=== PATIENT | female | born 1940 | race Caucasian/White ===

== ENCOUNTER → 2016-07-12 | Outpatient (CLI) | payer MEDICARE, OTHER ==
[~2016-07-12] MED LIST: ACID1TAB PO; ALPR0.254 PO; AMAN100T PO; CALC600T12 PO; CARB1TAB19 PO; CHOL5000 PO; DIPH1TAB49 PO; DIPH25CA6 PO; DIPH25TA82 PO; FERR-74 PO; FLUC100T PO; HYDR-3583 PO; IBUP-30 PO; IOHEXOL 350 MG/ML 100 ML (OMNIPAQUE 350) VIAL IV ONE; IRON1TAB94 PO; METO50TA2 PO; NF-ESOM40C PO; NS 100 ML (IVPB) BAG IV ONE; OMEG-109 PO; OMEG-12 PO; OXYB5TAB PO; OXYB5TAB9 PO; POLY17PO23 PO; SENN-75 PO; TERC45CR VG; TIOT18CA IH; TIOT18CA2 IH; TRAM50TA2 PO; VIT1TABL57 PO; ZOLP5TAB PO; ZOLP5TAB7 PO; [UNRECOGNIZED DRUG - CODE] PO; [UNRECOGNIZED DRUG - OTHER] PO
[2016-07-12 15:35] LABS: BLOOD UREA NITROGEN 21 MG/DL (7-18); BUN/CREATININE RATIO 25; CREATININE SERUM 0.85 MG/DL (0.60-1.30); GFR ESTIMATED > 60
--- NOTE | 2016-07-12 16:38 | Diagnostic Imaging Report ---
PROCEDURE: CT abdomen and pelvis with contrast. TECHNIQUE: Multiple contiguous axial images were obtained through the abdomen and pelvis after administration of intravenous contrast. INDICATION: Right lower quadrant pain. Status post appendectomy and hernia repair. 100 mL of Omnipaque 350 is administered intravenously. COMPARISON: 03/23/16 FINDINGS: The proximal small bowel loops are minimally distended with fluid and small air-fluid levels seen. There is transition point in the right lower quadrant to decompressed ileal loops. There is moderate amount of fecal material in the colon and rectum. There is diverticulosis. No diverticulitis. There is no significant free fluid or fluid collection in the abdomen or pelvis seen. There is a moderate-sized hiatal hernia. The lung bases demonstrate minimal scarring. The liver, the spleen, the adrenal glands, and the pancreas appear unremarkable. Cholecystectomy clips are seen. The kidneys have symmetric enhancement and contrast excretion. There is no hydronephrosis. The abdominal aorta is normal in caliber. No para-aortic significantly enlarged lymph nodes seen. The uterus and adnexa appear grossly unremarkable. The urinary bladder appears unremarkable. The osseous structures demonstrate prominent scoliosis convex to the left in the upper lumbar spine. IMPRESSION: 1. Mild fluid distention of proximal small bowel loops with transition into decompressed ileal loops in the right lower quadrant may relate to a low-grade partial small bowel obstruction or enteritis. 2. Diverticulosis. No diverticulitis. 3. There is moderate-sized hiatal hernia. Dr. Roberts is was called and given the findings by Dr. Flores at time of dictation. Dictated by: Dictated on workstation # [id number]
== END ==
LOC: RAD 15:06
PROVIDERS: ATTEND Nurse Practitioner Family
DX: R10.31 Right lower quadrant pain (principal)
CPT/HCPCS: 36415; 74177; 82565; 84520

== ENCOUNTER 2016-08-02 14:41 | Outpatient (RCR) | payer MEDICARE, OTHER ==
[~2016-08-02 14:41] MED LIST changes: -IOHEXOL 350 MG/ML 100 ML (OMNIPAQUE 350) VIAL IV ONE; -NS 100 ML (IVPB) BAG IV ONE
[2016-08-02 15:03] LABS: BASOPHILS % (AUTO) 0 % (0-10); EOSINOPHILS # (AUTO) 0.3 10^3/uL (0.0-0.3); EOSINOPHILS % (AUTO) 4 % (0-10); LYMPHOCYTES # (AUTO) 2.3 X 10^3 (1.0-4.0); LYMPHOCYTES % (AUTO) 33 % (12-44); MEAN CORPUSCULAR HEMOGLOBIN 30 PG (25-34); MEAN CORPUSCULAR HGB CONC 31 G/DL (32-36); MEAN CORPUSCULAR VOLUME 97 FL (80-99); MEAN PLATELET VOLUME 8.4 FL (7.4-10.4); MONOCYTES # (AUTO) 0.8 X 10^3 (0.0-1.0); MONOCYTES % (AUTO) 11 % (0-12); NEUTROPHILS # (AUTO) 3.7 X 10^3 (1.8-7.8); NEUTROPHILS % (AUTO) 52 % (42-75); PLATELET COUNT 335 10^3/uL (130-400); RED BLOOD COUNT 3.91 10^6/uL (4.35-5.85); RED CELL DISTRIBUTION WIDTH 13.1 % (10.0-14.5)
[2016-08-02 15:44] LABS: ALANINE AMINOTRANSFERASE < 6 U/L (0-55); ALBUMIN 3.5 G/DL (3.2-4.5); ANION GAP 9 MMOL/L (5-14); ASPARTATE AMINO TRANSFERASE 13 U/L (5-34); BILIRUBIN,TOTAL 0.1 MG/DL (0.1-1.0); BLOOD UREA NITROGEN 19 MG/DL (7-18); BUN/CREATININE RATIO 24; CALCIUM 10.2 MG/DL (8.5-10.1); CARBON DIOXIDE 36 MMOL/L (21-32); CHLORIDE 98 MMOL/L (98-107); CREATININE SERUM 0.78 MG/DL (0.60-1.30); GFR ESTIMATED > 60; GLUCOSE 82 MG/DL (70-105); POTASSIUM 5.6 MMOL/L (3.6-5.0); SODIUM 143 MMOL/L (135-145); TOTAL PROTEIN 7.2 G/DL (6.4-8.2)
== END 2016-10-31 | disposition home or self-care (01) ==
LOC: ONC 14:41
PROVIDERS: ATTEND Internal Medicine Hematology & Oncology
DX: D50.9 Iron deficiency anemia, unspecified (principal); I10 Essential (primary) hypertension; J44.9 Chronic obstructive pulmonary disease, unspecified; E87.5 Hyperkalemia; K21.9 Gastro-esophageal reflux disease without esophagitis; Z99.81 Dependence on supplemental oxygen; Z87.891 Personal history of nicotine dependence; Z79.899 Other long term (current) drug therapy
CPT/HCPCS: 36415; 80053; 82728; 83540; 85025; 99213

== ENCOUNTER 2016-12-21 11:03 | Outpatient (RCR) | payer MEDICARE, OTHER ==
[~2016-12-21 11:03] MED LIST changes: +CEFD300C3 PO; +FISH1CAP15 PO; +TRUBIOTIC PO
[2016-12-21 11:17] LABS: BASOPHILS % (AUTO) 0 % (0-10); EOSINOPHILS # (AUTO) 0.2 10^3/uL (0.0-0.3); EOSINOPHILS % (AUTO) 2 % (0-10); LYMPHOCYTES # (AUTO) 1.6 X 10^3 (1.0-4.0); LYMPHOCYTES % (AUTO) 21 % (12-44); MEAN CORPUSCULAR HEMOGLOBIN 30 PG (25-34); MEAN CORPUSCULAR HGB CONC 30 G/DL (32-36); MEAN CORPUSCULAR VOLUME 98 FL (80-99); MEAN PLATELET VOLUME 9.4 FL (7.4-10.4); MONOCYTES # (AUTO) 0.6 X 10^3 (0.0-1.0); MONOCYTES % (AUTO) 9 % (0-12); NEUTROPHILS # (AUTO) 4.9 X 10^3 (1.8-7.8); NEUTROPHILS % (AUTO) 68 % (42-75); PLATELET COUNT 238 10^3/uL (130-400); RED BLOOD COUNT 4.08 10^6/uL (4.35-5.85); WHITE BLOOD COUNT 7.3 10^3/uL (4.3-11.0)
[2016-12-21 12:01] LABS: ALANINE AMINOTRANSFERASE < 6 U/L (0-55); ALBUMIN 3.7 GM/DL (3.2-4.5); ANION GAP 3 MMOL/L (5-14); ASPARTATE AMINO TRANSFERASE 10 U/L (5-34); BILIRUBIN,TOTAL 0.3 MG/DL (0.1-1.0); BLOOD UREA NITROGEN 16 MG/DL (7-18); BUN/CREATININE RATIO 18; CALCIUM 9.3 MG/DL (8.5-10.1); CARBON DIOXIDE 38 MMOL/L (21-32); CHLORIDE 102 MMOL/L (98-107); CREATININE SERUM 0.87 MG/DL (0.60-1.30); GFR ESTIMATED > 60; GLUCOSE 96 MG/DL (70-105); POTASSIUM 4.5 MMOL/L (3.6-5.0); SODIUM 143 MMOL/L (135-145); TOTAL PROTEIN 7.2 GM/DL (6.4-8.2)
== END 2017-03-03 | disposition home or self-care (01) ==
LOC: ONC 11:03
PROVIDERS: ATTEND Internal Medicine Hematology & Oncology
DX: D50.9 Iron deficiency anemia, unspecified (principal); I10 Essential (primary) hypertension; J44.9 Chronic obstructive pulmonary disease, unspecified; K21.9 Gastro-esophageal reflux disease without esophagitis; Z99.81 Dependence on supplemental oxygen; Z87.891 Personal history of nicotine dependence; Z87.440 Personal history of urinary (tract) infections; Z79.899 Other long term (current) drug therapy
CPT/HCPCS: 36415; 80053; 82728; 83540; 85025; 99213

== ENCOUNTER 2017-06-22 15:18 | Outpatient (RCR) | payer MEDICARE, OTHER ==
[~2017-06-22 15:18] MED LIST changes: -FERR-74 PO; +FERR325T18 PO; +METO50TA15 PO; -METO50TA2 PO
[2017-06-22 16:16] LABS: BASOPHILS % (AUTO) 0 % (0-10); EOSINOPHILS # (AUTO) 0.3 10^3/uL (0.0-0.3); EOSINOPHILS % (AUTO) 4 % (0-10); HEMATOCRIT 35 % (35-52); HEMOGLOBIN 10.8 G/DL (11.5-16.0); LYMPHOCYTES % (AUTO) 26 % (12-44); MEAN CORPUSCULAR HEMOGLOBIN 32 PG (25-34); MEAN CORPUSCULAR HGB CONC 31 G/DL (32-36); MEAN CORPUSCULAR VOLUME 102 FL (80-99); MEAN PLATELET VOLUME 9.6 FL (7.4-10.4); MONOCYTES # (AUTO) 0.7 X 10^3 (0.0-1.0); MONOCYTES % (AUTO) 9 % (0-12); NEUTROPHILS # (AUTO) 4.5 X 10^3 (1.8-7.8); NEUTROPHILS % (AUTO) 61 % (42-75); PLATELET COUNT 255 10^3/uL (130-400); RED CELL DISTRIBUTION WIDTH 11.8 % (10.0-14.5); WHITE BLOOD COUNT 7.5 10^3/uL (4.3-11.0)
[2017-06-22 16:30] LABS: ALBUMIN 3.8 GM/DL (3.2-4.5); BILIRUBIN,TOTAL 0.2 MG/DL (0.1-1.0); CALCIUM 8.9 MG/DL (8.5-10.1); CREATININE SERUM 1.46 MG/DL (0.60-1.30); POTASSIUM 5.5 MMOL/L (3.6-5.0); TOTAL PROTEIN 7.2 GM/DL (6.4-8.2)
== END 2017-09-20 | disposition home or self-care (01) ==
LOC: ONC 15:18
PROVIDERS: ATTEND Internal Medicine Hematology & Oncology
DX: D50.9 Iron deficiency anemia, unspecified (principal); I10 Essential (primary) hypertension; J44.9 Chronic obstructive pulmonary disease, unspecified; K21.9 Gastro-esophageal reflux disease without esophagitis; Z99.81 Dependence on supplemental oxygen; Z87.891 Personal history of nicotine dependence; Z87.440 Personal history of urinary (tract) infections; Z79.899 Other long term (current) drug therapy
CPT/HCPCS: 36415; 80053; 82728; 83540; 85025

== ENCOUNTER 2017-11-09 15:50 | Outpatient (CLI) | payer MEDICARE, OTHER ==
[~2017-11-09] VITALS: Ht 160 cm; Wt 68.0 kg
[2017-11-09 16:25] VITALS: BP 128/63
[2017-11-09] MEDS ORDERED: ZOLEDRONATE 5 MG/100 ML (RECLAST) BTL IV ONE (16:30)
[2017-11-09 17:05] VITALS: BP 128/63
== END 2017-11-09 17:05 | disposition home or self-care (01) ==
LOC: SDC 15:50
PROVIDERS: ATTEND Internal Medicine
DX: M81.0 Age-related osteoporosis without current pathological fracture (principal)
CPT/HCPCS: 96365

== ENCOUNTER 2017-11-23 16:32 | Emergency (ER) | payer MEDICARE, OTHER ==
[~2017-11-23] VITALS: Ht 160 cm; Wt 71.2 kg
[2017-11-23] MEDS ORDERED: fentaNYL INJECTION 100 MCG/2 ML AMP IM STA (18:21)
[2017-11-23] MEDS ORDERED: ONDANSETRON 4 MG (ZOFRAN) ORAL DISSOLVE TAB SL STA (18:21)
--- NOTE | 2017-11-23 18:27 | ED Upper Extremity ---
General Chief Complaint: Upper Extremity Stated Complaint: FALL/R WRIST INJ Nursing Triage Note: pt presents to ed with complaints of r wrist pain after fall at home. pt denies any other injury or hitting head/LOC at this time. Nursing Sepsis Screen: No Definite Risk Source: patient, family Exam Limitations: no limitations (MAIKOL SANABRIA) History of Present Illness Date Seen by Provider: Nov 23, 2017 Time Seen by Provider: 18:15 Initial Comments 76-year-old female patient presents to the emergency Department with reports of right wrist pain after losing her balance and falling at home earlier today. Reports falling backwards onto an outstretched right hand. Denies hitting her head or loss of consciousness. Denies neck or back pain. Location Injury Occurred: home Onset: this afternoon Pain/Injury Location: right wrist Method of Injury: fell Modifying Factors: Improves With Immobilization; Worse With Movement (MAIKOL SANABRIA) Allergies and Home Medications Allergies Coded Allergies: hydrocodone (Verified Allergy, Severe, RASH, 11/10/16) Home Medications Amantadine HCl 100 Mg Tablet, 100 MG PO DAILY, (Reported) Calcium Carbonate 600 Mg Tablet, 1,200 MG PO DAILY, (Reported) TAKES 2 (600 MG) TABLETS Carbidopa/Levodopa 1 Each Tablet, 1 TAB PO TID, (Reported) Cefdinir 300 Mg Capsule, 300 MG PO twice a day Prescribed by: LISBET GLORIA on 11/13/16 1427 Cholecalciferol (Vitamin D3) 5,000 Unit Capsule, 5,000 UNIT PO DAILY, (Reported) Diphenhydramine HCl 25 Mg Capsule, 25 MG PO DAILY, (Reported) Esomeprazole Magnesium 40 Mg Cap, 40 MG PO 1700, (Reported) Ferrous Sulfate 325 Mg Tablet, 325 MG PO 1500, (Reported) Fish Oil/Dha/Epa 1 Each Capsule, 1,200 MG PO DAILY, (Reported) Ibuprofen 200 Mg Tablet, 200 MG PO QID PRN for PAIN-MILD, (Reported) Metoprolol Tartrate 50 Mg Tablet, 50 MG PO BID, (Reported) Ondansetron 8 Mg Tab.rapdis, 8 MG PO Q6H PRN for NAUSEA/VOMITING-1ST LINE Prescribed by: MAIKOL SANABRIA on 11/23/17 1830 Oxybutynin Chloride 5 Mg Tab.er.24, 5 MG PO BID, (Reported) Tiotropium Beaver 1 Inh Aerp, 1 CAP IH HS, (Reported) Tramadol HCl 50 Mg Tablet, 50-100 MG PO Q4H PRN for pain Prescribed by: MAIKOL SANABRIA on 11/23/17 1830 [Trubiotic] , 1 TAB PO DAILY, (Reported) Patient Home Medication List Home Medication List Reviewed: Yes (MAIKOL SANABRIA) Constitutional: no symptoms reported Respiratory: no symptoms reported Cardiovascular: no symptoms reported Musculoskeletal: No back pain; joint pain (right wrist pain), joint swelling ( right wrist swelling); No neck pain Skin: change in color (bruising to the right wrist) Psychiatric/Neurological: Denies Headache, Denies Numbness, Denies Paresthesia , Denies Tingling, Denies Weakness (MAIKOL SANABRIA) All Other Systems Reviewed Negative Unless Noted: Yes (Negative excepted noted.) (MAIKOL SANABRIA) Past Srjzfde-Csrjnf-Naywqe Hx Past Med/Social Hx: Reviewed Nursing Past Med/Soc Hx (MAIKOL SANABRIA) Patient Social History Alcohol Use: Denies Use Recreational Drug Use: No Smoking Status: Former Smoker Type Used: Cigarettes Former Smoker, Quit: Nov 16, 2015 Recent Foreign Travel: No Contact w/Someone Who Travel: No Recent Infectious Disease Expo: No Recent Hopitalizations: No Physical Abuse: No Sexual Abuse: No Mistreated: No Fear: No (MAIKOL SANABRIA) Immunizations Up To Date Tetanus Booster (TDap): Unknown Date of Pneumonia Vaccine: Mar 04, 2014 Date of Influenza Vaccine: Feb 03, 2012 (MAIKOL SANABRIA) Seasonal Allergies Seasonal Allergies: No (MAIKOL SANABRIA) Past Medical History Surgeries: Yes (DAYRON KERR 03/04/16; CEDRIC; ) Appendectomy, Eye Surgery, Gallbladder Respiratory: Yes COPD Currently Using CPAP: No Currently Using BIPAP: No Cardiac: No Neurological: Yes (HAND TREMORS) Parkinson's Disease Reproductive Disorders: No Sexually Transmitted Disease: No Genitourinary: No Gastrointestinal: Yes (HIATAL HERNIA) Abdominal Hernia, Chronic Constipation Musculoskeletal: Yes (ARTHRITIS) Endocrine: No HEENT: No Cancer: No Psychosocial: No Nursing Suicide Risk Score: 0 Integumentary: No Blood Disorders: Yes (MAIKOL SANABRIA) Family Medical History Reviewed Nursing Family Hx (MAIKOL SANABRIA) Diabetes mellitus 19 MOTHER FH: lung cancer 19 FATHER G8 SISTER FH: uterine cancer 19 MOTHER Hypertension 19 FATHER Myocardial infarction 19 FATHER Pacemaker 19 MOTHER UTI (urinary tract infection) 19 MOTHER No Pertinent Family Hx (MAIKOL SANABRIA) Physical Exam Vital Signs Vital Signs - First Documented 11/23/17 16:59 Temp 97.7 Pulse 80 Resp 20 B/P (MAP) 149/64 (92) Pulse Ox 97 (CASSIE PORTILLO MD) Vital Signs Capillary Refill : Less Than 3 Seconds (MAIKOL SANABRIA) General Appearance: WD/WN, no apparent distress HEENT: PERRL/EOMI, pharynx normal Neck: non-tender, full range of motion, supple, normal inspection Cardiovascular: normal peripheral pulses, regular rate, rhythm, no murmur Respiratory: lungs clear, normal breath sounds, no respiratory distress, no accessory muscle use Back: normal inspection, no vertebral tenderness Shoulder: normal inspection, non-tender, no evidence of injury, normal ROM Elbow/Forearm: normal inspection, non-tender, no evidence of injury, normal ROM , Right Wrist: Yes bone tenderness (right wrist tenderness over the distal radius), Yes ecchymosis (right wrist over the distal radius), Yes limited ROM (right wrist), Yes pain (right wrist), Yes soft tissue tenderness (right wrist), Yes swelling (mild swelling over the distal right radius) Hand: non-tender, normal ROM, Right, soft tissue tenderness (proximal right hand mild swelling and ecchymosis.) Neurologic/Tendon: normal sensation, normal motor functions, normal tendon functions, responds to pain, no evidence tendon injury Neurologic/Psychiatric: judge II-XII nml as tested, no motor/sensory deficits, alert, normal mood/affect, oriented x 3 Skin: normal color, warm/dry, ecchymosis (see hand and wrist exam as above.) ( MAIKOL SANABRIA) Progress/Results/Core Measures Results/Orders Blood Pressure Mean: 92 Progress Progress Note : Progress Note 11/24/17 08:41 - patient called stating her pain was not controlled with tramadol. She last took tramadol around 07:00. Patient was advised to ice her affected area in 20 minute intervals. She was also advised to add Tylenol ( acetaminophen) up to 1000 mg every 6 hours as needed. She was given guidance on tramadol use to use up to 100 mg every 6 hours not to exceed 400 mg in one day. Patient expressed understanding. (CASSIE PORTILLO MD) Diagnostic Imaging Diagonstic Imaging: Xray Plain Films/CT/US/NM/MRI: other (right wrist) Comments WRIST, RIGHT, 3 VIEWS OR MORE INDICATION: Fall. Right wrist pain. FINDINGS: Three views. Radiocarpal joint in good alignment. Articulating surfaces are smooth. There is no evidence of carpal bone subluxation. There does appear to be a nondisplaced fracture along the ulnar side of the articulating surface of the distal radius. Advanced osteoarthritic changes noted along the first carpometacarpal joint. No evidence of osteonecrosis. IMPRESSION: 1. Probable nondisplaced fracture along the articulating surface ulnar side of the distal radius. 2. Advanced osteoarthritic changes first metacarpocarpal joint. Dictated on workstation # [id number] Reviewed: Reviewed by Me (radiology report reviewed by me) (MAIKOL SANABRIA) Departure Impression Primary Impression: Fracture of radius Qualified Codes: S52.501A - Unspecified fracture of the lower end of right radius, initial encounter for closed fracture Disposition: HOME, SELF-CARE Condition: Improved Departure-Patient Inst. Decision time for Depature: 18:29 (MAIKOL SANABRIA) Referrals: MONSE HERNANDEZ MD, WILLIAM J DO (PCP/Family) Primary Care Physician CHESTER MONROY MD Patient Instructions: How to Use a Shoulder Sling, Wrist Fracture (DC) Add. Discharge Instructions: All discharge instructions reviewed with patient and/or family. Voiced understanding. Medications as instructed. Tylenol extra strength over-the- counter as directed for pain. No ibuprofen or Aleve. Splint clean and dry. Arm sling as instructed. Left arm activities only until released by the orthopedic surgeon. Follow-up with Dr. Hernandez as an outpatient for recheck within the next 7 days. Call Sunday morning for an appointment time. Ice pack as needed to the right wrist as needed. Return to the emergency department immediately for worsened pain, swelling, numbness, pain from the splint, or any other concerns. Scripts Ondansetron (Ondansetron Odt) 8 Mg Tab.rapdis 8 MG PO Q6H PRN for NAUSEA/VOMITING-1ST LINE, #20 TAB 0 Refills Prov: MAIKOL SANABRIA 11/23/17 Tramadol HCl (Tramadol HCl) 50 Mg Tablet 50-100 MG PO Q4H PRN for pain, #30 TAB 0 Refills Prov: MAIKOL SANABRIA 11/23/17 MAIKOL SANABRIA Nov 23, 2017 18:27 CASSIE PORTILLO MD Nov 24, 2017 08:42
[2017-11-23] MEDS ORDERED: TRAM50TA2 PO (18:30)
[2017-11-23] MEDS ORDERED: ONDA8TAB13 PO (18:30)
[2017-11-23 19:15] VITALS: BP 149/64
== END 2017-11-23 19:16 | disposition home or self-care (01) ==
LOC: EDUNIT# 16:32 → ER 16:33
DX: S52.501A Unspecified fracture of the lower end of right radius, initial encounter for closed fracture (principal); J44.9 Chronic obstructive pulmonary disease, unspecified; G20 Parkinson's disease; Z80.1 Family history of malignant neoplasm of trachea, bronchus and lung; Z82.49 Family history of ischemic heart disease and other diseases of the circulatory system; Z80.49 Family history of malignant neoplasm of other genital organs; Z87.19 Personal history of other diseases of the digestive system; Z88.5 Allergy status to narcotic agent; Z87.891 Personal history of nicotine dependence; Z90.89 Acquired absence of other organs; W18.39XA Other fall on same level, initial encounter
CPT/HCPCS: 29125; 73110; 99282

== ENCOUNTER → 2018-01-03 | Outpatient (CLI) | payer MEDICARE, OTHER ==
[~2018-01-03] MED LIST changes: +ONDA8TAB13 PO
--- NOTE | 2018-01-03 12:44 | Diagnostic Imaging Report ---
INDICATION: Age related osteoporosis. Comparison is made with prior DEXA scan from 01/31/2013. Bone marrow analysis of the lumbar spine and both hips was performed. Bone mineral density lumbar spine L2-L4 0.995 with T score -1.7. This compares with 0.926 and -2.3 on prior. Bone mineral density left femoral neck is 0.615 with T score -3.0. This compares with 0.638 and -2.9. Bone mineral density right femoral neck is 0.650 with T score of -2.8. This compares with 0.630 and -2.9. IMPRESSION: Findings consistent with osteopenia of the lumbar spine and osteoporosis of the bilateral femoral necks. Dictated by: Dictated on workstation # [id number]
--- NOTE | 2018-01-03 17:48 | Diagnostic Imaging Report ---
INDICATION: Routine screening. COMPARISON: Comparison is made with prior mammograms from 01/25/2016 and 12/18/2014. TECHNIQUE: 2D and 3D bilateral screening mammography was performed with computer-aided detection (CAD) system. FINDINGS: Scattered fibroglandular densities are identified bilaterally. Benign calcifications are identified bilaterally. No mass or malignant appearing microcalcifications are seen. The axillae are unremarkable. IMPRESSION: No mammographic features suspicious for malignancy are identified. ACR BI-RADS Category 2: Benign findings. Result letter will be mailed to the patient. Note: At least 10% of breast cancer is not imaged by mammography. Dictated by: Dictated on workstation # [id number]
== END ==
LOC: RAD 10:49
PROVIDERS: ATTEND Internal Medicine
DX: Z12.31 Encounter for screening mammogram for malignant neoplasm of breast (principal); M81.0 Age-related osteoporosis without current pathological fracture
CPT/HCPCS: 77067; 77080

== ENCOUNTER 2018-01-09 16:14 | Outpatient (RCR) | payer MEDICARE, OTHER ==
[2018-01-09 16:32] LABS: BASOPHILS % (AUTO) 0 % (0-10); EOSINOPHILS # (AUTO) 0.3 10^3/uL (0.0-0.3); EOSINOPHILS % (AUTO) 4 % (0-10); HEMATOCRIT 34 % (35-52); HEMOGLOBIN 10.1 G/DL (11.5-16.0); LYMPHOCYTES # (AUTO) 1.8 X 10^3 (1.0-4.0); LYMPHOCYTES % (AUTO) 25 % (12-44); MEAN CORPUSCULAR HEMOGLOBIN 31 PG (25-34); MEAN CORPUSCULAR HGB CONC 30 G/DL (32-36); MEAN CORPUSCULAR VOLUME 103 FL (80-99); MEAN PLATELET VOLUME 9.2 FL (7.4-10.4); MONOCYTES # (AUTO) 0.7 X 10^3 (0.0-1.0); MONOCYTES % (AUTO) 10 % (0-12); NEUTROPHILS # (AUTO) 4.5 X 10^3 (1.8-7.8); NEUTROPHILS % (AUTO) 61 % (42-75); PLATELET COUNT 260 10^3/uL (130-400); RED BLOOD COUNT 3.29 10^6/uL (4.35-5.85); RED CELL DISTRIBUTION WIDTH 12.8 % (10.0-14.5); WHITE BLOOD COUNT 7.3 10^3/uL (4.3-11.0)
[2018-01-09 16:48] LABS: ALANINE AMINOTRANSFERASE < 6 U/L (0-55); ALBUMIN 3.9 GM/DL (3.2-4.5); ALKALINE PHOSPHATASE 81 U/L (40-136); BILIRUBIN,TOTAL 0.2 MG/DL (0.1-1.0); BUN/CREATININE RATIO 19; CALCIUM 9.4 MG/DL (8.5-10.1); CARBON DIOXIDE 35 MMOL/L (21-32); CHLORIDE 98 MMOL/L (98-107); CREATININE SERUM 1.32 MG/DL (0.60-1.30); GFR ESTIMATED 39; GLUCOSE 84 MG/DL (70-105); SODIUM 139 MMOL/L (135-145); TOTAL PROTEIN 7.1 GM/DL (6.4-8.2)
== END 2018-02-01 | disposition home or self-care (01) ==
LOC: ONC 16:14
PROVIDERS: ATTEND Internal Medicine Hematology & Oncology
DX: D50.9 Iron deficiency anemia, unspecified (principal); I10 Essential (primary) hypertension; J44.9 Chronic obstructive pulmonary disease, unspecified; K21.9 Gastro-esophageal reflux disease without esophagitis; Z99.81 Dependence on supplemental oxygen; Z87.891 Personal history of nicotine dependence; Z87.440 Personal history of urinary (tract) infections; Z79.899 Other long term (current) drug therapy
CPT/HCPCS: 80053; 82607; 82728; 82746; 85025; 99213

== ENCOUNTER 2018-06-17 11:38 | Inpatient (IN) | payer MEDICARE, OTHER ==
[~2018-06-17] VITALS: Ht 157.5 cm; Wt 70.1 kg
[~2018-06-17 11:38] MED LIST changes: -POLY17PO23 PO; +POLY17PO31 PO
--- NOTE | 2018-06-17 11:56 | ED General ---
General Stated Complaint: WEAKNESS Source of Information: Patient, EMS, Family Exam Limitations: No Limitations History of Present Illness Date Seen by Provider: Jun 17, 2018 Time Seen by Provider: 11:39 Initial Comments Patient presents to ER by private conveyance with chief complaint of last week and a half of feeling very weak and tired and unable to take enough fluids or sustenance. She's had a productive cough lately recently but no fevers. She's had some chills. She has a history of COPD on 4 L of oxygen at baseline by nasal cannula. She denies dysuria but she has had nausea vomiting and diarrhea for the past couple days. No sick contacts she is aware of. She lives a home with her . She's not been taking her metoprolol lately because she said it makes her dizzy and about a month ago they reduce the dose from 25 to 12-1/2 and about 2-3 weeks ago she just stopped taking she was still getting dizzy with it. She was on Bactrim about a month ago for UTI. Her chest pain is in the substernal and left chest reproducible on deep inspiration or pressing on her chest. She associates with her COPD. Worse with a cough. Allergies and Home Medications Allergies Coded Allergies: hydrocodone (Verified Allergy, Severe, RASH, 11/10/16) Home Medications Amantadine HCl 100 Mg Tablet, 100 MG PO DAILY, (Reported) Calcium Carbonate 600 Mg Tablet, 1,200 MG PO DAILY, (Reported) TAKES 2 (600 MG) TABLETS Carbidopa/Levodopa 1 Each Tablet, 1 TAB PO TID, (Reported) Cefdinir 300 Mg Capsule, 300 MG PO twice a day Prescribed by: LISBET GLORIA on 11/13/16 0147 Cholecalciferol (Vitamin D3) 5,000 Unit Capsule, 5,000 UNIT PO DAILY, (Reported) Diphenhydramine HCl 25 Mg Capsule, 25 MG PO DAILY, (Reported) Esomeprazole Magnesium 40 Mg Cap, 40 MG PO 1700, (Reported) Ferrous Sulfate 325 Mg Tablet, 325 MG PO 1500, (Reported) Fish Oil/Dha/Epa 1 Each Capsule, 1,200 MG PO DAILY, (Reported) Ibuprofen 200 Mg Tablet, 200 MG PO QID PRN for PAIN-MILD, (Reported) Metoprolol Tartrate 50 Mg Tablet, 50 MG PO BID, (Reported) Ondansetron 8 Mg Tab.rapdis, 8 MG PO Q6H PRN for NAUSEA/VOMITING-1ST LINE Prescribed by: MAIKOL SANABRIA on 11/23/171829 Oxybutynin Chloride 5 Mg Tab.er.24, 5 MG PO BID, (Reported) Tiotropium [place] 1 Inh Aerp, 1 CAP IH HS, (Reported) Tramadol HCl 50 Mg Tablet, 50-100 MG PO Q4H PRN for pain Prescribed by: MAIKOL SANABRIA on 11/23/171829 [Trubiotic] , 1 TAB PO DAILY, (Reported) Patient Home Medication List Home Medication List Reviewed: Yes Review of Systems Review of Systems Constitutional: No chills, No diaphoresis EENTM: No ear discharge, No ear pain, No eye pain Respiratory: cough, phlegm, short of breath; No wheezing Cardiovascular: No chest pain, No edema Gastrointestinal: No abdominal pain, No constipation, No diarrhea Genitourinary: No discharge, No dysuria : No Musculoskeletal: No back pain, No joint pain Skin: No pruritus, No rash Past Zcgegll-Swgdfi-Adwyki Hx Patient Social History Alcohol Use: Denies Use Recreational Drug Use: No Smoking Status: Former Smoker Type Used: Cigarettes Former Smoker, Quit: Nov 16, 2015 Recent Hopitalizations: No Immunizations Up To Date Tetanus Booster (TDap): Unknown Date of Pneumonia Vaccine: Mar 04, 2014 Date of Influenza Vaccine: Feb 03, 2012 Seasonal Allergies Seasonal Allergies: No Past Medical History Surgeries: Yes (APPAram - DR. KERR 03/04/16; CEDRIC; ) Appendectomy, Eye Surgery, Gallbladder Respiratory: Yes COPD Currently Using CPAP: No Currently Using BIPAP: No Cardiac: No Neurological: Yes (HAND TREMORS) Parkinson's Disease Reproductive Disorders: No Sexually Transmitted Disease: No Genitourinary: No Gastrointestinal: Yes (HIATAL HERNIA) Abdominal Hernia, Chronic Constipation Musculoskeletal: Yes (ARTHRITIS) Endocrine: No HEENT: No Cancer: No Psychosocial: No Integumentary: No Blood Disorders: Yes Family Medical History Diabetes mellitus 19 MOTHER FH: lung cancer 19 FATHER G8 SISTER FH: uterine cancer 19 MOTHER Hypertension 19 FATHER Myocardial infarction 19 FATHER Pacemaker 19 MOTHER UTI (urinary tract infection) 19 MOTHER No Pertinent Family Hx Physical Exam Vital Signs Vital Signs - First Documented 06/17/18 11:38 Temp 97.8 Pulse 109 Resp 16 B/P (MAP) 140/68 (92) Pulse Ox 96 O2 Delivery Nasal Cannula O2 Flow Rate 4.00 Capillary Refill : Height, Weight, BMI Height: 5'3.00" Weight: 157lbs. 0.0oz. 71.376901rl; 24.5 BMI Method:Stated General Appearance: Mild Distress Eyes: Bilateral Eye Normal Inspection, Bilateral Eye PERRL, Bilateral Eye EOMI HEENT: PERRL/EOMI, TMs Normal, Normal ENT Inspection, Pharynx Normal ( edontulous); No Moist Mucous Membranes Neck: Full Range of Motion, Normal Inspection Respiratory: Chest Non Tender, Lungs Clear, No Accessory Muscle Use, Decreased Breath Sounds, Expiration (prolonged), Respiratory Distress (mild increased respiratory rate); No Wheezing Cardiovascular: Regular Rate, Rhythm, No Edema, Normal Peripheral Pulses Gastrointestinal: Normal Bowel Sounds, No Organomegaly, Non Tender, Soft Extremity: Normal Capillary Refill, Normal Inspection Neurologic/Psychiatric: Alert, Oriented x3, No Motor/Sensory Deficits Skin: Normal Color, Warm/Dry Focused Exam Lactate Level 06/17/18 12:15: Lactic Acid Level 0.77 Progress/Results/Core Measures Suspected Sepsis SIRS Temperature: Pulse: Respiratory Rate: Laboratory Tests 06/17/18 12:15: White Blood Count 12.6H Blood Pressure / Mean: 06/17/18 12:15: Lactic Acid Level 0.77 Laboratory Tests 06/17/18 12:15: Creatinine 0.79, INR Comment 1.0, Platelet Count 263, Total Bilirubin 0.3 Results/Orders Lab Results Laboratory Tests Test 06/17/18 12:08 06/17/18 12:15 06/17/18 13:30 Range/Units Blood Gas Puncture Site R BRACHIAL Blood Gas Patient Temperature 97.8 Arterial Blood pH 7.38 7.37-7.43 Arterial Blood Partial Pressure CO2 85 *H 35-45 MMHG Arterial Blood Partial Pressure O2 110 H 79-93 MMHG Arterial Blood HCO3 50 *H 23-27 MMOL/L Arterial Blood Total CO2 52.4 H 21.0-31.0 MMOL/L Arterial Blood Oxygen Saturation 99 94-100 % Arterial Blood Base Excess 23.0 H -2.5-2.5 MMOL/L Foreign Test POSITIVE Blood Gas Ventilator Setting NO Blood Gas Inspired Oxygen 4 White Blood Count 12.6 H 4.3-11.0 10^3/uL Red Blood Count 3.49 L 4.35-5.85 10^6/uL Hemoglobin 10.1 L 11.5-16.0 G/DL Hematocrit 37 35-52 % Mean Corpuscular Volume 105 H 80-99 FL Mean Corpuscular Hemoglobin 29 25-34 PG Mean Corpuscular Hemoglobin Concent 27 L 32-36 G/DL Red Cell Distribution Width 11.9 10.0-14.5 % Platelet Count 263 130-400 10^3/uL Mean Platelet Volume 9.0 7.4-10.4 FL Neutrophils (%) (Auto) 88 H 42-75 % Lymphocytes (%) (Auto) 5 L 12-44 % Monocytes (%) (Auto) 6 0-12 % Eosinophils (%) (Auto) 0 0-10 % Basophils (%) (Auto) 0 0-10 % Neutrophils # (Auto) 11.1 H 1.8-7.8 X 10^3 Lymphocytes # (Auto) 0.6 L 1.0-4.0 X 10^3 Monocytes # (Auto) 0.8 0.0-1.0 X 10^3 Eosinophils # (Auto) 0.0 0.0-0.3 10^3/uL Basophils # (Auto) 0.0 0.0-0.1 10^3/uL Neutrophils % (Manual) 93 % Lymphocytes % (Manual) 2 % Monocytes % (Manual) 5 % Polychromasia SLIGHT Basophilic Stippling SLIGHT Stomatocytes MARKED Prothrombin Time 13.1 12.2-14.7 SEC INR Comment 1.0 0.8-1.4 Activated Partial Thromboplast Time 20 L 24-35 SEC Sodium Level 140 135-145 MMOL/L Potassium Level 4.9 3.6-5.0 MMOL/L Chloride Level 84 L 98-107 MMOL/L Carbon Dioxide Level 44 H 21-32 MMOL/L Anion Gap 12 5-14 MMOL/L Blood Urea Nitrogen 11 7-18 MG/DL Creatinine 0.79 0.60-1.30 MG/DL Estimat Glomerular Filtration Rate > 60 BUN/Creatinine Ratio 14 Glucose Level 93 70-105 MG/DL Lactic Acid Level 0.77 0.50-2.00 MMOL/L Calcium Level 9.9 8.5-10.1 MG/DL Corrected Calcium 10.4 H 8.5-10.1 MG/DL Total Bilirubin 0.3 0.1-1.0 MG/DL Aspartate Amino Transf (AST/SGOT) 7 5-34 U/L Alanine Aminotransferase (ALT/SGPT) < 6 0-55 U/L Alkaline Phosphatase 97 40-136 U/L Troponin I < 0.028 <0.028 NG/ML Total Protein 7.6 6.4-8.2 GM/DL Albumin 3.4 3.2-4.5 GM/DL Urine Color YELLOW Urine Clarity CLEAR Urine pH 6.5 5-9 Urine Specific R[place]y 1.015 L 1.016-1.022 Urine Protein 3+ H NEGATIVE Urine Glucose (UA) NEGATIVE NEGATIVE Urine Ketones 3+ H NEGATIVE Urine Nitrite NEGATIVE NEGATIVE Urine Bilirubin NEGATIVE NEGATIVE Urine Urobilinogen NORMAL NORMAL MG/DL Urine Leukocyte Esterase 1+ H NEGATIVE Urine RBC (Auto) 1+ H NEGATIVE Urine RBC 2-5 H /HPF Urine WBC 2-5 /HPF Urine Squamous Epithelial Cells 5-10 /HPF Urine Crystals NONE /LPF Urine Bacteria TRACE /HPF Urine Casts NONE /LPF Urine Mucus NEGATIVE /LPF Urine Culture Indicated CULTURE PENDING Micro Results Microbiology 06/17/18 Influenza Types A,B Antigen (EJ) - Final, Complete My Orders Orders - NERY CONNER Chest 1 View, Ap/Pa Only (06/17/18 11:46) Cbc With Automated Diff (06/17/18 11:46) Comprehensive Metabolic Panel (06/17/18 11:46) Blood Culture (06/17/18 11:46) Sputum Culture (06/17/18 11:46) Urine Culture (06/17/18 11:46) Protime With Inr (06/17/18 11:46) Partial Thromboplastin Time (06/17/18 11:46) Saline Lock/Iv-Start (06/17/18 11:46) Saline Lock/Iv-Start (06/17/18 11:46) Ekg Tracing (06/17/18 11:46) Troponin I (06/17/18 11:46) Vital Signs Adult Sepsis Patie Q15M (06/17/18 11:46) Ondansetron Injection (Zofran Injectio (06/17/18 12:00) O2 (06/17/18 11:46) Remove Rings In Anticipation O (06/17/18 11:46) Lactic Acid Analyzer (06/17/18 11:46) Influenza A And B Antigens (06/17/18 11:46) Ns Iv 1000 Ml (Sodium Chloride 0.9%) (06/17/18 12:00) Piperacillin Sodium/Tazobactam (Zosyn Vi (06/17/18 12:00) Arterial Blood Gas (06/17/18 12:08) Manual Differential (06/17/18 12:15) Straight Cath For Spec.-Adult (06/17/18 13:16) Urinalysis (06/17/18 13:16) Arterial Blood Draw (06/17/18 ) General/Regular (06/17/18 Dinner) Ceftriaxone For Iv Use (Rocephin For I (06/17/18 17:15) Azithromycin Injection (Zithromax Inject (06/17/18 17:15) 1/2 Ns Iv Solution (0.45% Sodium Chlorid (06/17/18 17:15) Medications Given in ED Current Medications Medications Dose Ordered Sig/Vicente Route Start Time Stop Time Status Last Admin Dose Admin Ondansetron HCl 4 mg PRN PRN IV 06/17/18 12:00 06/17/18 13:12 DC 06/17/18 13:12 4 MG Piperacillin Sod/ Tazobactam Sod 4.5 gm/Sodium Chloride 100 ml @ 200 mls/hr ONCE ONCE IV 06/17/18 12:00 06/17/18 12:29 DC 06/17/18 13:12 200 MLS/HR Sodium Chloride 1,500 ml @ 1,500 mls/hr ONCE ONCE IV 06/17/18 12:00 06/17/18 12:59 DC 06/17/18 13:57 1,500 MLS/HR Vital Signs/I&O 06/17/18 11:38 Temp 97.8 Pulse 109 Resp 16 B/P (MAP) 140/68 (92) Pulse Ox 96 O2 Delivery Nasal Cannula O2 Flow Rate 4.00 Capillary Refill : Progress Note #1: Time: 11:59 Progress Note Influenza, septic workup, fluids and we'll start with Zosyn would cover for respiratory or GI or urinary etc. Her chest pain is fleeting for the past several days and may or may not represent anything cardiac going get an EKG and troponin as well. Progress Note #2: Time: 16:42 Progress Note The patient was tachycardic when she came here but her curb 65 score is only 1. We do not have any medical beds here in the hospital because were on diversion. We called [facility] but they're not able to take the patient because of her high CO2 and risk of decompensation and not having pulmonology etc. We talked the patient and she says she's never been to [facility] or [facility] however her mother went to [facility] and she preferred to go there. Progress Note #3: Time: 18:33 Progress Note Previously we tried to admit the patient here however we are on diversion so I looked at [place] was unable to accept the patient. We then set the patient up with Dr. Pink at [place], [place]. Before we could transfer her however I was advised that they found one more floor bed in the hospital so the patient has agreed to stay here. We have talked to Dr. Gloria and he accepts the patient for observation for pneumonia. I have called and left a message with one call at [facility] at them know that we will not be needing that bed. Nursing staff was able to get a hold of nursing at [facility] in and advise them that we would not need that bed. ECG Initial ECG Impression Date: Jun 17, 2018 Initial ECG Impression Time: 14:21 Initial ECG Rate: 108 Initial ECG Rhythm: S.Tach Initial ECG Intervals: Normal Initial ECG Impression: Normal, Nonspecific Changes Comment Sinus tachycardia with no ST T-wave elevation or depression. Diagnostic Imaging Diagonstic Imaging: Xray Plain Films/CT/US/NM/MRI: chest (1v) Comments NAME: ROSALIE ALVARADO MED REC#: [id number] PHYSICIAN: NERY CONNER MD CC: HENRI PEARSON MD; NERY CONNER Page 1 of 1 RADIOLOGY REPORT [facility] [place], [place] CC: HENRI PEARSON MD; NERY CONNER Page 1 of 1 RADIOLOGY REPORT NAME: ROSALIE ALVARADO MED REC#: [id number] PT STATUS: REG ER : 1940 PHYSICIAN: NERY CONNER MD ADMIT DATE: 06/17/18/ER Signed Date of Exam: 06/17/18 CHEST 1 VIEW, AP/PA ONLY INDICATION: Weakness. TIME OF EXAM: 01:19 p.m. Correlation is made with prior chest radiograph from 11/11/2016. Heart size is stable. Right convexity thoracic scoliotic curvature is unchanged. Curvilinear parenchymal density in the left base is noted and has been seen on prior studies consistent with atelectasis or scarring. There is some minimal patchy parenchymal density as well in the left mid and lower lung field. Right lung is clear. No effusion or pneumothorax is seen. IMPRESSION: Patchy infiltrate or atelectasis left mid and lower lung field. The study is otherwise unremarkable. Dictated by: Dictated on workstation # [id number] Dict: 06/17/18 1339 Trans: 06/17/18 1546 Interpreted by: HENRI PEARSON MD Electronically signed by: HENRI PEARSON MD 06/17/18 1546 Reviewed: Reviewed by Me Departure Communication (Admissions) Time/Spoke to Admitting Phy: 18:29 Dr. Gloria accepts the patient to the floor. Impression Primary Impression: Pneumonia Qualified Codes: J18.1 - Lobar pneumonia, unspecified organism Additional Impressions: COPD (chronic obstructive pulmonary disease) Qualified Codes: J44.0 - Chronic obstructive pulmonary disease with acute lower respiratory infection Chronic respiratory failure with hypoxia Sepsis Qualified Codes: A41.9 - Sepsis, unspecified organism Disposition: 09 ADMITTED INPATIENT (ERASED) Condition: Stable Admissions Decision to Admit Reason: Admit from ER (General) Decision to Admit/Date: Jun 17, 2018 Time/Decision to Admit Time: 18:35 Departure-Patient Inst. Referrals: DHRUV FLORES DO (PCP/Family) Primary Care Physician Copy Copies To 1: DHRUV FLORES TITUS J Jun 17, 2018 11:56
[2018-06-17] MEDS ORDERED: ONDANSETRON 4 MG/2 ML (SDV) Z0FRAN IV PRN ×2 (12:00→21:30)
[2018-06-17] MEDS ORDERED: PIPERACILLIN SODIUM/TAZOBACTAM 4.5 GM in NS (IVPB) 100 ML IV ONE (12:00)
[2018-06-17 12:13] LABS: ABG OXYGEN SATURATION 99 % (94-100); ABG PH 7.38 (7.37-7.43); ABG PO2 110 MMHG (79-93); ABG TCO2 52.4 MMOL/L (21.0-31.0)
[2018-06-17 12:16] LABS: ALLENS TEST POSITIVE; INSPIRED O2 4; PATIENT TEMP 97.8; VENTILATOR NO
[2018-06-17 12:17] LABS: ABG PCO2 85 MMHG (35-45)
[2018-06-17 12:27] LABS: BASOPHILS % (AUTO) 0 % (0-10); EOSINOPHILS % (AUTO) 0 % (0-10); HEMATOCRIT 37 % (35-52); HEMOGLOBIN 10.1 G/DL (11.5-16.0); LYMPHOCYTES # (AUTO) 0.6 X 10^3 (1.0-4.0); LYMPHOCYTES % (AUTO) 5 % (12-44); MEAN CORPUSCULAR HEMOGLOBIN 29 PG (25-34); MEAN CORPUSCULAR HGB CONC 27 G/DL (32-36); MEAN CORPUSCULAR VOLUME 105 FL (80-99); MONOCYTES # (AUTO) 0.8 X 10^3 (0.0-1.0); MONOCYTES % (AUTO) 6 % (0-12); NEUTROPHILS # (AUTO) 11.1 X 10^3 (1.8-7.8); NEUTROPHILS % (AUTO) 88 % (42-75); PLATELET COUNT 263 10^3/uL (130-400); RED BLOOD COUNT 3.49 10^6/uL (4.35-5.85); RED CELL DISTRIBUTION WIDTH 11.9 % (10.0-14.5); WHITE BLOOD COUNT 12.6 10^3/uL (4.3-11.0)
[2018-06-17 12:38] LABS: PROTHROMBIN TIME PATIENT 13.1 SEC (12.2-14.7)
[2018-06-17 12:45] LABS: ALANINE AMINOTRANSFERASE < 6 U/L (0-55); ALBUMIN 3.4 GM/DL (3.2-4.5); ALKALINE PHOSPHATASE 97 U/L (40-136); BILIRUBIN,TOTAL 0.3 MG/DL (0.1-1.0); BUN/CREATININE RATIO 14; CALCIUM 9.9 MG/DL (8.5-10.1); CARBON DIOXIDE 44 MMOL/L (21-32); CHLORIDE 84 MMOL/L (98-107); CREATININE SERUM 0.79 MG/DL (0.60-1.30); GFR ESTIMATED > 60; GLUCOSE 93 MG/DL (70-105); POTASSIUM 4.9 MMOL/L (3.6-5.0); SODIUM 140 MMOL/L (135-145); TOTAL PROTEIN 7.6 GM/DL (6.4-8.2)
[2018-06-17 12:58] LABS: LYMPHOCYTES % (MANUAL) 2 %; MONOCYTES % (MANUAL) 5 %; NEUTROPHILS % (MANUAL) 93 %; POLYCHROMASIA SLIGHT; STOMATOCYTES MARKED
[2018-06-17] MEDS: NS IV 1000 ML 1,500 ML IV ONE ×2 (13:12→13:57)
[2018-06-17 13:39] LABS: BILIRUBIN,URINE NEGATIVE (NEGATIVE); CLARITY,URINE CLEAR; COLOR,URINE YELLOW; GLUCOSE, URINE (UA) NEGATIVE (NEGATIVE); KETONES,URINE 3+ (NEGATIVE); LEUKOCYTE ESTERASE ,URINE 1+ (NEGATIVE); NITRITE,URINE NEGATIVE (NEGATIVE); PH,URINE 6.5 (5-9); PROTEIN,URINE 3+ (NEGATIVE); UROBILINOGEN,URINE NORMAL (NORMAL)
--- NOTE | 2018-06-17 13:45 | Diagnostic Imaging Report ---
INDICATION: Weakness. TIME OF EXAM: 01:19 p.m. Correlation is made with prior chest radiograph from 11/11/2016. Heart size is stable. Right convexity thoracic scoliotic curvature is unchanged. Curvilinear parenchymal density in the left base is noted and has been seen on prior studies consistent with atelectasis or scarring. There is some minimal patchy parenchymal density as well in the left mid and lower lung field. Right lung is clear. No effusion or pneumothorax is seen. IMPRESSION: Patchy infiltrate or atelectasis left mid and lower lung field. The study is otherwise unremarkable. Dictated by: Dictated on workstation # [id number]
[2018-06-17 13:51] LABS: BACTERIA,URINE TRACE /HPF
--- NOTE | 2018-06-17 14:25 | NUR ---
BP 122/63. P 103
--- NOTE | 2018-06-17 14:54 | NUR ---
BP 132/63. P 103.
--- NOTE | 2018-06-17 15:14 | NUR ---
BP 118/60. P 106.
--- NOTE | 2018-06-17 16:22 | NUR ---
BP 121/60. P 103.
[2018-06-17] MEDS ORDERED: cefTRIAXone FOR IV USE 1,000 MG in NS (IVPB) 50 ML IV ONE (17:15)
[2018-06-17] MEDS ORDERED: 1/2 NS IV SOLUTION 1,000 ML IV SCH (17:15)
--- NOTE | 2018-06-17 17:26 | NUR ---
DIET ORDER PLACED FOR PT AT THIS TIME.
[2018-06-17] MEDS: AZITHROMYCIN INJECTION 500 MG in NS (IVPB) 250 ML IV ONE ×2 (18:14→19:24)
--- NOTE | 2018-06-17 18:31 | NUR ---
BP 132/63. P 111.
--- NOTE | 2018-06-17 18:35 | NUR ---
Called [facility] to cancel transfer.
[2018-06-17] MEDS ORDERED: SULF-222 (19:28)
--- NOTE | 2018-06-17 19:33 | NUR ---
Nurse unable to take report. Nurse to call back when available.
--- NOTE | 2018-06-17 19:55 | NUR ---
BP 122/62. P 103.
--- NOTE | 2018-06-17 20:20 | NUR ---
Report received from [facility] in ED at 2009. Pt arrived to room at 2020. ROSALIE ALVARADO admitted to room 405-1, with an admitting diagnosis of Pneumonia, Sepsis, COPD on 06/17/18 from ED via wheelchair, accompanied by staff.ROSALIE ALVARADO introduced to surroundings, call light, bed controls, phone, TV, temperature control, lights, meal times, smoking policy, visitor policy, side rail policy, bathrooms and showers. Patient Rights given to patient in the handbook. ROSALIE ALVARADO verbalizes understanding that [facility] is not responsible for the loss or damage to any personal effects or valuables that are kept in the patients posession during their hospitalization. ROSALIE ALVARADO verbalizes understanding of Interdisciplinary Patient Education. Patient and/or family were informed about the Rapid Response Team and its purpose.
[2018-06-17 20:25] VITALS: BP 137/67
--- NOTE | 2018-06-17 20:32 | NUR ---
There are no vitals to print for this pt as the monitor in rm 8 broke after the initial pt assessment. Pt was hooked up to portible sats during stay in ED.
[2018-06-17] MEDS ORDERED: ACETAMINOPHEN 500 MG TAB (TYLENOL) PO PRN (21:30)
--- OUTSIDE RECORDS SUMMARY | 2018-06-17 21:33 | XMS REPORT | Continuity of Care Document ---
Author Author [facility] Organization [facility] Address [facility] [address] [place] [id number] Phone Unavailable Support Name Relationship Address Phone RASHEEDA DUKES MD Caregiver [address] [place] [phone] Unavailable MAXWELL AGOSTO M.D. Caregiver [address] [place] [address] RIAN ALVARADO Next Of Kin [address] [place], [place] [id number] Insurance Providers Payer Name Policy Number Subscriber Name Relationship Shala [id number] EdmundoJose 01 Medicare [id number] Rosalie Alvarado A 20 Self / Same As Patient Advance Directives Directive Response Recorded Date/Time Advance Directives No 09/17/15 6:41pm Living Will No 09/17/15 6:41pm Health Care Proxy No 09/17/15 6:41pm Power of Supervisor [employer] for Health Care No 09/17/15 6:41pm Organ, Tissue, or Eye Donor No 09/17/15 6:41pm Do you have a signed organ donor card? No 09/17/15 6:41pm Chief Complaint and Reason for Visit Chief Complaint HIP PAIN Reason for Visit [id number] Problems Active Problems Medical Problem Onset Date Status Hip pain, right Unknown Acute Medications Current Home Medications Medication Dose Units Route Directions Days/Qty Instructions Start Date Acetaminophen/Hydrocodone Bitart (Lortab 7.5-325 Tab*) 1 Tab 1 Each Oral Every 6 Hrs As Needed For Pain 15 09/17/15 Fish Oil/[place]-3 Fatty Acids* 1 Cap 1 Cap Oral Daily 09/18/15 Cholecalciferol 2 000 2,000 Unit Oral Daily 09/18/15 Ferrous Gluconate 236 Mg 65 Mg Oral Daily 09/18/15 Esomeprazole 40MG 40 Mg 40 Mg Oral Daily 30 09/18/15 Docusate Sodium 100 Mg 100 Mg Oral Daily 30 09/18/15 Tiotropium [employer] [place] 18 Mcg 1 Puff Inhalation Daily 09/18/15 Oxybutynin Chloride 5 Mg 5 Mg Oral Twice A Day 09/18/15 Carbidopa/Levodopa 1 Tab 1 Udtab Oral Four Times Daily 120 09/18/15 Diphenhydramine Hcl 25 Mg 25 Mg Oral Three Times A Day as needed for Itching 09/18/15 Amantadine Hcl 100 Mg 100 Mg Oral Daily 10 09/18/15 Social History Social History Problem Response Recorded Date/Time Smoking Status Current every day smoker 09/17/2015 8:39pm Tobacco Use Cigarettes 09/17/2015 8:39pm Alcohol Use none 09/17/2015 8:39pm Drug Use none 09/17/2015 8:39pm Query Response Start Date Stop Date Smoking Status Current every day smoker Hospital Discharge Instructions No hospital discharge instructions. Plan of Care Discharge Date 09/17/15 9:50pm Condition at Discharge Stable Instructions/Education Provided Fall Prevention (ED) Prescriptions See Medication Section Referrals DHRUV FLORES - 2-3 Days Functional Status Query Response Date Recorded Nabb Coma Scale Total 15 September 17, 2015 8:10pm Patient Behavior Cooperative September 17, 2015 8:10pm Allergies, Adverse Reactions, Alerts No known allergies. Immunizations Name Given Type Hx Diphtheria, Pertussis, Tetanus Vaccination Unknown Historical Hx Influenza Vaccination Y Fall 2014 Historical Hx Pneumococcal Vaccination Y Fall 2014 Historical Vital Signs Acute Vital Signs Vital Response Date/Time Temperature (Fahrenheit) 98.4 degrees F (97.6 - 99.5) 09/17/2015 9:48pm Temperature Source Temporal Artery 09/17/2015 9:48pm Pulse Rate (adult) 90 bpm (60 - 90) 09/17/2015 9:48pm Respiratory Rate 20 bpm (12 - 24) 09/17/2015 9:48pm Blood Pressure 136/69 mm Hg 09/17/2015 9:48pm O2 Sat by Pulse Oximetry 98 % (90 - 100) 09/17/2015 9:48pm Oxygen Delivery Method Nasal Cannula 09/17/2015 9:48pm Oxygen Flow Rate 4 L/min 09/17/2015 9:48pm Height 5 ft 2 in Weight 132 lb Body Mass Index 24.0 kg/m^2 Results No known relevant diagnostic tests, laboratory data and/or discharge summary. Procedures Procedure Status Date Provider(s) X-ray of cervical spine, two or three views Completed 09/17/15 RASHEEDA DUKES MD Encounters Encounter Location Arrival/Admit Date Discharge/Depart Date Attending Provider Departed Emergency Room [place] 09/17/15 6:47pm 09/17/15 9:50pm MAXWELL AGOSTO M.D. Recent Diagnosis
[2018-06-17] MEDS: 1/2 NS IV SOLUTION 1,000 ML IV SCH (22:33)
[2018-06-17] MEDS: meTOprolol TARTRATE 50 MG (LOPRESSOR) TAB PO SCH (22:33)
[2018-06-17 22:37] VITALS: BP 137/67
[2018-06-17] MEDS ORDERED: RT-ALBUTEROL/IPRATROPIUM 3 ML (DUONEB) VIAL INH PRN (23:45)
[2018-06-18] VITALS (21 sets, daily range): BP systolic 117–186; BP diastolic 31–93
[2018-06-18] MEDS: 1/2 NS IV SOLUTION 1,000 ML IV SCH ×3 (06:16→18:36)
[2018-06-18] MEDS: RT-ALBUTEROL/IPRATROPIUM 3 ML (DUONEB) VIAL INH SCH ×5 (06:44→22:54)
[2018-06-18 06:47] LABS: BASOPHILS % (AUTO) 0 % (0-10); EOSINOPHILS # (AUTO) 0.1 10^3/uL (0.0-0.3); EOSINOPHILS % (AUTO) 0 % (0-10); HEMATOCRIT 36 % (35-52); HEMOGLOBIN 9.4 G/DL (11.5-16.0); LYMPHOCYTES # (AUTO) 0.8 X 10^3 (1.0-4.0); LYMPHOCYTES % (AUTO) 6 % (12-44); MEAN CORPUSCULAR HEMOGLOBIN 29 PG (25-34); MEAN CORPUSCULAR HGB CONC 27 G/DL (32-36); MEAN CORPUSCULAR VOLUME 108 FL (80-99); MEAN PLATELET VOLUME 9.3 FL (7.4-10.4); MONOCYTES # (AUTO) 0.8 X 10^3 (0.0-1.0); MONOCYTES % (AUTO) 6 % (0-12); NEUTROPHILS # (AUTO) 12.9 X 10^3 (1.8-7.8); NEUTROPHILS % (AUTO) 88 % (42-75); PLATELET COUNT 252 10^3/uL (130-400); RED BLOOD COUNT 3.29 10^6/uL (4.35-5.85); WHITE BLOOD COUNT 14.6 10^3/uL (4.3-11.0)
[2018-06-18 07:08] LABS: BUN/CREATININE RATIO 17; CALCIUM 8.6 MG/DL (8.5-10.1); CARBON DIOXIDE 35 MMOL/L (21-32); CHLORIDE 92 MMOL/L (98-107); CREATININE SERUM 0.72 MG/DL (0.60-1.30); GFR ESTIMATED > 60; GLUCOSE 75 MG/DL (70-105); POTASSIUM 4.9 MMOL/L (3.6-5.0); SODIUM 137 MMOL/L (135-145)
[2018-06-18] MEDS ORDERED: MIDAZOLAM 5 MG/5 ML (VERSED) VIAL INJ ONE (07:47)
[2018-06-18 07:51] LABS: ANISOCYTOSIS MODERATE; EOSINOPHILS % (MANUAL) 1 %; HYPOCHROMASIA SLIGHT; LYMPHOCYTES % (MANUAL) 6 %; MICROCYTOSIS SLIGHT; MONOCYTES % (MANUAL) 5 %; NEUTROPHILS % (MANUAL) 88 %; NUCLEATED RED BLOOD CELLS 1; STOMATOCYTES MARKED
[2018-06-18] MEDS ORDERED: ESOM20CA58 PO (08:41)
[2018-06-18] MEDS ORDERED: IBUP-2055 PO (08:41)
[2018-06-18] MEDS ORDERED: METO-333 PO (08:41)
--- NOTE | 2018-06-18 08:44 | NUR ---
SPOKE WITH THE PATIENT AND HER FAMILY IN THE ROOM. SHE HAD HER BOTTLES WITH HER AND I COMPARED THEM TO THE EXT MED HX. THEY VERIFIED HOW SHE TAKES THEM TO THE BEST OF THEIR ABILITY. SHE FILLED OMEPRAZOLE #90 03-27-18 HOWEVER IT IS NOT IN THE BAG OF MEDS, THEY HAVE NEXIUM OTC AND STATE SHE TAKES IT NEEDED INSTEAD. SHE FILLED BACTRIM #90 18 AND HAS THIS BOTTLE IN HER BAG OF MEDS BUT IT HAS SEVERAL PILLS IN IT, SHE STATES SHE STOPPED TAKING IT BECAUSE SHE FELT IT MADE HER DIZZY. I VERIFIED WITH THEM THEY THOUGHT THE BACTRIM WAS THE CAUSE OF THE DIZZINESS AND NOT THE METOPROLOL, THEY STATE IT WAS THE BACTRIM. SHE AND THE GENTLEMAN BOTH SAY SHE IS TAKING THE METOPROLOL 1/2 TAB BID CURRENTLY. THEY REPORT SHE NORMALLY TAKES SPIRIVA BUT HAS RAN OUT OF IT AND THE MAIL ORDER PHARMACY HAS NOT SENT ANYMORE YET. IT WAS LAST FILLED #90 02-20-18. SHE TAKES THE FOLLOWING OTC: IBU PRN NEXIUM PRN BENADRYL PRN VITAMIN D DAILY
[2018-06-18] MEDS: SINEMET 25/100 (CARBIDOPA/LEVODOPA) TAB PO SCH ×3 (09:06→17:16)
[2018-06-18] MEDS: AZITHROMYCIN 250 MG TAB (ZITHROMAX) PO SCH ×2 (09:06→09:26)
[2018-06-18] MEDS: OXYBUTYNIN (DITROPAN) 5 MG TAB PO SCH ×2 (09:06→09:25)
[2018-06-18] MEDS: meTOprolol TARTRATE 50 MG (LOPRESSOR) TAB PO SCH (09:25)
--- NOTE | 2018-06-18 09:28 | NUR ---
DR HARO IN THE ROOM TO SEE PATIENT AND TALK TO . VERBAL ORDER TO CHECK BLOOD SUGAR AND HOLD MORNING MEDICATION. SHE WILL CONSULT DR CARDENAS AND ORDE A CHEST XRAY AND ABG. SHE WANTS THOSE DONE BEFORE THE PATIENT TAKES HER ORAL MEDICATION AND/OR EATS. DR HARO MADE AWARE THAT 50 MG PO BID METOPROLOL WERE ORDERED. THE LABEL ON HER HOME MEDICATIONS SAYS TO TAKE 1/2 TABLET PO BID OF 25 MG METOPROLOL.
--- NOTE | 2018-06-18 09:30 | History & Physical-Hospitalist ---
History of Present Illness HPI/Chief Complaint Pt is a 77yoCF with a PMH of COPD who presented to the ER yesterday due to weakness and SOB. This morning she is very confused and unable to provide me any details other than that she came to the hospital today and that "today is the day I'm going to ." is at bedside who states she has a long history of COPD and is chronically on 4lpm. She just got back from [place] on 06/08 after a 6 week trip. During that trip her oxygen tank could only go up to 3lpm so she has only been on that since then. Over the past few days she has been weak and having trouble walking along with being more SOB. Her is very concerned about her poor appetite over the past few days as well. Source: patient Date Seen 06/18/18 Time Seen by a Provider: 09:22 Attending Physician Cecil Combs MD PCP Neymar Mcdowell DO Referring Physician Date of Admission Jun 17, 2018 at 18:15 Home Medications & Allergies Home Medications Reviewed patient Home Medication Reconciliation performed by pharmacy medication reconciliations analytical laboratory technician and/or nursing. Patients Allergies have been reviewed. Allergies Allergies Coded Allergies hydrocodone (Verified Allergy, Severe, RASH, 11/10/16) Past Ioatlxo-Viilrm-Kaalga Hx Past Med/Social Hx: Reviewed and Corrections made Patient Social History Marrital Status: Alcohol Use: Denies Use Recreational Drug Use: No Smoking Status: Former Smoker Former Smoker, Quit: Nov 16, 2015 Type Used: Cigarettes 2nd Hand Smoke Exposure: No Physical Abuse Screen: No Sexual Abuse: No Recent Foreign Travel: No Contact w/other who traveled: No Recent Hopitalizations: No Recent Infectious Disease Expo: No Immunizations Up To Date Tetanus Booster (TDap): Unknown Date of Pneumonia Vaccine: Jun 05, 2016 Date of Influenza Vaccine: Apr 04, 2018 Seasonal Allergies Seasonal Allergies: No Past Medical History Surgeries: Appendectomy, Eye Surgery, Gallbladder Respiratory: COPD, Pneumonia, Sleep Apnea Currently Using CPAP: No Currently Using BIPAP: No Neurological: Parkinson's Disease Reproductive: No Sexually Transmitted Disease: No Gastrointestinal: Abdominal Hernia, Chronic Constipation History of Blood Disorders: Yes Family History Reviewed Nursing Family Hx Diabetes mellitus 19 MOTHER FH: lung cancer 19 FATHER G8 SISTER FH: uterine cancer 19 MOTHER Hypertension 19 FATHER Myocardial infarction 19 FATHER Pacemaker 19 MOTHER UTI (urinary tract infection) 19 MOTHER No Pertinent Family Hx Review of Systems ROS-Unable to Obtain: Confused Constitutional: see HPI Physical Exam Physical Exam Vital Signs Vital Signs - First Documented 06/17/18 06/18/18 11:38 13:38 Temp 97.8 Pulse 109 Resp 16 B/P (MAP) 140/68 (92) Pulse Ox 96 O2 Delivery Nasal Cannula O2 Flow Rate 4.00 FiO2 80 Capillary Refill : Less Than 3 Seconds Height, Weight, BMI Height: 5'2.00" Weight: 152lbs. 7.0oz. 69.864087jn; 27.9 BMI Method:Stated General Appearance: WD/WN, Chronically ill HEENT: Moist Mucous Membranes; No Scleral Icterus (L), No Scleral Icterus (R) Respiratory: No Accessory Muscle Use, No Respiratory Distress, Crackles; No Wheezing Cardiovascular: Regular Rate, Rhythm, No JVD, No Murmur Gastrointestinal: Normal Bowel Sounds, Non Tender, Soft Neurologic/Psychiatric: Alert, Other (oriented to person only) Results Results/Procedures Labs Laboratory Tests 06/17/18 12:15 06/18/18 05:46 Patient resulted labs reviewed. Assessment/Plan Admission Diagnosis acute hypercapnic respiratory failure Admission Status: Inpatient Order (span 2 midnights) Reason for Inpatient Admission: respiratory fialure with underlying COPD- will take more than two midnight to stabilize Diagnosis/Problems Diagnosis/Problems (1) Acute respiratory failure Assessment & Plan: pCO2 of 85 yesterday metabolic compensation with CO2 of 50 Pulm consulted, appreciate recs ABG ordered- discussed with RT to repeat now Called and discussed with Dr Casey- if worsening will transfer to unit Qualifiers: Respiratory failure complication: hypercapnia Qualified Codes: J96.02 - Acute respiratory failure with hypercapnia (2) COPD (chronic obstructive pulmonary disease) Status: Acute Assessment & Plan: Baseline 4lpm requirement MAT protocol Discussed with patient and family that if she does require mechanical ventilation may need keno terminal operator weaning Qualifiers: COPD type: COPD with acute lower respiratory infection Qualified Codes: J44.0 - Chronic obstructive pulmonary disease with acute lower respiratory infection (3) Pneumonia Status: Acute Assessment & Plan: LLL PNA Continue on CAP coverage with Rocephin and Azithro Await cultures Qualifiers: Pneumonia type: due to unspecified organism Laterality: left Lung location: lower lobe of lung Qualified Codes: J18.1 - Lobar pneumonia, unspecified organism (4) Essential (primary) hypertension Assessment & Plan: Continue metoprolol Well controlled, trend Clinical Quality Measures DVT/VTE Risk/Contraindication: Risk Factor Score Per Nursin RFS Level Per Nursing on Admit: 4+=Very High GURJIT HARO MD Jun 18, 2018 09:30
[2018-06-18] MEDS ORDERED: methylPREDNISolone 125 MG (Solu-MEDROL) VIAL IVP NR (10:00)
--- NOTE | 2018-06-18 10:35 | Pulmonary Consultation ---
ADELITAGINA STUDENT 06/18/18 1035: History of Present Illness History of Present Illness Date of Consultation 06/18/18 10:30 Time Seen by Provider: 10:30 Date of Admission 06/17/18 Reason for Visit: Shortness of breath History of Present Illness Patient presented to the ED yesterday for weakness and shortness of breath. She has a chronic history of COPD and is on 4L of oxygen at home. She has recently only been using 3L of oxygen due to a trip in which she could only bring her smaller tank. Her ABG yesterday showed compensated respiratory acidosis. CXR showed an infiltrate in the left lower lobe and was placed on azithromycin and rocephin. This morning, she was confused and disoriented. At this time, she was more alert and oriented than she had been all day. She conversed well and knew where she was and why she was in the hospital. She denied shortness of breath at this time. Allergies and Home Medications Allergies Coded Allergies: hydrocodone (Verified Allergy, Severe, RASH, 11/10/16) Sulfa (Sulfonamide Antibiotics) (Unverified Allergy, Unknown, 06/18/18) Home Medications Amantadine HCl 100 Mg Tablet, 100 MG PO DAILY, (Reported) Carbidopa/Levodopa 1 Each Tablet, 1 TAB PO TID, (Reported) Cholecalciferol (Vitamin D3) 5,000 Unit Capsule, 5,000 UNIT PO DAILY, (Reported) Diphenhydramine HCl 25 Mg Capsule, 25 MG PO DAILY PRN for ALLERGIES, (Reported) Esomeprazole Magnesium 20 Mg Capsule.dr, 20 MG PO DAILY PRN for HEARTBURN, ( Reported) Ibuprofen 200 Mg Tablet, 200 MG PO Q6H PRN for PAIN-MILD, (Reported) Metoprolol Tartrate 25 Mg Tablet, 12.5 MG PO BID, (Reported) TAKES 1/2 (25MG) TABLET Oxybutynin Chloride 5 Mg Tab.er.24, 5 MG PO BID, (Reported) Tiotropium [place] 1 Inh Aerp, 1 CAP IH HS, (Reported) LAST FILLED #90 02-20-18 Past Fhijsbk-Anqwni-Lrjxjo Hx Patient Social History Alcohol Use: Denies Use Recreational Drug Use: No Smoking Status: Former Smoker Type Used: Cigarettes Former Smoker, Quit: Nov 16, 2015 2nd Hand Smoke Exposure: No Recent Foreign Travel: No Contact w/Someone Who Travel: No Recent Infectious Disease Expo: No Recent Hopitalizations: No Physical Abuse: No Sexual Abuse: No Immunizations Up To Date Tetanus Booster (TDap): Unknown Date of Pneumonia Vaccine: Jun 05, 2016 Date of Influenza Vaccine: Apr 04, 2018 Seasonal Allergies Seasonal Allergies: No Past Medical History Surgeries: Yes (DAYRON KERR 03/04/16; CEDRIC; ) Appendectomy, Eye Surgery, Gallbladder Respiratory: Yes COPD Currently Using CPAP: No Currently Using BIPAP: No Cardiac: No Neurological: Yes (HAND TREMORS) Parkinson's Disease Reproductive Disorders: No Sexually Transmitted Disease: No Genitourinary: No Gastrointestinal: Yes (HIATAL HERNIA) Abdominal Hernia, Chronic Constipation Musculoskeletal: Yes (ARTHRITIS) Endocrine: No HEENT: No Cancer: No Psychosocial: No Integumentary: No Blood Disorders: Yes Family Medical History Diabetes mellitus 19 MOTHER FH: lung cancer 19 FATHER G8 SISTER FH: uterine cancer 19 MOTHER Hypertension 19 FATHER Myocardial infarction 19 FATHER Pacemaker 19 MOTHER UTI (urinary tract infection) 19 MOTHER No Pertinent Family Hx Review of Systems Constitutional: Chills, Weakness; No: Fever, Sweats ENT: No: Nose discharge, Throat pain Respiratory: No: Cough, Shortness of breath, Hemoptysis, Pleuritic Pain, Wheezing Cardiovascular: No: Chest Pain, Palpitations, Orthopnea Gastrointestinal: No: Nausea, Vomiting, Abdominal Pain Genitourinary: No Dysuria; Frequency Musculoskeletal: No: leg pain Neurological: Weakness Sepsis Event Evaluation Height, Weight, BMI Height: 5'2.00" Weight: 152lbs. 7.0oz. 69.527197jp; 27.9 BMI Method:Stated Exam Exam Vital Signs Date Time Temp Pulse Resp B/P (MAP) Pulse Ox O2 Delivery O2 Flow Rate FiO2 06/18/18 10:15 94 Nasal Cannula 4.00 06/18/18 08:00 97.9 94 20 125/70 (88) 94 Nasal Cannula 4.00 06/18/18 06:44 94 Nasal Cannula 4.00 06/18/18 04:01 97.2 88 16 138/66 (90) 97 Nasal Cannula 4.00 06/18/18 00:20 97.3 107 18 132/71 (91) 100 Nasal Cannula 4.00 06/17/18 22:37 98 94 06/17/18 22:37 94 Nasal Cannula 4.00 06/17/18 21:00 Nasal Cannula 4.00 06/17/18 20:25 97.4 115 20 137/67 (90) 96 Nasal Cannula 4.00 06/17/18 19:50 98.2 103 16 122/62 (82) 99 Nasal Cannula 4.00 06/17/18 11:38 97.8 109 16 140/68 (92) 96 Nasal Cannula 4.00 I & O 06/18/18 07:00 Intake Total 2750 ml Output Total 250 ml Balance 2500 ml Height & Weight Height: 5'2.00" Weight: 152lbs. 7.0oz. 69.928594tq; 27.9 BMI Method:Stated General Appearance: WD/WN, Chronically ill HEENT: Pharynx Normal, Moist Mucous Membranes; No Scleral Icterus (L), No Scleral Icterus (R) Neck: Full Range of Motion, Normal Inspection, Non Tender Respiratory: No Accessory Muscle Use, No Respiratory Distress, Crackles; No Wheezing Cardiovascular: Regular Rate, Rhythm, No JVD, No Murmur Capillary Refill: Less Than 3 Seconds Gastrointestinal: normal bowel sounds, soft Extremity: Normal Capillary Refill, Normal Inspection, No Pedal Edema Neurologic/Psychiatric: Alert, Normal Mood/Affect, Disoriented (Oriented to person and place) Skin: Normal Color, Warm/Dry Results Lab Laboratory Tests 06/17/18 12:15 06/18/18 05:46 Laboratory Tests Test 06/17/18 12:08 06/18/18 10:30 Blood Gas Puncture Site R BRACHIAL RIGHT RADIAL Blood Gas Patient Temperature 97.8 98.5 Arterial Blood pH 7.38 7.27 Arterial Blood Partial Pressure CO2 85 MMHG 95 MMHG Arterial Blood Partial Pressure O2 110 MMHG 89 MMHG Arterial Blood HCO3 50 MMOL/L 42 MMOL/L Arterial Blood Total CO2 52.4 MMOL/L 44.8 MMOL/L Arterial Blood Oxygen Saturation 99 % 98 % Arterial Blood Base Excess 23.0 MMOL/L 14.6 MMOL/L Foreign Test POSITIVE POSITIVE Blood Gas Ventilator Setting NO NO Blood Gas Inspired Oxygen 4 4L Assessment/Plan Assessment/Plan Acute on chronic respiratory failure -Chronically on 4L oxygen -CXR showed basilar infiltrate in left lung Hypercapnia with respiratory acidosis - ABG being repeated showing acute respiratory acidosis and CO2 retention: 7.27, CO2 95, bicarb 42 -prior ABG showed pCO2 85 and bicarb of 50 -- compensated respiratory acidosis -On 4L oxygen at this time Mental status changes -Likely due to hypercapnia and respiratory acidosis vs. infection AECOPD -Solumedrol 40mg Q6 -Duonebs LLL PNA -Continue rocephin and azithromycin -Sputum culture -No fevers, WBC count 14.6 today HTN -Metoprolol Parkinson's disease -Carbidopa/levodopa DARSHANA CARDENAS DO 06/19/18 0630: History of Present Illness History of Present Illness Time Seen by Provider: 10:40 History of Present Illness 77yo with hx of COPD oxygen dependent of 4 liters at home. CXR shows LLL infiltrate she was placed on Rocephin and Azithromycin. Since admission pt has become more confused. presented to ED secondary to worsening SOB. She has had similar prior episodes. I am consulted for ICU management. Allergies and Home Medications Allergies Coded Allergies: hydrocodone (Verified Allergy, Severe, RASH, 11/10/16) Sulfa (Sulfonamide Antibiotics) (Unverified Allergy, Unknown, 06/18/18) Home Medications Amantadine HCl 100 Mg Tablet, 100 MG PO DAILY, (Reported) Carbidopa/Levodopa 1 Each Tablet, 1 TAB PO TID, (Reported) Cholecalciferol (Vitamin D3) 5,000 Unit Capsule, 5,000 UNIT PO DAILY, (Reported) Diphenhydramine HCl 25 Mg Capsule, 25 MG PO DAILY PRN for ALLERGIES, (Reported) Esomeprazole Magnesium 20 Mg Capsule.dr, 20 MG PO DAILY PRN for HEARTBURN, ( Reported) Ibuprofen 200 Mg Tablet, 200 MG PO Q6H PRN for PAIN-MILD, (Reported) Metoprolol Tartrate 25 Mg Tablet, 12.5 MG PO BID, (Reported) TAKES 1/2 (25MG) TABLET Oxybutynin Chloride 5 Mg Tab.er.24, 5 MG PO BID, (Reported) Tiotropium [place] 1 Inh Aerp, 1 CAP IH HS, (Reported) LAST FILLED #90 02-20-18 Past Svvkphq-Kayaeu-Jrxocj Hx Family Medical History Diabetes mellitus 19 MOTHER FH: lung cancer 19 FATHER G8 SISTER FH: uterine cancer 19 MOTHER Hypertension 19 FATHER Myocardial infarction 19 FATHER Pacemaker 19 MOTHER UTI (urinary tract infection) 19 MOTHER Review of Systems Time Seen by Provider: 12:02 Constitutional: Chills, Weakness; No: Fever, Sweats ENT: No: Nose discharge Respiratory: No: Cough, Shortness of breath, Hemoptysis, Pleuritic Pain Cardiovascular: No: Chest Pain, Palpitations, Orthopnea Gastrointestinal: No: Nausea, Vomiting, Abdominal Pain Genitourinary: No Dysuria; Frequency Musculoskeletal: No: leg pain Exam Exam General Appearance: WD/WN, Chronically ill HEENT: Pharynx Normal, Moist Mucous Membranes; No Scleral Icterus (L), No Scleral Icterus (R) Neck: Full Range of Motion, Normal Inspection, Non Tender Respiratory: No Accessory Muscle Use, No Respiratory Distress, Crackles; No Wheezing Cardiovascular: Regular Rate, Rhythm, No JVD, No Murmur Gastrointestinal: normal bowel sounds Extremity: Normal Capillary Refill, Normal Inspection, No Pedal Edema Neurologic/Psychiatric: Alert, Normal Mood/Affect, Disoriented (Oriented to person and place) Skin: Normal Color, Warm/Dry Assessment/Plan Assessment/Plan Acute on chronic respiratory failure -Chronically on 4L oxygen -CXR showed basilar infiltrate in left lung -Move to ICU and place on BiPAP then repeat ABG Hypercapnia with respiratory acidosis - ABG being repeated showing acute respiratory acidosis and CO2 retention: 7.27, CO2 95, bicarb 42 -prior ABG showed pCO2 85 and bicarb of 50 -- compensated respiratory acidosis -On 4L oxygen at this time Mental status changes -Likely due to hypercapnia and respiratory acidosis vs. infection AECOPD -Solumedrol 40mg Q6 -Duonebs LLL PNA -Continue rocephin and azithromycin -Sputum culture -No fevers, WBC count 14.6 today HTN -Metoprolol Parkinson's disease -Carbidopa/levodopa GINA UREÑA STUDENT Jun 18, 2018 10:35 DARSHANA CARDENAS DO Jun 19, 2018 06:30
[2018-06-18 10:40] LABS: ABG BASE EXCESS 14.6 MMOL/L (-2.5-2.5); ABG OXYGEN SATURATION 98 % (94-100); ABG PO2 89 MMHG (79-93); ABG TCO2 44.8 MMOL/L (21.0-31.0)
[2018-06-18 10:42] LABS: ABG PCO2 95 MMHG (35-45); ABG PH 7.27 (7.37-7.43)
[2018-06-18 10:43] LABS: ALLENS TEST POSITIVE; INSPIRED O2 4L; PATIENT TEMP 98.5; VENTILATOR NO
[2018-06-18] MEDS ORDERED: RT-ALBUTEROL SULF 2.5 MG/3 ML PRE-MIX VIAL ONE (11:04)
--- NOTE | 2018-06-18 11:13 | NUR ---
1100 PATIENT TRANSFERRED TO ICU 9. BEDSIDE REPORT GIVEN TO EDNA SINGH. PATIENT'S MEDICATION TAKEN WITH HER. THE PATIENT'S TOOK HER OTHER PERSONAL BELONGINGS. THIS RN CALLED THE PATIENT'S DAUGHTER KARON ([phone]) TO NOTIFY HER OF THE CHANGE.
[2018-06-18] MEDS ORDERED: RT-ALBUTEROL/IPRATROPIUM 3 ML (DUONEB) VIAL INH NR (11:35)
[2018-06-18] MEDS ORDERED: RT-ALBUTEROL SULF 2.5 MG/3 ML PRE-MIX VIAL INH NR ×2 (11:36→11:39)
[2018-06-18 12:36] LABS: ABG BASE EXCESS 12.6 MMOL/L (-2.5-2.5); ABG OXYGEN SATURATION 98 % (94-100); ABG PO2 105 MMHG (79-93); ABG TCO2 42.6 MMOL/L (21.0-31.0)
[2018-06-18 12:38] LABS: ABG PCO2 93 MMHG (35-45); ABG PH 7.26 (7.37-7.43); ALLENS TEST POSITIVE; INSPIRED O2 60% FL02 BIPAP; PATIENT TEMP 99; VENTILATOR NO
[2018-06-18] MEDS ORDERED: PROPOFOL DRIP (ICU) 100 ML IV ONE (12:51)
[2018-06-18] MEDS ORDERED: NS IV 1000 ML 2,000 ML ONE (12:56)
[2018-06-18] MEDS: PROPOFOL DRIP (ICU) 100 ML IV SCH ×2 (13:00→17:13)
[2018-06-18] MEDS ORDERED: NS IV 1000 ML 1,000 ML IV SCH (13:00)
--- NOTE | 2018-06-18 13:06 | Diagnostic Imaging Report ---
EXAMINATION: Portable AP chest at 9:50 a.m. INDICATION: Pneumonia, sepsis. FINDINGS: The prior exam of 06/17/2018 noted patchy areas of pneumonia/atelectasis involving the left lung base. In the interval since the prior study, a new area of increased density has developed in this region in the medial retroareolar area. This could be related to a new area of pneumonia/atelectasis. The previous CT chest exam of 11/10/2016 also showed a hiatal hernia in this area, and it is possible that this density is related to that finding. The crowded bronchovascular markings in the right infrahilar region seen previously are again evident and no different. The upper lungs remain clear, and the heart is stable. The curvilinear band of increased density along the periphery of the left lower lobe seen previously is unchanged. The osseous structures are intact. IMPRESSION: 1. A new area of increased density has developed in the medial retrocardiac region of the left breast. Whether this is secondary to a new focus of pneumonia/atelectasis or to a hiatal hernia is not certain. Clinical followup is recommended. 2. The overall appearance of the chest is otherwise stable. Dictated by: Dictated on workstation # [id number]
[2018-06-18] MEDS ORDERED: NS IV 1000 ML 1,000 ML ONE (13:07)
--- NOTE | 2018-06-18 13:40 | Diagnostic Imaging Report ---
INDICATION: NG tube placement. TIME OF EXAMINATION: 01:24 p.m. COMPARISON: Correlation is made with prior study from earlier the same day. FINDINGS: Endotracheal tube has tip just above the douglas. An NG tube has been placed and passes into the stomach. Right convexity thoracic scoliotic curvature is seen. There is persistent infiltrate/atelectasis in left base obscuring the left hemidiaphragm. There appears to be some mild infiltrate or atelectasis in the right base medially as well. No pneumothorax is seen. IMPRESSION: Satisfactory. Dictated by: Dictated on workstation # [id number]
--- NOTE | 2018-06-18 14:08 | Pulmonary Procedures ---
Pulmonary Procedures Date of Procedure Date of Service: Jun 18, 2018 Time of Intubation: 14:07 Intubation Method: orotracheal (with glidoscope) Medications: Propofol, Versed Positive End Tide CO2: Yes Breath Sounds after Intubation: bilateral-equal Intubation Complications: no complications Post Intubation Xray: Yes DARSHANA CARDENAS DO Jun 18, 2018 14:08
--- NOTE | 2018-06-18 14:13 | Anesthesia-Procedure Note ---
Procedures/Interventions Procedure Start/Stop/Diagnosis Date of Procedure: Jun 18, 2018 Start Time: 13:45 Stop Time: 14:15 Arterial Line Arterial Line Catheter: 20G Type: Radial Location: Right Procedure: prepped, draped in sterile fashion, good wave-form was obtained, no immediate complications, post procedure dressing applied KARY GODOY CRNA Jun 18, 2018 14:13
[2018-06-18] MEDS ORDERED: PIPERACILLIN/TAZO 4.5 GM/NS 100 ML IV NR ×2 (14:15)
[2018-06-18] MEDS ORDERED: IOHEXOL 350 MG/ML 150 ML (OMNIPAQUE 350) VIAL IV ONE (14:15)
[2018-06-18] MEDS ORDERED: RECEIVED CONTRAST (Hold Metformin) IV SCH (14:15)
[2018-06-18] MEDS ORDERED: NS 100 ML (IVPB) BAG IV ONE (14:15)
--- NOTE | 2018-06-18 15:06 | Diagnostic Imaging Report ---
PROCEDURE: CT angiography of the chest with contrast. TECHNIQUE: Multiple contiguous axial images were obtained through the chest after uneventful bolus administration of intravenous contrast. 2D reconstructed CTA MIP acquisitions were also performed. INDICATION: Respiratory failure. COMPARISON: Correlation is made with a noncontrast CT chest from 11/10/2016. FINDINGS: The patient has been intubated. The tip of the ET tube appears to be in close proximity to the left mainstem bronchus. This needs to be pulled back 1-2 cm. The nasogastric tube passes into the stomach. Evaluation of the pulmonary arterial system is without evidence of thromboembolism. No filling defects are seen within central, lobar, or segmental branches. The thoracic aorta is normal in caliber. No dissection is seen. No pericardial fluid is identified. There are small bilateral pleural effusions. Parenchymal evaluation does show some patchy airspace infiltrate in the left upper lobe. There is extensive parenchymal consolidation in the left lower lobe with air bronchograms, new since the prior exam. There is some consolidation, but to a lesser degree, in the posterior right lower lobe. Minimal infiltrate in the right upper lobe anteriorly is also identified. The upper abdomen is unremarkable. IMPRESSION: 1. The endotracheal tube appears to be somewhat low in position, perhaps entering the left mainstem bronchus. This should be pulled back 1-2 cm. 2. No evidence of pulmonary embolism or thoracic aortic dissection. 3. Small bilateral pleural effusions. There are bilateral pulmonary infiltrates with the greatest degree of consolidation in the left lower lobe with air bronchograms. 4. These results were discussed with Dr. Helena Hendrickson prior to this dictation. Dictated by: Dictated on workstation # [id number]
--- NOTE | 2018-06-18 15:15 | NUR ---
Pastoral care visit, met with in quiet room who shared about his wifes health decline and concerns regards to her current situation. I provided listening, prayer and support.
[2018-06-18] MEDS ORDERED: NS IV 1000 ML 1,000 ML IV ONE ×2 (16:15)
[2018-06-18 16:26] LABS: ABG BASE EXCESS 7.5 MMOL/L (-2.5-2.5); ABG OXYGEN SATURATION 99 % (94-100); ABG PCO2 51 MMHG (35-45); ABG PH 7.41 (7.37-7.43); ABG PO2 96 MMHG (79-93); ABG TCO2 33.9 MMOL/L (21.0-31.0)
[2018-06-18 16:27] LABS: ALLENS TEST ART LINE; INSPIRED O2 50%; PATIENT TEMP 97.9; VENTILATOR YES
[2018-06-18] MEDS ORDERED: ACETAMINOPHEN 650 MG SUPP (TYLENOL) PR PRN (17:00)
[2018-06-18] MEDS ORDERED: cefTRIAXone 1 GM/NS 50 ML IVPB IV SCH ×2 (17:00)
--- NOTE | 2018-06-18 17:09 | Pulmonary Procedures ---
Pulmonary Procedures Date of Procedure Date of Service: Jun 18, 2018 Lumen: triple (US guided central line) Central Line Procedure: betadine prep, sterile drapes applied, sterile dressing applied Anesthesia: local Volume Anesthetic (ccs): 5 Complications: none Post Position: sutured, good blood return, position confirmed w/ CXR DARSHANA CARDENAS DO Jun 18, 2018 17:09
[2018-06-18] MEDS: LACTOBACILLUS ACIDOPHILUS (PROBIOTIC) CAPSULE NG SCH (17:17)
--- NOTE | 2018-06-18 17:19 | Diagnostic Imaging Report ---
EXAM: CHEST 1 VIEW, AP/PA ONLY INDICATION: Central line placement. COMPARISON: Chest radiograph 06/18/2018. FINDINGS: ETT tip midway between the level of the clavicles and douglas. Right IJ CVC tip mid SVC. Calcified aorta. Persistent airspace consolidation in the lingula and right lung base. Normal heart size. Central pulmonary vascularity is obscured. No definite pleural effusion. No pneumothorax. No acute osseous findings. IMPRESSION: 1. New right IJ CVC tip mid SVC. No pneumothorax. 2. ETT in expected position. 3. Persistent airspace consolidation in the lingula and right lung base. Dictated by: Dictated on workstation # [id number]
[2018-06-18] MEDS ORDERED: DEXMEDETOMIDINE INJECTION 1,000 MCG in NS (IVPB) 240 ML IV SCH (18:15)
[2018-06-18] MEDS: DEXMEDETOMIDINE INJECTION 200 MCG in NS (IVPB) 50 ML IV SCH (18:57)
[2018-06-18] MEDS: methylPREDNISolone 40 MG/ML (Solu-MEDROL) VIAL IV SCH ×2 (18:57→23:53)
[2018-06-18 19:49] LABS: ABG BASE EXCESS 9.2 MMOL/L (-2.5-2.5); ABG OXYGEN SATURATION 98 % (94-100); ABG PCO2 44 MMHG (35-45); ABG PH 7.49 (7.37-7.43); ABG PO2 74 MMHG (79-93); ABG TCO2 34.3 MMOL/L (21.0-31.0)
[2018-06-18 19:50] LABS: ALLENS TEST ART LINE; INSPIRED O2 40%; PATIENT TEMP 99.7; VENTILATOR YES
[2018-06-18] MEDS ORDERED: PIPERACILLIN SODIUM/TAZOBACTAM 4.5 GM in NS (IVPB) 100 ML IV SCH (20:00)
[2018-06-18] MEDS: PIPERACILLIN SODIUM/TAZOBACTAM 4.5 GM in NS (IVPB) 100 ML IV SCH (23:13)
[2018-06-19] VITALS (33 sets, daily range): BP systolic 104–180; BP diastolic 55–113
[2018-06-19] MEDS ORDERED: inSUlin ASPART (NovoLOG) 1 UNIT/0.01 ML (CHARGE PER UNIT) SC SCH
[2018-06-19] MEDS: 1/2 NS IV SOLUTION 1,000 ML IV SCH (00:03)
[2018-06-19] MEDS: DEXMEDETOMIDINE INJECTION 200 MCG in NS (IVPB) 50 ML IV SCH ×10 (00:31→22:08)
[2018-06-19] MEDS: RT-ALBUTEROL/IPRATROPIUM 3 ML (DUONEB) VIAL INH SCH ×6 (01:19→21:21)
[2018-06-19] MEDS ORDERED: fentaNYL INJECTION 100 MCG/2 ML AMP ONE (01:23)
[2018-06-19] MEDS: fentaNYL INJECTION 100 MCG/2 ML AMP IVP PRN ×2 (01:30→22:06)
[2018-06-19] MEDS ORDERED: NS IV 1000 ML 1,000 ML ONE (01:51)
[2018-06-19] MEDS: meTOprolol 5 MG/5 ML (LOPRESSOR) VIAL IV PRN ×2 (02:23→12:04)
[2018-06-19 03:51] LABS: ABG BASE EXCESS 10.4 MMOL/L (-2.5-2.5); ABG OXYGEN SATURATION 91 % (94-100); ABG PCO2 48 MMHG (35-45); ABG PH 7.47 (7.37-7.43); ABG PO2 48 MMHG (79-93); ABG TCO2 36.2 MMOL/L (21.0-31.0)
[2018-06-19 03:52] LABS: ALLENS TEST YES-POS; INSPIRED O2 40%; PATIENT TEMP 97.7; VENTILATOR YES
[2018-06-19] MEDS: PROPOFOL DRIP (ICU) 100 ML IV SCH ×2 (04:13→18:08)
[2018-06-19 05:26] LABS: BASOPHILS % (AUTO) 0 % (0-10); EOSINOPHILS % (AUTO) 0 % (0-10); HEMATOCRIT 30 % (35-52); HEMOGLOBIN 8.4 G/DL (11.5-16.0); LYMPHOCYTES # (AUTO) 0.3 X 10^3 (1.0-4.0); LYMPHOCYTES % (AUTO) 4 % (12-44); MEAN CORPUSCULAR HEMOGLOBIN 29 PG (25-34); MEAN CORPUSCULAR HGB CONC 28 G/DL (32-36); MEAN CORPUSCULAR VOLUME 102 FL (80-99); MEAN PLATELET VOLUME 8.8 FL (7.4-10.4); MONOCYTES # (AUTO) 0.2 X 10^3 (0.0-1.0); MONOCYTES % (AUTO) 2 % (0-12); NEUTROPHILS # (AUTO) 6.5 X 10^3 (1.8-7.8); NEUTROPHILS % (AUTO) 94 % (42-75); PLATELET COUNT 228 10^3/uL (130-400); RED BLOOD COUNT 2.94 10^6/uL (4.35-5.85); RED CELL DISTRIBUTION WIDTH 11.7 % (10.0-14.5)
[2018-06-19] MEDS ORDERED: MIDAZOLAM 5 MG/5 ML (VERSED) VIAL ONE (05:42)
[2018-06-19 05:45] LABS: BUN/CREATININE RATIO 14; CALCIUM 8.4 MG/DL (8.5-10.1); CARBON DIOXIDE 32 MMOL/L (21-32); CHLORIDE 94 MMOL/L (98-107); CREATININE SERUM 0.83 MG/DL (0.60-1.30); GFR ESTIMATED > 60; GLUCOSE 226 MG/DL (70-105); MAGNESIUM 1.9 MG/DL (1.8-2.4); POTASSIUM 3.8 MMOL/L (3.6-5.0); SODIUM 138 MMOL/L (135-145)
[2018-06-19 05:47] LABS: PHOSPHORUS 0.7 MG/DL (2.3-4.7)
[2018-06-19] MEDS: methylPREDNISolone 40 MG/ML (Solu-MEDROL) VIAL IV SCH ×3 (05:55→17:27)
--- NOTE | 2018-06-19 06:21 | Pulmonary Procedures ---
Pulmonary Procedures Date of Procedure Date of Service: Jun 19, 2018 Bronch Bronchoscopy with LLL bronchoalveolar lavage (BAL), Bilateral transbronchial washes Preop DX unresolving pna Postop DX: same mucous plugging bilaterally Complications: none After informed consent obtained and formal time out pt was sedated using propofol and Versed. Bronchoscope was advanced through the ET tube. An anatomical tour was undertaken down to the segmental bronchi bilaterally. No endobronchial lesions noted. PT did have thick white mucous plugs bilaterally. LLL bronchoalveolar lavage (BAL), Bilateral transbronchial washes. No complications noted. Stat CXR is pending. DARSHANA CARDENAS DO Jun 19, 2018 06:21
[2018-06-19] MEDS: inSUlin ASPART (NovoLOG) 1 UNIT/0.01 ML (CHARGE PER UNIT) SC SCH ×4 (06:24→23:24)
[2018-06-19] MEDS: POTASSIUM CL 10MEQ/50ML IVPB 50 ML IV SCH ×5 (06:29→21:10)
[2018-06-19] MEDS: KCL 20 MEQ TAB (K-DUR) PO SCH (06:29)
--- NOTE | 2018-06-19 06:35 | Pulmonary Progress Note ---
Sepsis Event Evaluation Height, Weight, BMI Height: 5'2.00" Weight: 152lbs. 7.0oz. 69.550438tj; 27.9 BMI Method:Stated Focused Exam Lactate Level 06/17/18 12:15: Lactic Acid Level 0.77 Exam Exam Vital Signs Date Time Temp Pulse Resp B/P (MAP) Pulse Ox O2 Delivery O2 Flow Rate FiO2 06/19/18 05:00 112 22 140/86 (104) 100 Mechanical Ventilator 40.00 06/19/18 04:13 98.2 100 15 126/68 94 Mechanical Ventilator 40.00 06/19/18 04:10 88 16 100 40 06/19/18 04:02 89 16 119/78 (92) 100 Mechanical Ventilator 40.00 06/19/18 04:00 Mechanical Ventilator 40 06/19/18 03:00 100 15 126/68 (87) 94 Mechanical Ventilator 40.00 06/19/18 02:00 106 15 180/68 (105) 99 Mechanical Ventilator 40.00 06/19/18 01:20 100 16 97 40 06/19/18 01:00 110 06/19/18 01:00 109 15 170/64 (99) 97 Mechanical Ventilator 40.00 06/19/18 00:00 120 15 141/55 (83) 98 Mechanical Ventilator 40.00 06/19/18 00:00 Mechanical Ventilator 40 06/19/18 00:00 98.2 06/18/18 23:00 108 15 141/55 (83) 98 Mechanical Ventilator 40.00 06/18/18 22:54 105 16 100 40 06/18/18 22:00 114 15 131/49 (76) 100 Mechanical Ventilator 40.00 06/18/18 21:00 115 19 153/49 (83) 99 Mechanical Ventilator 40.00 06/18/18 20:06 101 20 96 40 06/18/18 20:00 101 19 142/48 (79) 97 Mechanical Ventilator 40.00 06/18/18 20:00 Mechanical Ventilator 40 06/18/18 19:33 99.7 06/18/18 19:00 113 20 139/45 (76) 100 Mechanical Ventilator 40.00 06/18/18 19:00 113 06/18/18 18:00 112 19 167/48 (87) 97 NIV Bilevel 40.00 06/18/18 17:21 99.0 Mechanical Ventilator 40.00 06/18/18 17:13 132/42 06/18/18 17:00 116 10 138/45 (76) 90 NIV Bilevel 60.00 06/18/18 16:20 92 Mechanical Ventilator 50 06/18/18 16:12 20 100 80 06/18/18 16:00 118 19 131/44 (73) 98 NIV Bilevel 60.00 06/18/18 15:00 113 18 186/57 (100) 99 NIV Bilevel 60.00 06/18/18 14:30 109 20 184/58 (100) 99 NIV Bilevel 60.00 06/18/18 14:15 110 20 159/31 (73) 90 NIV Bilevel 60.00 06/18/18 14:00 113 20 131/65 (87) 94 NIV Bilevel 60.00 06/18/18 13:38 111 20 100 80 06/18/18 13:04 115 06/18/18 13:00 116 26 130/55 (80) 100 NIV Bilevel 60.00 06/18/18 13:00 147/52 06/18/18 12:05 92 NIV Bilevel 90 06/18/18 12:00 96 12 135/57 (83) 100 NIV Bilevel 60.00 06/18/18 11:45 92 9 124/50 (74) 100 NIV Bilevel 95.00 06/18/18 11:37 89 06/18/18 11:30 86 9 135/57 (83) 100 NIV Bilevel 95.00 06/18/18 11:24 94 24 100 60.00 06/18/18 11:15 92 14 142/93 (109) 100 NIV Bilevel 95.00 06/18/18 11:10 NIV Bilevel 95.00 06/18/18 10:38 91 Nasal Cannula 4.00 06/18/18 10:15 94 Nasal Cannula 4.00 06/18/18 08:00 97.9 94 20 125/70 (88) 94 Nasal Cannula 4.00 06/18/18 06:44 94 Nasal Cannula 4.00 I & O 06/19/18 07:00 Intake Total 3352 ml Output Total 1650 ml Balance 1702 ml Height & Weight Height: 5'2.00" Weight: 152lbs. 7.0oz. 69.693510bd; 27.9 BMI Method:Stated General Appearance: WD/WN, Chronically ill HEENT: Moist Mucous Membranes; No Scleral Icterus (L), No Scleral Icterus (R) Neck: Full Range of Motion, Normal Inspection, Non Tender Respiratory: No Accessory Muscle Use, No Respiratory Distress, Crackles; No Wheezing Cardiovascular: Regular Rate, Rhythm, No JVD, No Murmur Capillary Refill: Less Than 3 Seconds Gastrointestinal: normal bowel sounds, soft Extremity: Normal Capillary Refill, Normal Inspection, No Pedal Edema Neurologic/Psychiatric: Alert, Other (oriented to person only) Skin: Normal Color, Warm/Dry Results Lab Laboratory Tests 06/17/18 12:15 06/18/18 05:46 06/19/18 05:20 Assessment/Plan Assessment/Plan Acute on chronic respiratory failure -Continue vent therapy LLL unresolving PNA -S/p bronchscopy this AM - pt had copious amounts of mucous plugging. -Mucous plugs cleared/collected and sent to lab -Continue Zosyn -Agarwal cultures -Change to NS from 06/05 NS Anemia -Continue to monitor -protonix - check occult stool Hypophosphatemia -Replace DARSHANA CARDENAS DO Jun 19, 2018 06:35
[2018-06-19] MEDS ORDERED: SODIUM PHOSPHATE INJ 30 MM in NS (IVPB) 250 ML IV ONE (06:45)
[2018-06-19 06:57] LABS: ABG BASE EXCESS 11.5 MMOL/L (-2.5-2.5); ABG OXYGEN SATURATION 92 % (94-100); ABG PCO2 55 MMHG (35-45); ABG PH 7.43 (7.37-7.43); ABG PO2 55 MMHG (79-93); ABG TCO2 38.2 MMOL/L (21.0-31.0)
[2018-06-19 06:58] LABS: ALLENS TEST YES-POS; INSPIRED O2 40%
[2018-06-19 06:59] LABS: PATIENT TEMP 97.2; VENTILATOR YES
[2018-06-19] MEDS: MAGNESIUM 1 GM/100 ML IVPB 100 ML IV SCH (07:10)
[2018-06-19] MEDS: LACTOBACILLUS ACIDOPHILUS (PROBIOTIC) CAPSULE NG SCH ×3 (07:10→17:26)
[2018-06-19] MEDS: PIPERACILLIN SODIUM/TAZOBACTAM 4.5 GM in NS (IVPB) 100 ML IV SCH ×3 (07:11→23:12)
[2018-06-19] MEDS: NS IV 1000 ML 1,000 ML IV SCH ×2 (07:14→15:53)
--- NOTE | 2018-06-19 07:47 | Progress Note-Hospitalist ---
Subjective HPI/CC On Admission Date Seen by Provider: Jun 19, 2018 Time Seen by Provider: 07:41 Pt is a 77yoCF with a PMH of COPD who presented to the ER yesterday due to weakness and SOB. This morning she is very confused and unable to provide me any details other than that she came to the hospital today and that "today is the day I'm going to ." is at bedside who states she has a long history of COPD and is chronically on 4lpm. She just got back from [place] on 06/08 after a 6 week trip. During that trip her oxygen tank could only go up to 3lpm so she has only been on that since then. Over the past few days she has been weak and having trouble walking along with being more SOB. Her is very concerned about her poor appetite over the past few days as well. Subjective/Events-last exam Pt is intubated and sedated. Unable to perform ROS. Discussed with RN. Underwent bronch this AM without difficulty. Focused Exam Lactate Level 06/17/18 12:15: Lactic Acid Level 0.77 Objective Exam Vital Signs Vital Signs Date Time Temp Pulse Resp B/P (MAP) Pulse Ox O2 Delivery O2 Flow Rate FiO2 06/20/18 07:19 98.0 06/20/18 07:04 108 16 21 06/20/18 06:00 119/59 (79) 92 Mechanical Ventilator 21.00 Capillary Refill : Less Than 3 Seconds General Appearance: Other (on vent, sedated) HEENT: Other (ETT in place, OG in place) Cardiovascular: No Murmur, Tachycardia Gastrointestinal: Normal Bowel Sounds, Non Tender, Soft Genital/Rectal: Other (bailon in place) Neurologic/Psychiatric: Other (sedated) Results/Procedures Lab Laboratory Tests 06/20/18 03:30 Patient resulted labs reviewed. Assessment/Plan Assessment and Plan Assess & Plan/Chief Complaint Acute Respiratory Failure Diagnosis/Problems Diagnosis/Problems (1) Acute respiratory failure Assessment & Plan: On vent day 2 Pulm consulted, appreciate recs Underwent bronchoscopy today- follow up cultures hypercapnia improving with MV Qualifiers: Respiratory failure complication: hypercapnia Qualified Codes: J96.02 - Acute respiratory failure with hypercapnia (2) COPD (chronic obstructive pulmonary disease) Status: Acute Assessment & Plan: Baseline 4lpm requirement MAT protocol Continue Solu medrol Discussed with patient and family that if she does require mechanical ventilation may need halfway weaning Qualifiers: COPD type: COPD with acute lower respiratory infection Qualified Codes: J44.0 - Chronic obstructive pulmonary disease with acute lower respiratory infection (3) Pneumonia Status: Acute Assessment & Plan: LLL PNA Escalated to Zosyn yesterday, continue Follow up cultures from bronch today Qualifiers: Pneumonia type: due to unspecified organism Laterality: left Lung location: lower lobe of lung Qualified Codes: J18.1 - Lobar pneumonia, unspecified organism (4) Essential (primary) hypertension Assessment & Plan: Continue metoprolol Well controlled, trend (5) Hypomagnesemia Status: Acute Assessment & Plan: Replacing per protocol (6) Macrocytic anemia Status: Acute Assessment & Plan: Will check B12 Trend Appears to be acute on chronic anemia with a baseline near 10 Clinical Quality Measures DVT/VTE Risk/Contraindication: Risk Factor Score Per Nursin RFS Level Per Nursing on Admit: 4+=Very High GURJIT HARO MD Jun 19, 2018 07:47
[2018-06-19] MEDS ORDERED: ENOXAPARIN 40 MG/0.4 ML (LOVENOX) SYR SC NR (08:00)
--- NOTE | 2018-06-19 08:10 | NUR ---
[address] Casey, this RN administered 4ml of Versed and increased Propofol to 30mcg/kg/min. [address] Casey. 617 Bronchoscopy finished. 629 This RN wasted remainder 1ml of Versed, witnessed by EDNA Tobias.
--- NOTE | 2018-06-19 08:34 | Diagnostic Imaging Report ---
INDICATION: Pneumonia Frontal chest obtained at 335 hours a.m. and is compared to yesterday. ET tube and right IJ central catheter and NG tube are all unchanged. Bibasilar infiltrates are present, with mild improvement in the right base, no change in left base compared to the prior study. There is no pneumothorax or gross pleural fluid. IMPRESSION: Bibasilar infiltrates are present, unchanged on the left-side and mildly improved on the right side compared to the prior study. There is no pneumothorax or pleural fluid or other new finding. Life-support lines are stable. Dictated by: Dictated on workstation # [id number]
[2018-06-19] MEDS ORDERED: LIDOCAINE PF 1% 2 ML VIAL (OR ONLY) IJ ONE (08:46)
[2018-06-19] MEDS: PANTOPRAZOLE 40 MG (PROTONIX) VIAL IV SCH (08:56)
[2018-06-19 09:34] LABS: BODY FLUID COLOR COLORLESS; BODY FLUID SOURCE OTHER
[2018-06-19 09:35] LABS: BF OTHER CELLS 0 %; BODY FLUID APPEARENCE MKD CLDY; LYMPHOCYTES,BODY FLUID 2 %
--- NOTE | 2018-06-19 11:43 | NUR ---
RECOMMEND PULMOCARE @ 40 ML/HR TO PROVIDE 1440 KCAL, 60 GRAMS PROTEIN, 754 ML FREE WATER. PT WILL NEED ADDITIONAL 1300 ML FLUID PER DAY TO MEET NEEDS.
--- NOTE | 2018-06-19 16:05 | NUR ---
OK TO START PULMOCARE TF @40ML/HR PER DR CARDENAS.
--- NOTE | 2018-06-19 17:45 | NUR ---
DR CARDENAS INFORMED CVP HIGH TEENS- 20'S. NEW ORDERS RECEIVED TO DECREASE IVF, GIVE LASIX AND POTASSIUM. SEE EMAR FOR DETAILS.
[2018-06-19] MEDS ORDERED: FUROSEMIDE 40 MG/4 ML INJ (LASIX) IVP NR (18:00)
[2018-06-20] VITALS (31 sets, daily range): BP systolic 90–161; BP diastolic 52–97
[2018-06-20] MEDS: methylPREDNISolone 40 MG/ML (Solu-MEDROL) VIAL IV SCH ×4 (00:29→16:58)
[2018-06-20] MEDS: DEXMEDETOMIDINE INJECTION 200 MCG in NS (IVPB) 50 ML IV SCH ×3 (00:29→07:21)
[2018-06-20] MEDS: meTOprolol 5 MG/5 ML (LOPRESSOR) VIAL IV PRN (01:17)
[2018-06-20] MEDS: RT-ALBUTEROL/IPRATROPIUM 3 ML (DUONEB) VIAL INH SCH ×6 (01:35→22:20)
[2018-06-20 03:44] LABS: BASOPHILS % (AUTO) 0 % (0-10); EOSINOPHILS % (AUTO) 0 % (0-10); HEMATOCRIT 30 % (35-52); HEMOGLOBIN 8.7 G/DL (11.5-16.0); LYMPHOCYTES # (AUTO) 0.3 X 10^3 (1.0-4.0); LYMPHOCYTES % (AUTO) 1 % (12-44); MEAN CORPUSCULAR HEMOGLOBIN 29 PG (25-34); MEAN CORPUSCULAR HGB CONC 29 G/DL (32-36); MEAN CORPUSCULAR VOLUME 99 FL (80-99); MONOCYTES # (AUTO) 0.6 X 10^3 (0.0-1.0); MONOCYTES % (AUTO) 3 % (0-12); NEUTROPHILS # (AUTO) 24.8 X 10^3 (1.8-7.8); NEUTROPHILS % (AUTO) 96 % (42-75); PLATELET COUNT 250 10^3/uL (130-400); RED BLOOD COUNT 3.02 10^6/uL (4.35-5.85); RED CELL DISTRIBUTION WIDTH 11.8 % (10.0-14.5); WHITE BLOOD COUNT 25.8 10^3/uL (4.3-11.0)
[2018-06-20 03:55] LABS: ABG BASE EXCESS 11.8 MMOL/L (-2.5-2.5); ABG OXYGEN SATURATION 99 % (94-100); ABG PCO2 44 MMHG (35-45); ABG PH 7.52 (7.37-7.43); ABG PO2 128 MMHG (79-93)
[2018-06-20 03:57] LABS: ALLENS TEST POSITIVE; INSPIRED O2 21% FIO2; PATIENT TEMP 98.3; VENTILATOR YES
[2018-06-20 04:10] LABS: BUN/CREATININE RATIO 16; CALCIUM 7.8 MG/DL (8.5-10.1); CARBON DIOXIDE 33 MMOL/L (21-32); CHLORIDE 100 MMOL/L (98-107); CREATININE SERUM 0.87 MG/DL (0.60-1.30); GFR ESTIMATED > 60; GLUCOSE 159 MG/DL (70-105); MAGNESIUM 1.5 MG/DL (1.8-2.4); PHOSPHORUS 1.2 MG/DL (2.3-4.7); POTASSIUM 3.1 MMOL/L (3.6-5.0); SODIUM 144 MMOL/L (135-145)
[2018-06-20] MEDS: inSUlin ASPART (NovoLOG) 1 UNIT/0.01 ML (CHARGE PER UNIT) SC SCH ×3 (04:14→18:49)
[2018-06-20] MEDS: KCL 20 MEQ TAB (K-DUR) PO SCH (04:15)
[2018-06-20] MEDS: MAGNESIUM 1 GM/100 ML IVPB 100 ML IV SCH ×3 (04:15→05:32)
[2018-06-20] MEDS: POTASSIUM CL 10MEQ/50ML IVPB 50 ML IV SCH ×5 (04:15→05:26)
[2018-06-20 05:00] LABS: LYMPHOCYTES % (MANUAL) 3 %; NEUTROPHILS % (MANUAL) 97 %
[2018-06-20] MEDS: LACTOBACILLUS ACIDOPHILUS (PROBIOTIC) CAPSULE NG SCH ×3 (05:04→16:58)
--- NOTE | 2018-06-20 05:13 | Pulmonary Progress Note ---
Subjective Time Seen by a Provider: 05:25 Subjective/Events-last exam Pt appears to be doing better. Sepsis Event Evaluation Height, Weight, BMI Height: 5'2.00" Weight: 152lbs. 7.0oz. 69.741510oz; 27.9 BMI Method:Stated Focused Exam Lactate Level 06/17/18 12:15: Lactic Acid Level 0.77 Exam Exam Vital Signs Date Time Temp Pulse Resp B/P (MAP) Pulse Ox O2 Delivery O2 Flow Rate FiO2 06/20/18 04:00 Mechanical Ventilator 21 06/20/18 04:00 108 21 128/62 (84) 92 Mechanical Ventilator 21.00 06/20/18 03:47 113 24 95 21 06/20/18 03:21 98.3 06/20/18 03:00 111 22 129/60 (83) 92 Mechanical Ventilator 21.00 06/20/18 02:00 120 36 111/66 (81) 93 Mechanical Ventilator 21.00 06/20/18 01:35 92 19 95 21 06/20/18 01:00 130 18 115/52 (73) 98 Mechanical Ventilator 21.00 06/20/18 01:00 130 06/20/18 00:00 Mechanical Ventilator 21 06/20/18 00:00 113 23 123/56 (78) 90 Mechanical Ventilator 21.00 06/19/18 23:24 97.0 06/19/18 23:19 110 24 92 21 06/19/18 23:00 105 18 142/70 (94) 93 Mechanical Ventilator 21.00 06/19/18 22:00 115 26 125/69 (87) 93 Mechanical Ventilator 21.00 06/19/18 21:21 107 20 95 21 06/19/18 21:00 97 14 149/75 (99) 91 Mechanical Ventilator 21.00 06/19/18 20:00 96.9 06/19/18 20:00 Mechanical Ventilator 21 06/19/18 20:00 111 23 121/68 (85) 90 Mechanical Ventilator 21.00 06/19/18 19:00 109 06/19/18 19:00 109 18 144/78 (100) 98 Mechanical Ventilator 21.00 06/19/18 18:28 105 16 95 21 06/19/18 18:08 103 160/77 06/19/18 18:00 106 18 160/77 (104) 97 Mechanical Ventilator 21.00 06/19/18 17:05 Mechanical Ventilator 21.00 06/19/18 17:00 105 17 159/83 (108) 100 Mechanical Ventilator 25.00 06/19/18 16:32 105 14 100 25 06/19/18 16:17 Mechanical Ventilator 25 06/19/18 16:00 105 18 164/80 (108) 100 Mechanical Ventilator 25.00 06/19/18 15:46 96.6 06/19/18 15:09 103 16 100 25 06/19/18 15:00 101 15 166/81 (109) 100 Mechanical Ventilator 25.00 06/19/18 14:00 103 19 171/87 (115) 100 Mechanical Ventilator 25.00 06/19/18 13:00 104 16 163/84 (110) 100 Mechanical Ventilator 25.00 06/19/18 13:00 103 06/19/18 12:22 Mechanical Ventilator 25 06/19/18 12:00 109 18 174/87 (116) 99 Mechanical Ventilator 25.00 06/19/18 11:28 96.7 06/19/18 11:05 92 16 100 30 06/19/18 11:00 92 16 170/83 (112) 100 Mechanical Ventilator 25.00 06/19/18 10:00 99 16 163/77 (105) 100 Mechanical Ventilator 35.00 06/19/18 09:00 106 21 166/82 (110) 100 Mechanical Ventilator 35.00 06/19/18 08:35 103 16 100 35 06/19/18 08:11 Mechanical Ventilator 30 06/19/18 08:04 96.2 06/19/18 08:00 104 17 161/76 (104) 99 Mechanical Ventilator 35.00 06/19/18 07:00 96 14 162/78 (106) 95 Mechanical Ventilator 35.00 06/19/18 07:00 102 06/19/18 06:46 96 16 98 40 I & O 06/20/18 07:00 Intake Total 3127 ml Output Total 3230 ml Balance -103 ml Height & Weight Height: 5'2.00" Weight: 152lbs. 7.0oz. 69.656449lv; 27.9 BMI Method:Stated General Appearance: WD/WN, Chronically ill HEENT: Moist Mucous Membranes; No Scleral Icterus (L), No Scleral Icterus (R) Neck: Full Range of Motion, Normal Inspection, Non Tender Respiratory: No Accessory Muscle Use, No Respiratory Distress, Crackles; No Wheezing Cardiovascular: Regular Rate, Rhythm, No JVD, No Murmur Capillary Refill: Less Than 3 Seconds Gastrointestinal: normal bowel sounds, soft Extremity: Normal Capillary Refill, Normal Inspection, No Pedal Edema Neurologic/Psychiatric: Alert, Other (oriented to person only) Skin: Normal Color, Warm/Dry Results Lab Laboratory Tests 06/18/18 05:46 06/19/18 05:20 06/20/18 03:30 Assessment/Plan Assessment/Plan Acute on chronic respiratory failure -Continue vent therapy -Will attempt vent weaning this AM -titrate propofol to D/C -Lasix X 1 LLL unresolving PNA -S/p bronchscopy -Continue Zosyn -Agarwal cultures Anemia -Continue to monitor -protonix - check occult stool Hypophosphatemia, hypomag -Replace UPDATE 1650: PT is now extubated and doing well. I was called to bedside x3 while walking past room by patient's secondary to questions they had. I answered all questions and concerns pt is doing better. SHe is on a regular NC. Pt is complaining of hallucinations. I will give her 0.5mg of Risperdal QHS. Total ICU time spent with patient, family, and medical staff today is 60min. DARSHANA CARDENAS DO Jun 20, 2018 05:13
[2018-06-20] MEDS ORDERED: FUROSEMIDE 40 MG/4 ML INJ (LASIX) IVP ONE (05:15)
--- NOTE | 2018-06-20 05:21 | NUR ---
DR CARDENAS AT BEDSIDE, ORDERS TO KVO FLUIDS, ADMIN 40MG LASIX IV ONCE, K-PHOS 30MM, STOP TUBE FEEDINGS, WEAN PROPOFOL. ADJUSTMENTS MADE TO VENT PER DR CARDENASIDBXCC-LD-00, TV -400
[2018-06-20] MEDS ORDERED: ENOXAPARIN 40 MG/0.4 ML (LOVENOX) SYR ONE (05:24)
[2018-06-20] MEDS: ENOXAPARIN 40 MG/0.4 ML (LOVENOX) SYR SC SCH (05:37)
--- NOTE | 2018-06-20 06:18 | Diagnostic Imaging Report ---
INDICATION: Sepsis Portable chest 4:40 AM There is an ET tube projecting over the trachea. There is an NG tube that enters the stomach. Right IJ central line tip projects over the SVC. There is some infiltrate present in the left lower lung that is improved from the previous day. IMPRESSION: Improving left basilar infiltrate. Dictated by: Dictated on workstation # [id number]
[2018-06-20] MEDS: PIPERACILLIN SODIUM/TAZOBACTAM 4.5 GM in NS (IVPB) 100 ML IV SCH ×3 (06:38→23:34)
[2018-06-20] MEDS ORDERED: DEXMEDETOMIDINE INJECTION 200 MCG in NS (IVPB) 50 ML IV SCH (07:45)
[2018-06-20] MEDS ORDERED: POTASSIUM PHOSPHATE INJ 30 MM in NS (IVPB) 250 ML IV ONE (08:00)
--- NOTE | 2018-06-20 08:12 | Progress Note-Hospitalist ---
Subjective HPI/CC On Admission Date Seen by Provider: Jun 20, 2018 Time Seen by Provider: 08:07 Pt is a 77yoCF with a PMH of COPD who presented to the ER yesterday due to weakness and SOB. This morning she is very confused and unable to provide me any details other than that she came to the hospital today and that "today is the day I'm going to ." is at bedside who states she has a long history of COPD and is chronically on 4lpm. She just got back from [place] on 06/08 after a 6 week trip. During that trip her oxygen tank could only go up to 3lpm so she has only been on that since then. Over the past few days she has been weak and having trouble walking along with being more SOB. Her is very concerned about her poor appetite over the past few days as well. Focused Exam Lactate Level 06/17/18 12:15: Lactic Acid Level 0.77 Objective Exam Vital Signs Vital Signs Date Time Temp Pulse Resp B/P (MAP) Pulse Ox O2 Delivery O2 Flow Rate FiO2 06/20/18 07:19 98.0 06/20/18 07:04 108 16 21 06/20/18 06:00 119/59 (79) 92 Mechanical Ventilator 21.00 Capillary Refill : Less Than 3 Seconds General Appearance: No Apparent Distress, WD/WN, Other (sedated, on vent, resting comfortably) Respiratory: Wheezing, Other (on vent) Cardiovascular: No Murmur, Tachycardia Gastrointestinal: Normal Bowel Sounds, Soft Genital/Rectal: Other (bailon in place) Extremity: No Pedal Edema Neurologic/Psychiatric: Other (arousable despite sedation, answers questions with shaking/nodding head) Results/Procedures Lab Laboratory Tests 06/20/18 03:30 Patient resulted labs reviewed. Assessment/Plan Assessment and Plan Assess & Plan/Chief Complaint Acute Respiratory Failure Diagnosis/Problems Diagnosis/Problems (1) Acute respiratory failure Assessment & Plan: On vent day 3, weaning trial this AM Pulm consulted, appreciate recs Discussed with Dr Carmela Carranza given this AM Qualifiers: Respiratory failure complication: hypercapnia Qualified Codes: J96.02 - Acute respiratory failure with hypercapnia (2) Pneumonia Status: Acute Assessment & Plan: LLL PNA Continue Zosyn Bronch cultures growing MURF RVP pending Qualifiers: Pneumonia type: due to unspecified organism Laterality: left Lung location: lower lobe of lung Qualified Codes: J18.1 - Lobar pneumonia, unspecified organism (3) COPD (chronic obstructive pulmonary disease) Status: Acute Assessment & Plan: Baseline 4lpm requirement MAT protocol Continue Solu medrol Qualifiers: COPD type: COPD with acute lower respiratory infection Qualified Codes: J44.0 - Chronic obstructive pulmonary disease with acute lower respiratory infection (4) Essential (primary) hypertension Assessment & Plan: Continue metoprolol Well controlled, trend (5) Hypomagnesemia Status: Acute Assessment & Plan: Replacing per protocol (6) Macrocytic anemia Status: Acute Assessment & Plan: B12 normal Trend Appears to be acute on chronic anemia with a baseline near 10 Clinical Quality Measures DVT/VTE Risk/Contraindication: Risk Factor Score Per Nursin RFS Level Per Nursing on Admit: 4+=Very High GURJIT HARO MD Jun 20, 2018 08:12
[2018-06-20] MEDS: PANTOPRAZOLE 40 MG (PROTONIX) VIAL IV SCH (08:30)
[2018-06-20 09:19] LABS: ABG BASE EXCESS 14.2 MMOL/L (-2.5-2.5); ABG OXYGEN SATURATION 94 % (94-100); ABG PCO2 43 MMHG (35-45); ABG PH 7.56 (7.37-7.43); ABG PO2 61 MMHG (79-93); ABG TCO2 39.1 MMOL/L (21.0-31.0)
[2018-06-20 09:22] LABS: ALLENS TEST YES-POS; INSPIRED O2 30%; PATIENT TEMP 99.8; VENTILATOR YES
--- NOTE | 2018-06-20 09:26 | NUR ---
ABG RESULTS SENT TO DR CARDENAS.
--- NOTE | 2018-06-20 09:43 | NUR ---
OK TO EXTUBATE PER DR CARDENAS. RT INFORMED.
--- NOTE | 2018-06-20 09:55 | NUR ---
PT EXTUBATED AT THIS TIME AND PLACED ON 5L O2 NC. PT AWAKE AND TOLERATED WELL.
--- NOTE | 2018-06-20 11:20 | NUR ---
Pastoral care Visit.
[2018-06-20] MEDS ORDERED: meTOprolol TARTRATE 25 MG (LOPRESSOR) TABLET PO NR (11:45)
[2018-06-20 11:49] LABS: PARAINFLU 2 PCR Not Detected (Not Detected)
--- NOTE | 2018-06-20 12:21 | NUR ---
Pt extubated today: She was alert and oriented, , Florin, at bedside talking on the phone with their son in [place]. Pt and Florin said they returned from visiting their son in [place] soon before pt was hospitalized. Their children live out of state, and pt requested prayer for them and for Florin. Both were tearful during prayer together. They expressed appreciation for our visit, and shared it was of particular solace to have their jude supported during their hospital stay. Florin said that Scenic Artist[employer]y Manuel had been kind and helpful to him, and all the staff were caring and supportive.
--- NOTE | 2018-06-20 13:05 | ST Dysphagia Evaluation ---
Speech Evaluation-General Medical Diagnosis Acute Respiratory Failure Onset Date: Jun 20, 2018 Therapy Diagnosis Therapy Diagnosis: Oropharyngeal Dysphagia Precautions Precautions/Isolations: Aspiration, Fall Prevention, Standard Precautions, Pressure Ulcer Referral Referring Physician: Dr. Combs Medical History Pertinent Medical History: Arthritis, COPD, GERD, Parkinson's, Smoking Reviewed History: Yes Speech PLF/Current-Dysphagia Prior Level of Function Patient lives at home with her . Prior to the admission she had been visiting in [place] for 6 weeks having just returned on 06/08/18. Patient was on a regular/soft diet at that time. Subjective Patient had just been extubated. She was able to answer my questions appropriately. Oral Motor Skills Dentition: Natural Patient has few remaining teeth which are in poor condition. Patient was NPO pending the Bedside Dysphagia Evaluation Voice Voice Phonatory-Based Quality: Weak Voice Pitch: Mildly Low Voice Loudness: Mildly Soft/Quiet Face Facial Symmetry: Symmetrical Oral-Facial Assessment Oral-Facial Dentition: Normal Puff Cheeks: Reduced Strength Lingual Protrusion: Normal Lingual ROM: Normal Lingual Strength: Normal Pharynx Velopharyngeal Move.: Normal Volitional Dry Swallow: Yes Voluntary Cough: Yes Can Clear Throat Volitionally: Yes Productive Cough: No Productive Throat Clear: No Dysphagia Evaluation Consistencies Presented: Thin Liquid, Pureed Within Functional Limits Within Functional Limits Funct. Velo/Pharyngeal Symptom: Cough After Swallow Dietary Recommendations: Pureed Liquid Recommendations: Thin Swallowing Precautions: Alternate Liquids/Solids, Decreased Bolus 1/2 Tsp, Decreased Rate of Oral Intake, Liquids from Cup, Small Bites and Sips, Sitting Upright 90 Degrees, Sitting 90 Degrees 30 Post Intake Dysphagia Evaluation Summary Patient is a pleasant 77 year old female who was referred for a Bedside Dysphagia Evaluation who had been extubated. Patient was able to answer clinician's questions appropriately. Sips of water via 1/2 tsp. were presented x2 without difficulty. Patient was then given a small sip via cup which was taken without difficulty. Patient was then presented 1/2 tsp. bites of applesauce x2 without difficulty. This was the highest level of food presented due to the patient having few teeth which are in poor condition. Barriers to Learning Patient has been in ICU due to respiratory failure. She was placed on a vent until today. Speech Short Term Goals Short Term Goals Short Term Goals 1) Patient will tolerate least restrictive diet without s/s of aspiration at 90 % or greater. 2) Patient will utilize compensatory strategies as trained at 90% or greater for safer oral intake. Speech [employer] Se[employer] Engineer Goals Senior Living Goals Patient will maintain adequate nutrition/hydration via safe, effective swallow fx. Speech-Plan Patient/Family Goals Patient/Family Goals: Patient plans to return home with her upon discharge. Treatment Plan Speech Therapy Treatment Plan: Continue Plan of Care Patient is on Dysphagia 1 with thin liquids. Treatment Duration: Jun 20, 2018 Frequency: 2 times per week Estimated Hrs Per Day: .25 hour per day Rehab Potential: Fair Barriers to Learning: Patient is in respiratory failure. Pt/Family Agrees to Plan: Yes Safety Risks/Education Teaching Recipient: Patient, Significant Other Teaching Methods: Discussion Response to Teaching: Verbalize Understanding Education Topics Provided: Safety of oral intake strategies Time Speech Therapy Time In: 10:30 Speech Therapy Time Out: 10:45 Total Billed Time: 15 Billed Treatment Time 1 BREE Morocho Jun 20, 2018 13:05
[2018-06-20] MEDS: risperiDONE 0.25 MG (RisperDAL) TAB PO SCH ×2 (16:58→20:19)
[2018-06-20] MEDS: NS IV 1000 ML 1,000 ML IV SCH (16:59)
[2018-06-20] MEDS: meTOprolol TARTRATE 25 MG (LOPRESSOR) TABLET PO SCH (21:03)
[2018-06-21] VITALS (11 sets, daily range): BP systolic 94–172; BP diastolic 52–87
[2018-06-21] MEDS: methylPREDNISolone 40 MG/ML (Solu-MEDROL) VIAL IV SCH (00:45)
[2018-06-21] MEDS: RT-ALBUTEROL/IPRATROPIUM 3 ML (DUONEB) VIAL INH SCH ×6 (02:06→22:39)
[2018-06-21 04:30] LABS: BASOPHILS % (AUTO) 0 % (0-10); EOSINOPHILS % (AUTO) 0 % (0-10); HEMATOCRIT 28 % (35-52); HEMOGLOBIN 8.3 G/DL (11.5-16.0); LYMPHOCYTES # (AUTO) 0.7 X 10^3 (1.0-4.0); LYMPHOCYTES % (AUTO) 3 % (12-44); MEAN CORPUSCULAR HEMOGLOBIN 29 PG (25-34); MEAN CORPUSCULAR HGB CONC 29 G/DL (32-36); MEAN CORPUSCULAR VOLUME 98 FL (80-99); MEAN PLATELET VOLUME 8.4 FL (7.4-10.4); MONOCYTES # (AUTO) 1.2 X 10^3 (0.0-1.0); MONOCYTES % (AUTO) 4 % (0-12); NEUTROPHILS # (AUTO) 25.3 X 10^3 (1.8-7.8); NEUTROPHILS % (AUTO) 93 % (42-75); PLATELET COUNT 264 10^3/uL (130-400); RED BLOOD COUNT 2.88 10^6/uL (4.35-5.85); RED CELL DISTRIBUTION WIDTH 13.2 % (10.0-14.5); WHITE BLOOD COUNT 27.2 10^3/uL (4.3-11.0)
[2018-06-21 04:49] LABS: BUN/CREATININE RATIO 21; CALCIUM 7.4 MG/DL (8.5-10.1); CARBON DIOXIDE 32 MMOL/L (21-32); CHLORIDE 101 MMOL/L (98-107); CREATININE SERUM 0.84 MG/DL (0.60-1.30); GFR ESTIMATED > 60; GLUCOSE 85 MG/DL (70-105); MAGNESIUM 1.9 MG/DL (1.8-2.4); PHOSPHORUS 3.3 MG/DL (2.3-4.7); POTASSIUM 4.1 MMOL/L (3.6-5.0); SODIUM 144 MMOL/L (135-145)
--- NOTE | 2018-06-21 05:23 | Pulmonary Progress Note ---
Subjective Time Seen by a Provider: 05:53 Subjective/Events-last exam Pt is doing well off vent. Sepsis Event Evaluation Height, Weight, BMI Height: 5'2.00" Weight: 152lbs. 7.0oz. 69.449914xx; 27.9 BMI Method:Stated Exam Exam Vital Signs Date Time Temp Pulse Resp B/P (MAP) Pulse Ox O2 Delivery O2 Flow Rate FiO2 06/21/18 04:00 98.0 06/21/18 04:00 Nasal Cannula 1.00 06/21/18 02:20 90 21 98 Nasal Cannula 1.00 06/21/18 02:06 100 Nasal Cannula 2.00 06/21/18 02:00 85 19 153/74 (100) 100 Nasal Cannula 2.00 06/21/18 01:00 86 06/21/18 01:00 86 26 151/73 (99) 100 Nasal Cannula 2.00 06/21/18 00:00 96 28 146/72 (96) 99 Nasal Cannula 2.00 06/21/18 00:00 97.9 06/21/18 00:00 Nasal Cannula 2.00 06/20/18 23:00 98 18 151/77 (101) 97 Nasal Cannula 2.00 06/20/18 22:45 99 11 147/70 (95) 98 Nasal Cannula 2.00 06/20/18 22:28 102 100 32 06/20/18 22:21 100 Nasal Cannula 3.00 06/20/18 22:00 91 22 149/72 (97) 100 Nasal Cannula 3.00 06/20/18 21:00 105 27 153/73 (99) 92 Nasal Cannula 3.00 06/20/18 20:19 99 Nasal Cannula 3.00 06/20/18 20:00 Nasal Cannula 2.00 06/20/18 20:00 98.8 06/20/18 20:00 114 29 159/84 (109) 95 Nasal Cannula 3.00 06/20/18 19:00 105 10 138/69 (92) 98 Nasal Cannula 3.00 06/20/18 19:00 105 06/20/18 18:00 112 14 150/79 (102) 92 Nasal Cannula 3.00 06/20/18 17:00 107 28 161/85 (110) 99 Nasal Cannula 3.00 06/20/18 16:51 98.5 06/20/18 16:00 107 19 131/97 (108) 97 Nasal Cannula 3.00 06/20/18 16:00 Nasal Cannula 3.00 06/20/18 15:23 98 Nasal Cannula 3.00 06/20/18 15:00 107 24 138/68 (91) 99 Nasal Cannula 3.00 06/20/18 14:00 112 44 132/67 (88) 98 Nasal Cannula 3.00 06/20/18 13:10 110 06/20/18 13:00 115 49 124/61 (82) 100 Nasal Cannula 3.00 06/20/18 12:37 98.6 06/20/18 12:00 120 40 123/69 (87) 96 Nasal Cannula 3.00 06/20/18 12:00 Nasal Cannula 3.00 06/20/18 11:00 160 35 122/67 (85) 96 Nasal Cannula 3.00 06/20/18 10:11 100 Nasal Cannula 5.00 06/20/18 10:00 121 26 138/73 (94) 97 Nasal Cannula 3.00 06/20/18 09:55 Nasal Cannula 3.00 06/20/18 09:49 110 28 96 30 06/20/18 09:00 108 23 120/62 (81) 99 Mechanical Ventilator 21.00 06/20/18 08:25 109 28 92 30 06/20/18 08:00 114 24 104/56 (72) 89 Mechanical Ventilator 21.00 06/20/18 08:00 Mechanical Ventilator 21 06/20/18 07:19 98.0 06/20/18 07:04 108 16 21 06/20/18 07:03 109 06/20/18 07:00 103 19 116/60 (78) 92 Mechanical Ventilator 21.00 06/20/18 06:00 114 18 119/59 (79) 92 Mechanical Ventilator 21.00 I & O 06/21/18 07:00 Intake Total 1932 ml Output Total 2850 ml Balance -918 ml Height & Weight Height: 5'2.00" Weight: 152lbs. 7.0oz. 69.819880ax; 27.9 BMI Method:Stated General Appearance: WD/WN, Chronically ill HEENT: Moist Mucous Membranes; No Scleral Icterus (L), No Scleral Icterus (R) Neck: Full Range of Motion, Normal Inspection, Non Tender Respiratory: No Accessory Muscle Use, No Respiratory Distress, Crackles; No Wheezing Cardiovascular: Regular Rate, Rhythm, No JVD, No Murmur Capillary Refill: Less Than 3 Seconds Gastrointestinal: normal bowel sounds, soft Extremity: Normal Capillary Refill, Normal Inspection, No Pedal Edema Neurologic/Psychiatric: Alert, Other (oriented to person only) Skin: Normal Color, Warm/Dry Results Lab Laboratory Tests 06/19/18 05:20 06/20/18 03:30 06/21/18 04:20 Assessment/Plan Assessment/Plan Acute on chronic respiratory failure -Pt is now off ventilator and doing well -D/C solumedrol -PT will benefit from home vent to mask. She has severe COPD/chronic respiratory failure. anxiety/agitation -Risperdal LLL unresolving PNA -S/p bronchscopy -Continue Zosyn -Agarwal cultures Anemia -Continue to monitor -protonix - check occult stool Hypophosphatemia, hypomag -Replace Pt is doing better. Will transfer to 4th floor with tele and PT/OT. D/c adamaris. DARSHANA CARDENAS DO Jun 21, 2018 05:23
[2018-06-21] MEDS: POTASSIUM CL 10MEQ/50ML IVPB 50 ML IV SCH (05:55)
[2018-06-21] MEDS: KCL 20 MEQ TAB (K-DUR) PO SCH (05:55)
[2018-06-21] MEDS: MAGNESIUM 1 GM/100 ML IVPB 100 ML IV SCH (05:55)
[2018-06-21] MEDS: inSUlin ASPART (NovoLOG) 1 UNIT/0.01 ML (CHARGE PER UNIT) SC SCH ×4 (05:56→21:54)
[2018-06-21] MEDS: PIPERACILLIN SODIUM/TAZOBACTAM 4.5 GM in NS (IVPB) 100 ML IV SCH ×3 (06:00→22:31)
[2018-06-21] MEDS: LACTOBACILLUS ACIDOPHILUS (PROBIOTIC) CAPSULE NG SCH ×3 (06:01→18:29)
[2018-06-21] MEDS: ENOXAPARIN 40 MG/0.4 ML (LOVENOX) SYR SC SCH (06:01)
[2018-06-21 06:25] LABS: PARAINFLU 1 PCR Not Detected (Not Detected); RSV PCR Not Detected (Not Detected)
--- NOTE | 2018-06-21 08:17 | Progress Note-Hospitalist ---
Subjective HPI/CC On Admission Date Seen by Provider: Jun 21, 2018 Time Seen by Provider: 08:12 Pt is a 77yoCF with a PMH of COPD who presented to the ER yesterday due to weakness and SOB. This morning she is very confused and unable to provide me any details other than that she came to the hospital today and that "today is the day I'm going to ." is at bedside who states she has a long history of COPD and is chronically on 4lpm. She just got back from [place] on 06/08 after a 6 week trip. During that trip her oxygen tank could only go up to 3lpm so she has only been on that since then. Over the past few days she has been weak and having trouble walking along with being more SOB. Her is very concerned about her poor appetite over the past few days as well. Subjective/Events-last exam Pt reports feeling much better. Still somewhat shakey but getting better. expressed concerns about eventual discharge home and his ability to care for her due to weakness. Objective Exam Vital Signs Vital Signs Date Time Temp Pulse Resp B/P (MAP) Pulse Ox O2 Delivery O2 Flow Rate FiO2 06/22/18 09:00 Nasal Cannula 3.00 06/22/18 08:28 98.2 102 16 177/74 (108) 98 06/20/18 22:28 32 Capillary Refill : Less Than 3 Seconds General Appearance: No Apparent Distress, Chronically ill Respiratory: Lungs Clear, No Respiratory Distress Cardiovascular: Regular Rate, Rhythm, No Murmur Gastrointestinal: Normal Bowel Sounds, Non Tender, Soft Neurologic/Psychiatric: Alert, Oriented x3 Results/Procedures Lab Laboratory Tests 06/22/18 06:30 Patient resulted labs reviewed. Assessment/Plan Assessment and Plan Assess & Plan/Chief Complaint Acute Respiratory Failure Diagnosis/Problems Diagnosis/Problems (1) Acute respiratory failure Assessment & Plan: Extubated on 06/20 Pulm consulted, appreciate recs Currently on 1lpm and doing well Transfer to the floor Qualifiers: Respiratory failure complication: hypercapnia Qualified Codes: J96.02 - Acute respiratory failure with hypercapnia (2) Pneumonia Status: Acute Assessment & Plan: LLL PNA Continue Zosyn Bronch cultures growing MURF RVP negative Qualifiers: Pneumonia type: due to unspecified organism Laterality: left Lung location: lower lobe of lung Qualified Codes: J18.1 - Lobar pneumonia, unspecified organism (3) COPD (chronic obstructive pulmonary disease) Status: Acute Assessment & Plan: Baseline 4lpm requirement MAT protocol Continue Solu medrol Qualifiers: COPD type: COPD with acute lower respiratory infection Qualified Codes: J44.0 - Chronic obstructive pulmonary disease with acute lower respiratory infection (4) Essential (primary) hypertension Assessment & Plan: Continue metoprolol Well controlled, trend (5) Hypomagnesemia Status: Acute Assessment & Plan: Replacing per protocol (6) Macrocytic anemia Status: Acute Assessment & Plan: B12 normal Trend Appears to be acute on chronic anemia with a baseline near 10 (7) Parkinson disease Assessment & Plan: Continue on Sinemet when cleared by Speech Therapy Clinical Quality Measures DVT/VTE Risk/Contraindication: Risk Factor Score Per Nursin RFS Level Per Nursing on Admit: 4+=Very High GURJIT HARO MD Jun 21, 2018 08:17
--- NOTE | 2018-06-21 08:21 | Diagnostic Imaging Report ---
Indication: Sepsis and pneumonia. Time of exam 3:27 AM Correlation is made with prior study of one day earlier. ET tube and NG tube have been removed. Right IJ line remains in place. There is some residual atelectasis or infiltrate in the left base. Right lung is clear. No effusion or pneumothorax is seen. Impression: Extubation chest with some residual infiltrate or atelectasis in the left base. Dictated by: Dictated on workstation # [id number]
[2018-06-21] MEDS: PANTOPRAZOLE 40 MG (PROTONIX) VIAL IV SCH (08:27)
[2018-06-21] MEDS: risperiDONE 0.25 MG (RisperDAL) TAB PO SCH ×2 (08:27→20:47)
[2018-06-21] MEDS: meTOprolol TARTRATE 25 MG (LOPRESSOR) TABLET PO SCH ×2 (08:27→20:47)
[2018-06-21] MEDS ORDERED: methylPREDNISolone 40 MG/ML (Solu-MEDROL) VIAL IV SCH (09:00)
[2018-06-21] MEDS ORDERED: MICONAZOLE 2% POWDER (DESENEX AF) 90 GM TOP SCH (09:00)
--- NOTE | 2018-06-21 09:48 | NUR ---
CM/CARRI spoke with the patient's (Florin) and he would like some service in home when she is able to go home. They have had [facility] before, would like to have a bath aide for her. Will continue to follow and work with the family on discharge planning.
--- NOTE | 2018-06-21 10:19 | Physical Therapy Evaluation ---
PT Evaluation-General Medical Diagnosis Admission Date Jun 18, 2018 at 09:32 Medical Diagnosis: Acute Respiratory Failure Onset Date: Jun 20, 2018 Therapy Diagnosis Therapy Diagnosis: weakness, impaired mobility Height/Weight Height (Feet): 5 Height (Inches): 2.00 Weight (Pounds): 152 Weight (Ounces): 7.0 Precautions Precautions/Isolations: Fall Prevention, Standard Precautions, Pressure Ulcer Weight Bear Status Right Lower Extremity: Right Full Weight Bearing Left Lower Extremity: Left Full Weight Bearing Referral Physician: Dr. Casey Reason for Referral: Evaluation/Treatment Medical History Pertinent Medical History: Arthritis, COPD, GERD, Parkinson's, Smoking Reviewed History: Yes Social History Home: Single Level Current Living Status: Spouse Prior/Core FIM Prior Level of Function Therapy Code Descriptions/Definitions Functional Appling Measure: 0=Not Assessed/NA 4=Minimal Assistance 1=Total Assistance 5=Supervision or Setup 2=Maximal Assistance 6=Modified App[place] 3=Moderate Assistance 7=Complete App[place] Therapy Quality Codes: 6 Independent with activity with or without an assistive device 5 Patient requires set up or clean up by helper. Patient completes activity by themselves 4 Supervision or touching assist (CGA). [place] provide cues , steadying assist 3 The helper provides less than half the effort to complete the activity 2 The helper provides more than half the effort to complete the activity 1 Dependent. The helper does all the effort to complete an activity 7 Patient refused to complete or attempt activity 9 The patient did not perform the activity before the current illness or injury 88 Not attempted due to Medical conditions or safety concerns Functional Abilities and Goals: Independent: Patient completed the activities by him/herself, with or without an assistive device, with no assistance from a helper. Needed Some Help: Patient needed partial assistance from another person to complete activities. Dependent: A helper completed the activities for the patient. Unknown: Not Applicable: Bed Mobility: 6 Transfers (B,C,W/C) (FIM): 6 Gait: 6 Indoor Mobility (Ambulation): Independent Stairs: Independent Prior Devices Use: Walker Prior Device Use: 3 wheeled walker PT Evaluation-Current Subjective Pt was in bed and agreed to PT. Pt's nurse just removed Powers. Pt reports that she is feeling a lot better but still feels very weak. Pain Numeric Pain Scale: 0-No Pain Location: No Pain Reported Pt/Family Goals Pt to return home with spouse. Objective Patient Orientation: Person, Place, Normal For Age Attachments: SCD's, Oxygen (1L), IV ROM/Strength ROM Lower Extremities WNL Strength Lower Extremities Gross motor LE weakness Sensory Vision: Wears Glasses Hearing: Functional Sensation Right Lower Extremit: Intact Sensation Left Lower Extremity: Intact Transfers Therapy Code Descriptions/Definitions Functional Appling Measure: 0=Not Assessed/NA 4=Minimal Assistance 1=Total Assistance 5=Supervision or Setup 2=Maximal Assistance 6=Modified Appling 3=Moderate Assistance 7=Complete App[place] Transfers (B, C, W/C) (FIM): 4 Scootin Rollin Supine to/from Sit: 5 Sit to/from Stand: 4 Gait Mode of Locomotion: Walk Anticipated Mode of Locomotion: Walk Gait (FIM): 1 Distance (FIM): 1=up to 49 ft Distance: 5' Gait Level of Assist: 4 Gait Persons Needed: 1 Gait Assistive Device: FWW Balance Sitting Static: Good Sitting Dynamic: Fair Standing Static: Fair Standing Dynamic: Poor Assessment/Needs Pt was able to perform bed mobility from supine to EOB with SBA. Pt performed rolling while nurse applied a brief with min A. Pt was able to sit<>stand from EOB to FWW with min A. Pt was able to transfer to recliner from bed with min A of PT using cues for steps and guiding FWW. Pt is now in recliner with all needs met and spouse is in with her. Rehab Potential: Fair PT Short Term Goals Short Term Goals Time Frame: Jun 28, 2018 Transfers (B,C,W/C) (FIM): 5 Gait (FIM): 2 Distance (FIM): 4=689-59 ft Gait Distance Comment: 100' Gait Level of Assist: 5 Gait Assistive Device: FWW PT Plan Problem List Problem List: Activity Tolerance, Functional Strength, Safety, Balance, Gait, Transfer, Bed Mobility Treatment/Plan Treatment Plan: Continue Plan of Care Treatment Plan: Bed Mobility, Education, Functional Activity Derrick, Functional Strength, Gait, Safety, Therapeutic Exercise, Transfers Treatment Duration: Jun 29, 2018 Frequency: 6 times per week Estimated Hrs Per Day: .25 hour per day Patient and/or Family Agrees t: Yes Discharge Recommendations Therapy D/C Recommendations: Acute Rehab, Home w/ Family Support Equpiment Recommendations-D/C: Front Wheeled Walker Time/GCodes Time In: 925 Time Out: 949 Total Billed Treatment Time: 24 Total Billed Treatment 1 visit EVmodC 24 min RALPH BALBUENA PT Jun 21, 2018 10:19
--- NOTE | 2018-06-21 10:34 | NUR ---
PT TRANSFERRED TO [facility] VIA CHAIR W/ STAFF AND . PERSONAL BELONGINGS W/ PT. REPORT GIVEN TO LINH BISHOP, NO QUESTIONS/CONCERNS VOICED.
--- NOTE | 2018-06-21 13:51 | Occupational Therapy Eval ---
OT Evaluation-General/PLF Medical Diagnosis Admission Date Jun 18, 2018 at 09:32 Medical Diagnosis: Acute Respiratory Failure Onset Date: Jun 20, 2018 Therapy Diagnosis Therapy Diagnosis: decreased self care skills Height/Weight Height (Feet): 5 Height (Inches): 2.00 Weight (Pounds): 152 Weight (Ounces): 7.0 Precautions Precautions/Isolations: Fall Prevention, Standard Precautions, Pressure Ulcer Safety Interventions: Bed Exit Alarm Referral Physician: Dr. Casey Medical History Pertinent Medical History: Arthritis, COPD, GERD, Parkinson's, Smoking Additional Medical History sleep apnea, abdominal hernia, Reviewed History: Yes Social History Home: Single Level Current Living Status: Spouse Steps Into Home: 4 ADL-Prior Level of Function Therapy Code Descriptions/Definitions Functional Emmet Measure: 0=Not Assessed/NA 4=Minimal Assistance 1=Total Assistance 5=Supervision or Setup 2=Maximal Assistance 6=Modified Emm[place] 3=Moderate Assistance 7=Complete Emm[place] Therapy Quality Codes: 6 Independent with activity with or without an assistive device 5 Patient requires set up or clean up by helper. Patient completes activity by themselves 4 Supervision or touching assist (CGA). [place] provide cues , steadying assist 3 The helper provides less than half the effort to complete the activity 2 The helper provides more than half the effort to complete the activity 1 Dependent. The helper does all the effort to complete an activity 7 Patient refused to complete or attempt activity 9 The patient did not perform the activity before the current illness or injury 88 Not attempted due to Medical conditions or safety concerns Functional Abilities and Goals: Independent: Patient completed the activities by him/herself, with or without an assistive device, with no assistance from a helper. Needed Some Help: Patient needed partial assistance from another person to complete activities. Dependent: A helper completed the activities for the patient. Unknown: Not Applicable: ADL PLOF Comments Spouse states pt was able to complete basic self care tasks independently until the past week when she began having difficulty and requiring assist. Self Care: Needed Some Help DME/Equipment: Bath Chair, Tub/Shower OT Current Status Subjective Pt agreeable to therapy. Mental Status/Objective Patient Orientation: Person Attachments: Oxygen Current Hand Dominance: Right Upper Extremity ROM Grossly WFL Upper Extremity Coordination decreased Upper Extremity Strength decreased bilaterally ADL-Treatment ADL-Current Pt being transferred from ICU to [facility]. Pt sit to stand from chair with minimal assistance. Transferred to bed with minimal assistance and skilled cues for safety. Sit to supine with assist for LE. Pt participated in UE assessment while in bed. Pt reports fatigue from sitting up in chair. Education provided regarding role of OT and plan of care. Pt states understanding and is in agreement with plan, would like to get stronger. Pt resting in bed with needs met, spouse and RN present after session. Therapy Code Descriptions/Definitions Functional Emmet Measure: 0=Not Assessed/NA 4=Minimal Assistance 1=Total Assistance 5=Supervision or Setup 2=Maximal Assistance 6=Modified Emm[place] 3=Moderate Assistance 7=Complete [place] Therapy Quality Codes: 6 Independent with activity with or without an assistive device 5 Patient requires set up or clean up by helper. Patient completes activity by themselves 4 Supervision or touching assist (CGA). [place] provide cues , steadying assist 3 The helper provides less than half the effort to complete the activity 2 The helper provides more than half the effort to complete the activity 1 Dependent. The helper does all the effort to complete an activity 7 Patient refused to complete or attempt activity 9 The patient did not perform the activity before the current illness or injury 88 Not attempted due to Medical conditions or safety concerns Transfers (B, C, W/C) (FIM): 4 Education OT Patient Education: Rehab process Teaching Recipient: Patient Teaching Methods: Discussion Response to Teaching: Reinforcement Needed OT Short Term Goals Short Term Goals Transfers (B,C,W/C) (FIM): 5 1=Demonstrate adherence to instructed precautions during ADL tasks. 2=Patient will verbalize/demonstrate understanding of assistive devices/ modifications for ADL. 3=Patient will improve strength/tolerance for activity to enable patient to perform ADL's. OT Shelter Goals Shelter Goals Time Frame: Jul 05, 2018 Eating (FIM): 5 Grooming(FIM): 5 Upper Body Dressing(FIM): 5 Lower Body Dressing(FIM): 5 Toileting(FIM): 5 Additional Goals: 1-Demonstrate ADL Tasks, 2-Verbalize Understanding, 3- ImproveStrength/Derrick 1=Demonstrate adherence to instructed precautions during ADL tasks. 2=Patient will verbalize/demonstrate understanding of assistive devices/ modifications for ADL. 3=Patient will improve strength/tolerance for activity to enable patient to perform ADL's. OT Education/Plan Problem List/Assessment Assessment: Decreased Activ Tolerance, Decreased UE Strength, Dependent Transfers, Impaired Funct Balance, Impaired Self-Care Skills Pt to benefit from skilled OT intervention for ADL training, transfers, strengthening, and home safety education to increase functional independence and allow safe discharge plan. Discharge Recommendations Plan/Recommendations: Continue POC Treatment Plan/Plan of Care Treatment,Training & Education: Yes Patient would benefit from OT for education, treatment and training to promote independence in ADL's, mobility, safety and/or upper extremity function for ADL' s. Plan of Care: ADL Retraining, Functional Mobility, UE Funct Exercise/Act Treatment Duration: Jul 05, 2018 Frequency: 5 times per week Estimated Hrs Per Day: .25 hour per day Rehab Potential: Fair Time/GCodes Start Time: 10:40 Stop Time: 10:55 Total Time Billed (hr/min): 15 Billed Treatment Time 1 visit, DHARA(15minutes) CALVIN LAZCANO OT Jun 21, 2018 13:51
--- NOTE | 2018-06-21 20:20 | NUR ---
1999- PTS BP-94/54 TEMP-99.2, HR-110, O2-93% ON 3 LITER NC, RESP-18. PTS BP CONSIDERABLY LOWER THAN PREVIOUS READINGS. 2019-SPOKE WITH DR. HARO AT THIS TIME AND INFORMED HER OF PTS CONDITION. TELEPHONE ORDERS RECEIVED FOR 5OOCC BOLUS 1X AND NOT TO GIVE NIGHT TIME DOSE OF METOPROLOL. WILL CONTINUE TO MONITOR PT AT THIS TIME.
[2018-06-21] MEDS ORDERED: NS (IVPB) 500 ML IV ONE (20:30)
[2018-06-21] MEDS: SINEMET 25/100 (CARBIDOPA/LEVODOPA) TAB PO SCH (20:45)
[2018-06-22] VITALS (7 sets, daily range): BP systolic 128–177; BP diastolic 62–74
[2018-06-22] MEDS: RT-ALBUTEROL/IPRATROPIUM 3 ML (DUONEB) VIAL INH SCH ×6 (04:22→22:31)
[2018-06-22] MEDS: inSUlin ASPART (NovoLOG) 1 UNIT/0.01 ML (CHARGE PER UNIT) SC SCH ×4 (05:37→20:38)
[2018-06-22] MEDS: ENOXAPARIN 40 MG/0.4 ML (LOVENOX) SYR SC SCH (06:30)
[2018-06-22] MEDS: PIPERACILLIN SODIUM/TAZOBACTAM 4.5 GM in NS (IVPB) 100 ML IV SCH ×3 (06:30→22:53)
[2018-06-22] MEDS: LACTOBACILLUS ACIDOPHILUS (PROBIOTIC) CAPSULE NG SCH ×3 (06:30→17:08)
[2018-06-22 06:38] LABS: BASOPHILS % (AUTO) 0 % (0-10); EOSINOPHILS # (AUTO) 0.1 10^3/uL (0.0-0.3); EOSINOPHILS % (AUTO) 1 % (0-10); HEMATOCRIT 29 % (35-52); HEMOGLOBIN 8.5 G/DL (11.5-16.0); LYMPHOCYTES # (AUTO) 1.7 X 10^3 (1.0-4.0); LYMPHOCYTES % (AUTO) 11 % (12-44); MEAN CORPUSCULAR HEMOGLOBIN 29 PG (25-34); MEAN CORPUSCULAR HGB CONC 29 G/DL (32-36); MEAN CORPUSCULAR VOLUME 99 FL (80-99); MEAN PLATELET VOLUME 8.4 FL (7.4-10.4); MONOCYTES # (AUTO) 1.1 X 10^3 (0.0-1.0); MONOCYTES % (AUTO) 7 % (0-12); NEUTROPHILS # (AUTO) 12.8 X 10^3 (1.8-7.8); NEUTROPHILS % (AUTO) 81 % (42-75); PLATELET COUNT 243 10^3/uL (130-400); RED BLOOD COUNT 2.93 10^6/uL (4.35-5.85); RED CELL DISTRIBUTION WIDTH 13.6 % (10.0-14.5); WHITE BLOOD COUNT 15.7 10^3/uL (4.3-11.0)
[2018-06-22 06:54] LABS: BUN/CREATININE RATIO 15; CARBON DIOXIDE 33 MMOL/L (21-32); CHLORIDE 101 MMOL/L (98-107); CREATININE SERUM 0.81 MG/DL (0.60-1.30); GFR ESTIMATED > 60; GLUCOSE 74 MG/DL (70-105); POTASSIUM 3.8 MMOL/L (3.6-5.0); SODIUM 143 MMOL/L (135-145)
[2018-06-22] MEDS ORDERED: UMECLIDINIUM BROMIDE (INCRUSE ELLIPTA) 7'S IH SCH (08:00)
--- NOTE | 2018-06-22 08:40 | Pulmonary Progress Note ---
Subjective Time Seen by a Provider: 08:40 Subjective/Events-last exam PT is doing better. She did become hypotensive last night and was requiring more oxygen. Sepsis Event Evaluation Height, Weight, BMI Height: 5'2.00" Weight: 152lbs. 7.0oz. 69.722589ek; 27.9 BMI Method:Stated Exam Exam Vital Signs Date Time Temp Pulse Resp B/P (MAP) Pulse Ox O2 Delivery O2 Flow Rate FiO2 06/22/18 08:28 98.2 102 16 177/74 (108) 98 Nasal Cannula 3.00 06/22/18 07:13 98 06/22/18 06:58 96 Nasal Cannula 3.00 06/22/18 04:30 98.2 98 18 153/73 (99) 97 Nasal Cannula 3.00 06/22/18 01:00 100 06/22/18 00:32 98.1 103 18 169/71 (103) 94 Nasal Cannula 3.00 06/21/18 20:19 99.2 110 18 94/52 (66) 93 Nasal Cannula 3.00 06/21/18 20:00 Nasal Cannula 3.00 06/21/18 19:00 111 06/21/18 18:57 88 Nasal Cannula 2.50 06/21/18 16:00 98.1 92 21 133/60 (84) 90 Nasal Cannula 2.50 06/21/18 14:46 91 Nasal Cannula 1.00 06/21/18 13:46 95 06/21/18 12:00 98.3 80 22 156/79 (104) 94 Nasal Cannula 1.00 06/21/18 10:35 Nasal Cannula 1.00 06/21/18 10:09 97 Nasal Cannula 1.00 I & O 06/22/18 07:00 Intake Total 1560 ml Output Total 2125 ml Balance -565 ml Height & Weight Height: 5'2.00" Weight: 152lbs. 7.0oz. 69.968119hd; 27.9 BMI Method:Stated General Appearance: No Apparent Distress, Chronically ill HEENT: Moist Mucous Membranes; No Scleral Icterus (L), No Scleral Icterus (R) Neck: Full Range of Motion, Normal Inspection, Non Tender Respiratory: Lungs Clear, No Respiratory Distress Cardiovascular: Regular Rate, Rhythm, No Murmur Capillary Refill: Less Than 3 Seconds Gastrointestinal: normal bowel sounds, soft Extremity: Normal Capillary Refill, Normal Inspection, No Pedal Edema Neurologic/Psychiatric: Alert, Oriented x3 Skin: Normal Color, Warm/Dry Results Lab Laboratory Tests 06/21/18 04:20 06/22/18 06:30 Assessment/Plan Assessment/Plan Acute on chronic respiratory failure -PT is doing well off vent -D/C solumedrol -PT will benefit from home vent to mask. She has severe COPD/chronic respiratory failure. -Add vent to mask QHS Severe COPD -Wean oxygen for Sp02 90-94% -Pt needs home anxiety/agitation -Risperdal Hypotension -IVF - now improved LLL unresolving PNA -S/p bronchscopy -Continue Zosyn -Agarwal cultures Anemia -Continue to monitor -protonix - check occult stool Hypophosphatemia, hypomag -Replace DARSHANA CARDENAS DO Jun 22, 2018 08:39
[2018-06-22] MEDS: SINEMET 25/100 (CARBIDOPA/LEVODOPA) TAB PO SCH ×3 (09:16→20:38)
[2018-06-22] MEDS: meTOprolol TARTRATE 25 MG (LOPRESSOR) TABLET PO SCH ×2 (09:16→20:38)
[2018-06-22] MEDS: risperiDONE 0.25 MG (RisperDAL) TAB PO SCH ×2 (09:17→20:38)
[2018-06-22] MEDS: PANTOPRAZOLE 40 MG (PROTONIX) VIAL IV SCH (09:17)
[2018-06-22] MEDS: AMANTADINE 100 MG (SYMMETREL) CAP PO SCH (09:39)
--- NOTE | 2018-06-22 10:23 | Progress Note-Hospitalist ---
Subjective HPI/CC On Admission Date Seen by Provider: Jun 22, 2018 Time Seen by Provider: 10:20 Pt is a 77yoCF with a PMH of COPD who presented to the ER yesterday due to weakness and SOB. This morning she is very confused and unable to provide me any details other than that she came to the hospital today and that "today is the day I'm going to ." is at bedside who states she has a long history of COPD and is chronically on 4lpm. She just got back from [place] on 06/08 after a 6 week trip. During that trip her oxygen tank could only go up to 3lpm so she has only been on that since then. Over the past few days she has been weak and having trouble walking along with being more SOB. Her is very concerned about her poor appetite over the past few days as well. Subjective/Events-last exam Pt reports feeling better. Requesting diet change. Explained reason for dysphagia diet and understands. Objective Exam Vital Signs Vital Signs Date Time Temp Pulse Resp B/P (MAP) Pulse Ox O2 Delivery O2 Flow Rate FiO2 06/22/18 09:00 Nasal Cannula 3.00 06/22/18 08:28 98.2 102 16 177/74 (108) 98 06/20/18 22:28 32 Capillary Refill : Less Than 3 Seconds General Appearance: No Apparent Distress, Chronically ill Neck: Other (central line in place) Respiratory: Lungs Clear, No Accessory Muscle Use, No Respiratory Distress Cardiovascular: Regular Rate, Rhythm, No Murmur Gastrointestinal: Normal Bowel Sounds, Non Tender, Soft Neurologic/Psychiatric: Alert, Oriented x3, Normal Mood/Affect Results/Procedures Lab Laboratory Tests 06/22/18 06:30 Patient resulted labs reviewed. Assessment/Plan Assessment and Plan Assess & Plan/Chief Complaint Acute Respiratory Failure Diagnosis/Problems Diagnosis/Problems (1) Pneumonia Status: Acute Assessment & Plan: LLL PNA Continue Zosyn Bronch cultures growing MURF RVP negative Qualifiers: Pneumonia type: due to unspecified organism Laterality: left Lung location: lower lobe of lung Qualified Codes: J18.1 - Lobar pneumonia, unspecified organism (2) Acute respiratory failure Assessment & Plan: Extubated on 06/20 Pulm consulted, appreciate recs Titrate sats for goal of 89-94 Avoid over oxygenating Qualifiers: Respiratory failure complication: hypercapnia Qualified Codes: J96.02 - Acute respiratory failure with hypercapnia (3) COPD (chronic obstructive pulmonary disease) Status: Acute Assessment & Plan: Baseline 4lpm requirement MAT protocol Qualifiers: COPD type: COPD with acute lower respiratory infection Qualified Codes: J44.0 - Chronic obstructive pulmonary disease with acute lower respiratory infection (4) Essential (primary) hypertension Assessment & Plan: Continue metoprolol Well controlled, trend (5) Macrocytic anemia Status: Acute Assessment & Plan: B12 normal Trend, stable Appears to be acute on chronic anemia with a baseline near 10 (6) Parkinson disease Assessment & Plan: Continue home meds (7) Hypomagnesemia Status: Resolved Assessment & Plan: Resolution Date/Time: 06/22/18 @ 10:23 Clinical Quality Measures DVT/VTE Risk/Contraindication: Risk Factor Score Per Nursin RFS Level Per Nursing on Admit: 4+=Very High GURJIT HARO MD Jun 22, 2018 10:23
[2018-06-22] MEDS ORDERED: ACETAMINOPHEN 500 MG TAB (TYLENOL) PO PRN (10:30)
--- NOTE | 2018-06-22 11:00 | NUR ---
UP IN CHAIR, ALISSA WELL, IV RIGHT SIDE OF NECK WITHOUT REDNESS OR SWELLING, INCONT URINE, O2 ON PER NC AT 3 LITERS, DENIES PAIN OR SOB, FREQUENT COUGH, AT BEDSIDE, CALL LIGHT WITHIN REACH, REQUESTED TO HAVE DIET ADVANCED, DR HARO INFORMED BUT DOES NOT WANT DIET CHANGED AT THIS TIME.
--- NOTE | 2018-06-22 13:16 | Physical Therapy Daily Note ---
PT Daily Note-Current Subjective Pt states she is doing ok, still feeling a little weak Pain Numeric Pain Scale: 0-No Pain Appearance family present, pt up in chair, agreeable to PT At end of session, pt sitting up in recliner with LE's elevated, family present , call light phone and bedside table within reach Transfers Therapy Code Descriptions/Definitions Functional [place] Measure: 0=Not Assessed/NA 4=Minimal Assistance 1=Total Assistance 5=Supervision or Setup 2=Maximal Assistance 6=Modified [place] 3=Moderate Assistance 7=Complete [place] Therapy Quality Codes: 6 Independent with activity with or without an assistive device 5 Patient requires set up or clean up by helper. Patient completes activity by themselves 4 Supervision or touching assist (CGA). [place] provide cues , steadying assist 3 The helper provides less than half the effort to complete the activity 2 The helper provides more than half the effort to complete the activity 1 Dependent. The helper does all the effort to complete an activity 7 Patient refused to complete or attempt activity 9 The patient did not perform the activity before the current illness or injury 88 Not attempted due to Medical conditions or safety concerns Transfers (B, C, W/C) (FIM): 4 Sit to/from Stand: 4 (min assist) inst for safety and hand placement, requires physical assist for transitions, instruction for controlled descent into chair Weight Bearing Right Lower Extremity: Right Full Weight Bearing Left Lower Extremity: Left Full Weight Bearing Exercises Standin way Ex=Flex, Abd, Ext, Marching, Mini squats, Sit to Stand, Unilateral stance, Weight shifts Standing Reps: 10 easily fatigues Treatments balance strengthening and activity tolerance exercises, safety and transfer training Assessment Current Status: Fair Progress PT Short Term Goals Short Term Goals Time Frame: Jun 28, 2018 Transfers (B,C,W/C) (FIM): 5 Gait (FIM): 2 Distance (FIM): 3=047-23 ft Gait Distance Comment: 100' Gait Level of Assist: 5 Gait Assistive Device: FWW PT Plan Problem List Problem List: Activity Tolerance, Functional Strength, Safety, Balance, Gait, Transfer, Bed Mobility, ROM Treatment/Plan Treatment Plan: Continue Plan of Care Treatment Plan: Bed Mobility, Education, Functional Activity Derrick, Functional Strength, Gait, Safety, Therapeutic Exercise, Transfers Treatment Duration: Jun 29, 2018 Frequency: 6 times per week Estimated Hrs Per Day: .25 hour per day Patient and/or Family Agrees t: Yes Safety Risks/Education Patient Education: Transfer Techniques Teaching Recipient: Patient, Family Teaching Methods: Discussion Response to Teaching: Verbalize Understanding, Return Demonstration, Reinforcement Needed Time/GCodes Time In: 1149 Time Out: 1202 Total Billed Treatment Time: 13 Total Billed Treatment 1 visit FA x13 min NAVIN PEREZ PTA Jun 22, 2018 13:16
[2018-06-23] MEDS: RT-ALBUTEROL/IPRATROPIUM 3 ML (DUONEB) VIAL INH SCH ×6 (02:26→22:20)
[2018-06-23 03:56] VITALS: BP 164/69
[2018-06-23] MEDS: LACTOBACILLUS ACIDOPHILUS (PROBIOTIC) CAPSULE NG SCH ×3 (06:29→17:11)
[2018-06-23] MEDS: ENOXAPARIN 40 MG/0.4 ML (LOVENOX) SYR SC SCH (06:29)
[2018-06-23] MEDS: inSUlin ASPART (NovoLOG) 1 UNIT/0.01 ML (CHARGE PER UNIT) SC SCH ×4 (06:30→20:45)
[2018-06-23] MEDS: PIPERACILLIN SODIUM/TAZOBACTAM 4.5 GM in NS (IVPB) 100 ML IV SCH ×3 (06:35→23:27)
[2018-06-23 06:48] VITALS: BP 164/69
[2018-06-23] MEDS: UMECLIDINIUM BROMIDE (INCRUSE ELLIPTA) 7'S IH SCH (06:48)
[2018-06-23 08:00] VITALS: BP 128/62
[2018-06-23] MEDS: SINEMET 25/100 (CARBIDOPA/LEVODOPA) TAB PO SCH ×3 (09:17→21:35)
[2018-06-23] MEDS: risperiDONE 0.25 MG (RisperDAL) TAB PO SCH ×2 (09:17→21:35)
[2018-06-23] MEDS: PANTOPRAZOLE 40 MG (PROTONIX) VIAL IV SCH (09:17)
[2018-06-23] MEDS: AMANTADINE 100 MG (SYMMETREL) CAP PO SCH (09:18)
[2018-06-23] MEDS: meTOprolol TARTRATE 25 MG (LOPRESSOR) TABLET PO SCH ×3 (09:20→21:36)
--- NOTE | 2018-06-23 09:51 | Progress Note-Hospitalist ---
Subjective HPI/CC On Admission Date Seen by Provider: Jun 23, 2018 Time Seen by Provider: 09:47 Pt is a 77yoCF with a PMH of COPD who presented to the ER yesterday due to weakness and SOB. This morning she is very confused and unable to provide me any details other than that she came to the hospital today and that "today is the day I'm going to ." is at bedside who states she has a long history of COPD and is chronically on 4lpm. She just got back from [place] on 06/08 after a 6 week trip. During that trip her oxygen tank could only go up to 3lpm so she has only been on that since then. Over the past few days she has been weak and having trouble walking along with being more SOB. Her is very concerned about her poor appetite over the past few days as well. Subjective/Events-last exam Pt reports feeling well. No complaints. Was up in chair for a few hours yesterday. States she tried the BiPAP last night but makes her anxious and she could not tolerate it. Refuses uses it again at night. Objective Exam Vital Signs Vital Signs Date Time Temp Pulse Resp B/P (MAP) Pulse Ox O2 Delivery O2 Flow Rate FiO2 06/23/18 07:00 136 06/23/18 06:48 90 Nasal Cannula 3.00 06/23/18 03:56 99.4 20 164/69 (100) 06/20/18 22:28 32 Capillary Refill : Less Than 3 Seconds General Appearance: No Apparent Distress, WD/WN Cardiovascular: Regular Rate, Rhythm, No Murmur Gastrointestinal: Normal Bowel Sounds, Non Tender, Soft Neurologic/Psychiatric: Alert, Oriented x3 Results/Procedures Lab Patient resulted labs reviewed. Assessment/Plan Assessment and Plan Assess & Plan/Chief Complaint Acute Respiratory Failure Diagnosis/Problems Diagnosis/Problems (1) Pneumonia Status: Acute Assessment & Plan: LLL PNA Continue Zosyn Bronch cultures growing MURF RVP negative Qualifiers: Pneumonia type: due to unspecified organism Laterality: left Lung location: lower lobe of lung Qualified Codes: J18.1 - Lobar pneumonia, unspecified organism (2) Acute respiratory failure Assessment & Plan: Extubated on 06/20 Pulm consulted, appreciate recs Titrate sats for goal of 89-94 Avoid over oxygenating Was to be set up with a vent to mask and she declines Continue PT/OT- IRU consulted Qualifiers: Respiratory failure complication: hypercapnia Qualified Codes: J96.02 - Acute respiratory failure with hypercapnia (3) COPD (chronic obstructive pulmonary disease) Status: Acute Assessment & Plan: Baseline 4lpm requirement MAT protocol Qualifiers: COPD type: COPD with acute lower respiratory infection Qualified Codes: J44.0 - Chronic obstructive pulmonary disease with acute lower respiratory infection (4) Essential (primary) hypertension Assessment & Plan: Continue metoprolol Well controlled, trend (5) Macrocytic anemia Status: Acute Assessment & Plan: B12 normal Trend, stable Appears to be acute on chronic anemia with a baseline near 10 (6) Parkinson disease Assessment & Plan: Continue home meds (7) Hypomagnesemia Status: Resolved Assessment & Plan: Resolution Date/Time: 06/22/18 @ 10:23 Clinical Quality Measures DVT/VTE Risk/Contraindication: Risk Factor Score Per Nursin RFS Level Per Nursing on Admit: 4+=Very High GURJIT HARO MD Jun 23, 2018 09:51
[2018-06-23 12:00] VITALS: BP 145/65
[2018-06-23 15:20] VITALS: BP 144/65
[2018-06-23 19:42] VITALS: BP 137/63
[2018-06-24 00:07] VITALS: BP 149/68
[2018-06-24] MEDS: RT-ALBUTEROL/IPRATROPIUM 3 ML (DUONEB) VIAL INH SCH ×4 (02:28→18:37)
[2018-06-24 04:16] VITALS: BP 125/60
[2018-06-24] MEDS: inSUlin ASPART (NovoLOG) 1 UNIT/0.01 ML (CHARGE PER UNIT) SC SCH ×4 (05:38→21:30)
[2018-06-24] MEDS: ENOXAPARIN 40 MG/0.4 ML (LOVENOX) SYR SC SCH (05:38)
--- NOTE | 2018-06-24 07:10 | Pulmonary Progress Note ---
ADELITAGINA Vann STUDENT 06/24/18 0710: Subjective Date Seen by a Provider: Jun 24, 2018 Time Seen by a Provider: 07:06 Subjective/Events-last exam She is feeling a lot better today. No SOB, some productive cough with thick sputum. PT has worked with her for the past few days. Review of Systems General: No Chills, No Night Sweats, No Fatigue, No Malaise HEENT: No Head Aches, No Sinus Congestion, No Sore Throat Pulmonary: No Dyspnea; Cough (Productive) Cardiovascular: No: Chest Pain, Palpitations, Edema Gastrointestinal: No: Abdominal Pain, Diarrhea, Constipation Genitourinary: No Dysuria, No Frequency Neurological: No: Change in speech, Confusion Sepsis Event Evaluation Height, Weight, BMI Height: 5'2.00" Weight: 152lbs. 7.0oz. 69.070951ot; 27.9 BMI Method:Stated Exam Exam Vital Signs Date Time Temp Pulse Resp B/P (MAP) Pulse Ox O2 Delivery O2 Flow Rate FiO2 06/24/18 04:16 98.1 88 18 125/60 (81) 97 Nasal Cannula 3.00 06/24/18 02:28 94 Nasal Cannula 3.00 06/24/18 01:00 93 06/24/18 00:07 97.8 98 18 149/68 (95) 94 Nasal Cannula 3.00 06/23/18 22:20 94 Nasal Cannula 3.00 06/23/18 20:05 Nasal Cannula 3.00 06/23/18 19:42 98.1 104 18 137/63 (87) 97 Nasal Cannula 3.00 06/23/18 19:00 97 06/23/18 18:50 88 Nasal Cannula 3.00 06/23/18 15:20 98.3 102 18 144/65 (91) 93 Nasal Cannula 3.00 06/23/18 14:46 91 Nasal Cannula 3.00 06/23/18 13:09 89 06/23/18 12:00 99.4 103 20 145/65 (91) 97 Nasal Cannula 3.00 06/23/18 10:54 93 Nasal Cannula 3.00 06/23/18 09:00 Nasal Cannula 3.00 06/23/18 08:00 97.8 107 20 128/62 (84) 92 Nasal Cannula 3.00 I & O 06/24/18 07:00 Intake Total 790 ml Output Total 500 ml Balance 290 ml Height & Weight Height: 5'2.00" Weight: 152lbs. 7.0oz. 69.676600jq; 27.9 BMI Method:Stated General Appearance: No Apparent Distress, WD/WN HEENT: Pharynx Normal, Moist Mucous Membranes; No Scleral Icterus (L), No Scleral Icterus (R) Neck: Normal Inspection, Supple, Other (central line in place) Respiratory: Lungs Clear, Normal Breath Sounds, No Accessory Muscle Use, No Respiratory Distress Cardiovascular: Regular Rate, Rhythm, No Edema, No Murmur Capillary Refill: Less Than 3 Seconds Gastrointestinal: normal bowel sounds, soft Extremity: Normal Capillary Refill, Normal Inspection, No Pedal Edema Neurologic/Psychiatric: Alert, Oriented x3, Normal Mood/Affect Skin: Normal Color, Warm/Dry Assessment/Plan Assessment/Plan Acute on chronic respiratory failure -PT is doing well off vent -Solumedrol D/C'd, continue duonebs and incruse -PT will benefit from home vent to mask -Add vent to mask QHS Severe COPD -Wean oxygen for Sp02 90-94%; on 3L NC and saturating at 97% -Avoid over oxygenation -Pt needs home oxygen anxiety/agitation -Risperdal Hypotension, resolved LLL unresolving PNA -S/p bronchscopy -Awaiting cultures -Continue Zosyn -WBC count is decreasing (15.7 on 06/22), no fevers -Consider repeat CXR -Consider repeat CBC Anemia -Continue to monitor -protonix -Stool occult negative, NL B12 Hypophosphatemia, hypomag -Consider repeat BMP DARSHANA CARDENAS DO 06/24/18 0907: Subjective Time Seen by a Provider: 09:03 Subjective/Events-last exam No SOB she is coughing up thick yellow sputum. Exam Exam General Appearance: No Apparent Distress, WD/WN HEENT: Pharynx Normal, Moist Mucous Membranes Neck: Normal Inspection Respiratory: Lungs Clear, Normal Breath Sounds, No Accessory Muscle Use, No Respiratory Distress Cardiovascular: Regular Rate, Rhythm, No Edema, No Murmur Gastrointestinal: normal bowel sounds, soft Extremity: Normal Capillary Refill, Normal Inspection Neurologic/Psychiatric: Alert, Oriented x3, Normal Mood/Affect Skin: Normal Color, Warm/Dry Assessment/Plan Assessment/Plan Acute on chronic respiratory failure - improved -Solumedrol D/C'd, continue duonebs and incruse -PT will benefit from home vent to mask -Add vent to mask QHS Severe COPD -oxygen -Avoid over oxygenation -Pt needs home oxygen anxiety/agitation -Risperdal LLL unresolving PNA -S/p bronchscopy -Awaiting cultures - Shanice d/c'd CARLOS-GINA PHILLIPS STUDENT Jun 24, 2018 07:10 DARSHANA CARDENAS DO Jun 24, 2018 09:07
[2018-06-24] MEDS: LACTOBACILLUS ACIDOPHILUS (PROBIOTIC) CAPSULE NG SCH ×3 (07:20→16:38)
[2018-06-24] MEDS: PIPERACILLIN SODIUM/TAZOBACTAM 4.5 GM in NS (IVPB) 100 ML IV SCH ×3 (07:25→23:47)
[2018-06-24 07:55] VITALS: BP 128/60
[2018-06-24] MEDS: meTOprolol TARTRATE 25 MG (LOPRESSOR) TABLET PO SCH ×2 (10:09→21:30)
[2018-06-24] MEDS: SINEMET 25/100 (CARBIDOPA/LEVODOPA) TAB PO SCH ×3 (10:09→21:30)
[2018-06-24] MEDS: risperiDONE 0.25 MG (RisperDAL) TAB PO SCH ×2 (10:09→21:30)
[2018-06-24] MEDS: PANTOPRAZOLE 40 MG (PROTONIX) VIAL IV SCH (10:10)
[2018-06-24] MEDS: AMANTADINE 100 MG (SYMMETREL) CAP PO SCH (10:20)
[2018-06-24 10:50] LABS: BASOPHILS % (AUTO) 0 % (0-10); EOSINOPHILS # (AUTO) 0.3 10^3/uL (0.0-0.3); EOSINOPHILS % (AUTO) 3 % (0-10); HEMATOCRIT 29 % (35-52); HEMOGLOBIN 8.4 G/DL (11.5-16.0); LYMPHOCYTES # (AUTO) 1.1 X 10^3 (1.0-4.0); LYMPHOCYTES % (AUTO) 10 % (12-44); MEAN CORPUSCULAR HEMOGLOBIN 29 PG (25-34); MEAN CORPUSCULAR HGB CONC 29 G/DL (32-36); MEAN CORPUSCULAR VOLUME 100 FL (80-99); MEAN PLATELET VOLUME 8.9 FL (7.4-10.4); MONOCYTES # (AUTO) 0.8 X 10^3 (0.0-1.0); MONOCYTES % (AUTO) 8 % (0-12); NEUTROPHILS # (AUTO) 8.5 X 10^3 (1.8-7.8); NEUTROPHILS % (AUTO) 80 % (42-75); PLATELET COUNT 281 10^3/uL (130-400); RED BLOOD COUNT 2.95 10^6/uL (4.35-5.85); RED CELL DISTRIBUTION WIDTH 13.5 % (10.0-14.5); WHITE BLOOD COUNT 10.7 10^3/uL (4.3-11.0)
--- NOTE | 2018-06-24 11:08 | Physical Therapy Daily Note ---
PT Daily Note-Current Subjective Pt was up in recliner with in the room. Pt agreed to PT. Pain Numeric Pain Scale: 0-No Pain Location: No Pain Reported Mental Status Patient Orientation: Person, Normal For Age Attachments: Oxygen, IV External catheter Transfers Therapy Code Descriptions/Definitions Functional [place] Measure: 0=Not Assessed/NA 4=Minimal Assistance 1=Total Assistance 5=Supervision or Setup 2=Maximal Assistance 6=Modified [place] 3=Moderate Assistance 7=Complete [place] Therapy Quality Codes: 6 Independent with activity with or without an assistive device 5 Patient requires set up or clean up by helper. Patient completes activity by themselves 4 Supervision or touching assist (CGA). [place] provide cues , steadying assist 3 The helper provides less than half the effort to complete the activity 2 The helper provides more than half the effort to complete the activity 1 Dependent. The helper does all the effort to complete an activity 7 Patient refused to complete or attempt activity 9 The patient did not perform the activity before the current illness or injury 88 Not attempted due to Medical conditions or safety concerns Transfers (B, C, W/C) (FIM): 3 Sit to/from Stand: 3 Weight Bearing Right Lower Extremity: Right Full Weight Bearing Left Lower Extremity: Left Full Weight Bearing Gait Training Gait (FIM): 1 Distance (FIM): 1=up to 49 ft Distance: 25' Gait Level of Assist: 4 Gait Persons Needed: 1 Gait Assistive Device: FWW Assessment Current Status: Fair Progress Pt was able to sit<>stand from recliner to FWW with mod A using rocking momentum and required a couple of tries before successful. Pt was able to stand using FWW while PT assisted with applying brief to pt. Pt amb from the recliner to door and back (25') with CGA and FWW with O2. Pt required many standing recovery periods during amb to "catch her breath." PT instructed pt to perform deep breathing. Pt returned to recliner and reports that her chest and bilateral supraclavicular area hurts and has hurt for awhile when she is not able to breathe very well. Pt is now in recliner with all needs met. PT to increase activity as pt is able to tolerate. PT Short Term Goals Short Term Goals Time Frame: Jun 28, 2018 Transfers (B,C,W/C) (FIM): 5 Gait (FIM): 2 Distance (FIM): 3=030-81 ft Gait Distance Comment: 100' Gait Level of Assist: 5 Gait Assistive Device: FWW PT Plan Problem List Problem List: Activity Tolerance, Functional Strength, Safety, Balance, Gait, Transfer, Bed Mobility Treatment/Plan Treatment Plan: Continue Plan of Care Treatment Plan: Bed Mobility, Education, Functional Activity Derrick, Functional Strength, Gait, Safety, Therapeutic Exercise, Transfers Treatment Duration: Jun 29, 2018 Frequency: 6 times per week Estimated Hrs Per Day: .25 hour per day Patient and/or Family Agrees t: Yes Time/GCodes Time In: 1015 Time Out: 1030 Total Billed Treatment Time: 15 Total Billed Treatment 1 visit FA 15 min RALPH BALBUENA PT Jun 24, 2018 11:08
[2018-06-24 11:09] LABS: ALANINE AMINOTRANSFERASE < 6 U/L (0-55); ALKALINE PHOSPHATASE 79 U/L (40-136); BILIRUBIN,TOTAL 0.2 MG/DL (0.1-1.0); BUN/CREATININE RATIO 10; CALCIUM 9.2 MG/DL (8.5-10.1); CARBON DIOXIDE 37 MMOL/L (21-32); CHLORIDE 95 MMOL/L (98-107); CREATININE SERUM 0.92 MG/DL (0.60-1.30); GFR ESTIMATED 60; GLUCOSE 127 MG/DL (70-105); MAGNESIUM 1.7 MG/DL (1.8-2.4); PHOSPHORUS 3.1 MG/DL (2.3-4.7); POTASSIUM 4.1 MMOL/L (3.6-5.0); SODIUM 138 MMOL/L (135-145); TOTAL PROTEIN 6.1 GM/DL (6.4-8.2)
[2018-06-24] MEDS: UMECLIDINIUM BROMIDE (INCRUSE ELLIPTA) 7'S IH SCH (11:13)
--- NOTE | 2018-06-24 11:53 | Occupational Ther Daily Note ---
OT Current Status-Daily Note Subjective Pt alert, sitting in recliner. Pt agrees to therapy. No c/o pain at this time. Mental Status/Objective Patient Orientation: Person, Place, Time, Situation Therapy Code Descriptions/Definitions Functional [place] Measure: 0=Not Assessed/NA 4=Minimal Assistance 1=Total Assistance 5=Supervision or Setup 2=Maximal Assistance 6=Modified [place] 3=Moderate Assistance 7=Complete [place] Attachments: Oxygen, Other-See Comments ADL-Treatment Grooming (FIM): 5 (CALVO gathered supplies for pt. Pt had difficulty with applying toothpaste to toothbrush due to hand tremors. Pt stated that she has Parkinson's. Pt then was able to complete oral care and brushing hair.) OT Short Term Goals Short Term Goals Transfers (B,C,W/C) (FIM): 5 1=Demonstrate adherence to instructed precautions during ADL tasks. 2=Patient will verbalize/demonstrate understanding of assistive devices/ modifications for ADL. 3=Patient will improve strength/tolerance for activity to enable patient to perform ADL's. OT Mcc Goals Mcc Goals Time Frame: Jul 05, 2018 Eating (FIM): 5 Grooming(FIM): 5 Upper Body Dressing(FIM): 5 Lower Body Dressing(FIM): 5 Toileting(FIM): 5 Additional Goals: 1-Demonstrate ADL Tasks, 2-Verbalize Understanding, 3- ImproveStrength/Derrick 1=Demonstrate adherence to instructed precautions during ADL tasks. 2=Patient will verbalize/demonstrate understanding of assistive devices/ modifications for ADL. 3=Patient will improve strength/tolerance for activity to enable patient to perform ADL's. OT Education/Plan Problem List/Assessment Pt to benefit from skilled OT intervention for ADL training, transfers, strengthening, and home safety education to increase functional independence and allow safe discharge plan. Discharge Recommendations Plan/Recommendations: Continue POC Treatment Plan/Plan of Care Patient would benefit from OT for education, treatment and training to promote independence in ADL's, mobility, safety and/or upper extremity function for ADL' s. Plan of Care: ADL Retraining, Functional Mobility, UE Funct Exercise/Act Treatment Duration: Jul 05, 2018 Frequency: 5 times per week Estimated Hrs Per Day: .25 hour per day Rehab Potential: Fair Time/GCodes Start Time: 11:45 Stop Time: 12:00 Total Time Billed (hr/min): 15 Billed Treatment Time 1 visit-ADL 1 (15 min) KENNY TALBOT Jun 24, 2018 11:52
[2018-06-24 12:17] VITALS: BP 136/70
--- NOTE | 2018-06-24 12:29 | Diagnostic Imaging Report ---
EXAMINATION: PA chest obtained at 1103 hours. COMPARISON: 06/21/2018. FINDINGS: The heart is borderline in size. There is a hiatal hernia present. There is some infiltrate in both lung bases with some scarring in the left perihilar region. There is no pneumothorax or pleural fluid. The right IJ catheter is unchanged. IMPRESSION: Cardiomegaly with unchanged bibasilar infiltrates and parenchymal scarring in the left infrahilar region. There appears to be a hiatal hernia. There is no new abnormality compared to the prior study. Dictated by: Dictated on workstation # [id number]
--- NOTE | 2018-06-24 13:55 | NUR ---
Pastoral Care Visit.
--- NOTE | 2018-06-24 16:14 | Progress Note-Hospitalist ---
Progress Note Progress Notes/Assess & Plan Date Seen 06/24/18 Time Seen by Provider: 16:09 Assessment & Plan The patient is a 77-year-old white female. She was admitted with pneumonia on the evening of 06/17. She had apparently been in [place] for about 6 weeks visiting family. She had noted increasing dyspnea and her oxygen equipment was only capable of delivering 3 L/m. She states she is now feeling much better. She is to go to [facility] tomorrow to see if she can be rehabbed to the level of performing her own activities of daily living. She has concerns about whether they will use oxygen while attempting to walk her. She was assured that this is the case. Physical exam: Lungs show distant breath sounds. CV is regular without murmur. Abdomen is soft. Impression: COPD with chronic oxygen dependency. 2.status resolving pneumonia. Plan: If stable transfer to [facility] tomorrow. LISBET GLORIA MD Jun 24, 2018 16:14
[2018-06-24 16:29] VITALS: BP 150/67
--- NOTE | 2018-06-24 19:42 | NUR ---
TELEPHONE ORDERS RECEIVED FOR REGUALR DIET, PER DR. GLORIA.
[2018-06-24 19:45] VITALS: BP 133/62
[2018-06-25] VITALS: BP 148/65
[2018-06-25] MEDS: RT-ALBUTEROL/IPRATROPIUM 3 ML (DUONEB) VIAL INH SCH ×3 (00:12→06:57)
[2018-06-25 03:43] VITALS: BP 140/64
[2018-06-25] MEDS: LACTOBACILLUS ACIDOPHILUS (PROBIOTIC) CAPSULE NG SCH (06:23)
[2018-06-25] MEDS: ENOXAPARIN 40 MG/0.4 ML (LOVENOX) SYR SC SCH (06:23)
[2018-06-25] MEDS: PIPERACILLIN SODIUM/TAZOBACTAM 4.5 GM in NS (IVPB) 100 ML IV SCH (06:29)
[2018-06-25] MEDS ORDERED: PANTOPRAZOLE 40 MG (PROTONIX) TAB PO SCH (06:30)
[2018-06-25] MEDS: inSUlin ASPART (NovoLOG) 1 UNIT/0.01 ML (CHARGE PER UNIT) SC SCH (06:34)
--- NOTE | 2018-06-25 06:53 | Pulmonary Progress Note ---
ADELITAGINA Vann STUDENT 06/25/18 0653: Subjective Date Seen by a Provider: Jun 25, 2018 Sepsis Event Evaluation Height, Weight, BMI Height: 5'2.00" Weight: 154lbs. 9.0oz. 70.378141cr; 27.9 BMI Method:Stated Exam Exam Vital Signs Date Time Temp Pulse Resp B/P (MAP) Pulse Ox O2 Delivery O2 Flow Rate FiO2 06/25/18 03:43 97.4 86 18 140/64 (89) 90 Nasal Cannula 2.00 06/25/18 02:06 92 Nasal Cannula 2.00 06/25/18 01:00 89 06/25/18 00:00 98.9 97 18 148/65 (92) 94 Nasal Cannula 2.00 06/24/18 21:00 Nasal Cannula 2.00 06/24/18 19:45 98.9 99 20 133/62 (85) 94 Nasal Cannula 2.00 06/24/18 19:23 108 06/24/18 18:37 90 Nasal Cannula 2.00 06/24/18 16:29 98.9 95 20 150/67 (94) 94 Nasal Cannula 2.00 06/24/18 13:00 85 06/24/18 12:17 98.0 95 18 136/70 (92) 92 Nasal Cannula 2.00 06/24/18 11:12 90 Nasal Cannula 2.00 06/24/18 09:00 Nasal Cannula 2.00 06/24/18 07:55 98.5 91 18 128/60 (82) 91 Nasal Cannula 2.00 06/24/18 07:00 90 06/24/18 07:00 95 Nasal Cannula 3.00 I & O 06/25/18 07:00 Intake Total 1686 ml Output Total 1400 ml Balance 286 ml Height & Weight Height: 5'2.00" Weight: 154lbs. 9.0oz. 70.211843io; 27.9 BMI Method:Stated General Appearance: No Apparent Distress, WD/WN HEENT: Pharynx Normal, Moist Mucous Membranes Neck: Normal Inspection Respiratory: Lungs Clear, Normal Breath Sounds, No Accessory Muscle Use, No Respiratory Distress Cardiovascular: Regular Rate, Rhythm, No Edema, No Murmur Capillary Refill: Less Than 3 Seconds Gastrointestinal: normal bowel sounds, soft Extremity: Normal Capillary Refill, Normal Inspection Neurologic/Psychiatric: Alert, Oriented x3, Normal Mood/Affect Skin: Normal Color, Warm/Dry Results Lab Laboratory Tests 06/24/18 10:45 Assessment/Plan Assessment/Plan Acute on chronic respiratory failure - improved -Continue duonebs and incruse -PT will benefit from home vent to mask; however, she declined Severe COPD -oxygen -Avoid over oxygenation -Pt needs home oxygen anxiety/agitation -Risperdal LLL unresolving PNA -S/p bronchscopy -Awaiting cultures - Zosyn d/c'd -WBC count normalized today DARSHANA CARDENAS DO 06/25/18 0740: Subjective Time Seen by a Provider: 07:37 Subjective/Events-last exam Pt is doing better. No complications noted. Exam Exam General Appearance: No Apparent Distress, WD/WN HEENT: Pharynx Normal, Moist Mucous Membranes Neck: Normal Inspection Respiratory: Lungs Clear, Normal Breath Sounds, No Accessory Muscle Use, No Respiratory Distress Cardiovascular: Regular Rate, Rhythm, No Edema Capillary Refill: Less Than 3 Seconds Gastrointestinal: normal bowel sounds, soft Extremity: Normal Capillary Refill, Normal Inspection Neurologic/Psychiatric: Alert, Oriented x3 Assessment/Plan Assessment/Plan Acute on chronic respiratory failure - improved -Continue duonebs and incruse -PT will benefit from home vent to mask; however, she declined Severe COPD -oxygen -Avoid over oxygenation -Pt needs home oxygen anxiety/agitation -Risperdal LLL resolving PNA -S/p bronchscopy -Awaiting cultures - Zosyn d/c'd -WBC count normalized today Debility -probable rehab today. GINA UREÑA STUDENT Jun 25, 2018 06:53 DARSHANA CARDENAS DO Jun 25, 2018 07:40
[2018-06-25] MEDS: UMECLIDINIUM BROMIDE (INCRUSE ELLIPTA) 7'S IH SCH (07:22)
[2018-06-25] MEDS: SINEMET 25/100 (CARBIDOPA/LEVODOPA) TAB PO SCH (08:39)
[2018-06-25] MEDS: risperiDONE 0.25 MG (RisperDAL) TAB PO SCH (08:39)
[2018-06-25 08:40] VITALS: BP 133/62
[2018-06-25] MEDS: AMANTADINE 100 MG (SYMMETREL) CAP PO SCH (08:40)
[2018-06-25] MEDS: meTOprolol TARTRATE 25 MG (LOPRESSOR) TABLET PO SCH (08:41)
--- NOTE | 2018-06-25 10:16 | Discharge Summary-Hospitalist ---
Diagnosis/Chief Complaint Date of Admission Jun 18, 2018 at 09:32 Date of Discharge Jun 25, 2018 at 09:57 Discharge Date: Jun 25, 2018 Admission Diagnosis acute hypercapnic respiratory failure Discharge Diagnosis Right lower lobe pneumonia. 2.COPD with chronic oxygen requirements. (1) Pneumonia Status: Acute Assessment & Plan: LLL PNA Continue Zosyn Bronch cultures growing MURF RVP negative (2) Acute respiratory failure Assessment & Plan: Extubated on 06/20 Pulm consulted, appreciate recs Titrate sats for goal of 89-94 Avoid over oxygenating Was to be set up with a vent to mask and she declines Continue PT/OT- IRU consulted (3) COPD (chronic obstructive pulmonary disease) Status: Acute Assessment & Plan: Baseline 4lpm requirement MAT protocol (4) Essential (primary) hypertension Assessment & Plan: Continue metoprolol Well controlled, trend (5) Macrocytic anemia Status: Acute Assessment & Plan: B12 normal Trend, stable Appears to be acute on chronic anemia with a baseline near 10 (6) Parkinson disease Assessment & Plan: Continue home meds (7) Hypomagnesemia Status: Resolved Assessment & Plan: Discharge Summary Discharge Physical Exam Allergies: Coded Allergies: hydrocodone (Verified Allergy, Severe, RASH, 11/10/16) Sulfa (Sulfonamide Antibiotics) (Unverified Allergy, Unknown, 06/18/18) Vitals & I&Os Vital Signs Date Time Temp Pulse Resp B/P (MAP) Pulse Ox O2 Delivery O2 Flow Rate FiO2 06/25/18 09:00 Nasal Cannula 2.00 06/25/18 08:40 98.7 100 18 133/62 (85) 92 06/23/18 06:48 32 General Appearance: No Apparent Distress, WD/WN Hospital Course Was the Problem List Reviewed?: Yes The patient was admitted in respiratory distress from the emergency room. The patient was admitted in respiratory distress from the emergency room. She and her had been in [place] for approximate 6 weeks and she developed a cough there which worsened on the trip home. She uses O2 chronically at 2-3 L. She had a tank which delivered only 3 L and they were not able to increase her SaO2 because of that limitation. On arrival here she had a chest x-ray suggesting infiltrate or atelectasis in the basilar portions of both the right and left lungs. On my review of this there was a rather considerable area of infiltrate in the infrahilar area. I reviewed other x-rays from prior contacts. A 2017 films showed a greater area that at this time. During the follow-up in the hospital at this time she is showing clearing but not total resolution of this area and it is expected that she has some fibrosis as a component of her COPD. She is now afebrile but requires an attempt at buddhism to the level of her previous function. She is therefore transferred to the inpatient rehabilitation service Labs (last 24 hrs) Laboratory Tests 06/24/18 10:45: White Blood Count 10.7, Red Blood Count 2.95L, Hemoglobin 8.4L, Hematocrit 29L, Mean Corpuscular Volume 100H, Mean Corpuscular Hemoglobin 29, Mean Corpuscular Hemoglobin Concent 29L, Red Cell Distribution Width 13.5, Platelet Count 281, Mean Platelet Volume 8.9, Neutrophils (%) (Auto) 80H, Lymphocytes (%) (Auto) 10L , Monocytes (%) (Auto) 8, Eosinophils (%) (Auto) 3, Basophils (%) (Auto) 0, Neutrophils # (Auto) 8.5H, Lymphocytes # (Auto) 1.1, Monocytes # (Auto) 0.8, Eosinophils # (Auto) 0.3, Basophils # (Auto) 0.0, Sodium Level 138, Potassium Level 4.1, Chloride Level 95L, Carbon Dioxide Level 37H, Anion Gap 6, Blood Urea Nitrogen 9, Creatinine 0.92, Estimat Glomerular Filtration Rate 60, BUN/ Creatinine Ratio 10, Glucose Level 127H, Calcium Level 9.2, Corrected Calcium 10.0, Phosphorus Level 3.1, Magnesium Level 1.7L, Total Bilirubin 0.2, Aspartate Amino Transf (AST/SGOT) 19, Alanine Aminotransferase (ALT/SGPT) < 6, Alkaline Phosphatase 79, Total Protein 6.1L, Albumin 3.0L 06/24/18 16:29: Glucometer 114H 06/24/18 21:06: Glucometer 152H 06/25/18 05:45: Glucometer 102 Microbiology 06/17/18 Blood Culture - Final, Complete No growth 06/19/18 Mycobacterial Culture - Preliminary, Resulted See Comments 06/17/18 Urine Culture - Final, Complete NO GROWTH Patient resulted labs reviewed. Pending Labs Laboratory Tests 06/25/18 05:45: Glucometer 102 Discussion & Recommendations Discharge Planning: >30 minutes discharge planning Discharge Home Medications: Active Scripts Active Reported Metoprolol Tartrate 25 Mg Tablet 12.5 Mg PO BID TAKES 1/2 (25MG) TABLET Nexium 24Hr (Esomeprazole Magnesium) 20 Mg Capsule.dr 20 Mg PO DAILY PRN Ibuprofen 200 Mg Tablet 200 Mg PO Q6H PRN Spiriva (Tiotropium [place]) 1 Inh Aerp 1 Cap IH HS LAST FILLED #90 02-20-18 Diphenhydramine HCl 25 Mg Capsule 25 Mg PO DAILY PRN Amantadine (Amantadine HCl) 100 Mg Tablet 100 Mg PO DAILY Carbidopa-Levodopa 25-100 Tab (Carbidopa/Levodopa) 1 Each Tablet 1 Tab PO TID Oxybutynin Chloride ER (Oxybutynin Chloride) 5 Mg Tab.er.24 5 Mg PO BID Vitamin D3 (Cholecalciferol (Vitamin D3)) 5,000 Unit Capsule 5,000 Unit PO DAILY Instructions to patient/family Please see electronic discharge instructions given to patient. Clinical Quality Measures DVT/VTE Risk/Contraindication: Risk Factor Score Per Nursin RFS Level Per Nursing on Admit: 4+=Very High Problem Qualifiers (1) Pneumonia: Pneumonia type: due to unspecified organism Laterality: left Lung location: lower lobe of lung Qualified Codes: J18.1 - Lobar pneumonia, unspecified organism (2) Acute respiratory failure: Respiratory failure complication: hypercapnia Qualified Codes: J96.02 - Acute respiratory failure with hypercapnia (3) COPD (chronic obstructive pulmonary disease): COPD type: COPD with acute lower respiratory infection Qualified Codes: J44.0 - Chronic obstructive pulmonary disease with acute lower respiratory infection LISBET GLOIRA MD Jun 25, 2018 10:16
--- NOTE | 2018-06-25 10:32 | NUR ---
PT GOING TO ARU, REPORT CALLED TO E[facility] CURTIS. DISCUSSED WITH FAMILY. REHAB HERE AT THIS TIME TO TAKE PT DOWN STAIRS. INSTRUCTED ON PT SMITA WICK. DISCONNECTED IV IT WAS COMPLETE.
--- NOTE | 2018-06-28 13:53 | CONSULTATION REPORT ---
DATE OF SERVICE: ATTENDING PRIMARY CARE PHYSICIAN: Dr. Mcdowell. ADMITTING PHYSICIAN: Dr. Dunne. The patient is a 77-year-old female who was admitted for shortness of breath as well as fatigue and weakness. She does have a history of COPD and is oxygen dependent. She also does have a history of baseline anemia. She was worked up and found to have a pneumonia and admitted and treated. Since that time, she has been transferred to rehabilitation due to her pulmonary status as well as weakness. Recent laboratory work did show slightly worsening anemia. Her baseline is approximately in the 8, however, she is 7.7 today. She also does report feeling symptomatic with exertional shortness of breath as well as weakness. She reports that her last colonoscopy was greater than 10 years ago. She also noted that her stools were darker in color recently. She did have an upper endoscopy done before in the past and does report history of gastritis. She is otherwise stable at this time. PAST MEDICAL HISTORY: COPD, history of pneumonia, sleep apnea, Parkinson's disease, constipation, peptic ulcer disease. PAST SURGICAL HISTORY: Laparoscopic appendectomy, cholecystectomy, eye surgery, abdominal hernia repair. ALLERGIES: HYDROCODONE. MEDICATIONS: Amantadine 100 mg daily, carbidopa/levodopa 25/100 mg daily, calcium 5000 units daily, diphenhydramine 25 mg p.r.n., Nexium 20 mg daily, ibuprofen 200 mg q.6 hours p.r.n., metoprolol 25 mg daily, oxybutynin 5 mg b.i.d. Tiotropium 1 puff daily. SOCIAL HISTORY: Previous smoker, negative alcohol. FAMILY HISTORY: Father, lung cancer. Mother, diabetes and uterine cancer. REVIEW OF SYSTEMS: This is a well-nourished female, currently in no acute distress. She is not experiencing any shortness of breath or difficulty breathing. She is currently oxygen dependent on 2 liters nasal cannula and at rest is not short of breath. No new cough or sputum production. No chest pain, palpitations, diaphoresis. No nausea, vomiting with mild epigastric pain on occasion. She has noticed some dark tarry stools recently. No red blood per rectum. No fever, chills, no recent inadvertent weight loss. All other review of systems negative. PHYSICAL EXAMINATION: CHEST: Scattered rales and expiratory wheezes bilaterally. HEART: Regular, no murmurs. EXTREMITIES: No lower extremity edema, negative Homans sign. HEENT: No scleral icterus. NECK: No cervical lymphadenopathy. ABDOMEN: Soft, nontender, nondistended. SKIN: Warm, dry. ASSESSMENT AND PLAN: A 77-year-old female with anemia, which is most likely secondary from an upper gastrointestinal source due to her recent admission and exacerbation of chronic obstructive pulmonary disease as well as hospitalization. She also has not had a colonoscopy for greater than 10 years and we will schedule her for an EGD and colonoscopy simultaneously on this admission. Job ID: [id number] DocumentID: [id number] Dictated Date: 06/28/2018 13:26:18 Field Captain Date: 06/28/2018 13:53:19 Dictated By: ANTHONY KERR MD
== END 2018-06-25 09:57 | DRG 208 ==
LOC: EDUNIT# 11:38 → ER 11:40 → UNDOADMOB 18:15 → 4TH 18:15 → INTOOBSV 06-18 09:32 → OBSVTOIN 06-18 09:32 → ICU 06-18 11:00 → 4TH 06-18 11:00 → ICU 06-21 10:34 → 4TH 06-21 10:34 → UNDODISIN 06-25 09:57
PROVIDERS: ADMIT Internal Medicine; ATTEND Internal Medicine
PROC: 5A1945Z Respiratory Ventilation, 24-96 Consecutive Hours (ICD-10-PCS; principal; 2018-06-18)
PROC: 0B9J8ZX Drainage of Left Lower Lung Lobe, Via Natural or Artificial Opening Endoscopic, Diagnostic (ICD-10-PCS; 2018-06-19)
PROC: 0BCB8ZZ Extirpation of Matter from Left Lower Lobe Bronchus, Via Natural or Artificial Opening Endoscopic (ICD-10-PCS; 2018-06-19)
PROC: 0BC68ZZ Extirpation of Matter from Right Lower Lobe Bronchus, Via Natural or Artificial Opening Endoscopic (ICD-10-PCS; 2018-06-19)
DX: J96.22 Acute and chronic respiratory failure with hypercapnia (principal); J18.1 Lobar pneumonia, unspecified organism; J44.0 Chronic obstructive pulmonary disease with (acute) lower respiratory infection; J44.1 Chronic obstructive pulmonary disease with (acute) exacerbation; E87.2 Acidosis; R44.3 Hallucinations, unspecified; I10 Essential (primary) hypertension; G47.30 Sleep apnea, unspecified; R63.0 Anorexia; G20 Parkinson's disease; F41.9 Anxiety disorder, unspecified; K44.9 Diaphragmatic hernia without obstruction or gangrene; K46.9 Unspecified abdominal hernia without obstruction or gangrene; K59.09 Other constipation; R45.1 Restlessness and agitation; M19.91 Primary osteoarthritis, unspecified site; E83.42 Hypomagnesemia; D53.9 Nutritional anemia, unspecified; E83.39 Other disorders of phosphorus metabolism; I95.9 Hypotension, unspecified; Z99.81 Dependence on supplemental oxygen; Z87.891 Personal history of nicotine dependence; Z88.5 Allergy status to narcotic agent; Z88.2 Allergy status to sulfonamides
CPT/HCPCS: 36415; 36600; 51701; 71045; 71275; 80048; 80053; 81000; 82274; 82607; 82805; 82962; 83605; 83735; 83880; 84100; 84478; 84484; 85007; 85025; 85027; 85610; 85730; 87015; 87040; 87070; 87081; 87088; 87101; 87116; 87205; 87206; 87631; 87804; 88112; 88305; 88312; 89051; 93005; 94002; 94003; 94640; 94660; 94760; 94799; 96361; 96365; 96367; 96375; G0378

== ENCOUNTER 2018-06-25 10:25 | Inpatient (IN) | payer MEDICARE, OTHER ==
[~2018-06-25] VITALS: Ht 157.5 cm; Wt 68.5 kg
[~2018-06-25 10:25] MED LIST changes: +ACETAMINOPHEN 500 MG TAB (TYLENOL) PO PRN; +ALPRAZolam 0.25 MG (XANAX) TAB PO PRN; +CALCIUM CARBONATE 500 MG (TUMS) TAB.CHEW PO PRN; +DOCUSATE SODIUM 100 MG (COLACE) CAP PO PRN; +ESOM20CA58 PO; +IBUP-2055 PO; +MELATONIN 3 MG TABLET PO PRN; +METO-333 PO; +ONDANSETRON 4 MG (ZOFRAN) ORAL DISSOLVE TAB PO PRN; +POLYETHYLENE GLYCOL 17 GM (MIRALAX) PACK PO PRN; +SULF-222; +diphenhydrAMINE 25 MG TAB (BENADRYL) PO PRN; +guaiFENesin/CODEINE (ROBITUSSIN AC) 10ML UDC PO PRN
[2018-06-25 10:30] VITALS: BP 132/90
[2018-06-25] MEDS: inSUlin ASPART (NovoLOG) 1 UNIT/0.01 ML (CHARGE PER UNIT) SC SCH ×3 (11:00→21:17)
--- NOTE | 2018-06-25 11:49 | ST Cognitive Linguistic Eval ---
Speech Evaluation-General Medical Diagnosis Appendicitis, Pneumonia Onset Date: Jun 18, 2018 Therapy Diagnosis Therapy Diagnosis: Cognitive-communication Medical History Pertinent Medical History: Arthritis, COPD, GERD, Parkinson's, Smoking Reviewed History: Yes Social History Current Living Status: Spouse Speech PLF-Current Status Prior Level of Function Patient lived at home with her . She was independent with most of her daily needs. Subjective Patient pleasant and attentive during the evaluation. Language Eval: Auditory Comprehends Simple Yes/No Ques: Functional Indent/Objects Multiple Lopez: Functional Ident/Pics in Multiple Lopez: Functional Follows 1-Step Commands: Functional Follows Complex Directions: Functional Follows General Conversations: Functional Language Eval: Verbal Language Completes Spontaneous Greeting: Functional Produces Auto, Serial Info: Functional Imitates Simple Words/Phrases: Functional Word Finding: Functional Requests Basic Needs: Functional States Basic Personal Info: Functional Expresses Complex Ideas: Functional Objective Cognitive Domain Attention: WNL Memory: WNL Problem Solving: Functional Executive Functions: [facility] Objective Formal/Standardized Tests [facility] Cognitive/communication Results Memory: Immediate 3/3, Delayed 3/3, Orientation: 5/5, Problem Solving: Simple: 5 /5, Complex 4/5, Auditory Processin/5 Oral Motor/Speech Production Within Functional Limits Impression Patient is a pleasant 77 year old female. She was admitted to the ARU for strengthening prior to returning home. She completed the cognitive- communication evaluation without difficulty. Communication/Social Cognition Comprehension: 7 Expression: 7 Social Interaction: 7 Problem Solvin Memory: 7 Speech Patient Assess Expression of Ideas/Wants: Expression (4) Understanding Verbal Content: Understands (4) Brief Interview-Mental Status: Yes Temporal Orientation: Year: Correct (3) Temporal Orientation: Month: Accurate within 5 days(2) Temporal Orientation: Day: Correct (1) Recall : Wear to say "Sock": Yes, no cue required (2) Recall : Color: Yes, no cue required (2) Recall : Bed: Yes, no cue required (2) Memory/Recall Ability: Current season, That he or she is in a hsp/hsp unit Speech-Plan Patient/Family Goals Patient/Family Goals: Patient plans to return home with her post rehab. Treatment Plan Speech Therapy Treatment Plan: Discontinue ST, Goals Met Patient is not recommended for skilled ST at this time. Treatment Duration: Jun 25, 2018 Frequency: 1 time per week Estimated Hrs Per Day: .5 hour per day Rehab Potential: Good Barriers to Learning: Patient is weak due to recent illness. Pt/Family Agrees to Plan: Yes Safety Risks/Education Teaching Recipient: Patient, Significant Other Teaching Methods: Discussion Response to Teaching: Verbalize Understanding Education Topics Provided: Safety within her room. Time Speech Therapy Time In: 11:05 Speech Therapy Time Out: 11:20 Total Billed Time: 15 Billed Treatment Time 1, SPSNDBREE Hernadez Jun 25, 2018 11:49
--- NOTE | 2018-06-25 11:54 | Physical Therapy Evaluation ---
PT Evaluation-General Medical Diagnosis Admission Date Jun 25, 2018 at 10:25 Medical Diagnosis: COPD myopathy Onset Date: Jun 17, 2018 Therapy Diagnosis Therapy Diagnosis: weakness; abn gait Height/Weight Height (Feet): 5 Height (Inches): 2.00 Weight (Pounds): 152 Weight (Ounces): 7.0 Precautions Precautions/Isolations: Standard Precautions Weight Bear Status Right Lower Extremity: Right Weight Bearing/Tolerated Left Lower Extremity: Left Weight Bearing/Tolerated Referral Physician: Uzair Reason for Referral: Evaluation/Treatment Medical History Pertinent Medical History: Arthritis, COPD, GERD, HTN, Parkinson's, Smoking Current History Pt admitted to acute on 06/17/18 with acute respiratory failure; she was intubated. Pt now transferred to ARU for continued medical management and therapy interventions post acute stay. Reviewed History: Yes Social History Home: Single Level Current Living Status: Spouse Entry Into Home: Stairs With Railing (reports the rails are loose) PT Steps Into Home: 3 (to 4) PT Steps Inside Home: 0 Prior/Core FIM Prior Level of Function Therapy Code Descriptions/Definitions Functional [place] Measure: 0=Not Assessed/NA 4=Minimal Assistance 1=Total Assistance 5=Supervision or Setup 2=Maximal Assistance 6=Modified [place] 3=Moderate Assistance 7=Complete [place] Therapy Quality Codes: 6 Independent with activity with or without an assistive device 5 Patient requires set up or clean up by helper. Patient completes activity by themselves 4 Supervision or touching assist (CGA). [place] provide cues , steadying assist 3 The helper provides less than half the effort to complete the activity 2 The helper provides more than half the effort to complete the activity 1 Dependent. The helper does all the effort to complete an activity 7 Patient refused to complete or attempt activity 9 The patient did not perform the activity before the current illness or injury 88 Not attempted due to Medical conditions or safety concerns Functional Abilities and Goals: Independent: Patient completed the activities by him/herself, with or without an assistive device, with no assistance from a helper. Needed Some Help: Patient needed partial assistance from another person to complete activities. Dependent: A helper completed the activities for the patient. Unknown: Not Applicable: Bed Mobility: 7 Transfers (B,C,W/C) (FIM): 6 Gait: 6 (4WW) Stairs: 5 Indoor Mobility (Ambulation): Independent Stairs: Needed Some Help Prior Devices Use: Walker Prior Device Use: pt has a shower bench PT Evaluation-Current Subjective Agreeable to PT. During treatment reports she feels tired and requires rest breaks. Pain Numeric Pain Scale: 0-No Pain Location: No Pain Reported Objective Patient Orientation: Person, Place, Time, Situation Problem Solving: Good Attachments: Oxygen ROM/Strength ROM Lower Extremities WNL Strenght Lower Extremities Strength is grossly 4-/5 with decreased functional activity [place]. Integumentary/Posture Integumentary Refer to nursing notes. Bowel Incontinence: Yes Bladder Incontinence: Yes Posture symmetrical with slight rounded shoulders but is able to come to full upright. Neuromuscular (Tone, Coordination, Reflexes) intact and functional Sensory Vision: Functional Hearing: Functional Hand Dominance: Right Sensation Right Lower Extremit: Intact Sensation Left Lower Extremity: Intact Transfers Therapy Code Descriptions/Definitions Functional [place] Measure: 0=Not Assessed/NA 4=Minimal Assistance 1=Total Assistance 5=Supervision or Setup 2=Maximal Assistance 6=Modified [place] 3=Moderate Assistance 7=Complete [place] Therapy Quality Codes: 6 Independent with activity with or without an assistive device 5 Patient requires set up or clean up by helper. Patient completes activity by themselves 4 Supervision or touching assist (CGA). [place] provide cues , steadying assist 3 The helper provides less than half the effort to complete the activity 2 The helper provides more than half the effort to complete the activity 1 Dependent. The helper does all the effort to complete an activity 7 Patient refused to complete or attempt activity 9 The patient did not perform the activity before the current illness or injury 88 Not attempted due to Medical conditions or safety concerns Transfers (B, C, W/C) (FIM): 3 Scootin Roll Left to Right (QC): 5 Supine to/from Sit: 4 Sit to/from Stand: 3 (from standard height surface) Sit to Lying (QC): 4 Lying to Sitting/Side of Bed(Q: 4 Sit to Stand (QC): 3 Chair/Wgt-br-Oobxv Xfer(QC): 4 Car Transfer (QC): 3 (assist with both legs to get in the car and mod assist to stand up from the car) Pt needs assist with all functional transfers at this time. Gait Does the Patient Walk?: Yes Mode of Locomotion: Walk Anticipated Mode of Locomotion: Walk Gait (FIM): 2 Distance (FIM): 8=555-84 ft Walk 10 feet (QC): 4 Walk 50 ft with 2 Turns(QC): 4 Walk 150 ft (QC): 88 (unable to walk this far yet; required standing rest breaks to complete 50 ft) Walking 10ft/uneven surface-QC: 4 (unsteady; required steadying assist.) Gait Assistive Device: FWW Comments/Gait Description slow gait with decreased step length; tires easily and safety is compromised with fatigue. Wheelchair Training Does the Pt Use a Wheelchair?: No Stairs Stairs (FIM): 2 #of Steps: 1 Level of Assist: 3 (assist to step up and to lower down for safety) 1 Step (curb) (QC): 3 4 Steps (QC): 88 Assistive Device: Walker 12 Steps (QC): 88 unsteady with and with difficulty Balance Sitting Static: Good Sitting Dynamic: Good Standing Static: Fair Standing Dynamic: Fair Picking up an Object (QC): 88 (unsafe to attempt) Treatment Worked on sit to stand from varied surfaces; safety education; education on ARU POC Assessment/Needs Pt presents post acute hospital stay with noted gross functional weakness that impairs her ability to transfer or safely ambulate without assist. She has significantly limited functional activity tolerance and requires extra rest and extra time to complete tasks. She is very motivated and moved fairly well at her PLOF but now needs assist with all mobiltiy. She will benefit from skilled intervention to address these deficits and allow her to return home as before. Rehab Potential: Good PT Short Term Goals Short Term Goals Time Frame: Jul 02, 2018 Transfers (B,C,W/C) (FIM): 5 Gait (FIM): 4 PT Lock Expert Goals Lock Expert Goals PT Lock Expert Goals Time Frame: Jul 12, 2018 Transfers (B,C,W/C) (FIM): 6 Sit to Lying (QC): 6 Lying-Sitting on Side/Bed(QC): 6 Sit to Stand (QC): 6 Roll Left to Right (QC): 6 Chair/Ava-ht-Tkyjn Xfer(QC): 6 Car Transfer (QC): 6 Does the Patient Walk: Yes Gait (FIM): 6 Gait distance (FIM): 3=150 ft Walk 10 feet (QC): 6 Walk 10ft-Uneven Surface(QC): 6 Walk 50ft with 2 Turns (QC): 6 Walk 150 ft (QC): 6 Gait Level of Assist: 6 Gait Assistive Device: FWW (or 4WW) Does the Pt use WC or Scooter?: No Stairs (FIM): 5 (household) # of Steps: 4 1 Step (curb) (QC): 6 4 Steps (QC): 6 12 Steps (QC): 88 Picking up an Object (QC): 4 Goals reflect that pt be mod indep at a household level PT Plan Problem List Problem List: Activity Tolerance, Functional Strength, Safety, Balance, Gait, Transfer, Bed Mobility Treatment/Plan Treatment Plan: Continue Plan of Care Treatment Plan: Bed Mobility, Education, Functional Activity Derrick, Functional Strength, Group Therapy, Gait, Safety, Therapeutic Exercise, Transfers Treatment Duration: Jul 12, 2018 Frequency: Modified Program (IRF) Estimated Hrs Per Day: 1.5 hours per day (as able ) Patient and/or Family Agrees t: Yes Safety Risks/Education Patient Education: Transfer Techniques, Safety Issues Teaching Recipient: Patient Teaching Methods: Discussion Response to Teaching: Reinforcement Needed Discharge Recommendations Therapy D/C Recommendations: Physical Therapy Home Care Time/GCodes Time In: 1025 Time Out: 1105 Total Billed Treatment Time: 40 Total Billed Treatment visit EVM 15 FA 25 KENNY LAUREANO PT Jun 25, 2018 11:54
--- NOTE | 2018-06-25 12:11 | NUR ---
REVIEWED MEDICATIONS THEY WERE REPORTED UPON ADMISSION TO 4TH FLOOR.
[2018-06-25] MEDS: SINEMET 25/100 (CARBIDOPA/LEVODOPA) TAB PO SCH ×2 (12:44→21:16)
[2018-06-25] MEDS: LACTOBACILLUS ACIDOPHILUS (PROBIOTIC) CAPSULE NG SCH ×2 (12:44→17:42)
--- NOTE | 2018-06-25 12:51 | Occupational Therapy Eval ---
OT Evaluation-General/PLF Medical Diagnosis Admission Date Jun 25, 2018 at 10:25 Medical Diagnosis: COPD myopathy Onset Date: Jun 17, 2018 Therapy Diagnosis Therapy Diagnosis: decreased self care skills Height/Weight Height (Feet): 5 Height (Inches): 2.00 Weight (Pounds): 152 Weight (Ounces): 7.0 Precautions Precautions/Isolations: Standard Precautions Referral Physician: Uzair Medical History Pertinent Medical History: Arthritis, COPD, GERD, HTN, Parkinson's, Smoking Additional Medical History sleep apnea, abdominal hernia Reviewed History: Yes Social History Home: Single Level Current Living Status: Spouse Entry Into Home: Stairs With Railing (reports the rails are loose) Steps Into Home: 3 (to 4) Steps Inside Home: 0 ADL-Prior Level of Function Therapy Code Descriptions/Definitions Functional [place] Measure: 0=Not Assessed/NA 4=Minimal Assistance 1=Total Assistance 5=Supervision or Setup 2=Maximal Assistance 6=Modified [place] 3=Moderate Assistance 7=Complete [place] Therapy Quality Codes: 6 Independent with activity with or without an assistive device 5 Patient requires set up or clean up by helper. Patient completes activity by themselves 4 Supervision or touching assist (CGA). [place] provide cues , steadying assist 3 The helper provides less than half the effort to complete the activity 2 The helper provides more than half the effort to complete the activity 1 Dependent. The helper does all the effort to complete an activity 7 Patient refused to complete or attempt activity 9 The patient did not perform the activity before the current illness or injury 88 Not attempted due to Medical conditions or safety concerns Functional Abilities and Goals: Independent: Patient completed the activities by him/herself, with or without an assistive device, with no assistance from a helper. Needed Some Help: Patient needed partial assistance from another person to complete activities. Dependent: A helper completed the activities for the patient. Unknown: Not Applicable: ADL PLOF Comments Pt states she was independent up until the last week when she began requiring some assist. Uses walker for mobility. Self Care: Needed Some Help DME/Equipment: Tub/Shower DME/Equipment Comments walker, rails around toilet Drive Self: No OT Current Status Subjective Pt sitting in chair, agrees to therapy. Pt reports some "muscle soreness", but denies pain Mental Status/Objective Patient Orientation: Person, Place Attachments: Oxygen Current Glasses/Contacts: Yes (reading) Hand Dominance: Right Upper Extremity ROM Grossly WFL Upper Extremity Coordination Decreased secondary to tremors from Parkinson's Upper Extremity Sensation Intact per pt report Upper Extremity Strength Grossly 4-/5 ADL-Treatment ADL-Current Pt completed sponge bath while seated in chair. Upper body bathing completed with SBA and increased time. Pt able to wash bilateral LE, but requires min assist to wash buttocks. Don pullover shirt with minimal assistance to pull down in back. Pt able to thread right LE into pant leg, required minimal assistance to thread left LE. Stood with minimal assistance, required assist to pull pants up in back. Pt states she does not like to wear socks. Donned slip on shoes with set up. Pt requires occasional rest breaks throughout session secondary to fatigue. Pt sitting in chair with needs met after session. Bathing (FIM): 4 Shower/Bathe Self (QC): 3 Upper Body Dressing (FIM): 4 Upper Body Dressing (QC): 3 Lower Body Dressing (FIM): 3 Lower Body Dressing (QC): 3 Education OT Patient Education: Rehab process Teaching Recipient: Patient Teaching Methods: Discussion Response to Teaching: Verbalize Understanding OT Short Term Goals Short Term Goals Time Frame: Jul 02, 2018 Lower Body Dressing(FIM): 4 Toilet/Commode Transfer(FIM): 5 Additional Short Term Goals: 1-Demonstrate ADL Tasks, 2-Verbalize Understanding , 3-ImproveStrength/Derrick 1=Demonstrate adherence to instructed precautions during ADL tasks. 2=Patient will verbalize/demonstrate understanding of assistive devices/ modifications for ADL. 3=Patient will improve strength/tolerance for activity to enable patient to perform ADL's. OT Pharmacy Billing Adjudicator Goals Pharmacy Billing Adjudicator Goals Time Frame: Jul 16, 2018 Eating (FIM): 6 Eating (QC): 6 Groomin Oral Hygiene (QC): 6 Bathing(FIM): 5 Shower/Bathe Self (QC): 5 Upper Body Dressing(FIM): 6 Upper Body Dressing (QC): 6 Lower Body Dressing(FIM): 5 Lower Body Dressing (QC): 5 On/Off Footwear (QC): 5 Toileting(FIM): 6 Toileting Hygiene (QC): 6 Toilet/Commode Transfer(FIM): 6 Toilet/Commode Transfer (QC): 6 Additional Goals: 1-Demonstrate ADL Tasks, 2-Verbalize Understanding, 3- ImproveStrength/Derrick 1=Demonstrate adherence to instructed precautions during ADL tasks. 2=Patient will verbalize/demonstrate understanding of assistive devices/ modifications for ADL. 3=Patient will improve strength/tolerance for activity to enable patient to perform ADL's. goals established to increase functional independence and allow safe discharge plan. OT Education/Plan Problem List/Assessment Assessment: Decreased Activ Tolerance, Decreased UE Strength, Dependent Transfers, Impaired Funct Balance, Impaired I ADL's, Impaired Self-Care Skills Pt demonstrates decreased mobility, strength, activity tolerance, and ADL functioning. Pt to benefit from skilled OT intervention for ADL training, transfers, strengthening, and home safety education to increase independence and allow safe discharge plan. Discharge Recommendations Plan/Recommendations: Continue POC Treatment Plan/Plan of Care Treatment,Training & Education: Yes Patient would benefit from OT for education, treatment and training to promote independence in ADL's, mobility, safety and/or upper extremity function for ADL' s. Plan of Care: ADL Retraining, Functional Mobility, Group Exercise/Act as Ind, UE Funct Exercise/Act Treatment Duration: Jul 16, 2018 Frequency: Modified Program (IRF) Estimated Hrs Per Day: 1.5 hours per day Rehab Potential: Good Time/GCodes Start Time: 11:30 Stop Time: 12:15 Total Time Billed (hr/min): 45 Billed Treatment Time 1 visit, EVM(15minutes), ADLx2(30minutes) CALVIN LAZCANO OT Jun 25, 2018 12:51
--- NOTE | 2018-06-25 13:37 | Physical Therapy Daily Note ---
PT Daily Note-Current Subjective Pt was up in recliner and agreed to PT. Reported that she needed to use the restroom. Pain Numeric Pain Scale: 0-No Pain Location: No Pain Reported Mental Status Patient Orientation: Person, Normal For Age Attachments: Oxygen Transfers Therapy Code Descriptions/Definitions Functional [place] Measure: 0=Not Assessed/NA 4=Minimal Assistance 1=Total Assistance 5=Supervision or Setup 2=Maximal Assistance 6=Modified [place] 3=Moderate Assistance 7=Complete [place] Therapy Quality Codes: 6 Independent with activity with or without an assistive device 5 Patient requires set up or clean up by helper. Patient completes activity by themselves 4 Supervision or touching assist (CGA). [place] provide cues , steadying assist 3 The helper provides less than half the effort to complete the activity 2 The helper provides more than half the effort to complete the activity 1 Dependent. The helper does all the effort to complete an activity 7 Patient refused to complete or attempt activity 9 The patient did not perform the activity before the current illness or injury 88 Not attempted due to Medical conditions or safety concerns Transfers (B, C, W/C) (FIM): 2 Sit to/from Stand: 2 Sit to Stand (QC): 2 Weight Bearing Right Lower Extremity: Right Weight Bearing/Tolerated Left Lower Extremity: Left Weight Bearing/Tolerated Gait Training Does the Patient Walk?: Yes Gait (FIM): 2 Distance (FIM): 1=545-15 ft Distance: 75' Gait Level of Assist: 4 Gait Persons Needed: 1 Gait Assistive Device: FWW Assessment Current Status: Fair Progress Pt requires max A from sitting due to weakness. Pt was performing sit<>stand from recliner to FWW and then from toilet to FWW. Pt amb 75' with FWW and CGA while on 3L of O2. Nurse monitored SaO2 during amb and it ranged from 86 to 94% . SaO2 would improve with rest. Pt requires increased time to perform activity due to SOB. Pt returned to room and is in recliner with all needs met. PT to increase activity as pt is able to tolerate. PT Short Term Goals Short Term Goals Time Frame: Jul 02, 2018 Gait (FIM): 4 PT On Line Csr Goals Assisted Goals PT On Line Csr Goals Time Frame: Jul 12, 2018 Transfers (B,C,W/C) (FIM): 6 Sit to Lying (QC): 6 Lying-Sitting on Side/Bed(QC): 6 Sit to Stand (QC): 6 Roll Left to Right (QC): 6 Chair/Ria-ck-Zocth Xfer(QC): 6 Car Transfer (QC): 6 Does the Patient Walk: Yes Gait (FIM): 6 Gait distance (FIM): 3=150 ft Walk 10 feet (QC): 6 Walk 10ft-Uneven Surface(QC): 6 Walk 50ft with 2 Turns (QC): 6 Walk 150 ft (QC): 6 Gait Level of Assist: 6 Gait Assistive Device: FWW (or 4WW) Does the Pt use WC or Scooter?: No Stairs (FIM): 5 (household) # of Steps: 4 1 Step (curb) (QC): 6 4 Steps (QC): 6 12 Steps (QC): 88 Picking up an Object (QC): 4 PT Plan Problem List Problem List: Activity Tolerance, Functional Strength, Safety, Balance, Gait, Transfer, Bed Mobility, ROM Treatment/Plan Treatment Plan: Continue Plan of Care Treatment Plan: Bed Mobility, Education, Functional Activity Derrick, Functional Strength, Group Therapy, Gait, Safety, Therapeutic Exercise, Transfers Treatment Duration: Jul 12, 2018 Frequency: Modified Program (IRF) Estimated Hrs Per Day: 1.5 hours per day (as able ) Patient and/or Family Agrees t: Yes Time/GCodes Time In: 1300 Time Out: 1330 Total Billed Treatment Time: 30 Total Billed Treatment 1 visit FA x2 30 min RALPH BALBUENA PT Jun 25, 2018 13:37
--- NOTE | 2018-06-25 13:47 | PM&R H&P / Post Admit Assess ---
History of Present Illness HPI/Chief Complaint CC: COPD myopathy HPI: This is a 77-year-old white female who was admitted to inpatient rehabilitation for COPD myopathy. She's had an extensive complex acute medical issue with respiratory failure while admitted to [facility]. This is a patient that was admitted from the emergency room for exacerbation of COPD after worsening respiratory status while they were on vacation in [place] for 6 weeks. She is chronically on oxygen 4 L by nasal cannula. She worsened to the point of severe decompensation presenting to the ER found to have pneumonia and acute exacerbation of COPD with acute on chronic respiratory failure. She required intubation for respiratory failure and with the help of expert consultation from Dr. Casey she was able to be extubated and back on oxygen supplementation with Vapotherm and wean down to nasal cannula high flow. Patient did complete antibiotics for pneumonia. She is back to her baseline respiratory function but required severe myopathy resolution prior to returning back to home so inpatient rehab accepted this patient to recover prior to discharge home. Source: patient, family, RN/MD, old records Exam Limitations: no limitations Date Seen 06/25/18 Time Seen by a Provider: 11:00 Attending Physician Kerri Dunne DO PCP Neymar Mcdowell DO Referring Physician Date of Admission Jun 25, 2018 at 10:25 Home Medications & Allergies Home Medications Reviewed patient Home Medication Reconciliation performed by pharmacy medication reconciliations screen making technician and/or nursing. Patients Allergies have been reviewed. Allergies Allergies Coded Allergies hydrocodone (Verified Allergy, Severe, RASH, 11/10/16) Sulfa (Sulfonamide Antibiotics) (Unverified Allergy, Unknown, 06/18/18) Past Bwrmgku-Gemghl-Pkrinq Hx Past Med/Social Hx: Reviewed Nursing Past Med/Soc Hx, Reviewed and Corrections made Patient Social History Marrital Status: Employed/Student: retired Smoking Status: Current Everyday Smoker Former Smoker, Quit: Nov 16, 2015 Type Used: Cigarettes 2nd Hand Smoke Exposure: No Recent Foreign Travel: No Contact w/other who traveled: No Recent Hopitalizations: No Immunizations Up To Date Tetanus Booster (TDap): Unknown Date of Pneumonia Vaccine: Jun 05, 2016 Date of Influenza Vaccine: Apr 04, 2018 Seasonal Allergies Seasonal Allergies: No Past Medical History Surgeries: Appendectomy, Eye Surgery, Gallbladder Respiratory: COPD, Pneumonia, Sleep Apnea Currently Using CPAP: No Currently Using BIPAP: No Cardiac: Hypertension Neurological: Parkinson's Disease Reproductive: No Sexually Transmitted Disease: No Gastrointestinal: Abdominal Hernia, Chronic Constipation History of Blood Disorders: Yes Family History Diabetes mellitus 19 MOTHER FH: lung cancer 19 FATHER G8 SISTER FH: uterine cancer 19 MOTHER Hypertension 19 FATHER Myocardial infarction 19 FATHER Pacemaker 19 MOTHER UTI (urinary tract infection) 19 MOTHER No Pertinent Family Hx Review of Systems Constitutional: see HPI, dizziness, weakness EENTM: no symptoms reported Respiratory: cough, dyspnea on exertion, short of breath, wheezing Cardiovascular: no symptoms reported Gastrointestinal: loss of appetite Genitourinary: no symptoms reported Musculoskeletal: back pain, joint pain Skin: no symptoms reported Psychiatric/Neurological: Depressed All Other Systems Reviewed Negative Unless Noted: Yes Physical Exam Physical Exam Vital Signs Vital Signs - First Documented 06/25/18 10:30 Temp 98.7 Pulse 96 Resp 20 B/P (MAP) 132/90 (104) Pulse Ox 93 O2 Delivery Nasal Cannula O2 Flow Rate 2.00 Capillary Refill : Height, Weight, BMI Height: 5'2.00" Weight: 152lbs. 7.0oz. 69.227503bo; 27.9 BMI Method:Stated General Appearance: No Apparent Distress, WD/WN, Chronically ill, Thin Eyes: Bilateral Eye Normal Inspection, Bilateral Eye PERRL HEENT: PERRL/EOMI, Normal ENT Inspection, Pharynx Normal Neck: Full Range of Motion, Normal Inspection, Non Tender, Supple, Carotid Bruit Respiratory: Chest Non Tender, Lungs Clear, Normal Breath Sounds, No Accessory Muscle Use, No Respiratory Distress, Decreased Breath Sounds Cardiovascular: Regular Rate, Rhythm, No Edema, No Gallop, No JVD, No Murmur, Normal Peripheral Pulses Gastrointestinal: Normal Bowel Sounds, No Organomegaly, No Pulsatile Mass, Non Tender, Soft Back: Normal Inspection, No CVA Tenderness, No Vertebral Tenderness Extremity: Normal Capillary Refill, Normal Inspection, Normal Range of Motion, Non Tender, No Calf Tenderness, No Pedal Edema Neurologic/Psychiatric: Alert, Oriented x3, No Motor/Sensory Deficits, Normal Mood/Affect Skin: Normal Color, Warm/Dry Lymphatic: No Adenopathy Results Results/Procedures Labs Patient resulted labs reviewed. Assessment/Plan Admission Diagnosis Assessment: COPD myopathy Respiratory failure acute on chronic Severe COPD PD Anemia Plan: IRF Slow recovery expected so will divide up time over 7 days instead of 5 days Continue Nebs and O2 Appreciate Dr Casey consultation Admission Status: Inpatient Order (span 2 midnights) Reason for Inpatient Admission: IRF Diagnosis/Problems Diagnosis/Problems (1) Myopathy Status: Acute (2) Hypomagnesemia Status: Resolved Resolution Date/Time: 06/22/18 @ 10:23 (3) Acute respiratory failure Status: Resolved Qualifiers: Respiratory failure complication: unspecified whether with hypoxia or hypercapnia Qualified Codes: J96.00 - Acute respiratory failure, unspecified whether with hypoxia or hypercapnia Resolution Date/Time: 06/25/18 @ 13:47 (4) Pneumonia Status: Resolved Qualifiers: Lung location: unspecified part of lung Resolution Date/Time: 06/25/18 @ 13:47 (5) Essential (primary) hypertension Status: Chronic (6) Parkinson disease Status: Chronic (7) Macrocytic anemia Status: Chronic (8) COPD exacerbation Status: Acute Post Admission Physician Asses Date seen by provider: Jun 25, 2018 Time seen by provider: 11:00 Admisison Dx: (1) Myopathy Status: Acute The preadmission screen agrees with the post admission assessment that the patient is a good candidate for inpatient rehabilitation. The patient will have a comprehensive program of inpatient rehabilitation with a goal of maximizing level of functional independence prior to discharge home with [family]. The patient will have PT/OT ninety minutes per day, each discipline, five days a week for gait, strengthening, conditioning, balance, ADLs, any patient/family/caregiver training as necessary. Speech therapy to do cognitive assessment and treat as indicated. Rehabilitation nursing to assist with bowel, bladder, skin, wound care, medication administration, pain management. Day Worker to assist with discharge planning, community reentry. SCD's for DVT prophylaxis. She appears to be well motivated to participate in three hours of therapy a day. She should be able to tolerate three hours of therapy a day from a medical standpoint. She should benefit from the three hours of therapy a day. She has a reasonable discharge plan, reasonable discharge rehabilitation goals and a supportive family. She has various comorbidities that need to be closely monitored with medications and treatments adjusted on a daily basis as needed. These include: see list above Barriers to discharge for this patient who had been independent prior to this are for her to be modified independent to supervision for ADLs and mobility skills prior to discharge home with family, so as to lessen the burden of the caregivers. Risks for this patient include: 1. Fall 2. Fracture 3. DVT 4. Pulmonary embolism 5. Wound infection 6. Skin breakdown 7. Contractures 8. Poorly controlled pain 9. Urinary retention 10. UTI 11. Respiratory infection 12. Aspiration Estimated Length of Stay: 10 days Prognosis: Rehab prognosis appears good for goal of discharge home with family modified independent to supervision for ADLs and mobility skills. General: Alert, Oriented X3, Cooperative, No Acute Distress HEENT: Atraumatic, PERRLA Neck: Supple, No JVD, No Thyromegaly, +2 Carotid Pulse No Bruit, No LAD Lungs: Clear to Auscultation, Normal Air Movement Abdomen: Normal Bowel Sounds, Soft, No Tenderness, No Hepatosplenomegaly, No Masses Extremities: No Clubbing, No Cyanosis, No Edema, Normal Pulses, No Tenderness/ Swelling Skin: No Rashes, No Breakdown, No Significant Lesion Neuro: Normal Gait, Normal Speech, Strength at 5/5 X4 Ext, Normal Tone, Sensation Intact, Cranial Nerves 3-12 NL, Reflexes 2+, Other (generalized weakness) Psych/Mental Status: Mental Status NL, Mood NL KERRI DUNNE DO Jun 25, 2018 13:47
--- NOTE | 2018-06-25 15:18 | Occupational Ther Daily Note ---
OT Current Status-Daily Note Subjective Pt sitting in chair, agrees to treatment. Mental Status/Objective Therapy Code Descriptions/Definitions Functional [place] Measure: 0=Not Assessed/NA 4=Minimal Assistance 1=Total Assistance 5=Supervision or Setup 2=Maximal Assistance 6=Modified [place] 3=Moderate Assistance 7=Complete [place] Attachments: Oxygen ADL-Treatment Pt sit to stand from chair with minimal assistance and cues for hand placement. Gait to restroom with FWW. Pt stood at sink to complete grooming tasks. Pt brushed teeth and combed hair with SBA. Pt fatigues with standing and required seated rest break. O2 sats dropped briefly to 88%, but quickly recovered to 93% with rest. Pt demonstrated ability to transfer to toilet with min assist, but required mod assist to stand from toilet using grab bars. Pt requests to go to bed after session. Sit to supine with min assist. Pt resting in bed with needs met and spouse present after session. Therapy Code Descriptions/Definitions Functional [place] Measure: 0=Not Assessed/NA 4=Minimal Assistance 1=Total Assistance 5=Supervision or Setup 2=Maximal Assistance 6=Modified [place] 3=Moderate Assistance 7=Complete [place] Therapy Quality Codes: 6 Independent with activity with or without an assistive device 5 Patient requires set up or clean up by helper. Patient completes activity by themselves 4 Supervision or touching assist (CGA). [place] provide cues , steadying assist 3 The helper provides less than half the effort to complete the activity 2 The helper provides more than half the effort to complete the activity 1 Dependent. The helper does all the effort to complete an activity 7 Patient refused to complete or attempt activity 9 The patient did not perform the activity before the current illness or injury 88 Not attempted due to Medical conditions or safety concerns Grooming (FIM): 5 Oral Hygiene (QC): 4 Toilet/Commode Transfer (FIM): 3 OT Short Term Goals Short Term Goals Time Frame: Jul 02, 2018 Lower Body Dressing(FIM): 4 Toilet/Commode Transfer(FIM): 5 Additional Short Term Goals: 1-Demonstrate ADL Tasks, 2-Verbalize Understanding , 3-ImproveStrength/Derrick 1=Demonstrate adherence to instructed precautions during ADL tasks. 2=Patient will verbalize/demonstrate understanding of assistive devices/ modifications for ADL. 3=Patient will improve strength/tolerance for activity to enable patient to perform ADL's. OT Alf Goals Alf Goals Time Frame: Jul 16, 2018 Eating (FIM): 6 Eating (QC): 6 Groomin Oral Hygiene (QC): 6 Bathing(FIM): 5 Shower/Bathe Self (QC): 5 Upper Body Dressing(FIM): 6 Upper Body Dressing (QC): 6 Lower Body Dressing(FIM): 5 Lower Body Dressing (QC): 5 On/Off Footwear (QC): 5 Toileting(FIM): 6 Toileting Hygiene (QC): 6 Toilet/Commode Transfer(FIM): 6 Toilet/Commode Transfer (QC): 6 Additional Goals: 1-Demonstrate ADL Tasks, 2-Verbalize Understanding, 3- ImproveStrength/Derrick 1=Demonstrate adherence to instructed precautions during ADL tasks. 2=Patient will verbalize/demonstrate understanding of assistive devices/ modifications for ADL. 3=Patient will improve strength/tolerance for activity to enable patient to perform ADL's. OT Education/Plan Discharge Recommendations Plan/Recommendations: Continue POC Treatment Plan/Plan of Care Patient would benefit from OT for education, treatment and training to promote independence in ADL's, mobility, safety and/or upper extremity function for ADL' s. Plan of Care: ADL Retraining, Functional Mobility, Group Exercise/Act as Ind, UE Funct Exercise/Act Treatment Duration: Jul 16, 2018 Frequency: Modified Program (IRF) Estimated Hrs Per Day: 1.5 hours per day Rehab Potential: Good Time/GCodes Start Time: 14:35 Stop Time: 15:05 Total Time Billed (hr/min): 30 Billed Treatment Time 1 visit, ADLx2(30minutes) CALVIN LAZCANO OT Jun 25, 2018 15:18
[2018-06-25] MEDS: RT-ALBUTEROL/IPRATROPIUM 3 ML (DUONEB) VIAL INH SCH ×3 (15:26→21:51)
--- NOTE | 2018-06-25 15:32 | NUR ---
Pastoral Care Visit.
[2018-06-25 16:01] VITALS: BP 125/69
--- NOTE | 2018-06-25 16:15 | NUR ---
Initial Assessment Met with patient and her spouse for initial assessment. Prior to hospitalization, the patient was living at home with her spouse. They live in a single story home with 3-4 entry steps with railing. The patient reports she has a 4WW, shower bench, rails over the toilet and a medical scribe at home. She reports wearing oxygen at 4L continuous at home. She has utilized [facility] in the past. She utilizes [facility] for prescriptions, and if needed, [facility] in [place]. She appears motivated and willing to work therapies in order to achieve discharge goal of returning home.
[2018-06-25] MEDS: OXYBUTYNIN (DITROPAN) 5 MG TAB PO SCH (21:16)
[2018-06-25] MEDS: meTOprolol TARTRATE 25 MG (LOPRESSOR) TABLET PO SCH (21:16)
[2018-06-25] MEDS: risperiDONE 0.25 MG (RisperDAL) TAB PO SCH (21:17)
[2018-06-26] MEDS: RT-ALBUTEROL/IPRATROPIUM 3 ML (DUONEB) VIAL INH SCH ×6 (01:02→21:55)
[2018-06-26 05:42] VITALS: BP 104/61
[2018-06-26] MEDS: inSUlin ASPART (NovoLOG) 1 UNIT/0.01 ML (CHARGE PER UNIT) SC SCH ×4 (05:55→20:51)
[2018-06-26] MEDS: PANTOPRAZOLE 40 MG (PROTONIX) TAB PO SCH (06:09)
[2018-06-26] MEDS: LACTOBACILLUS ACIDOPHILUS (PROBIOTIC) CAPSULE NG SCH ×3 (06:09→17:25)
[2018-06-26] MEDS: ENOXAPARIN 40 MG/0.4 ML (LOVENOX) SYR SC SCH (06:09)
[2018-06-26] MEDS: UMECLIDINIUM BROMIDE (INCRUSE ELLIPTA) 7'S IH SCH (06:34)
--- NOTE | 2018-06-26 06:34 | Pulmonary Progress Note ---
Subjective Time Seen by a Provider: 06:33 Subjective/Events-last exam No complications noted. Sepsis Event Evaluation Height, Weight, BMI Height: 5'2.00" Weight: 156lbs. 14.4oz. 71.591045hp; 28.3 BMI Method:Stated Exam Exam Vital Signs Date Time Temp Pulse Resp B/P (MAP) Pulse Ox O2 Delivery O2 Flow Rate FiO2 06/26/18 05:42 97.2 87 16 104/61 (75) 95 Nasal Cannula 2.00 06/26/18 01:03 92 Nasal Cannula 3.00 06/25/18 21:51 88 Nasal Cannula 2.00 06/25/18 20:10 Nasal Cannula 2.00 06/25/18 19:03 90 Nasal Cannula 2.00 06/25/18 16:01 97.3 97 16 125/69 (87) 92 Nasal Cannula 2.00 06/25/18 15:29 90 Nasal Cannula 2.00 06/25/18 13:13 Nasal Cannula 2.00 06/25/18 10:30 98.7 96 20 132/90 (104) 93 Nasal Cannula 2.00 I & O 06/26/18 07:00 Intake Total 100 ml Balance 100 ml Height & Weight Height: 5'2.00" Weight: 156lbs. 14.4oz. 71.066222is; 28.3 BMI Method:Stated General Appearance: No Apparent Distress, WD/WN, Chronically ill, Thin HEENT: PERRL/EOMI, Normal ENT Inspection, Pharynx Normal Neck: Full Range of Motion, Normal Inspection, Non Tender, Supple, Carotid Bruit Respiratory: Chest Non Tender, Lungs Clear, Normal Breath Sounds, No Accessory Muscle Use, No Respiratory Distress, Decreased Breath Sounds Cardiovascular: Regular Rate, Rhythm, No Edema, No Gallop, No JVD, No Murmur, Normal Peripheral Pulses Extremity: Normal Capillary Refill, Normal Inspection, Normal Range of Motion, Non Tender, No Calf Tenderness, No Pedal Edema Neurologic/Psychiatric: Alert, Oriented x3, No Motor/Sensory Deficits, Normal Mood/Affect Skin: Normal Color, Warm/Dry Lymphatic: No Adenopathy Assessment/Plan Assessment/Plan Acute on chronic respiratory failure - improved -Continue duonebs and incruse -PT will benefit from home vent to mask; however, she declined Severe oxygen dependent COPD -oxygen -Avoid over oxygenation -Pt needs home oxygen LLL resolving PNA -S/p bronchscopy Debility -probable rehab today. DASRHANA CARDENAS DO Jun 26, 2018 06:34
[2018-06-26 06:38] VITALS: BP 104/61
[2018-06-26 08:49] VITALS: BP 110/68
[2018-06-26] MEDS: SINEMET 25/100 (CARBIDOPA/LEVODOPA) TAB PO SCH ×3 (08:52→20:27)
[2018-06-26] MEDS: meTOprolol TARTRATE 25 MG (LOPRESSOR) TABLET PO SCH ×2 (08:52→20:27)
[2018-06-26] MEDS: risperiDONE 0.25 MG (RisperDAL) TAB PO SCH ×2 (08:52→20:28)
[2018-06-26] MEDS: AMANTADINE 100 MG (SYMMETREL) CAP PO SCH (08:53)
[2018-06-26] MEDS: OXYBUTYNIN (DITROPAN) 5 MG TAB PO SCH ×2 (08:53→20:27)
--- NOTE | 2018-06-26 08:58 | PM&R Progress Note ---
Subjective This was a face to face visit with the patient. Date Seen by Provider: Jun 26, 2018 Time Seen by Provider: 08:15 Subjective/Events-last exam Patient was seen in her room sitting in chair Central line IJ was discontinued Overall having no pain Bowels are functioning normally Tolerating medications Team meeting: Nursing reports wearing 4 L of oxygen at home now 3 L here at the hospital. Shortness of breath with exertion limits how rapidly she is able to ambulate. Incontinent at times and she uses a pad at home. Physical therapy reports she is grossly weak needs moderate assistance and walks 100 feet but very unsteady but she is motivated to get better OT reports moderate assist in toilet and dressing She lives with her spouse has 4 stairs but has a walker has rails around the toilet Review of Systems General: Fatigue, Malaise Pulmonary: Dyspnea Objective Physician Exam Last Set of Vital Signs Vital Signs Date Time Temp Pulse Resp B/P (MAP) Pulse Ox O2 Delivery O2 Flow Rate FiO2 06/26/18 08:49 111 110/68 (82) 06/26/18 06:38 90 32 06/26/18 06:34 Nasal Cannula 3.00 06/26/18 05:42 97.2 16 Capillary Refill : I&O Intake and Output 06/26/18 00:00 Daily Weight Change Unsure No General: Alert, Oriented X3, Cooperative, No Acute Distress, Other (severely chronically ill, tremor noted) HEENT: Atraumatic, PERRLA Neck: Supple, No JVD, No Thyromegaly, +2 Carotid Pulse No Bruit, No LAD Lungs: Other (diminished BS noted) Abdomen: Normal Bowel Sounds, Soft, No Tenderness, No Hepatosplenomegaly, No Masses Extremities: No Clubbing, No Cyanosis, No Edema, Normal Pulses, No Tenderness/ Swelling Skin: No Rashes, No Breakdown, No Significant Lesion Neuro: Normal Gait (although slowed and uses walker and assistance), Normal Speech, Strength at 5/5 X4 Ext, Normal Tone, Sensation Intact, Cranial Nerves 3- 12 NL, Reflexes 2+, Other (generalized weakness) Psych/Mental Status: Mental Status NL, Mood NL Results Lab Data Laboratory Tests 06/25/18 16:00: Glucometer 103 06/25/18 20:16: Glucometer 185H 06/26/18 05:26: Glucometer 93 Current Funtional Status Patient just settling in since admitted yesterday Continue aggressive physical therapy but spread out over [address] Casey's consultation and support Continue all home medications Monitor closely Assessment/Plan Assessment and Plan Assessment: COPD myopathy Respiratory failure acute on chronic Severe COPD PD Anemia Plan: IRF Slow recovery expected so will divide up time over 7 days instead of 5 days Continue Nebs and O2 Appreciate Dr Casey consultation (1) Myopathy Status: Acute (2) COPD exacerbation Status: Resolved (3) Essential (primary) hypertension Status: Chronic (4) Pneumonia Qualifiers: Qualified Codes: J18.9 - Pneumonia, unspecified organism Status: Resolved (5) Parkinson disease Status: Chronic (6) Macrocytic anemia Status: Chronic Co-Morbidities that are continuing to impact the rehab process: (include details ) SEAMUS CHRISTINE DO Jun 26, 2018 08:58
--- NOTE | 2018-06-26 09:06 | Individualized Plan of Care ---
Individualized Plan of Care Rehab Nursing IPOC Order Admission Date Jun 25, 2018 at 10:25 Current Orders Orders Admission Order(Inpt,Obs,Sdc) (06/25/18 09:43) Vital Signs: Routine (Order) 08,16,00 (06/25/18 09:43) Executive Consultant-Inpt Rehab Con (06/25/18 09:43) Rehab Nursing Orders-Ipoc (06/25/18 09:43) Physical Therapy Rehab Orders (06/25/18 09:43) Occupational Therapy Rehab Ord (06/25/18 09:43) Speech Therapy Rehab Orders (06/25/18 09:43) General/Regular (06/25/18 Lunch) Intake & Output 06,14,22 (06/25/18 09:43) Precautions (Aru) (06/25/18 09:43) Daily Weight 06 (06/25/18 09:43) Weekly Weight (Lbs) WEEK (06/25/18 09:43) Rehab-Intensity Of Therapy (06/25/18 09:43) Code/Resuscitation (06/25/18 09:43) Initiate Admission Nursing Pro .admission (06/25/18 09:43) Alprazolam Tablet (Xanax Tablet) (06/25/18 09:45) Calcium Carbonate Chew Tablet (Antacid C (06/25/18 09:45) Diphenhydramine Tablet (Benadryl Tablet) (06/25/18 09:45) Docusate Sodium Capsule (Colace Capsule) (06/25/18 09:45) Melatonin Tablet (Melatonin Tablet) (06/25/18 09:45) Polyethylene Glycol Powder Pkt (Miralax (06/25/18 09:45) Guaifenesin/Codeine Syrup (Robitussin Ac (06/25/18 09:45) Ondansetron Oral Dissolve Tab (Zofran (06/25/18 09:45) Code/Resuscitation (06/25/18 10:15) Accucheck Achs ACHS (06/25/18 10:15) Activity (06/25/18 10:15) Ambulate 08,12,20 (06/25/18 10:15) Elevate (06/25/18 10:15) Hob Raised: To ____Degrees (06/25/18 10:15) Sequential Compression Device 08,20 (06/25/18 10:15) Vital Signs: Every 4 Hours (Or (06/25/18 10:15) Acetaminophen Tablet (Tylenol Tablet) (06/25/18 10:15) Albuterol/Ipra Inhalation Soln (Duoneb I (06/25/18 14:00) Amantadine Capsule (Symmetrel Capsule) (06/26/18 09:00) Carbidopa/Levodopa 25/100 (Sinemet 25/10 (06/25/18 13:00) Lactobacillus Acidophilus Cap (Acidophil (06/25/18 12:00) Oxybutynin Tablet (Ditropan Tablet) (06/25/18 21:00) Pantoprazole Tablet (Protonix Tablet) (06/26/18 06:30) Umeclidinium [place] Inhaler (Incruse El (06/26/18 08:00) Insulin Aspart (Novolog) (Novolog (Charg (06/25/18 11:00) Metoprolol Tartrate (Ir) Tab (Lopressor (06/25/18 21:00) Risperidone Tablet (Risperdal Tablet) (06/25/18 21:00) Consult Pulmonology (06/25/18 10:15) Dietary Consult (06/25/18 10:15) Mat Initiate Protocol (06/25/18 10:15) Mdi Treatment (06/25/18 10:15) Rt Request For Service (06/25/18 10:15) Svn Small Volume Nebulizer (06/25/18 10:15) Svn Small Volume Nebulizer (06/25/18 10:15) Admission Arrival Bed Request (06/25/18 10:25) Enoxaparin Injection (Lovenox Injection) (06/26/18 05:30) Patient Visit (06/25/18 ) Pt Eval Moderate Complexity (06/25/18 ) Functional Activities, Ea 15 (06/25/18 ) Patient Visit (06/25/18 ) Speech Sound Lang Comp (06/25/18 ) Ambulate 08,12,20 (06/25/18 14:34) Sequential Compression Device 08,20 (06/25/18 14:34) Dvt/Vte Risk - Notifiy Physici 08 (06/25/18 14:34) Patient Visit (06/25/18 ) Functional Activities, Ea 15 (06/25/18 ) Iv Discontinue (Order) (06/26/18 11:06) Patient Visit (06/26/18 ) Functional Activities, Ea 15 (06/26/18 ) Gait Training, Ea 15 Min (06/26/18 ) Exercise Therap, Ea 15 Min (06/26/18 ) Therapeutic, Group (06/26/18 ) Rehab Nursing Orders: Ongoing Assess. of Function Status, Disease Management & Educaiton, Fall Prevention, Fluid/Electrolyte/Nutrition Mgmt, Infection Prevention, Medication Management & Education, Nutrition Management Intensity of Therapy to be met Patient to be seen: 15 hrs over 7 cons. days PT IPOC Problem List: Activity Tolerance, Functional Strength, Safety, Balance, Gait, Transfer, Bed Mobility, ROM Treatment Plan: Continue Plan of Care Bed Mobility, Education, Functional Activity Derrick, Functional Strength, Group Therapy, Gait, Safety, Therapeutic Exercise, Transfers Treatment Duration: Jul 12, 2018 Frequency: Modified Program (IRF) Estimated Hrs Per Day: 1.5 hours per day (as able ) OT IPOC Problems: Decreased Activ Tolerance, Decreased UE Strength, Dependent Transfers , Impaired Funct Balance, Impaired I ADL's, Impaired Self-Care Skills OT Treatment, Training and Edu: Yes Plan of Care: ADL Retraining, Functional Mobility, Group Exercise/Act as Ind, UE Funct Exercise/Act Treatment Duration: Jul 16, 2018 Frequency: Modified Program (IRF) Estimated Hrs Per Day: 1.[address] IPOC Speech Therapy Treatment Plan: Discontinue ST, Goals Met Treatment Duration: Jun 25, 2018 Frequency: 1 time per week Estimated Hrs Per Day: .5 hour per day Executive Consultant/Case Mgmt Executive Consultant/Case Managemen: Discharge Planning Dietitian/Bi Application Developer Dietitian/Bi Application Developer to monitor nutritional status and make changes and/or recommendations as needed and work with speech pathology on dietary upgrades as the occur. Physician IPOC Medical Issues being managed closely and that require the 24 hour availability of a physician: Patient with severe COPD and frail status with Parkinson's requires close monitoring by pulmonology along with oxygen supplementation and nebulizer treatments and medication toleration Medical Issues: Falls Precautions, Fluid/Electrolyte/Nutrition Balance, Infection Protection Brief Synthesis of Preadmission Screen, Post-Admission Evaluation, and Therapy Evaluations: Continue physical therapy for ambulation with walker but fatigue will require slow recovery Maintain maximum occupational therapy to help with independent ADLs Medical Prognosis: Fair Anticipated Length of Stay: 10 days SEAMUS CHRISTINE DO Jun 26, 2018 09:06
--- NOTE | 2018-06-26 09:56 | Occupational Ther Daily Note ---
OT Current Status-Daily Note Subjective Pt sitting in chair, agrees to treatment. Pt has no reports of pain. Mental Status/Objective Therapy Code Descriptions/Definitions Functional B[place] Measure: 0=Not Assessed/NA 4=Minimal Assistance 1=Total Assistance 5=Supervision or Setup 2=Maximal Assistance 6=Modified Bland 3=Moderate Assistance 7=Complete Bland Attachments: Oxygen ADL-Treatment Pt declined shower this morning secondary to being cold. Would like a sponge bath. Pt completed sponge bath while seated in chair. Upper body bathing completed with SBA. Pt able to wash mike area and bilateral LE. Stood with minimal assistance to wash buttocks. Don pullover shirt with SBA. Pt able to thread right LE into underwear and pants, but required assist with left LE. Sit to stand with minimal assistance. Pt able to pull underwear up over hips, but required assist with pants secondary to fatigue from standing. Pt donned slip on shoes, does not like to wear socks. Gait to restroom with FWW, slow pace. Transfer to toilet with minimal assistance. Pt able to complete toileting hygiene. Moderate assistance required to stand from toilet. Pt completed grooming tasks while seated in chair. Pt washed hands, brushed teeth, and combed hair with set up. Pt requires increased time for ADL tasks. Frequent rest breaks taken secondary to fatigue. Pt sitting in chair with needs met and RN present after session. Therapy Code Descriptions/Definitions Functional Bland Measure: 0=Not Assessed/NA 4=Minimal Assistance 1=Total Assistance 5=Supervision or Setup 2=Maximal Assistance 6=Modified Bland 3=Moderate Assistance 7=Complete Bland Therapy Quality Codes: 6 Independent with activity with or without an assistive device 5 Patient requires set up or clean up by helper. Patient completes activity by themselves 4 Supervision or touching assist (CGA). [place] provide cues , steadying assist 3 The helper provides less than half the effort to complete the activity 2 The helper provides more than half the effort to complete the activity 1 Dependent. The helper does all the effort to complete an activity 7 Patient refused to complete or attempt activity 9 The patient did not perform the activity before the current illness or injury 88 Not attempted due to Medical conditions or safety concerns Grooming (FIM): 5 Oral Hygiene (QC): 5 Bathing (FIM): 4 Shower/Bathe Self (QC): 3 Upper Body (FIM): 5 Upper Body Dressing (QC): 4 Lower Body Dressing (FIM): 3 Lower Body Dressing (QC): 3 Toileting (FIM): 3 Toileting Hygiene (QC): 3 Toilet/Commode Transfer (FIM): 3 Toilet Transfer (QC): 3 OT Short Term Goals Short Term Goals Time Frame: Jul 02, 2018 Lower Body Dressing(FIM): 4 Toilet/Commode Transfer(FIM): 5 Additional Short Term Goals: 1-Demonstrate ADL Tasks, 2-Verbalize Understanding , 3-ImproveStrength/Derrick 1=Demonstrate adherence to instructed precautions during ADL tasks. 2=Patient will verbalize/demonstrate understanding of assistive devices/ modifications for ADL. 3=Patient will improve strength/tolerance for activity to enable patient to perform ADL's. OT Prison Goals Loan Interviewer Goals Time Frame: Jul 16, 2018 Eating (FIM): 6 Eating (QC): 6 Groomin Oral Hygiene (QC): 6 Bathing(FIM): 5 Shower/Bathe Self (QC): 5 Upper Body Dressing(FIM): 6 Upper Body Dressing (QC): 6 Lower Body Dressing(FIM): 5 Lower Body Dressing (QC): 5 On/Off Footwear (QC): 5 Toileting(FIM): 6 Toileting Hygiene (QC): 6 Toilet/Commode Transfer(FIM): 6 Toilet/Commode Transfer (QC): 6 Additional Goals: 1-Demonstrate ADL Tasks, 2-Verbalize Understanding, 3- ImproveStrength/Derrick 1=Demonstrate adherence to instructed precautions during ADL tasks. 2=Patient will verbalize/demonstrate understanding of assistive devices/ modifications for ADL. 3=Patient will improve strength/tolerance for activity to enable patient to perform ADL's. OT Education/Plan Discharge Recommendations Plan/Recommendations: Continue POC Treatment Plan/Plan of Care Patient would benefit from OT for education, treatment and training to promote independence in ADL's, mobility, safety and/or upper extremity function for ADL' s. Plan of Care: ADL Retraining, Functional Mobility, Group Exercise/Act as Ind, UE Funct Exercise/Act Treatment Duration: Jul 16, 2018 Frequency: Modified Program (IRF) Estimated Hrs Per Day: 1.5 hours per day Rehab Potential: Good Time/GCodes Start Time: 08:00 Stop Time: 09:00 Total Time Billed (hr/min): 60 Billed Treatment Time 1 visit, ADLx4(60minutes) CALVIN LAZCANO OT Jun 26, 2018 09:56
--- NOTE | 2018-06-26 11:51 | Physical Therapy Daily Note ---
PT Daily Note-Current Subjective Pt. up in recliner. Explains how she visited her family over holidays then became very sick after arriving back home. C/o some SOB with activity this date. Pain Numeric Pain Scale: 3 Location: Medial Location Body Site: Back Pain Description: Ache Mental Status Patient Orientation: Person, Place, Time, Situation Transfers Therapy Code Descriptions/Definitions Functional [place] Measure: 0=Not Assessed/NA 4=Minimal Assistance 1=Total Assistance 5=Supervision or Setup 2=Maximal Assistance 6=Modified [place] 3=Moderate Assistance 7=Complete [place] Therapy Quality Codes: 6 Independent with activity with or without an assistive device 5 Patient requires set up or clean up by helper. Patient completes activity by themselves 4 Supervision or touching assist (CGA). [place] provide cues , steadying assist 3 The helper provides less than half the effort to complete the activity 2 The helper provides more than half the effort to complete the activity 1 Dependent. The helper does all the effort to complete an activity 7 Patient refused to complete or attempt activity 9 The patient did not perform the activity before the current illness or injury 88 Not attempted due to Medical conditions or safety concerns Transfers (B, C, W/C) (FIM): 3 Scootin Sit to/from Stand: 3 sit to stand required mod assist from standard height but SBA to Mod I with seat height elevated with cushion Weight Bearing Right Lower Extremity: Right Weight Bearing/Tolerated Left Lower Extremity: Left Weight Bearing/Tolerated Gait Training Does the Patient Walk?: Yes Gait (FIM): 2 Distance (FIM): 9=577-46 ft ([id number], 30ftx1) Gait Level of Assist: 4 Gait Persons Needed: 1 Gait Assistive Device: FWW pt. with poor position in FWW needed instruction for alignment and safe proximity to AD. This increased safety and gait indep. pt. uses broad ARISTEO for gait Exercises Supine Ex: Ankle pumps, Glut sets, Heel Slides, Scooting (up in recliner with it laid down), Straight leg raise, Hip abd/add Supine Reps: 15 Seated Therapy Exercises: Ankle pumps, Sit to stand (x8), Long arc quads, Hip flexion Seated Reps: 12 Standing: Heel/toe raises, Marching, Weight shifts Standing Reps: 12 Treatments toileted with assist to manage pants up and down Assessment Current Status: Good Progress RT present just after pt. lead material handler her recliner and was fatigued with O2 sat reading on 4 L portable O2 at 83% PT Short Term Goals Short Term Goals Time Frame: Jul 02, 2018 Gait (FIM): 4 PT Group Home Goals Group Home Goals PT Group Home Goals Time Frame: Jul 12, 2018 Transfers (B,C,W/C) (FIM): 6 Sit to Lying (QC): 6 Lying-Sitting on Side/Bed(QC): 6 Sit to Stand (QC): 6 Roll Left to Right (QC): 6 Chair/Dsh-hz-Uxzsk Xfer(QC): 6 Car Transfer (QC): 6 Does the Patient Walk: Yes Gait (FIM): 6 Gait distance (FIM): 3=150 ft Walk 10 feet (QC): 6 Walk 10ft-Uneven Surface(QC): 6 Walk 50ft with 2 Turns (QC): 6 Walk 150 ft (QC): 6 Gait Level of Assist: 6 Gait Assistive Device: FWW (or 4WW) Does the Pt use WC or Scooter?: No Stairs (FIM): 5 (household) # of Steps: 4 1 Step (curb) (QC): 6 4 Steps (QC): 6 12 Steps (QC): 88 Picking up an Object (QC): 4 PT Plan Treatment/Plan Treatment Plan: Continue Plan of Care Treatment Plan: Bed Mobility, Education, Functional Activity Derrick, Functional Strength, Group Therapy, Gait, Safety, Therapeutic Exercise, Transfers Treatment Duration: Jul 12, 2018 Frequency: Modified Program (IRF) Estimated Hrs Per Day: 1.5 hours per day (as able ) Patient and/or Family Agrees t: Yes Safety Risks/Education Patient Education: Gait Training, Transfer Techniques, Correct Positioning, Disease Process, Safety Issues Teaching Recipient: Patient Teaching Methods: Demonstration, Discussion Response to Teaching: Verbalize Understanding, Return Demonstration, Reinforcement Needed Time/GCodes Time In: 1100 Time Out: 1200 Total Billed Treatment Time: 60 Total Billed Treatment 1,FA25m,GT20m,EX15m G Codes Necessary: CHELSIE Quinonez SUPERVISOR SPECIAL SERVICES Jun 26, 2018 11:51
--- NOTE | 2018-06-26 12:00 | NUR ---
RIGHT IJ LINE DC'D WITHOUT DIFFICULTY AND PRESSURE DRESSING APPLIED.
--- NOTE | 2018-06-26 15:03 | Therapy Group Daily Note ---
Therapy Daily Group Note Patient Education Topic Other List Below (demo and education re: opening items and use of assistive devices and safety) Exercises LE Seated Exercise, UE Exercise Other/Notes Pt. attended group PT OT session this date with 3:1 ratio. Objectives of group: 1) understanding modified safe ways to open difficult to open objects which was demonstrated (met) 2) understanding of use of assistive devices for various tasks : demonstrated (met) Pt. came and went from group using FWW CGA. Pt. participated in introducing herself , utilized large foam dice to throw and share something about herself with coordinating numbered question ie, your favorite author. Pt. participated well in all seated U&L extremity exercises as lead by attending therapists. Pt. also participated in recalling the memory challenge words from last group session on Sunday and helped establish more memory challenges for Sunday group. Pt. to room after session with call sheth at hand and needs met Start Time: 13:00 Stop Time: 14:20 Total Billed Treatment Time: 80 Total Billed Treatment 1,GRP CHELSIE MILLS SENIOR JAVA SOFTWARE DEVELOPER Jun 26, 2018 15:03
--- NOTE | 2018-06-26 17:15 | NUR ---
Weekly team conference Reviewed team conference with patient and patient's spouse. Both are agreeable for continued stay with reevaluation next Sunday. Patient reports she has a 4WW at home and patient's spouse will bring it in for patient to use while working with PT. Patient's spouse states he would like patient to be able to complete a shower by herself before discharge. OT notified.
[2018-06-26 18:00] VITALS: BP 109/66
[2018-06-27] MEDS: RT-ALBUTEROL/IPRATROPIUM 3 ML (DUONEB) VIAL INH SCH ×6 (02:05→22:12)
[2018-06-27 05:24] VITALS: BP 104/63
[2018-06-27] MEDS: LACTOBACILLUS ACIDOPHILUS (PROBIOTIC) CAPSULE NG SCH ×3 (06:06→16:59)
[2018-06-27] MEDS: ENOXAPARIN 40 MG/0.4 ML (LOVENOX) SYR SC SCH (06:06)
[2018-06-27] MEDS: inSUlin ASPART (NovoLOG) 1 UNIT/0.01 ML (CHARGE PER UNIT) SC SCH ×4 (06:06→21:30)
[2018-06-27] MEDS: PANTOPRAZOLE 40 MG (PROTONIX) TAB PO SCH (06:06)
--- NOTE | 2018-06-27 06:06 | Pulmonary Progress Note ---
Subjective Time Seen by a Provider: 06:05 Subjective/Events-last exam No complications noted. Sepsis Event Evaluation Height, Weight, BMI Height: 5'2.00" Weight: 156lbs. 14.4oz. 71.646057ds; 28.3 BMI Method:Stated Exam Exam Vital Signs Date Time Temp Pulse Resp B/P (MAP) Pulse Ox O2 Delivery O2 Flow Rate FiO2 06/27/18 05:24 99.1 102 18 104/63 (77) 96 Nasal Cannula 3.00 06/27/18 02:06 95 Nasal Cannula 3.00 06/26/18 21:56 94 Nasal Cannula 3.00 06/26/18 20:20 Nasal Cannula 3.00 06/26/18 18:27 96 Nasal Cannula 3.00 06/26/18 18:00 96.9 101 16 109/66 (80) 92 Nasal Cannula 3.00 3.00 06/26/18 14:34 92 Nasal Cannula 3.00 06/26/18 11:37 91 Nasal Cannula 3.00 06/26/18 09:00 Nasal Cannula 3.00 06/26/18 08:49 111 110/68 (82) 06/26/18 06:38 99 90 32 06/26/18 06:34 90 Nasal Cannula 3.00 I & O 06/27/18 06:59 Intake Total 1050 ml Balance 1050 ml Height & Weight Height: 5'2.00" Weight: 156lbs. 14.4oz. 71.161221su; 28.3 BMI Method:Stated General Appearance: No Apparent Distress, WD/WN, Chronically ill, Thin HEENT: PERRL/EOMI, Normal ENT Inspection, Pharynx Normal Neck: Full Range of Motion, Normal Inspection, Non Tender, Supple, Carotid Bruit Respiratory: Chest Non Tender, Lungs Clear, Normal Breath Sounds, No Accessory Muscle Use, No Respiratory Distress, Decreased Breath Sounds Cardiovascular: Regular Rate, Rhythm, No Edema, No Gallop, No JVD, No Murmur, Normal Peripheral Pulses Extremity: Normal Capillary Refill, Normal Inspection, Normal Range of Motion, Non Tender, No Calf Tenderness, No Pedal Edema Neurologic/Psychiatric: Alert, Oriented x3, No Motor/Sensory Deficits, Normal Mood/Affect Skin: Normal Color, Warm/Dry Lymphatic: No Adenopathy Assessment/Plan Assessment/Plan Acute on chronic respiratory failure - improved -Continue duonebs and incruse -PT will benefit from home vent to mask; however, she declined Severe oxygen dependent COPD -oxygen -Avoid over oxygenation -Pt needs home oxygen LLL resolving PNA -S/p bronchoscopy Debility -probable rehab today. DARSHANA CARDENAS DO Jun 27, 2018 06:06
[2018-06-27] MEDS: UMECLIDINIUM BROMIDE (INCRUSE ELLIPTA) 7'S IH SCH (07:04)
[2018-06-27 08:21] VITALS: BP 94/57
[2018-06-27] MEDS: risperiDONE 0.25 MG (RisperDAL) TAB PO SCH ×3 (08:24→20:16)
[2018-06-27] MEDS: meTOprolol TARTRATE 25 MG (LOPRESSOR) TABLET PO SCH ×2 (08:24→20:16)
[2018-06-27] MEDS: OXYBUTYNIN (DITROPAN) 5 MG TAB PO SCH ×2 (08:24→20:16)
[2018-06-27] MEDS: SINEMET 25/100 (CARBIDOPA/LEVODOPA) TAB PO SCH ×3 (08:24→20:16)
[2018-06-27] MEDS: AMANTADINE 100 MG (SYMMETREL) CAP PO SCH (08:25)
--- NOTE | 2018-06-27 08:47 | PM&R Progress Note ---
Subjective HPI/CC On Admission Date Seen by Provider: Jun 27, 2018 Time Seen by Provider: 08:15 CC: COPD myopathy HPI: This is a 77-year-old white female who was admitted to inpatient rehabilitation for COPD myopathy. She's had an extensive complex acute medical issue with respiratory failure while admitted to [facility]. This is a patient that was admitted from the emergency room for exacerbation of COPD after worsening respiratory status while they were on vacation in [place] for 6 weeks. She is chronically on oxygen 4 L by nasal cannula. She worsened to the point of severe decompensation presenting to the ER found to have pneumonia and acute exacerbation of COPD with acute on chronic respiratory failure. She required intubation for respiratory failure and with the help of expert consultation from Dr. Casey she was able to be extubated and back on oxygen supplementation with Vapotherm and wean down to nasal cannula high flow. Patient did complete antibiotics for pneumonia. She is back to her baseline respiratory function but required severe myopathy resolution prior to returning back to home so inpatient rehab accepted this patient to recover prior to discharge home. Subjective/Events-last exam She wants to discontinue Risperdal since she was hallucinating at that time when she was in the ICU but that has resolved so I will go ahead and discontinue that Robitussin with codeine seems to be helping a little bit We will obtain cardiology consult for tachycardia that occurs especially when she is short of breath on exertion Denies any pain issues Appears to be much improved than yesterday Close monitoring of hypoxia and severe COPD Review of Systems General: Fatigue, Malaise Pulmonary: Dyspnea, Cough Objective Exam Vital Signs Vital Signs Date Time Temp Pulse Resp B/P (MAP) Pulse Ox O2 Delivery O2 Flow Rate FiO2 06/27/18 20:15 Nasal Cannula 3.00 06/27/18 18:44 99 06/27/18 17:53 99.0 113 18 148/75 (99) 06/26/18 06:38 32 Capillary Refill : General Appearance: No Apparent Distress, WD/WN, Chronically ill Respiratory: Chest Non Tender, No Accessory Muscle Use, No Respiratory Distress , Decreased Breath Sounds, Wheezing Cardiovascular: Regular Rate, Rhythm, No Edema, No Gallop, No JVD, No Murmur, Normal Peripheral Pulses Neurologic/Psychiatric: Alert, Oriented x3, No Motor/Sensory Deficits, Normal Mood/Affect Results/Procedures Lab Patient resulted labs reviewed. Assessment/Plan Assessment and Plan Assess & Plan/Chief Complaint Assessment: COPD myopathy Respiratory failure acute on chronic Severe COPD PD Anemia Tachycardia consulting Cardiology for close monitoring Plan: IRF Slow recovery expected so will divide up time over 7 days instead of 5 days Continue Nebs and O2 Appreciate Dr Casey consultation Consult Dr Kaur Diagnosis/Problems Diagnosis/Problems (1) Myopathy Status: Acute (2) Tachycardia Status: Acute (3) COPD exacerbation Status: Resolved Resolution Date/Time: 06/26/18 @ 20:21 (4) Essential (primary) hypertension Status: Chronic (5) Pneumonia Status: Resolved Qualifiers: Pneumonia type: due to unspecified organism Laterality: unspecified laterality Lung location: unspecified part of lung Qualified Codes: J18.9 - Pneumonia, unspecified organism Resolution Date/Time: 06/25/18 @ 13:47 (6) Parkinson disease Status: Chronic (7) Macrocytic anemia Status: Chronic Clinical Quality Measures DVT/VTE Risk/Contraindication: Risk Factor Score Per Nursin RFS Level Per Nursing on Admit: 4+=Very High SEAMUS CHRISTINE DO Jun 27, 2018 08:47
--- NOTE | 2018-06-27 11:02 | Physical Therapy Daily Note ---
PT Daily Note-Current Subjective Agreeable to PT. Reports she is tired today. Mental Status Patient Orientation: Person, Place, Time, Situation Attachments: Oxygen (in situ throughout treatment and post) Transfers Therapy Code Descriptions/Definitions Functional [place] Measure: 0=Not Assessed/NA 4=Minimal Assistance 1=Total Assistance 5=Supervision or Setup 2=Maximal Assistance 6=Modified [place] 3=Moderate Assistance 7=Complete [place] Therapy Quality Codes: 6 Independent with activity with or without an assistive device 5 Patient requires set up or clean up by helper. Patient completes activity by themselves 4 Supervision or touching assist (CGA). [place] provide cues , steadying assist 3 The helper provides less than half the effort to complete the activity 2 The helper provides more than half the effort to complete the activity 1 Dependent. The helper does all the effort to complete an activity 7 Patient refused to complete or attempt activity 9 The patient did not perform the activity before the current illness or injury 88 Not attempted due to Medical conditions or safety concerns Sit to Stand (QC): 4 (min assist from standard height; SBA from elevated surface) Sit to stand x 5 from standard height; x 5 from elevated height. Weight Bearing Right Lower Extremity: Right Weight Bearing/Tolerated Left Lower Extremity: Left Weight Bearing/Tolerated Gait Training Does the Patient Walk?: Yes Gait (FIM): 2 Distance (FIM): 2=351-35 ft Distance: 75 ft x 3 Gait Assistive Device: FWW slow gait with reliance on FWW. Exercises Seated Therapy Exercises: Ankle pumps, Long arc quads, Hip flexion Seated Reps: 15 (to improve functional activity tolerance for functional mobilty) Standing: Heel/toe raises, Marching Standing Reps: 15 (to improve standing functional act tolerance) Treatments Gait, transfers and ther ex; all to progress functional activity tolerance and fucntional strength for completing of household mobility Assessment Current Status: Good Progress Pt needs frequent and extended rest breaks today. Seems more fatigued today. Cooperative and gives full effort. PT Short Term Goals Short Term Goals Time Frame: Jul 02, 2018 Gait (FIM): 4 PT Residential Goals Electrical Tech Goals PT Electrical Tech Goals Time Frame: Jul 12, 2018 Transfers (B,C,W/C) (FIM): 6 Sit to Lying (QC): 6 Lying-Sitting on Side/Bed(QC): 6 Sit to Stand (QC): 6 Roll Left to Right (QC): 6 Chair/Fhh-rr-Pusxw Xfer(QC): 6 Car Transfer (QC): 6 Does the Patient Walk: Yes Gait (FIM): 6 Gait distance (FIM): 3=150 ft Walk 10 feet (QC): 6 Walk 10ft-Uneven Surface(QC): 6 Walk 50ft with 2 Turns (QC): 6 Walk 150 ft (QC): 6 Gait Level of Assist: 6 Gait Assistive Device: FWW (or 4WW) Does the Pt use WC or Scooter?: No Stairs (FIM): 5 (household) # of Steps: 4 1 Step (curb) (QC): 6 4 Steps (QC): 6 12 Steps (QC): 88 Picking up an Object (QC): 4 PT Plan Problem List Problem List: Activity Tolerance, Functional Strength, Safety, Balance, Gait, Transfer, Bed Mobility Treatment/Plan Treatment Plan: Continue Plan of Care Treatment Plan: Bed Mobility, Education, Functional Activity Derrick, Functional Strength, Group Therapy, Gait, Safety, Therapeutic Exercise, Transfers Treatment Duration: Jul 12, 2018 Frequency: Modified Program (IRF) Estimated Hrs Per Day: 1.5 hours per day (as able ) Patient and/or Family Agrees t: Yes Safety Risks/Education Patient Education: Safety Issues Teaching Recipient: Patient Teaching Methods: Discussion Response to Teaching: Reinforcement Needed Discharge Recommendations Therapy D/C Recommendations: Physical Therapy Home Care Time/GCodes Time In: 1000 Time Out: 1100 Total Billed Treatment Time: 60 Total Billed Treatment vsiit EX 45 GT 15 KENNY LAUREANO PT Jun 27, 2018 11:02
--- NOTE | 2018-06-27 11:56 | Occupational Ther Daily Note ---
OT Current Status-Daily Note Subjective Pt alert, lying in bed. Pt agrees to therapy. No c/o pain at this time. Mental Status/Objective Patient Orientation: Person, Place, Time, Situation Therapy Code Descriptions/Definitions Functional [place] Measure: 0=Not Assessed/NA 4=Minimal Assistance 1=Total Assistance 5=Supervision or Setup 2=Maximal Assistance 6=Modified [place] 3=Moderate Assistance 7=Complete [place] Attachments: Oxygen ADL-Treatment Pt agrees to shower. Pt takes increased time to complete due to decreased activity tolerance, taking recovery breaks throughout session. After therapy, pt sitting in recliner with call light/phone in reach. All needs met in room. Therapy Code Descriptions/Definitions Functional [place] Measure: 0=Not Assessed/NA 4=Minimal Assistance 1=Total Assistance 5=Supervision or Setup 2=Maximal Assistance 6=Modified [place] 3=Moderate Assistance 7=Complete [place] Therapy Quality Codes: 6 Independent with activity with or without an assistive device 5 Patient requires set up or clean up by helper. Patient completes activity by themselves 4 Supervision or touching assist (CGA). [place] provide cues , steadying assist 3 The helper provides less than half the effort to complete the activity 2 The helper provides more than half the effort to complete the activity 1 Dependent. The helper does all the effort to complete an activity 7 Patient refused to complete or attempt activity 9 The patient did not perform the activity before the current illness or injury 88 Not attempted due to Medical conditions or safety concerns Grooming (FIM): 5 (Supervision for safety. Using counter for balance pt able to complete grooming by self.) Oral Hygiene (QC): 4 Bathing (FIM): 4 (CGA in standing to cleanse buttocks/mike area. Pt able to complete other areas in sitting by self using grabbars, shower bench and hand held shower.) Bathing Location: L Arm, R Arm, L Upper Leg, R Upper Leg, L Lower Leg ( including foot), R Lower Leg (including foot), Chest, Abdomen, Buttocks, Perineal Area Shower/Bathe Self (QC): 4 Upper Body (FIM): 5 (Assist to retreive clothing from closet then transfers clothing with FWW. Complete dressing by self.) Upper Body Dressing (QC): 5 Lower Body Dressing (FIM): 4 (Assist to retreive clothing from closet then transfers clothing with FWW. Able to don/doff clothing over feet and up LE's. Hikes underpants over hips in standing with CGA for safety. Assist to hike pants over hips.) Lower Body Dressing (QC): 3 On/Off Footwear (QC): 6 Shower Transfer(FIM): 4 (SBA to transfer into shower using FWW, grabbar and shower bench. Min A to go from sit to stand to transfer out of shower.) OT Short Term Goals Short Term Goals Time Frame: Jul 02, 2018 Lower Body Dressing(FIM): 4 Toilet/Commode Transfer(FIM): 5 Additional Short Term Goals: 1-Demonstrate ADL Tasks, 2-Verbalize Understanding , 3-ImproveStrength/Derrick 1=Demonstrate adherence to instructed precautions during ADL tasks. 2=Patient will verbalize/demonstrate understanding of assistive devices/ modifications for ADL. 3=Patient will improve strength/tolerance for activity to enable patient to perform ADL's. OT Mcc Goals Mcc Goals Time Frame: Jul 16, 2018 Eating (FIM): 6 Eating (QC): 6 Groomin Oral Hygiene (QC): 6 Bathing(FIM): 5 Shower/Bathe Self (QC): 5 Upper Body Dressing(FIM): 6 Upper Body Dressing (QC): 6 Lower Body Dressing(FIM): 5 Lower Body Dressing (QC): 5 On/Off Footwear (QC): 5 Toileting(FIM): 6 Toileting Hygiene (QC): 6 Toilet/Commode Transfer(FIM): 6 Toilet/Commode Transfer (QC): 6 Additional Goals: 1-Demonstrate ADL Tasks, 2-Verbalize Understanding, 3- ImproveStrength/Derrick 1=Demonstrate adherence to instructed precautions during ADL tasks. 2=Patient will verbalize/demonstrate understanding of assistive devices/ modifications for ADL. 3=Patient will improve strength/tolerance for activity to enable patient to perform ADL's. OT Education/Plan Discharge Recommendations Plan/Recommendations: Continue POC Treatment Plan/Plan of Care Patient would benefit from OT for education, treatment and training to promote independence in ADL's, mobility, safety and/or upper extremity function for ADL' s. Plan of Care: ADL Retraining, Functional Mobility, Group Exercise/Act as Ind, UE Funct Exercise/Act Treatment Duration: Jul 16, 2018 Frequency: Modified Program (IRF) Estimated Hrs Per Day: 1.5 hours per day Rehab Potential: Good Time/GCodes Start Time: 09:00 Stop Time: 10:00 Total Time Billed (hr/min): 60 Billed Treatment Time 1 visit-ADL 4 (60 min) KENNY TALBOT Jun 27, 2018 11:56
--- NOTE | 2018-06-27 13:29 | Occupational Ther Daily Note ---
OT Current Status-Daily Note Subjective Pt alert, sitting in recliner. present in room. No c/o pain. Agrees to therapy. Mental Status/Objective Patient Orientation: Person, Place, Time, Situation Therapy Code Descriptions/Definitions Functional [place] Measure: 0=Not Assessed/NA 4=Minimal Assistance 1=Total Assistance 5=Supervision or Setup 2=Maximal Assistance 6=Modified [place] 3=Moderate Assistance 7=Complete [place] Attachments: Oxygen ADL-Treatment Therapy Code Descriptions/Definitions Functional [place] Measure: 0=Not Assessed/NA 4=Minimal Assistance 1=Total Assistance 5=Supervision or Setup 2=Maximal Assistance 6=Modified [place] 3=Moderate Assistance 7=Complete [place] Therapy Quality Codes: 6 Independent with activity with or without an assistive device 5 Patient requires set up or clean up by helper. Patient completes activity by themselves 4 Supervision or touching assist (CGA). [place] provide cues , steadying assist 3 The helper provides less than half the effort to complete the activity 2 The helper provides more than half the effort to complete the activity 1 Dependent. The helper does all the effort to complete an activity 7 Patient refused to complete or attempt activity 9 The patient did not perform the activity before the current illness or injury 88 Not attempted due to Medical conditions or safety concerns Toileting (FIM): 4 (CGA in standing to manipulate clothing. Using elevated seat with arms, FWW and grabbars.) Toileting Hygiene (QC): 4 Toilet/Commode Transfer (FIM): 4 (CGA in standing to manipulate clothing. Using elevated seat with arms, FWW and grabbars.) Toilet Transfer (QC): 4 Other Treatment Discussed tub transfers with pt and . Demonstrated how tub transfer bench works and completed simulated tub transfer, min A to clear L LE over ledge. AE resource catalog given to for bathroom AE and recommendations for tub transfer bench, grabbars and clamp handle for tub ledge. After therapy, pt sitting in recliner with call light/phone in reach. All needs met in room. present in room. OT Short Term Goals Short Term Goals Time Frame: Jul 02, 2018 Lower Body Dressing(FIM): 4 Toilet/Commode Transfer(FIM): 5 Additional Short Term Goals: 1-Demonstrate ADL Tasks, 2-Verbalize Understanding , 3-ImproveStrength/Derrick 1=Demonstrate adherence to instructed precautions during ADL tasks. 2=Patient will verbalize/demonstrate understanding of assistive devices/ modifications for ADL. 3=Patient will improve strength/tolerance for activity to enable patient to perform ADL's. OT Senior Care Goals Warehouse Operations Associate Goals Time Frame: Jul 16, 2018 Eating (FIM): 6 Eating (QC): 6 Groomin Oral Hygiene (QC): 6 Bathing(FIM): 5 Shower/Bathe Self (QC): 5 Upper Body Dressing(FIM): 6 Upper Body Dressing (QC): 6 Lower Body Dressing(FIM): 5 Lower Body Dressing (QC): 5 On/Off Footwear (QC): 5 Toileting(FIM): 6 Toileting Hygiene (QC): 6 Toilet/Commode Transfer(FIM): 6 Toilet/Commode Transfer (QC): 6 Additional Goals: 1-Demonstrate ADL Tasks, 2-Verbalize Understanding, 3- ImproveStrength/Derrick 1=Demonstrate adherence to instructed precautions during ADL tasks. 2=Patient will verbalize/demonstrate understanding of assistive devices/ modifications for ADL. 3=Patient will improve strength/tolerance for activity to enable patient to perform ADL's. OT Education/Plan Discharge Recommendations Plan/Recommendations: Continue POC Treatment Plan/Plan of Care Patient would benefit from OT for education, treatment and training to promote independence in ADL's, mobility, safety and/or upper extremity function for ADL' s. Plan of Care: ADL Retraining, Functional Mobility, Group Exercise/Act as Ind, UE Funct Exercise/Act Treatment Duration: Jul 16, 2018 Frequency: Modified Program (IRF) Estimated Hrs Per Day: 1.5 hours per day Rehab Potential: Good Time/GCodes Start Time: 13:00 Stop Time: 13:30 Total Time Billed (hr/min): 30 Billed Treatment Time 1 visit-FA 1 (20 min) ADL 1 (10 min) KENNY TALBOT Jun 27, 2018 13:29
--- NOTE | 2018-06-27 14:21 | Physical Therapy Daily Note ---
PT Daily Note-Current Subjective Agrees to PT. Feels a little better this afternoon. She reports her goal is to be home by next . Transfers Therapy Code Descriptions/Definitions Functional [place] Measure: 0=Not Assessed/NA 4=Minimal Assistance 1=Total Assistance 5=Supervision or Setup 2=Maximal Assistance 6=Modified [place] 3=Moderate Assistance 7=Complete [place] Therapy Quality Codes: 6 Independent with activity with or without an assistive device 5 Patient requires set up or clean up by helper. Patient completes activity by themselves 4 Supervision or touching assist (CGA). [place] provide cues , steadying assist 3 The helper provides less than half the effort to complete the activity 2 The helper provides more than half the effort to complete the activity 1 Dependent. The helper does all the effort to complete an activity 7 Patient refused to complete or attempt activity 9 The patient did not perform the activity before the current illness or injury 88 Not attempted due to Medical conditions or safety concerns Weight Bearing Right Lower Extremity: Right Weight Bearing/Tolerated Left Lower Extremity: Left Weight Bearing/Tolerated Treatments Pt ambulated x 150 ft x 2 wtih FWW with CGA. Nu step x 15 minutes to promote LE strength and functional activity tolerance. Oxygen in situ throughout and post treatment. Pt in room after treatment with needs met. Assessment Current Status: Good Progress Seemed to have more energy this afternoon. Progressing well. PT Short Term Goals Short Term Goals Time Frame: Jul 02, 2018 Gait (FIM): 4 (met) PT Mcc Goals Mcc Goals PT Media Theorist And Author Of Goals Time Frame: Jul 12, 2018 Transfers (B,C,W/C) (FIM): 6 Sit to Lying (QC): 6 Lying-Sitting on Side/Bed(QC): 6 Sit to Stand (QC): 6 Roll Left to Right (QC): 6 Chair/Rve-tw-Tgizq Xfer(QC): 6 Car Transfer (QC): 6 Does the Patient Walk: Yes Gait (FIM): 6 Gait distance (FIM): 3=150 ft Walk 10 feet (QC): 6 Walk 10ft-Uneven Surface(QC): 6 Walk 50ft with 2 Turns (QC): 6 Walk 150 ft (QC): 6 Gait Level of Assist: 6 Gait Assistive Device: FWW (or 4WW) Does the Pt use WC or Scooter?: No Stairs (FIM): 5 (household) # of Steps: 4 1 Step (curb) (QC): 6 4 Steps (QC): 6 12 Steps (QC): 88 Picking up an Object (QC): 4 PT Plan Problem List Problem List: Activity Tolerance, Functional Strength, Safety, Balance, Gait, Transfer, Bed Mobility Treatment/Plan Treatment Plan: Continue Plan of Care Treatment Plan: Bed Mobility, Education, Functional Activity Derrick, Functional Strength, Group Therapy, Gait, Safety, Therapeutic Exercise, Transfers Treatment Duration: Jul 12, 2018 Frequency: Modified Program (IRF) Estimated Hrs Per Day: 1.5 hours per day (as able ) Patient and/or Family Agrees t: Yes Safety Risks/Education Patient Education: Gait Training Teaching Recipient: Patient Teaching Methods: Demonstration, Discussion Response to Teaching: Reinforcement Needed Discharge Recommendations Therapy D/C Recommendations: Physical Therapy Home Care Time/GCodes Time In: 1230 Time Out: 1300 Total Billed Treatment Time: 30 Total Billed Treatment visit GT 15 EX 15 KENNY LAUREANO PT Jun 27, 2018 14:21
--- NOTE | 2018-06-27 15:55 | Consultation-Cardiology ---
HPI-Cardiology Cardiology Consultation Date of Consultation 06/27/18 Date of Admission Time Seen by Provider: 15:49 Indication: Tachycardia HPI 77-year-old lady with history of COPD, hypertension. Was hospitalized for acute respiratory failure and exacerbation of COPD. Transferred to rehabilitation due to myopathy and generalized weakness, receiving physical therapy. She was noted to be tachycardic. I was called for cardiology evaluation. She denied any chest pain, reported history of chest pain. No palpitation, still having dyspnea with exertion. Overall reporting improvement from her condition during admission. I have seen her in the past but no follow- up as an outpatient was made. Home Medications & Allergies Allergies: Coded Allergies: hydrocodone (Verified Allergy, Severe, RASH, 11/10/16) Sulfa (Sulfonamide Antibiotics) (Unverified Allergy, Unknown, 06/18/18) Home Medication List Reviewed: Yes [id number] Hx Patient Social History Marital Status: Employed/Student: retired Alcohol Use: Denies Use Recreational Drug Use: No Smoking Status: Current Everyday Smoker Type Used: Cigarettes 2nd Hand Smoke Exposure: No Recent Foreign Travel: No Recent Infectious Disease Expo: No Recent Hopitalizations: No Physical Abuse Screen: No Sexual Abuse: No Immunizations Up To Date Tetanus Booster (TDap): Unknown Date of Pneumonia Vaccine: Jun 05, 2016 Date of Influenza Vaccine: Apr 04, 2018 Past Medical History As described below Family Medical History Significant Family History: No Pertinent Family Hx Family History: Diabetes mellitus 19 MOTHER FH: lung cancer 19 FATHER G8 SISTER FH: uterine cancer 19 MOTHER Hypertension 19 FATHER Myocardial infarction 19 FATHER Pacemaker 19 MOTHER UTI (urinary tract infection) 19 MOTHER Review of Systems Constitutional: see HPI, malaise, weakness EENTM: see HPI, no symptoms reported Respiratory: see HPI, cough, dyspnea on exertion; No hemoptysis, No orthopnea, No phlegm; short of breath; No stridor, No wheezing, No other Cardiovascular: see HPI; No chest pain, No edema, No Hx of Intervention, No palpitations, No syncope, No vascular heart diseas, No other Gastrointestinal: no symptoms reported, see HPI Genitourinary: no symptoms reported, see HPI Musculoskeletal: see HPI, muscle weakness Skin: no symptoms reported, see HPI Psychiatric/Neurological: No Symptoms Reported, See HPI Reviewed Test Results Reviewed Test Results Lab Laboratory Tests Test 06/26/18 16:52 06/26/18 20:35 06/27/18 05:03 06/27/18 10:51 Range/Units Glucometer 96 122 H 96 112 H 70-110 MG/DL Physical Exam Vital Signs Vital Signs - First Documented 06/25/18 06/26/18 10:30 06:38 Temp 98.7 Pulse 96 Resp 20 B/P (MAP) 132/90 (104) Pulse Ox 93 O2 Delivery Nasal Cannula O2 Flow Rate 2.00 FiO2 32 Capillary Refill : Height, Weight, BMI Height: 5'2.00" Weight: 161lbs. 1.6oz. 73.866147ig; 28.3 BMI Method:Stated General Appearance: No Apparent Distress, WD/WN Eyes: Bilateral Eye Normal Inspection, Bilateral Eye PERRL, Bilateral Eye EOMI HEENT: PERRL/EOMI, TMs Normal, Normal ENT Inspection, Pharynx Normal Neck: Full Range of Motion, Normal Inspection, Non Tender, Supple, Carotid Bruit Respiratory: Chest Non Tender, Normal Breath Sounds, No Accessory Muscle Use, No Respiratory Distress, Crackles Cardiovascular: No Edema, No Gallop, No JVD, No Murmur, Normal Peripheral Pulses, Tachycardia Gastrointestinal: Normal Bowel Sounds, No Organomegaly, No Pulsatile Mass, Non Tender, Soft Back: Normal Inspection, No CVA Tenderness, No Vertebral Tenderness Extremity: Normal Capillary Refill, Normal Inspection, Normal Range of Motion, Non Tender, No Calf Tenderness, No Pedal Edema Neurologic/Psychiatric: Alert, Oriented x3, No Motor/Sensory Deficits, Normal Mood/Affect Skin: Normal Color, Warm/Dry Lymphatic: No Adenopathy A/P-Cardiology Admission Diagnosis Sinus tachycardia Hypoxemia COPD Anemia Assessment/Plan Sinus tachycardia, probably secondary to COPD and hypoxemia, maintained on low- dose beta blockers. Continue to monitor, I will evaluate EKG. No recent cardiac workup was done, we'll consider cardiac workup once clinically more stable COPD, status post acute exacerbation, improving, using oxygen with exertion at this time. Managed by Dr. Casey Myopathy, generalized weakness, receiving physical therapy Pneumonia, recovered, was hospitalized for respiratory failure last week. Borderline hypotension. Maintained on beta blockers. Continue to monitor Parkinson disease. Managed by primary care team Anemia, I will repeat CBC I will evaluate metabolic profile, TSH, EKG and monitor Clinical Quality Measures DVT/VTE Risk/Contraindication: Risk Factor Score Per Nursin RFS Level Per Nursing on Admit: 4+=Very High LINDA SEQUEIRA MD Jun 27, 2018 15:55
[2018-06-27 17:53] VITALS: BP 148/75
[2018-06-27] MEDS: MICONAZOLE 2% POWDER (DESENEX AF) 90 GM TOP SCH (20:16)
[2018-06-27] MEDS: NYSTATIN CREAM (MYCOSTATIN) 30 GM TUBE TP SCH (20:17)
[2018-06-28] VITALS (7 sets, daily range): BP systolic 95–145; BP diastolic 55–75
[2018-06-28] MEDS: RT-ALBUTEROL/IPRATROPIUM 3 ML (DUONEB) VIAL INH SCH ×6 (02:12→21:28)
[2018-06-28 05:27] LABS: HEMOGLOBIN 7.3 G/DL (11.5-16.0); MEAN PLATELET VOLUME 8.9 FL (7.4-10.4); RED CELL DISTRIBUTION WIDTH 13.9 % (10.0-14.5); WHITE BLOOD COUNT 5.4 10^3/uL (4.3-11.0)
[2018-06-28 05:41] LABS: ALANINE AMINOTRANSFERASE < 6 U/L (0-55); ALBUMIN 2.9 GM/DL (3.2-4.5); ALKALINE PHOSPHATASE 76 U/L (40-136); BILIRUBIN,TOTAL 0.1 MG/DL (0.1-1.0); BUN/CREATININE RATIO 10; CALCIUM 9.6 MG/DL (8.5-10.1); CARBON DIOXIDE 40 MMOL/L (21-32); CHLORIDE 97 MMOL/L (98-107); CREATININE SERUM 0.81 MG/DL (0.60-1.30); GFR ESTIMATED > 60; GLUCOSE 87 MG/DL (70-105); POTASSIUM 3.8 MMOL/L (3.6-5.0); SODIUM 143 MMOL/L (135-145); TOTAL PROTEIN 5.6 GM/DL (6.4-8.2)
[2018-06-28] MEDS: inSUlin ASPART (NovoLOG) 1 UNIT/0.01 ML (CHARGE PER UNIT) SC SCH ×4 (05:52→21:02)
[2018-06-28] MEDS: ENOXAPARIN 40 MG/0.4 ML (LOVENOX) SYR SC SCH (05:57)
[2018-06-28] MEDS: LACTOBACILLUS ACIDOPHILUS (PROBIOTIC) CAPSULE NG SCH ×3 (05:57→16:22)
[2018-06-28] MEDS: PANTOPRAZOLE 40 MG (PROTONIX) TAB PO SCH (05:57)
[2018-06-28] MEDS: UMECLIDINIUM BROMIDE (INCRUSE ELLIPTA) 7'S IH SCH (06:09)
--- NOTE | 2018-06-28 07:18 | Pulmonary Progress Note ---
Subjective Time Seen by a Provider: 07:16 Subjective/Events-last exam PT is doing better. Sepsis Event Evaluation Height, Weight, BMI Height: 5'2.00" Weight: 157lbs. 3.2oz. 71.072660rm; 28.3 BMI Method:Stated Exam Exam Vital Signs Date Time Temp Pulse Resp B/P (MAP) Pulse Ox O2 Delivery O2 Flow Rate FiO2 06/28/18 06:09 88 Nasal Cannula 3.00 06/28/18 05:28 98.0 94 18 95/55 (68) 93 Nasal Cannula 3.00 06/28/18 02:12 92 Nasal Cannula 3.00 06/27/18 22:12 98 Nasal Cannula 3.00 06/27/18 20:15 Nasal Cannula 3.00 06/27/18 18:44 99 Nasal Cannula 3.00 06/27/18 17:53 99.0 113 18 148/75 (99) 97 Nasal Cannula 3.00 06/27/18 14:55 99 Nasal Cannula 3.00 06/27/18 11:19 94 Nasal Cannula 3.00 06/27/18 08:21 105 94/57 (69) 06/27/18 08:00 Nasal Cannula 3.00 I & O 06/28/18 07:00 Intake Total 930 ml Balance 930 ml Height & Weight Height: 5'2.00" Weight: 157lbs. 3.2oz. 71.337817tv; 28.3 BMI Method:Stated General Appearance: No Apparent Distress, WD/WN, Chronically ill, Thin HEENT: PERRL/EOMI, Normal ENT Inspection, Pharynx Normal Neck: Full Range of Motion, Normal Inspection, Non Tender, Supple, Carotid Bruit Respiratory: Chest Non Tender, Lungs Clear, Normal Breath Sounds, No Accessory Muscle Use, No Respiratory Distress, Decreased Breath Sounds Cardiovascular: Regular Rate, Rhythm, No Edema, No Gallop, No JVD, No Murmur, Normal Peripheral Pulses Extremity: Normal Capillary Refill, Normal Inspection, Normal Range of Motion, Non Tender, No Calf Tenderness, No Pedal Edema Neurologic/Psychiatric: Alert, Oriented x3, No Motor/Sensory Deficits, Normal Mood/Affect Skin: Normal Color, Warm/Dry Lymphatic: No Adenopathy Results Lab Laboratory Tests 06/28/18 05:10 Assessment/Plan Assessment/Plan Acute on chronic respiratory failure - improved -Continue duonebs and incruse -PT will benefit from home vent to mask; however, she declined Severe oxygen dependent COPD -oxygen -Avoid over oxygenation -Pt needs home oxygen LLL resolving PNA -S/p bronchoscopy Debility -probable rehab today DARSHANA CARDENAS DO Jun 28, 2018 07:18
[2018-06-28] MEDS: SINEMET 25/100 (CARBIDOPA/LEVODOPA) TAB PO SCH ×3 (08:16→20:59)
[2018-06-28] MEDS: OXYBUTYNIN (DITROPAN) 5 MG TAB PO SCH ×2 (08:16→20:59)
[2018-06-28] MEDS: AMANTADINE 100 MG (SYMMETREL) CAP PO SCH (08:18)
[2018-06-28] MEDS: meTOprolol TARTRATE 25 MG (LOPRESSOR) TABLET PO SCH ×2 (09:00→21:01)
[2018-06-28] MEDS: NYSTATIN CREAM (MYCOSTATIN) 30 GM TUBE TP SCH ×2 (09:00→21:03)
[2018-06-28] MEDS: MICONAZOLE 2% POWDER (DESENEX AF) 90 GM TOP SCH ×2 (09:00→21:03)
[2018-06-28] MEDS ORDERED: NS IV 500 ML 500 ML IV SCH (09:01)
--- NOTE | 2018-06-28 09:18 | Cardiology Progress Note ---
Subjective Date Seen by Provider: Jun 28, 2018 Time Seen by Provider: 09:15 Subjective/Events-last exam Patient is in a chair, complaining of fatigue, mild diarrhea, no chest pain Review of Systems General: No Chills, No Night Sweats; Fatigue, Malaise; No Appetite, No Other HEENT: No Head Aches, No Visual Changes, No Eye Pain, No Ear Pain, No Dysphasia , No Sinus Congestion, No Post Nasal Drip, No Sore Throat, No Other Pulmonary: Dyspnea; No Cough, No Pleuritic Chest Pain, No Other Cardiovascular: No: Chest Pain, Palpitations, Orthopnea, Paroxysmal Noc. Dyspnea, Edema, Lt Headedness, Other Objective-Cardiology Exam Last Set of Vital Signs Vital Signs 06/26/18 06/28/18 06/28/18 06:38 05:28 08:13 Temp 98.0 Pulse 101 Resp 18 B/P (MAP) 110/68 (82) Pulse Ox 94 O2 Delivery Nasal Cannula O2 Flow Rate 3.00 FiO2 32 Capillary Refill : I&O Intake and Output 06/28/18 00:00 Intake Total 730 ml Balance 730 ml Intake Oral 730 ml # Voids 5 General: Alert, Oriented X3, Cooperative, No Acute Distress, Other (severely chronically ill, tremor noted) HEENT: Atraumatic, PERRLA Neck: Supple, No JVD, No Thyromegaly, +2 Carotid Pulse No Bruit, No LAD Lungs: Other (diminished BS noted) Heart: Normal S1, Normal S2, Other (tachycardia) Abdomen: Normal Bowel Sounds, Soft, No Tenderness, No Hepatosplenomegaly, No Masses Extremities: No Clubbing, No Cyanosis, No Edema, Normal Pulses, No Tenderness/ Swelling Skin: No Rashes, No Breakdown, No Significant Lesion Neuro: Normal Gait (although slowed and uses walker and assistance), Normal Speech, Strength at 5/5 X4 Ext, Normal Tone, Sensation Intact, Cranial Nerves 3- 12 NL, Reflexes 2+, Other (generalized weakness) Psych/Mental Status: Mental Status NL, Mood NL Results Lab Laboratory Tests 06/28/18 05:10 A/P-Cardiology Admission Diagnosis Sinus tachycardia Hypoxemia COPD Anemia Assessment/Plan Sinus tachycardia, multifactorial, probably secondary to anemia, COPD and hypoxemia, maintained on low-dose beta blockers. transfuse one unit PRBC, evaluate stool for OB, anemia analyzer, Discussed with Dr Dunne COPD, status post acute exacerbation, improving, using oxygen with exertion at this time. Managed by Dr. Casey Myopathy, generalized weakness, receiving physical therapy Pneumonia, recovered, was hospitalized for respiratory failure last week. Borderline hypotension. Maintained on beta blockers. Continue to monitor Parkinson disease. Managed by primary care team Clinical Quality Measures DVT/VTE Risk/Contraindication: Risk Factor Score Per Nursin RFS Level Per Nursing on Admit: 4+=Very High LINDA SEQUEIRA MD Jun 28, 2018 09:17
--- NOTE | 2018-06-28 09:40 | Physical Therapy Daily Note ---
PT Daily Note-Current Subjective Pt. up in recliner and states "Im SOB this morning" also states she has had some black looking stools. Pain Location: No Pain Reported Appearance pale, looks fatigued Mental Status Patient Orientation: Normal For Age Attachments: Oxygen (3.5L extended O2 tubing) Transfers Therapy Code Descriptions/Definitions Functional [place] Measure: 0=Not Assessed/NA 4=Minimal Assistance 1=Total Assistance 5=Supervision or Setup 2=Maximal Assistance 6=Modified [place] 3=Moderate Assistance 7=Complete [place] Therapy Quality Codes: 6 Independent with activity with or without an assistive device 5 Patient requires set up or clean up by helper. Patient completes activity by themselves 4 Supervision or touching assist (CGA). [place] provide cues , steadying assist 3 The helper provides less than half the effort to complete the activity 2 The helper provides more than half the effort to complete the activity 1 Dependent. The helper does all the effort to complete an activity 7 Patient refused to complete or attempt activity 9 The patient did not perform the activity before the current illness or injury 88 Not attempted due to Medical conditions or safety concerns Transfers (B, C, W/C) (FIM): 4 Scootin Sit to/from Stand: 4 (from standard height pt. needs some assist) Weight Bearing Right Lower Extremity: Right Weight Bearing/Tolerated Left Lower Extremity: Left Weight Bearing/Tolerated Gait Training Does the Patient Walk?: Yes Gait (FIM): 1 Distance (FIM): 1=up to 49 ft (20ftx4) Gait Level of Assist: 4 Gait Persons Needed: 1 Gait Assistive Device: FWW extended O2 tubing with min assist to manage tubing. pt. appears more fatigued with activity Exercises Seated Therapy Exercises: Ankle pumps, Sit to stand, Long arc quads, Hip flexion, Hip abd/add Seated Reps: 15 Treatments seated BP: 97/62, HR 115, O2 sats on 3.5 L 91% standing BP88/43, HR 123, O2 sats 91% Assessment Current Status: Fair Progress Discussed pts. status with nurse. Pt. to get unit of blood today, BP drops with stance, pt. fatigued and c/o SOB, unable to complete 60 min Rx, poor tolerance PT Short Term Goals Short Term Goals Time Frame: Jul 02, 2018 Gait (FIM): 4 (met) PT Skilled Nursing Goals Domestic Technician Goals PT Skilled Nursing Goals Time Frame: Jul 12, 2018 Transfers (B,C,W/C) (FIM): 6 Sit to Lying (QC): 6 Lying-Sitting on Side/Bed(QC): 6 Sit to Stand (QC): 6 Roll Left to Right (QC): 6 Chair/Ath-db-Zturw Xfer(QC): 6 Car Transfer (QC): 6 Does the Patient Walk: Yes Gait (FIM): 6 Gait distance (FIM): 3=150 ft Walk 10 feet (QC): 6 Walk 10ft-Uneven Surface(QC): 6 Walk 50ft with 2 Turns (QC): 6 Walk 150 ft (QC): 6 Gait Level of Assist: 6 Gait Assistive Device: FWW (or 4WW) Does the Pt use WC or Scooter?: No Stairs (FIM): 5 (household) # of Steps: 4 1 Step (curb) (QC): 6 4 Steps (QC): 6 12 Steps (QC): 88 Picking up an Object (QC): 4 PT Plan Treatment/Plan Treatment Plan: Continue Plan of Care Treatment Plan: Bed Mobility, Education, Functional Activity Derrick, Functional Strength, Group Therapy, Gait, Safety, Therapeutic Exercise, Transfers Treatment Duration: Jul 12, 2018 Frequency: Modified Program (IRF) Estimated Hrs Per Day: 1.5 hours per day (as able ) Patient and/or Family Agrees t: Yes Safety Risks/Education Patient Education: Gait Training, Transfer Techniques, Correct Positioning, Disease Process, Safety Issues Teaching Recipient: Patient Teaching Methods: Demonstration, Discussion Response to Teaching: Verbalize Understanding, Return Demonstration, Reinforcement Needed Time/GCodes Time In: 900 Time Out: 938 Total Billed Treatment Time: 38 Total Billed Treatment 1,EX12,FA15m,GT12 G Codes Necessary: CHELSIE Quinonez MOVIE WRITER Jun 28, 2018 09:40
[2018-06-28 09:43] LABS: ABSOLUTE RETIC # 59 10e9/L (24-90); BASOPHILS % (AUTO) 0 % (0-10); EOSINOPHILS # (AUTO) 0.2 10^3/uL (0.0-0.3); EOSINOPHILS % (AUTO) 3 % (0-10); HEMATOCRIT 28 % (35-52); HEMOGLOBIN 7.7 G/DL (11.5-16.0); LYMPHOCYTES # (AUTO) 0.8 X 10^3 (1.0-4.0); LYMPHOCYTES % (AUTO) 11 % (12-44); MEAN CORPUSCULAR HEMOGLOBIN 29 PG (25-34); MEAN CORPUSCULAR HGB CONC 28 G/DL (32-36); MEAN CORPUSCULAR VOLUME 105 FL (80-99); MEAN PLATELET VOLUME 8.8 FL (7.4-10.4); MONOCYTES # (AUTO) 0.7 X 10^3 (0.0-1.0); MONOCYTES % (AUTO) 10 % (0-12); NEUTROPHILS # (AUTO) 5.6 X 10^3 (1.8-7.8); NEUTROPHILS % (AUTO) 76 % (42-75); PLATELET COUNT 305 10^3/uL (130-400); RED CELL DISTRIBUTION WIDTH 14.1 % (10.0-14.5); RETICULOCYTE % 2.23 % (0.50-2.40); WHITE BLOOD COUNT 7.4 10^3/uL (4.3-11.0)
--- NOTE | 2018-06-28 09:55 | Occupational Ther Daily Note ---
OT Current Status-Daily Note Subjective Pt in bed, agrees to treatment. Pt does not c/o pain, but reports fatigue this morning. Mental Status/Objective Therapy Code Descriptions/Definitions Functional [place] Measure: 0=Not Assessed/NA 4=Minimal Assistance 1=Total Assistance 5=Supervision or Setup 2=Maximal Assistance 6=Modified [place] 3=Moderate Assistance 7=Complete [place] Attachments: Oxygen ADL-Treatment Pt's meal tray in front of her when therapist arrives. Pt able to open milk and cereal with increased time. Pt able to feed self without assist. Supine to sit with supervision. Pt requests to use restroom. Sit to stand with minimal assistance. Gait to restroom with FWW, slow pace. Transfer to [facility] over toilet with minimal assistance. Pt able to doff Depends and complete toileting hygiene with SBA. Pt declined shower, would like to get a sponge bath and get dressed. Transfer to chair with minimal assistance. Pt completed sponge bath while seated in chair. Upper body bathing completed with SBA. Pt able to wash bilateral LE. Minimal assistance to wash buttocks. Pt donned pullover shirt with SBA. Able to thread left LE into pant leg, required assist with right. Sit to stand with minimal assistance for pant hike. Pt able to pull Depends up over hips, but requires assist with pants secondary to fatigue. Pt reports feeling more short of breath this morning. O2 sats were monitored during session. Pt dropped briefly to 88% during standing for LE dressing, but quickly recovered to 92% with rest. RN was notified of pt's reports of SOB. Pt sitting in chair with needs met after session. Increased time and rest breaks required for functional tasks this am. Therapy Code Descriptions/Definitions Functional [place] Measure: 0=Not Assessed/NA 4=Minimal Assistance 1=Total Assistance 5=Supervision or Setup 2=Maximal Assistance 6=Modified [place] 3=Moderate Assistance 7=Complete [place] Therapy Quality Codes: 6 Independent with activity with or without an assistive device 5 Patient requires set up or clean up by helper. Patient completes activity by themselves 4 Supervision or touching assist (CGA). [place] provide cues , steadying assist 3 The helper provides less than half the effort to complete the activity 2 The helper provides more than half the effort to complete the activity 1 Dependent. The helper does all the effort to complete an activity 7 Patient refused to complete or attempt activity 9 The patient did not perform the activity before the current illness or injury 88 Not attempted due to Medical conditions or safety concerns Bathing (FIM): 4 Shower/Bathe Self (QC): 3 Upper Body (FIM): 5 Upper Body Dressing (QC): 4 Lower Body Dressing (FIM): 3 Toileting (FIM): 4 Toileting Hygiene (QC): 3 Toilet/Commode Transfer (FIM): 4 Toilet Transfer (QC): 3 OT Short Term Goals Short Term Goals Time Frame: Jul 02, 2018 Lower Body Dressing(FIM): 4 Toilet/Commode Transfer(FIM): 5 Additional Short Term Goals: 1-Demonstrate ADL Tasks, 2-Verbalize Understanding , 3-ImproveStrength/Derrick 1=Demonstrate adherence to instructed precautions during ADL tasks. 2=Patient will verbalize/demonstrate understanding of assistive devices/ modifications for ADL. 3=Patient will improve strength/tolerance for activity to enable patient to perform ADL's. OT Fdc Goals Materials Manager Goals Time Frame: Jul 16, 2018 Eating (FIM): 6 Eating (QC): 6 Groomin Oral Hygiene (QC): 6 Bathing(FIM): 5 Shower/Bathe Self (QC): 5 Upper Body Dressing(FIM): 6 Upper Body Dressing (QC): 6 Lower Body Dressing(FIM): 5 Lower Body Dressing (QC): 5 On/Off Footwear (QC): 5 Toileting(FIM): 6 Toileting Hygiene (QC): 6 Toilet/Commode Transfer(FIM): 6 Toilet/Commode Transfer (QC): 6 Additional Goals: 1-Demonstrate ADL Tasks, 2-Verbalize Understanding, 3- ImproveStrength/Derrick 1=Demonstrate adherence to instructed precautions during ADL tasks. 2=Patient will verbalize/demonstrate understanding of assistive devices/ modifications for ADL. 3=Patient will improve strength/tolerance for activity to enable patient to perform ADL's. OT Education/Plan Discharge Recommendations Plan/Recommendations: Continue POC Treatment Plan/Plan of Care Patient would benefit from OT for education, treatment and training to promote independence in ADL's, mobility, safety and/or upper extremity function for ADL' s. Plan of Care: ADL Retraining, Functional Mobility, Group Exercise/Act as Ind, UE Funct Exercise/Act Treatment Duration: Jul 16, 2018 Frequency: Modified Program (IRF) Estimated Hrs Per Day: 1.5 hours per day Rehab Potential: Good Time/GCodes Start Time: 08:00 Stop Time: 09:00 Total Time Billed (hr/min): 60 Billed Treatment Time 1 visit, ADLx4(60minutes) CALVIN LAZCANO OT Jun 28, 2018 09:55
[2018-06-28 10:39] LABS: BAND NEUTROPHILS 1 %; NEUTROPHILS % (MANUAL) 82 %
[2018-06-28 10:40] LABS: ANISOCYTOSIS SLIGHT; BASOPHILS % (MANUAL) 0 %; EOSINOPHILS % (MANUAL) 2 %; HYPOCHROMASIA SLIGHT; LYMPHOCYTES % (MANUAL) 8 %; MONOCYTES % (MANUAL) 7 %; STOMATOCYTES SLIGHT
[2018-06-28 10:45] LABS: POLYCHROMASIA SLIGHT
--- NOTE | 2018-06-28 11:44 | PM&R Progress Note ---
Subjective This was a face to face visit with the patient. Date Seen by Provider: Jun 28, 2018 Time Seen by Provider: 08:45 Subjective/Events-last exam Patient was seen in her room while sitting in chair. Dr Hutchins reported to me that she is having black loose stools so we will order Hemoccult and I did confer with Dr. Roberts and he will see her in consult because he has performed a scope in the past for her We will discontinue Risperdal Dr. Hutchins seeing in consultation We will give 1 unit of blood transfusion and monitor closely Mild hypotension noted but nothing to preclude work out today Slow recovery but doing better Date Identified: Jun 28, 2018 Time Identified: 08:30 Medication Intervention: Dark stools with declined hgb so will check hemoccult and consult Dr Roberts for possible scope and give 1 unit of blood. Review of Systems General: Fatigue Pulmonary: Dyspnea Gastrointestinal: Diarrhea, Melena Objective Physician Exam Last Set of Vital Signs Vital Signs Date Time Temp Pulse Resp B/P (MAP) Pulse Ox O2 Delivery O2 Flow Rate FiO2 06/28/18 10:50 98.6 98 18 118/72 100 Nasal Cannula 3.00 06/26/18 06:38 32 Capillary Refill : I&O Intake and Output 06/28/18 00:00 Intake Total 730 ml Balance 730 ml Intake Oral 730 ml # Voids 5 General: Alert, Oriented X3, Cooperative, No Acute Distress, Other (severely chronically ill, tremor noted) HEENT: Atraumatic, PERRLA Neck: Supple, No JVD, No Thyromegaly, +2 Carotid Pulse No Bruit, No LAD Lungs: Other (diminished BS noted) Heart: Normal S1, Normal S2, Other Abdomen: Normal Bowel Sounds, Soft, No Tenderness, No Hepatosplenomegaly, No Masses Extremities: No Clubbing, No Cyanosis, No Edema, Normal Pulses, No Tenderness/ Swelling Skin: No Rashes, No Breakdown, No Significant Lesion Neuro: Normal Gait (although slowed and uses walker and assistance), Normal Speech, Strength at 5/5 X4 Ext, Normal Tone, Sensation Intact, Cranial Nerves 3- 12 NL, Reflexes 2+, Other (generalized weakness) Psych/Mental Status: Mental Status NL, Mood NL Results Lab Data Laboratory Tests 06/25/18 16:00: Glucometer 103 06/25/18 20:16: Glucometer 185H 06/26/18 05:26: Glucometer 93 06/26/18 11:27: Glucometer 93 06/26/18 16:52: Glucometer 96 06/26/18 20:35: Glucometer 122H 06/27/18 05:03: Glucometer 96 06/27/18 10:51: Glucometer 112H 06/27/18 16:51: Glucometer 96 06/27/18 20:19: Glucometer 113H 06/28/18 05:10: White Blood Count 5.4, Red Blood Count 2.54L, Hemoglobin 7.3L, Hematocrit 26L, Mean Corpuscular Volume 104H, Mean Corpuscular Hemoglobin 29, Mean Corpuscular Hemoglobin Concent 28L, Red Cell Distribution Width 13.9, Platelet Count 264, Mean Platelet Volume 8.9, Sodium Level 143, Potassium Level 3.8, Chloride Level 97L, Carbon Dioxide Level 40H, Anion Gap 6, Blood Urea Nitrogen 8, Creatinine 0.81, Estimat Glomerular Filtration Rate > 60, BUN/Creatinine Ratio 10, Glucose Level 87, Calcium Level 9.6, Corrected Calcium 10.5H, Total Bilirubin 0.1, Aspartate Amino Transf (AST/SGOT) 26, Alanine Aminotransferase (ALT/SGPT) < 6, Alkaline Phosphatase 76, Total Protein 5.6L, Albumin 2.9L, Thyroid Stimulating Hormone (TSH) 0.34L 06/28/18 09:30: White Blood Count 7.4, Red Blood Count 2.65L, Hemoglobin 7.7L, Hematocrit 28L, Mean Corpuscular Volume 105H, Mean Corpuscular Hemoglobin 29, Mean Corpuscular Hemoglobin Concent 28L, Red Cell Distribution Width 14.1, Platelet Count 305, Mean Platelet Volume 8.8, Neutrophils (%) (Auto) 76H, Lymphocytes (%) (Auto) 11L , Monocytes (%) (Auto) 10, Eosinophils (%) (Auto) 3, Basophils (%) (Auto) 0, Neutrophils # (Auto) 5.6, Lymphocytes # (Auto) 0.8L, Monocytes # (Auto) 0.7, Eosinophils # (Auto) 0.2, Basophils # (Auto) 0.0, Neutrophils % (Manual) 82, Lymphocytes % (Manual) 8, Monocytes % (Manual) 7, Eosinophils % (Manual) 2, Basophils % (Manual) 0, Band Neutrophils 1, Polychromasia SLIGHT, Hypochromasia SLIGHT, Basophilic Stippling SLIGHT, Anisocytosis SLIGHT, Macrocytosis SLIGHT, Stomatocytes SLIGHT, Absolute Reticulocyte Count 59, Percent Reticulocyte Count 2.23, Pathology Consult Specimen 06/28/18 10:56: Glucometer 118H Current Funtional Status Dark stools with declined hgb so will check hemoccult and consult Dr Roberts for possible scope and give 1 unit of blood. Monitor closely Check labs in am Monitor closely O2 Nebs DC Risperdal Assessment/Plan Assessment and Plan Assessment: COPD myopathy Respiratory failure acute on chronic Severe COPD PD Anemia Tachycardia consulting Cardiology for close monitoring Melana consulting Dr Roberts and checking hemoccult Transfusion of 1 unit blood Plan: IRF Slow recovery expected so will divide up time over 7 days instead of 5 days Continue Nebs and O2 Appreciate Dr Casey consultation Consult Dr Hutchins Give 1 unit of blood Endo? (1) Myopathy Status: Acute (2) Tachycardia Status: Acute (3) COPD exacerbation Status: Resolved (4) Essential (primary) hypertension Status: Chronic (5) Pneumonia Qualifiers: Qualified Codes: J18.9 - Pneumonia, unspecified organism Status: Resolved (6) Parkinson disease Status: Chronic (7) Macrocytic anemia Status: Chronic (8) Transfusion of blood during current hospitalization Status: Acute (9) Melena Status: Acute Co-Morbidities that are continuing to impact the rehab process: (include details ) SEAMUS CHRISTINE DO Jun 28, 2018 11:44
--- NOTE | 2018-06-28 13:01 | Physical Therapy Daily Note ---
PT Daily Note-Current Subjective Pt. is agreeable to Rx. Expresses that she is a little concerned about the blood transfusion staying patent. Pain Location: No Pain Reported Mental Status Patient Orientation: Normal For Age Attachments: Oxygen, IV (blood transfusing) Transfers Therapy Code Descriptions/Definitions Functional [place] Measure: 0=Not Assessed/NA 4=Minimal Assistance 1=Total Assistance 5=Supervision or Setup 2=Maximal Assistance 6=Modified [place] 3=Moderate Assistance 7=Complete [place] Therapy Quality Codes: 6 Independent with activity with or without an assistive device 5 Patient requires set up or clean up by helper. Patient completes activity by themselves 4 Supervision or touching assist (CGA). [place] provide cues , steadying assist 3 The helper provides less than half the effort to complete the activity 2 The helper provides more than half the effort to complete the activity 1 Dependent. The helper does all the effort to complete an activity 7 Patient refused to complete or attempt activity 9 The patient did not perform the activity before the current illness or injury 88 Not attempted due to Medical conditions or safety concerns Transfers (B, C, W/C) (FIM): 4 Sit to/from Stand: 4 (needs assist sit to stand) Weight Bearing Right Lower Extremity: Right Weight Bearing/Tolerated Left Lower Extremity: Left Weight Bearing/Tolerated Exercises Supine Ex: Ankle pumps, Quad Set, Glut sets, Heel Slides, Short Arc Quads, Scooting, Straight leg raise, Hip abd/add Supine Reps: 12 Seated Therapy Exercises: Ankle pumps, Sit to stand (x2), Long arc quads Seated Reps: 10 Assessment Current Status: Fair Progress recieving blood PT Short Term Goals Short Term Goals Time Frame: Jul 02, 2018 Gait (FIM): 4 (met) PT Registered Dental Assistant Goals Registered Dental Assistant Goals PT Jail Goals Time Frame: Jul 12, 2018 Transfers (B,C,W/C) (FIM): 6 Sit to Lying (QC): 6 Lying-Sitting on Side/Bed(QC): 6 Sit to Stand (QC): 6 Roll Left to Right (QC): 6 Chair/Udp-sp-[place] Xfer(QC): 6 Car Transfer (QC): 6 Does the Patient Walk: Yes Gait (FIM): 6 Gait distance (FIM): 3=150 ft Walk 10 feet (QC): 6 Walk 10ft-Uneven Surface(QC): 6 Walk 50ft with 2 Turns (QC): 6 Walk 150 ft (QC): 6 Gait Level of Assist: 6 Gait Assistive Device: FWW (or 4WW) Does the Pt use WC or Scooter?: No Stairs (FIM): 5 (household) # of Steps: 4 1 Step (curb) (QC): 6 4 Steps (QC): 6 12 Steps (QC): 88 Picking up an Object (QC): 4 PT Plan Treatment/Plan Treatment Plan: Continue Plan of Care Treatment Plan: Bed Mobility, Education, Functional Activity Derrick, Functional Strength, Group Therapy, Gait, Safety, Therapeutic Exercise, Transfers Treatment Duration: Jul 12, 2018 Frequency: Modified Program (IRF) Estimated Hrs Per Day: 1.5 hours per day (as able ) Patient and/or Family Agrees t: Yes Safety Risks/Education Patient Education: Transfer Techniques Time/GCodes Time In: 1230 Time Out: 1300 Total Billed Treatment Time: 30 Total Billed Treatment 1,FA10m,EX20m G Codes Necessary: No CHELSIE MILLS PRODUCTION TEAM MANAGER Jun 28, 2018 13:01
--- NOTE | 2018-06-28 14:31 | Therapy Group Daily Note ---
Therapy Daily Group Note Patient Education Topic Other List Below (importance of memory and stategies for memory) Other/Notes Pt. participated in PT OT group session. Ratio was 3:1. Objective: Demonstrates knowledge of memory strategies to promote safety at home. (met) Understands purpose and objectives of ARU (met) Pt. benefitted from group this date expressing herself well socially and stating that she enjoyed this session very much. Pt. participated in sharing her own strategies for remembering things at home. Pt. participated in matching images game with others in group again laughing and sharing and having great success at remembering where images are . Pt. came to and from in wheeled recliner with O2 and IV insitu. Pt. in room after with sheth at hand and needs met Start Time: 13:00 Stop Time: 14:15 Total Billed Treatment Time: 75 Total Billed Treatment 1,GRP CHELSIE MILLS TOOL AND DIE MAKER LEVEL FIVE Jun 28, 2018 14:31
[2018-06-29] MEDS: RT-ALBUTEROL/IPRATROPIUM 3 ML (DUONEB) VIAL INH SCH ×5 (02:20→19:04)
[2018-06-29 05:14] VITALS: BP 124/67
[2018-06-29] MEDS: ENOXAPARIN 40 MG/0.4 ML (LOVENOX) SYR SC SCH (05:33)
[2018-06-29] MEDS: inSUlin ASPART (NovoLOG) 1 UNIT/0.01 ML (CHARGE PER UNIT) SC SCH ×4 (05:33→21:02)
[2018-06-29] MEDS: LACTOBACILLUS ACIDOPHILUS (PROBIOTIC) CAPSULE NG SCH ×3 (05:33→18:05)
[2018-06-29] MEDS: PANTOPRAZOLE 40 MG (PROTONIX) TAB PO SCH (05:33)
[2018-06-29 08:05] VITALS: BP_DIAS 88
[2018-06-29 08:10] VITALS: BP 118/68
[2018-06-29] MEDS: AMANTADINE 100 MG (SYMMETREL) CAP PO SCH (08:12)
[2018-06-29] MEDS: SINEMET 25/100 (CARBIDOPA/LEVODOPA) TAB PO SCH ×3 (08:12→21:03)
[2018-06-29] MEDS: meTOprolol TARTRATE 25 MG (LOPRESSOR) TABLET PO SCH ×2 (08:13→21:03)
[2018-06-29] MEDS: OXYBUTYNIN (DITROPAN) 5 MG TAB PO SCH ×2 (08:13→21:03)
[2018-06-29] MEDS: MICONAZOLE 2% POWDER (DESENEX AF) 90 GM TOP SCH ×2 (08:17→21:04)
[2018-06-29] MEDS: NYSTATIN CREAM (MYCOSTATIN) 30 GM TUBE TP SCH ×2 (08:17→21:04)
--- NOTE | 2018-06-29 08:30 | Pulmonary Progress Note ---
Subjective Time Seen by a Provider: 08:28 Subjective/Events-last exam PT transfused 1 unit of blood for anemia. Sepsis Event Evaluation Height, Weight, BMI Height: 5'2.00" Weight: 151lbs. 12.8oz. [id number]; 28.3 BMI Method:Stated Exam Exam Vital Signs Date Time Temp Pulse Resp B/P (MAP) Pulse Ox O2 Delivery O2 Flow Rate FiO2 06/29/18 08:05 93 32 06/29/18 07:03 93 Nasal Cannula 3.00 06/29/18 05:14 98.0 95 20 124/67 (86) 91 Nasal Cannula 3.00 06/29/18 02:20 96 Nasal Cannula 4.00 06/28/18 21:28 95 Nasal Cannula 4.00 06/28/18 21:09 Nasal Cannula 3.00 06/28/18 21:04 101 126/71 (89) 06/28/18 19:14 93 Nasal Cannula 4.00 06/28/18 18:29 98.6 99 126/71 (89) 97 Nasal Cannula 3.00 06/28/18 14:24 95 Nasal Cannula 3.00 06/28/18 13:50 97.6 105 18 145/75 97 Nasal Cannula 3.00 06/28/18 10:50 98.6 98 18 118/72 100 Nasal Cannula 3.00 06/28/18 10:35 98.3 98 18 105/64 100 Nasal Cannula 3.00 06/28/18 09:42 94 Nasal Cannula 3.00 06/28/18 09:00 Nasal Cannula 3.00 I & O 06/29/18 07:00 Intake Total 1200 ml Balance 1200 ml Height & Weight Height: 5'2.00" Weight: 151lbs. 12.8oz. [id number]; 28.3 BMI Method:Stated General Appearance: No Apparent Distress, WD/WN, Chronically ill, Thin HEENT: PERRL/EOMI, Normal ENT Inspection, Pharynx Normal Neck: Full Range of Motion, Normal Inspection, Non Tender, Supple, Carotid Bruit Respiratory: Chest Non Tender, Lungs Clear, Normal Breath Sounds, No Accessory Muscle Use, No Respiratory Distress, Decreased Breath Sounds Cardiovascular: Regular Rate, Rhythm, No Edema, No Gallop, No JVD, No Murmur, Normal Peripheral Pulses Extremity: Normal Capillary Refill, Normal Inspection, Normal Range of Motion, Non Tender, No Calf Tenderness, No Pedal Edema Neurologic/Psychiatric: Alert, Oriented x3, No Motor/Sensory Deficits, Normal Mood/Affect Skin: Normal Color, Warm/Dry Lymphatic: No Adenopathy Results Lab Laboratory Tests 06/28/18 05:10 06/28/18 09:30 Assessment/Plan Assessment/Plan Acute on chronic respiratory failure - improved -Continue duonebs and incruse -PT will benefit from home vent to mask; however, she declined Severe oxygen dependent COPD -Continue oxygen -Avoid over oxygenation LLL resolving PNA -S/p bronchoscopy macrocytic Anemia s/p transfusion -Occult stools are negative -Surgery is consulted -Check B12/Folate testing Debility -probable rehab today DARSHANA CARDENAS DO Jun 29, 2018 08:30
--- NOTE | 2018-06-29 09:00 | NUR ---
STATES FEELING BETTER TODAY. DENIES PAIN. O2 ON AT 3L. ADMITS TO SOB WITH EXERTION, BUT FEELS IT IS AT BASELINE.
--- NOTE | 2018-06-29 09:32 | Physical Therapy Daily Note ---
PT Daily Note-Current Subjective Pt. agrees to Rx and states she feels much better today. " My BP has improved and Im stronger" Pain Location: No Pain Reported Mental Status Patient Orientation: Person, Place, Time, Situation Attachments: Oxygen (3.5L) Transfers Therapy Code Descriptions/Definitions Functional [place] Measure: 0=Not Assessed/NA 4=Minimal Assistance 1=Total Assistance 5=Supervision or Setup 2=Maximal Assistance 6=Modified [place] 3=Moderate Assistance 7=Complete [place] Therapy Quality Codes: 6 Independent with activity with or without an assistive device 5 Patient requires set up or clean up by helper. Patient completes activity by themselves 4 Supervision or touching assist (CGA). [place] provide cues , steadying assist 3 The helper provides less than half the effort to complete the activity 2 The helper provides more than half the effort to complete the activity 1 Dependent. The helper does all the effort to complete an activity 7 Patient refused to complete or attempt activity 9 The patient did not perform the activity before the current illness or injury 88 Not attempted due to Medical conditions or safety concerns Transfers (B, C, W/C) (FIM): 4 Scootin Rollin Supine to/from Sit: 4 Sit to/from Stand: 4 (low surface requires assist, with increased height in chair pt. needs only SBA) Weight Bearing Right Lower Extremity: Right Weight Bearing/Tolerated Left Lower Extremity: Left Weight Bearing/Tolerated Gait Training Does the Patient Walk?: Yes Gait (FIM): 2 Distance (FIM): 7=282-79 ft (100,125) Gait Level of Assist: 4 Gait Persons Needed: 1 Gait Assistive Device: FWW assist portable O2 at 3.5 L, no SOB reported Exercises Seated Therapy Exercises: Ankle pumps, Sit to stand, Long arc quads, Hip flexion, Hip abd/add Seated Reps: 15 Assessment Current Status: Good Progress much improved tolerance for Rx, no SOB noted PT Short Term Goals Short Term Goals Time Frame: Jul 02, 2018 Gait (FIM): 4 (met) PT Gas Maker Goals Care Home Goals PT Gas Maker Goals Time Frame: Jul 12, 2018 Transfers (B,C,W/C) (FIM): 6 Sit to Lying (QC): 6 Lying-Sitting on Side/Bed(QC): 6 Sit to Stand (QC): 6 Roll Left to Right (QC): 6 Chair/Ano-je-Mfqwb Xfer(QC): 6 Car Transfer (QC): 6 Does the Patient Walk: Yes Gait (FIM): 6 Gait distance (FIM): 3=150 ft Walk 10 feet (QC): 6 Walk 10ft-Uneven Surface(QC): 6 Walk 50ft with 2 Turns (QC): 6 Walk 150 ft (QC): 6 Gait Level of Assist: 6 Gait Assistive Device: FWW (or 4WW) Does the Pt use WC or Scooter?: No Stairs (FIM): 5 (household) # of Steps: 4 1 Step (curb) (QC): 6 4 Steps (QC): 6 12 Steps (QC): 88 Picking up an Object (QC): 4 PT Plan Treatment/Plan Treatment Plan: Continue Plan of Care Treatment Plan: Bed Mobility, Education, Functional Activity Derrick, Functional Strength, Group Therapy, Gait, Safety, Therapeutic Exercise, Transfers Treatment Duration: Jul 12, 2018 Frequency: Modified Program (IRF) Estimated Hrs Per Day: 1.5 hours per day (as able ) Patient and/or Family Agrees t: Yes Safety Risks/Education Patient Education: Gait Training, Transfer Techniques, Correct Positioning, Disease Process, Safety Issues Teaching Recipient: Patient Teaching Methods: Demonstration, Discussion Response to Teaching: Verbalize Understanding, Return Demonstration, Reinforcement Needed Time/GCodes Time In: 905 Time Out: 920 Total Billed Treatment Time: 15 Total Billed Treatment 1,GT15m G Codes Necessary: CHELSIE Quinonez EMPLOYEE RELATIONS ASSISTANT Jun 29, 2018 09:32
[2018-06-29] MEDS: UMECLIDINIUM BROMIDE (INCRUSE ELLIPTA) 7'S IH SCH (11:01)
--- NOTE | 2018-06-29 12:32 | PM&R Progress Note ---
Subjective HPI/CC On Admission Date Seen by Provider: Jun 29, 2018 Time Seen by Provider: 10:30 CC: COPD myopathy HPI: This is a 77-year-old white female who was admitted to inpatient rehabilitation for COPD myopathy. She's had an extensive complex acute medical issue with respiratory failure while admitted to [facility]. This is a patient that was admitted from the emergency room for exacerbation of COPD after worsening respiratory status while they were on vacation in [place] for 6 weeks. She is chronically on oxygen 4 L by nasal cannula. She worsened to the point of severe decompensation presenting to the ER found to have pneumonia and acute exacerbation of COPD with acute on chronic respiratory failure. She required intubation for respiratory failure and with the help of expert consultation from Dr. Casey she was able to be extubated and back on oxygen supplementation with Vapotherm and wean down to nasal cannula high flow. Patient did complete antibiotics for pneumonia. She is back to her baseline respiratory function but required severe myopathy resolution prior to returning back to home so inpatient rehab accepted this patient to recover prior to discharge home. Subjective/Events-last exam Patient doing much better since receiving the 1 unit of blood transfusion yesterday Colonoscopy will be performed by Dr. Roberts on Sunday We will check labs in the morning Appears to have more energy and more uplifted personality today Denies any pain Risperdal has been discontinued and she is very pleased about that Overall has no concerns Review of Systems General: Fatigue Pulmonary: Dyspnea Neurological: Weakness Objective Exam Vital Signs Vital Signs Date Time Temp Pulse Resp B/P (MAP) Pulse Ox O2 Delivery O2 Flow Rate FiO2 06/29/18 09:00 Nasal Cannula 3.00 06/29/18 08:10 99 118/68 (85) 06/29/18 08:05 93 32 06/29/18 05:14 98.0 20 Capillary Refill : General Appearance: No Apparent Distress, WD/WN, Chronically ill Respiratory: Chest Non Tender, Lungs Clear, Normal Breath Sounds, No Accessory Muscle Use, No Respiratory Distress, Decreased Breath Sounds Cardiovascular: Regular Rate, Rhythm, No Edema, No Gallop, No JVD, No Murmur, Normal Peripheral Pulses Neurologic/Psychiatric: Alert, Oriented x3, No Motor/Sensory Deficits, Normal Mood/Affect Results/Procedures Lab Patient resulted labs reviewed. Assessment/Plan Assessment and Plan Assess & Plan/Chief Complaint Assessment: COPD myopathy Respiratory failure acute on chronic Severe COPD PD Anemia severe s/p 1 unit of blood transfusion yesterday Tachycardia consulting Cardiology for close monitoring Dark stools but hemoccult negative but having Colonoscopy Sunday Plan: IRF Slow recovery expected so will divide up time over 7 days instead of 5 days Continue Nebs and O2 Appreciate Dr Casey consultation Consult Dr Liset Roberts for Colonoscopy Sunday Check labs in morning Diagnosis/Problems Diagnosis/Problems (1) Myopathy Status: Acute (2) Tachycardia Status: Acute (3) COPD exacerbation Status: Resolved Resolution Date/Time: 06/26/18 @ 20:21 (4) Essential (primary) hypertension Status: Chronic (5) Pneumonia Status: Resolved Qualifiers: Pneumonia type: due to unspecified organism Laterality: unspecified laterality Lung location: unspecified part of lung Qualified Codes: J18.9 - Pneumonia, unspecified organism Resolution Date/Time: 06/25/18 @ 13:47 (6) Parkinson disease Status: Chronic (7) Macrocytic anemia Status: Chronic (8) Transfusion of blood during current hospitalization Status: Acute (9) Melena Status: Acute Clinical Quality Measures DVT/VTE Risk/Contraindication: Risk Factor Score Per Nursin RFS Level Per Nursing on Admit: 4+=Very High SEAMUS CHRISTINE DO Jun 29, 2018 12:32
--- NOTE | 2018-06-29 13:40 | Cardiology Progress Note ---
Cardiology SOAP Progress Note Subjective: Mild shortness of breath. Objective: I&O/Vital Signs 06/29/18 06/29/18 06/29/18 06/29/18 02:20 05:14 07:03 08:05 Temp 98.0 Pulse 95 Resp 20 B/P (MAP) 124/67 (86) Pulse Ox 96 91 93 93 O2 Delivery Nasal Cannula Nasal Cannula Nasal Cannula O2 Flow Rate 4.00 3.00 3.00 FiO2 32 06/29/18 06/29/18 08:10 09:00 Pulse 99 B/P (MAP) 118/68 (85) O2 Delivery Nasal Cannula O2 Flow Rate 3.00 06/29/18 00:00 Intake Total 830 ml Balance 830 ml Weight (Pounds): 151 Weight (Ounces): 12.8 Weight (Calculated Kilograms): 68.086267 Constitutional: No appears stated age; AAO x 3; No apparent distress, No PERRL , No well-developed, No well-nourished, No other Respiratory: No accessory muscle use, No respiratory distress, No chest tender , No chest expansion is symmetric; chest is bilaterally symmetric; No lungs clear to percussion; lungs clear to auscultation; No crackles, No rhonchi, No rales, No stridor; wheezing; No pleural rub, No other Cardiovascular: regular rate-rhythm; No irregularly irregular, No extra beats, No parasternal heave is noted, No JVD, No edema, No bradycardia, No tachycardia , No point of maximal impulse, No cardiac thrills are palpable; S1 and S2; No gallop/S3, No gallop/S4, No diastolic murmur, No systolic murmur, No friction rub, No click, No other Gastrointestional: No tender, No soft, No round, No distended, No pulsatile mass, No organomegaly, No guarding, No rebound, No tenderness, No hernia, No mass, No audible bowel sounds, No abnormal bowel sounds, No abdominal bruits, No spleenomegaly, No other Extremities: No normal range of motion, No non-tender, No normal inspection, No pedal edema, No calf tenderness, No normal capillary refill, No pelvis stable , No calf tenderness, No inflammation, No pedal edema, No slow capillary refill , No swelling, No other, No abrasion, No clubbing, No cyanosis, No ecchymosis, No laceration, No no lower extremity edema bilateral, No significant edema, No tenderness, No wound Neurologic/Psychiatric: no motor/sensory deficits, alert, normal mood/affect, oriented x 3 Skin: No normal color, No warm/dry, No cyanosis, No cool, No diaphoresis, No damp, No ecchymosis, No jaundice, No mottled, No pallor, No rash, No tattoos/ piercings, No ulcerations, No rash on exposed areas, No ulcerations on exposed areas, No other Results/Procedures: Labs Laboratory Tests 06/28/18 16:15: Glucometer 111H 06/28/18 16:50: Stool Occult Blood Immunoassay NEGATIVE 06/28/18 20:58: Glucometer 99 06/29/18 05:31: Glucometer 98 06/29/18 09:20: 06/29/18 10:47: Glucometer 127H A/P: Assessment/Dx: Sinus tachycardia Hypoxemia COPD Anemia Plan: Sinus tachycardia, multifactorial, probably secondary to anemia, COPD and hypoxemia, maintained on low-dose beta blockers. transfuse one unit PRBC, evaluate stool for OB, anemia analyzer COPD, status post acute exacerbation, improving, using oxygen with exertion at this time. Managed by Dr. Casey Myopathy, generalized weakness, receiving physical therapy Pneumonia, recovered, was hospitalized for respiratory failure last week. Borderline hypotension. Maintained on beta blockers. Continue to monitor Parkinson disease. Managed by primary care team Thank you for your consultation. Please call me if you have any questions. Elio Welsh MD, FACP, FACC, FSCAI, FHRS, CCDS Interventional Cardiology Cardiac Electrophysiology Vascular Medicine and Endovascular Interventions Hilary WELSH MD Jun 29, 2018 1:39 pm
--- NOTE | 2018-06-29 15:10 | NUR ---
UP TO BATHROOM WITH ASST. COMPLAIN SOB AND DIZZY AND O2 SAT 85% ON 3L. AFTER BACK TO BED AND RESTED, SAT UP TO 89%. AFTER 5 MORE MINUTES, SAT WAS 96%. WILL CONTINUE TO MONITOR.
[2018-06-29 18:00] VITALS: BP 116/67
--- NOTE | 2018-06-29 18:00 | NUR ---
O2 SAT REMAINS 95-96%. FELT BETTER AFTER NAPPING.
[2018-06-30] MEDS: RT-ALBUTEROL/IPRATROPIUM 3 ML (DUONEB) VIAL INH SCH ×4 (01:24→20:07)
[2018-06-30 05:01] LABS: BASOPHILS % (AUTO) 0 % (0-10); EOSINOPHILS # (AUTO) 0.1 10^3/uL (0.0-0.3); EOSINOPHILS % (AUTO) 2 % (0-10); HEMATOCRIT 32 % (35-52); HEMOGLOBIN 9.1 G/DL (11.5-16.0); LYMPHOCYTES # (AUTO) 0.7 X 10^3 (1.0-4.0); LYMPHOCYTES % (AUTO) 11 % (12-44); MEAN CORPUSCULAR HEMOGLOBIN 29 PG (25-34); MEAN CORPUSCULAR HGB CONC 28 G/DL (32-36); MEAN CORPUSCULAR VOLUME 101 FL (80-99); MEAN PLATELET VOLUME 9.1 FL (7.4-10.4); MONOCYTES # (AUTO) 0.6 X 10^3 (0.0-1.0); MONOCYTES % (AUTO) 10 % (0-12); NEUTROPHILS # (AUTO) 4.6 X 10^3 (1.8-7.8); NEUTROPHILS % (AUTO) 77 % (42-75); PLATELET COUNT 289 10^3/uL (130-400); RED CELL DISTRIBUTION WIDTH 16.2 % (10.0-14.5); WHITE BLOOD COUNT 5.9 10^3/uL (4.3-11.0)
[2018-06-30 05:12] VITALS: BP 124/76
[2018-06-30 05:21] LABS: ALANINE AMINOTRANSFERASE < 6 U/L (0-55); ALBUMIN 3.1 GM/DL (3.2-4.5); ALKALINE PHOSPHATASE 87 U/L (40-136); BILIRUBIN,TOTAL 0.2 MG/DL (0.1-1.0); BUN/CREATININE RATIO 8; CALCIUM 9.7 MG/DL (8.5-10.1); CARBON DIOXIDE 41 MMOL/L (21-32); CHLORIDE 95 MMOL/L (98-107); CREATININE SERUM 0.84 MG/DL (0.60-1.30); GFR ESTIMATED > 60; GLUCOSE 91 MG/DL (70-105); POTASSIUM 3.7 MMOL/L (3.6-5.0); SODIUM 145 MMOL/L (135-145); TOTAL PROTEIN 6.1 GM/DL (6.4-8.2)
[2018-06-30] MEDS: inSUlin ASPART (NovoLOG) 1 UNIT/0.01 ML (CHARGE PER UNIT) SC SCH ×4 (06:05→21:26)
[2018-06-30] MEDS: LACTOBACILLUS ACIDOPHILUS (PROBIOTIC) CAPSULE NG SCH ×3 (06:07→16:52)
[2018-06-30] MEDS: PANTOPRAZOLE 40 MG (PROTONIX) TAB PO SCH (06:07)
[2018-06-30] MEDS: ENOXAPARIN 40 MG/0.4 ML (LOVENOX) SYR SC SCH (06:07)
[2018-06-30] MEDS ORDERED: MAGNESIUM CITRATE 300 ML BTL PO ONE (08:00)
[2018-06-30] MEDS: UMECLIDINIUM BROMIDE (INCRUSE ELLIPTA) 7'S IH SCH (08:16)
[2018-06-30 08:45] VITALS: BP 135/75
[2018-06-30] MEDS: AMANTADINE 100 MG (SYMMETREL) CAP PO SCH (08:46)
[2018-06-30] MEDS: SINEMET 25/100 (CARBIDOPA/LEVODOPA) TAB PO SCH ×3 (08:47→20:23)
[2018-06-30] MEDS: meTOprolol TARTRATE 25 MG (LOPRESSOR) TABLET PO SCH ×2 (08:47→20:23)
[2018-06-30] MEDS: OXYBUTYNIN (DITROPAN) 5 MG TAB PO SCH ×2 (08:47→20:23)
[2018-06-30] MEDS: NYSTATIN CREAM (MYCOSTATIN) 30 GM TUBE TP SCH ×2 (08:51→20:24)
[2018-06-30] MEDS: MICONAZOLE 2% POWDER (DESENEX AF) 90 GM TOP SCH ×2 (08:52→20:24)
[2018-06-30] MEDS ORDERED: MAGNESIUM CITRATE 300 ML BTL PO SCH (11:00)
[2018-06-30] MEDS ORDERED: CATHETER FLUSH 10 ML SYR IV PRN (12:00)
--- NOTE | 2018-06-30 12:00 | NUR ---
DR. CHRISTINE HERE AND INFORMED OF PATIENT'S COMPLAINTS OF INTERMITTENT DIZZINESS AND PERIODS OF SOB. PT. COMPLAINED VERY TIRED AFTER GOING TO BATHROOM EARLIER AND UNSURE IF WILL TOLERATE BOWEL PREP FOR COLONOSCOPY TOMORROW. ORDERED PROCEDURE TO BE POSTPONED AT THIS TIME. ALSO INFORMED OF PERINEAL AREA VERY RED AND SKIN PEELING. MONISTAT CREAM WILL BE STARTED.
--- NOTE | 2018-06-30 13:17 | PM&R Progress Note ---
Subjective HPI/CC On Admission Date Seen by Provider: Jun 30, 2018 Time Seen by Provider: 12:15 CC: COPD myopathy HPI: This is a 77-year-old white female who was admitted to inpatient rehabilitation for COPD myopathy. She's had an extensive complex acute medical issue with respiratory failure while admitted to [facility]. This is a patient that was admitted from the emergency room for exacerbation of COPD after worsening respiratory status while they were on vacation in [place] for 6 weeks. She is chronically on oxygen 4 L by nasal cannula. She worsened to the point of severe decompensation presenting to the ER found to have pneumonia and acute exacerbation of COPD with acute on chronic respiratory failure. She required intubation for respiratory failure and with the help of expert consultation from Dr. Casey she was able to be extubated and back on oxygen supplementation with Vapotherm and wean down to nasal cannula high flow. Patient did complete antibiotics for pneumonia. She is back to her baseline respiratory function but required severe myopathy resolution prior to returning back to home so inpatient rehab accepted this patient to recover prior to discharge home. Subjective/Events-last exam Hemoglobin 9.1 after 1 unit of blood transfusion 2 days ago No dark stools now Hemoccult was negative Really is too weak to undergo the colon prep so we'll hold off on that unless we have an urgent situation and notify surgery of cancellation Having episodes of dyspnea at times but with severity of her COPD it is expected Having mike-area irritation so will initiate Monistat on the outside of the vaginal area to help with that Review of Systems General: Fatigue Pulmonary: Dyspnea Objective Exam Vital Signs Vital Signs Date Time Temp Pulse Resp B/P (MAP) Pulse Ox O2 Delivery O2 Flow Rate FiO2 06/30/18 09:00 Nasal Cannula 3.00 06/30/18 08:45 98 135/75 (95) 89 06/30/18 05:12 97.6 18 06/29/18 08:05 32 Capillary Refill : General Appearance: No Apparent Distress, WD/WN, Chronically ill Respiratory: Chest Non Tender, Lungs Clear, Normal Breath Sounds, No Accessory Muscle Use, No Respiratory Distress, Crackles, Decreased Breath Sounds Cardiovascular: Regular Rate, Rhythm, No Edema, No Gallop, No JVD, No Murmur, Normal Peripheral Pulses Neurologic/Psychiatric: Alert, Oriented x3, No Motor/Sensory Deficits, Normal Mood/Affect Results/Procedures Lab Laboratory Tests 06/30/18 04:25 Patient resulted labs reviewed. Assessment/Plan Assessment and Plan Assess & Plan/Chief Complaint Assessment: COPD myopathy Respiratory failure acute on chronic Severe COPD PD Anemia severe s/p 1 unit of blood transfusion Sunday Tachycardia consulting Cardiology for close monitoring Dark stools but hemoccult negative so will cancel EGD and colonoscopy for now due to severe weakness since high risk for respiratory failure Plan: IRF Slow recovery expected so will divide up time over 7 days instead of 5 days Continue Nebs and O2 Appreciate Dr Casey consultation Consult Dr Liest Roberts for Colonoscopy but will notify him a cancellation due to severe weakness Diagnosis/Problems Diagnosis/Problems (1) Myopathy Status: Acute (2) Tachycardia Status: Acute (3) COPD exacerbation Status: Resolved Resolution Date/Time: 06/26/18 @ 20:21 (4) Essential (primary) hypertension Status: Chronic (5) Pneumonia Status: Resolved Qualifiers: Pneumonia type: due to unspecified organism Laterality: unspecified laterality Lung location: unspecified part of lung Qualified Codes: J18.9 - Pneumonia, unspecified organism Resolution Date/Time: 06/25/18 @ 13:47 (6) Parkinson disease Status: Chronic (7) Macrocytic anemia Status: Chronic (8) Transfusion of blood during current hospitalization Status: Acute (9) Melena Status: Resolved Resolution Date/Time: 06/30/18 @ 14:00 Clinical Quality Measures DVT/VTE Risk/Contraindication: Risk Factor Score Per Nursin RFS Level Per Nursing on Admit: 4+=Very High SEAMUS CHRISTINE DO Jun 30, 2018 13:17
--- NOTE | 2018-06-30 14:00 | NUR ---
DR. CHATMAN (ON FOR DR. KERR) AND NURSING ACTIVITIES COORDINATOR NOTIFIED OF EGD/COLONOSCOPY CANCELLATION AND SHEET FAXED TO ENDO.
[2018-06-30] MEDS: CATHETER FLUSH 10 ML SYR IV SCH ×2 (15:00→20:27)
--- NOTE | 2018-06-30 15:43 | Cardiology Progress Note ---
Cardiology SOAP Progress Note Subjective: No cardiac complaints. Objective: I&O/Vital Signs 06/30/18 06/30/18 06/30/18 06/30/18 05:12 08:16 08:45 09:00 Temp 97.6 Pulse 92 98 Resp 18 B/P (MAP) 124/76 (92) 135/75 (95) Pulse Ox 94 95 89 O2 Delivery Nasal Cannula Nasal Cannula Nasal Cannula Nasal Cannula O2 Flow Rate 3.00 3.00 3.00 3.00 06/30/18 14:47 Pulse Ox 91 O2 Delivery Nasal Cannula O2 Flow Rate 3.00 06/30/18 00:00 Intake Total 780 ml Balance 780 ml Weight (Pounds): 153 Weight (Ounces): 3.2 Weight (Calculated Kilograms): 69.446660 Constitutional: No appears stated age; AAO x 3; No apparent distress, No PERRL , No well-developed, No well-nourished, No other Respiratory: No accessory muscle use, No respiratory distress, No chest tender , No chest expansion is symmetric; chest is bilaterally symmetric; No lungs clear to percussion; lungs clear to auscultation; No crackles, No rhonchi, No rales, No stridor; wheezing; No pleural rub, No other Cardiovascular: regular rate-rhythm; No irregularly irregular, No extra beats, No parasternal heave is noted, No JVD, No edema, No bradycardia, No tachycardia , No point of maximal impulse, No cardiac thrills are palpable; S1 and S2; No gallop/S3, No gallop/S4, No diastolic murmur, No systolic murmur, No friction rub, No click, No other Gastrointestional: No tender, No soft, No round, No distended, No pulsatile mass, No organomegaly, No guarding, No rebound, No tenderness, No hernia, No mass, No audible bowel sounds, No abnormal bowel sounds, No abdominal bruits, No spleenomegaly, No other Extremities: No normal range of motion, No non-tender, No normal inspection, No pedal edema, No calf tenderness, No normal capillary refill, No pelvis stable , No calf tenderness, No inflammation, No pedal edema, No slow capillary refill , No swelling, No other, No abrasion, No clubbing, No cyanosis, No ecchymosis, No laceration, No no lower extremity edema bilateral, No significant edema, No tenderness, No wound Neurologic/Psychiatric: no motor/sensory deficits, alert, normal mood/affect, oriented x 3 Skin: No normal color, No warm/dry, No cyanosis, No cool, No diaphoresis, No damp, No ecchymosis, No jaundice, No mottled, No pallor, No rash, No tattoos/ piercings, No ulcerations, No rash on exposed areas, No ulcerations on exposed areas, No other Results/Procedures: Labs Laboratory Tests 06/29/18 16:07: Glucometer 104 06/29/18 20:47: Glucometer 102 06/30/18 04:25: White Blood Count 5.9, Red Blood Count 3.17L, Hemoglobin 9.1#L, Hematocrit 32L, Mean Corpuscular Volume 101H, Mean Corpuscular Hemoglobin 29, Mean Corpuscular Hemoglobin Concent 28L, Red Cell Distribution Width 16.2H, Platelet Count 289, Mean Platelet Volume 9.1, Neutrophils (%) (Auto) 77H, Lymphocytes (%) (Auto) 11L , Monocytes (%) (Auto) 10, Eosinophils (%) (Auto) 2, Basophils (%) (Auto) 0, Neutrophils # (Auto) 4.6, Lymphocytes # (Auto) 0.7L, Monocytes # (Auto) 0.6, Eosinophils # (Auto) 0.1, Basophils # (Auto) 0.0, Sodium Level 145, Potassium Level 3.7, Chloride Level 95L, Carbon Dioxide Level 41H, Anion Gap 9, Blood Urea Nitrogen 7, Creatinine 0.84, Estimat Glomerular Filtration Rate > 60, BUN/ Creatinine Ratio 8, Glucose Level 91, Calcium Level 9.7, Corrected Calcium 10.4H , Total Bilirubin 0.2, Aspartate Amino Transf (AST/SGOT) 17, Alanine Aminotransferase (ALT/SGPT) < 6, Alkaline Phosphatase 87, Total Protein 6.1L, Albumin 3.1L 06/30/18 10:55: Glucometer 133H A/P: Assessment/Dx: Sinus tachycardia Hypoxemia COPD Anemia Plan: Sinus tachycardia, multifactorial, probably secondary to anemia, COPD and hypoxemia, maintained on low-dose beta blockers. transfused one unit PRBC, evaluate stool for OB, anemia analyzer COPD, status post acute exacerbation, improving, using oxygen with exertion at this time. Managed by Dr. Casey Myopathy, generalized weakness, receiving physical therapy Pneumonia, recovered, was hospitalized for respiratory failure last week. Borderline hypotension. Maintained on beta blockers. Continue to monitor Parkinson disease. Managed by primary care team Thank you for your consultation. Please call me if you have any questions. Elio Welsh MD, FACP, FACC, FSCAI, FHRS, CCDS Interventional Cardiology Cardiac Electrophysiology Vascular Medicine and Endovascular Interventions Hilary WELSH MD Jun 30, 2018 3:43 pm
[2018-06-30 17:46] VITALS: BP 145/73
--- NOTE | 2018-06-30 18:00 | NUR ---
A BETTER AFTERNOON. O2 REMAINS ON AT 3L.
[2018-06-30] MEDS: MICONAZOLE NITRATE 2% CRM 30 GM TP SCH (20:24)
[2018-06-30 20:25] VITALS: BP 120/69
[2018-07-01] MEDS: RT-ALBUTEROL/IPRATROPIUM 3 ML (DUONEB) VIAL INH SCH ×4 (01:52→19:28)
[2018-07-01 05:02] VITALS: BP 145/77
[2018-07-01] MEDS: inSUlin ASPART (NovoLOG) 1 UNIT/0.01 ML (CHARGE PER UNIT) SC SCH ×4 (05:26→20:05)
[2018-07-01] MEDS: CATHETER FLUSH 10 ML SYR IV SCH ×3 (06:05→20:21)
[2018-07-01] MEDS: PANTOPRAZOLE 40 MG (PROTONIX) TAB PO SCH (06:06)
[2018-07-01] MEDS: ENOXAPARIN 40 MG/0.4 ML (LOVENOX) SYR SC SCH (06:06)
[2018-07-01] MEDS: LACTOBACILLUS ACIDOPHILUS (PROBIOTIC) CAPSULE NG SCH ×3 (06:06→17:24)
--- NOTE | 2018-07-01 07:50 | Pulmonary Progress Note ---
Subjective Time Seen by a Provider: 07:50 Subjective/Events-last exam No complications noted. Sepsis Event Evaluation Height, Weight, BMI Height: 5'2.00" Weight: 151lbs. 1.6oz. 68.661150xv; 28.3 BMI Method:Stated Exam Exam Vital Signs Date Time Temp Pulse Resp B/P (MAP) Pulse Ox O2 Delivery O2 Flow Rate FiO2 07/01/18 05:02 98.6 89 18 145/77 (99) 96 Nasal Cannula 2.00 07/01/18 01:52 92 Nasal Cannula 3.00 06/30/18 20:25 120/69 (86) Nasal Cannula 2.00 06/30/18 20:20 Nasal Cannula 3.00 06/30/18 20:07 91 Nasal Cannula 3.00 06/30/18 17:46 97.3 91 14 145/73 (97) 97 Nasal Cannula 2.00 06/30/18 14:47 91 Nasal Cannula 3.00 06/30/18 09:00 Nasal Cannula 3.00 06/30/18 08:45 98 135/75 (95) 89 Nasal Cannula 3.00 06/30/18 08:16 95 Nasal Cannula 3.00 I & O 07/01/18 07:00 Intake Total 1170 ml Balance 1170 ml Height & Weight Height: 5'2.00" Weight: 151lbs. 1.6oz. 68.557901ss; 28.3 BMI Method:Stated General Appearance: No Apparent Distress, WD/WN, Chronically ill, Thin HEENT: PERRL/EOMI, Normal ENT Inspection, Pharynx Normal Neck: Full Range of Motion, Normal Inspection, Non Tender, Supple, Carotid Bruit Respiratory: Chest Non Tender, Lungs Clear, Normal Breath Sounds, No Accessory Muscle Use, No Respiratory Distress, Decreased Breath Sounds Cardiovascular: Regular Rate, Rhythm, No Edema, No Gallop, No JVD, No Murmur, Normal Peripheral Pulses Extremity: Normal Capillary Refill, Normal Inspection, Normal Range of Motion, Non Tender, No Calf Tenderness, No Pedal Edema Neurologic/Psychiatric: Alert, Oriented x3, No Motor/Sensory Deficits, Normal Mood/Affect Skin: Normal Color, Warm/Dry Lymphatic: No Adenopathy Results Lab Laboratory Tests 06/30/18 04:25 Assessment/Plan Assessment/Plan chronic respiratory failure -Continue duonebs and incruse -PT will benefit from home vent to mask; however, she declined Severe oxygen dependent COPD -Continue oxygen -Avoid over oxygenation LLL resolving PNA -S/p bronchoscopy macrocytic Anemia s/p transfusion -Occult stools are negative -Surgery is consulted Debility -probable rehab today DARSHANA CARDENAS DO Jul 01, 2018 07:50
[2018-07-01 08:13] VITALS: BP 132/71
[2018-07-01] MEDS: SINEMET 25/100 (CARBIDOPA/LEVODOPA) TAB PO SCH ×3 (08:15→20:04)
[2018-07-01] MEDS: OXYBUTYNIN (DITROPAN) 5 MG TAB PO SCH ×2 (08:15→20:04)
[2018-07-01] MEDS: meTOprolol TARTRATE 25 MG (LOPRESSOR) TABLET PO SCH ×2 (08:15→20:05)
[2018-07-01] MEDS: AMANTADINE 100 MG (SYMMETREL) CAP PO SCH (08:15)
[2018-07-01] MEDS: UMECLIDINIUM BROMIDE (INCRUSE ELLIPTA) 7'S IH SCH (08:15)
--- NOTE | 2018-07-01 08:23 | Cardiology Progress Note ---
Subjective Date Seen by Provider: Jul 01, 2018 Time Seen by Provider: 08:21 Subjective/Events-last exam Patient is sitting in bed, feeling better, no new complaint Review of Systems General: No Chills, No Night Sweats, No Fatigue, No Malaise, No Appetite, No Other HEENT: No Head Aches, No Visual Changes, No Eye Pain, No Ear Pain, No Dysphasia , No Sinus Congestion, No Post Nasal Drip, No Sore Throat, No Other Pulmonary: No Dyspnea, No Cough, No Pleuritic Chest Pain, No Other Cardiovascular: No: Chest Pain, Palpitations, Orthopnea, Paroxysmal Noc. Dyspnea, Edema, Lt Headedness, Other Objective-Cardiology Exam Last Set of Vital Signs Vital Signs 06/29/18 07/01/18 07/01/18 08:05 05:02 08:13 Temp 98.6 Pulse 101 Resp 18 B/P (MAP) 132/71 (91) Pulse Ox 96 O2 Delivery Nasal Cannula O2 Flow Rate 2.00 FiO2 32 Capillary Refill : I&O Intake and Output 07/01/18 00:00 Intake Total 1020 ml Balance 1020 ml Intake Oral 1020 ml # Voids 6 # Bowel Movements 1 General: Alert, Oriented X3, Cooperative, No Acute Distress, Other (severely chronically ill, tremor noted) HEENT: Atraumatic, PERRLA Neck: Supple, No JVD, No Thyromegaly, +2 Carotid Pulse No Bruit, No LAD Lungs: Other (diminished BS noted) Heart: Normal S1, Normal S2, Other Abdomen: Normal Bowel Sounds, Soft, No Tenderness, No Hepatosplenomegaly, No Masses Extremities: No Clubbing, No Cyanosis, No Edema, Normal Pulses, No Tenderness/ Swelling Skin: No Rashes, No Breakdown, No Significant Lesion Neuro: Normal Gait (although slowed and uses walker and assistance), Normal Speech, Strength at 5/5 X4 Ext, Normal Tone, Sensation Intact, Cranial Nerves 3- 12 NL, Reflexes 2+, Other (generalized weakness) Psych/Mental Status: Mental Status NL, Mood NL Results Lab Laboratory Tests Test 06/30/18 10:55 06/30/18 15:39 06/30/18 21:21 07/01/18 05:24 Range/Units Glucometer 133 H 120 H 132 H 95 70-110 MG/DL A/P-Cardiology Admission Diagnosis Sinus tachycardia Hypoxemia COPD Anemia Assessment/Plan Sinus tachycardia, multifactorial, probably secondary to anemia, COPD and hypoxemia, maintained on low-dose beta blockers, better now, continue to monitor Anemia, status post transfusion, stool is negative for OB, managed by primary care physician COPD, status post acute exacerbation, improving, using oxygen with exertion at this time. Managed by Dr. Casey Myopathy, generalized weakness, receiving physical therapy Pneumonia, recovered, was hospitalized for respiratory failure last week. Borderline hypotension, better, continue to monitor Parkinson disease. Managed by primary care team Clinical Quality Measures DVT/VTE Risk/Contraindication: Risk Factor Score Per Nursin RFS Level Per Nursing on Admit: 4+=Very High LINDA SEQUEIRA MD Jul 01, 2018 08:23
--- NOTE | 2018-07-01 08:34 | PM&R Progress Note ---
Subjective HPI/CC On Admission Date Seen by Provider: Jul 01, 2018 Time Seen by Provider: 08:00 CC: COPD myopathy HPI: This is a 77-year-old white female who was admitted to inpatient rehabilitation for COPD myopathy. She's had an extensive complex acute medical issue with respiratory failure while admitted to [facility]. This is a patient that was admitted from the emergency room for exacerbation of COPD after worsening respiratory status while they were on vacation in [place] for 6 weeks. She is chronically on oxygen 4 L by nasal cannula. She worsened to the point of severe decompensation presenting to the ER found to have pneumonia and acute exacerbation of COPD with acute on chronic respiratory failure. She required intubation for respiratory failure and with the help of expert consultation from Dr. Casey she was able to be extubated and back on oxygen supplementation with Vapotherm and wean down to nasal cannula high flow. Patient did complete antibiotics for pneumonia. She is back to her baseline respiratory function but required severe myopathy resolution prior to returning back to home so inpatient rehab accepted this patient to recover prior to discharge home. Subjective/Events-last exam Patient doing well Canceled EGD and colonoscopy due to the possibility of decline going through the colon prep Has a sacral decubitus ulcer stage II wound care will be consulted Patient does become short of breath on exertion and her O2 sat goes to 85 percent and I told her that we would be working on strengthening her lungs while she is in here strengthening her overall weakness Denies any other significant problems Checked meds and labs Review of Systems General: Fatigue Pulmonary: Dyspnea Neurological: Weakness Objective Exam Vital Signs Vital Signs Date Time Temp Pulse Resp B/P (MAP) Pulse Ox O2 Delivery O2 Flow Rate FiO2 07/01/18 09:55 92 Nasal Cannula 3.00 07/01/18 08:13 101 132/71 (91) 07/01/18 05:02 98.6 18 06/29/18 08:05 32 Capillary Refill : General Appearance: No Apparent Distress, WD/WN, Chronically ill Respiratory: Chest Non Tender, Lungs Clear, Normal Breath Sounds, No Accessory Muscle Use, No Respiratory Distress, Decreased Breath Sounds Cardiovascular: Regular Rate, Rhythm, No Edema, No Gallop, No JVD, No Murmur, Normal Peripheral Pulses Neurologic/Psychiatric: Alert, Oriented x3, No Motor/Sensory Deficits, Normal Mood/Affect, Motor Weakness (Global weakness all extremities) Skin: Normal Color, Warm/Dry Results/Procedures Lab Patient resulted labs reviewed. Assessment/Plan Assessment and Plan Assess & Plan/Chief Complaint Assessment: COPD myopathy Respiratory failure acute on chronic Severe COPD PD Anemia severe s/p 1 unit of blood transfusion Sunday Tachycardia consulting Cardiology for close monitoring Dark stools but hemoccult negative so will cancel EGD and colonoscopy which were scheduled for today due to severe weakness since high risk for respiratory failure Stage 2 decubitus ulcer sacrum Plan: IRF Slow recovery expected so will divide up time over 7 days instead of 5 days Continue Nebs and O2 Appreciate Dr Casey consultation Consult Dr Liset Roberts for Colonoscopy but notified him a cancellation due to severe weakness Wound care for sacral decubitus ulcer Monitor labs periodically to avoid phlebotomization Diagnosis/Problems Diagnosis/Problems (1) Myopathy Status: Acute (2) Tachycardia Status: Acute (3) COPD exacerbation Status: Resolved Resolution Date/Time: 06/26/18 @ 20:21 (4) Essential (primary) hypertension Status: Chronic (5) Pneumonia Status: Resolved Qualifiers: Pneumonia type: due to unspecified organism Laterality: unspecified laterality Lung location: unspecified part of lung Qualified Codes: J18.9 - Pneumonia, unspecified organism Resolution Date/Time: 06/25/18 @ 13:47 (6) Parkinson disease Status: Chronic (7) Macrocytic anemia Status: Chronic (8) Transfusion of blood during current hospitalization Status: Acute (9) Melena Status: Resolved Resolution Date/Time: 06/30/18 @ 14:00 (10) Sacral decubitus ulcer, stage II Status: Acute (11) BLANTON (dyspnea on exertion) Status: Chronic Clinical Quality Measures DVT/VTE Risk/Contraindication: Risk Factor Score Per Nursin RFS Level Per Nursing on Admit: 4+=Very High ESAMUS CHRISTINE DO Jul 01, 2018 08:34
[2018-07-01] MEDS: NYSTATIN CREAM (MYCOSTATIN) 30 GM TUBE TP SCH ×2 (09:30→20:05)
[2018-07-01] MEDS: MICONAZOLE NITRATE 2% CRM 30 GM TP SCH ×2 (09:30→20:06)
[2018-07-01] MEDS: MICONAZOLE 2% POWDER (DESENEX AF) 90 GM TOP SCH ×2 (09:30→20:05)
--- NOTE | 2018-07-01 10:05 | Physical Therapy Daily Note ---
PT Daily Note-Current Subjective Pt. states she has had more difficulty breathing yesterday and this morning. Pt. requests also that morning PT and OT are not back to back so she can rest between. This VISUAL MERCHANDISING MANAGER shares that we will try our best to schedule as such Pain Numeric Pain Scale: 0-No Pain Appearance noted dyspnea at Rx heydi during activity Mental Status Patient Orientation: Person, Place, Time, Situation Attachments: Oxygen (3-4 L) Transfers Therapy Code Descriptions/Definitions Functional [place] Measure: 0=Not Assessed/NA 4=Minimal Assistance 1=Total Assistance 5=Supervision or Setup 2=Maximal Assistance 6=Modified [place] 3=Moderate Assistance 7=Complete [place] Therapy Quality Codes: 6 Independent with activity with or without an assistive device 5 Patient requires set up or clean up by helper. Patient completes activity by themselves 4 Supervision or touching assist (CGA). Gerald provide cues , steadying assist 3 The helper provides less than half the effort to complete the activity 2 The helper provides more than half the effort to complete the activity 1 Dependent. The helper does all the effort to complete an activity 7 Patient refused to complete or attempt activity 9 The patient did not perform the activity before the current illness or injury 88 Not attempted due to Medical conditions or safety concerns Transfers (B, C, W/C) (FIM): 5 Scootin Rollin Supine to/from Sit: 5 Sit to/from Stand: 5 pt. able to sit to stand from standard height chair this date indep. Weight Bearing Right Lower Extremity: Right Weight Bearing/Tolerated Left Lower Extremity: Left Weight Bearing/Tolerated Gait Training Does the Patient Walk?: Yes Gait (FIM): 2 Distance (FIM): 7=567-29 ft (60,75) Gait Level of Assist: 4 Gait Persons Needed: 1 Gait Assistive Device: FWW pt. c/o SOB before reaching chair/ destination, on 4 L O2 with sats at 80%, back up >90% with 3 min rest. , findings reported to nursing Exercises Supine Ex: Ankle pumps, Quad Set, Rolling, Glut sets, Heel Slides, Short Arc Quads, Scooting, Straight leg raise, Hip abd/add Supine Reps: 12 Seated Therapy Exercises: Ankle pumps, Sit to stand, Long arc quads, Hip flexion Seated Reps: 8 Assessment Current Status: Good Progress limited by dyspnea this date. see O2 sat readings above PT Short Term Goals Short Term Goals Time Frame: Jul 02, 2018 Gait (FIM): 4 (met) PT [facility] Goals Panel Wirer Goals PT [facility] Goals Time Frame: Jul 12, 2018 Transfers (B,C,W/C) (FIM): 6 Sit to Lying (QC): 6 Lying-Sitting on Side/Bed(QC): 6 Sit to Stand (QC): 6 Rollin Roll Left to Right (QC): 6 Chair/Bzw-vm-Ompgw Xfer(QC): 6 Car Transfer (QC): 6 Does the Patient Walk: Yes Gait (FIM): 6 Gait distance (FIM): 3=150 ft Walk 10 feet (QC): 6 Walk 10ft-Uneven Surface(QC): 6 Walk 50ft with 2 Turns (QC): 6 Walk 150 ft (QC): 6 Gait Level of Assist: 6 Gait Assistive Device: FWW (or 4WW) Does the Pt use WC or Scooter?: No Stairs (FIM): 5 (household) # of Steps: 4 1 Step (curb) (QC): 6 4 Steps (QC): 6 12 Steps (QC): 88 Picking up an Object (QC): 4 PT Plan Treatment/Plan Treatment Plan: Continue Plan of Care Treatment Plan: Bed Mobility, Education, Functional Activity Derrick, Functional Strength, Group Therapy, Gait, Safety, Therapeutic Exercise, Transfers Treatment Duration: Jul 12, 2018 Frequency: Modified Program (IRF) Estimated Hrs Per Day: 1.5 hours per day (as able ) Patient and/or Family Agrees t: Yes Safety Risks/Education Patient Education: Gait Training, Transfer Techniques, Correct Positioning, Disease Process, Safety Issues Teaching Recipient: Patient Teaching Methods: Demonstration, Discussion Response to Teaching: Verbalize Understanding, Return Demonstration, Reinforcement Needed Time/GCodes Time In: 900 Time Out: 1000 Total Billed Treatment Time: 60 Total Billed Treatment 1,EX20m,FA25m,GT15m G Codes Necessary: CHELSIE Quinonez VISUAL MERCHANDISING MANAGER Jul 01, 2018 10:05
--- NOTE | 2018-07-01 12:25 | Occupational Ther Daily Note ---
OT Current Status-Daily Note Subjective Pt in room, ready for OT treatment. Pt stated " I am ready for shower bath." Pain Numeric Pain Scale: 0-No Pain Mental Status/Objective Patient Orientation: Person, Place, Time Therapy Code Descriptions/Definitions Functional [place] Measure: 0=Not Assessed/NA 4=Minimal Assistance 1=Total Assistance 5=Supervision or Setup 2=Maximal Assistance 6=Modified [place] 3=Moderate Assistance 7=Complete [place] ADL-Treatment Patient seen for shower/bath retraining , dressing retraining, func TT, Func bed mobility , trunk balancing activity & Theraex BUE. Pt requires Min -SBA in sit to stand & ambulate with FWW to shower room & to transfer to shower bench holding grab bar, Pt undress UB with min A & Lb cloth with mod-min A, Pt O2 dependent, Pt wash / shampoo her face , front, back of trunk, LE , UE , neck, hairs, perineal area with min - SBA , Dry her body with min A , Dressing with min-mod A as pt fatigue soon. Pt had constant OT supply. Participated inn strengthening ex 20 reps x 2 sets x 1 lb wt, 20 reps with red theraband & hand gripper ex to improve hand director custom. Pt v. cooperative. Therapy Code Descriptions/Definitions Functional [place] Measure: 0=Not Assessed/NA 4=Minimal Assistance 1=Total Assistance 5=Supervision or Setup 2=Maximal Assistance 6=Modified [place] 3=Moderate Assistance 7=Complete [place] Therapy Quality Codes: 6 Independent with activity with or without an assistive device 5 Patient requires set up or clean up by helper. Patient completes activity by themselves 4 Supervision or touching assist (CGA). [place] provide cues , steadying assist 3 The helper provides less than half the effort to complete the activity 2 The helper provides more than half the effort to complete the activity 1 Dependent. The helper does all the effort to complete an activity 7 Patient refused to complete or attempt activity 9 The patient did not perform the activity before the current illness or injury 88 Not attempted due to Medical conditions or safety concerns Eating (FIM): 7 Eating (QC): 6 Grooming (FIM): 5 Oral Hygiene (QC): 5 Bathing (FIM): 4 Bathing Location: L Arm, R Arm, L Upper Leg, R Upper Leg, L Lower Leg ( including foot), R Lower Leg (including foot), Chest, Abdomen, Buttocks, Perineal Area Shower/Bathe Self (QC): 4 Upper Body (FIM): 4 Upper Body Dressing (QC): 4 Lower Body Dressing (FIM): 3 Lower Body Dressing (QC): 3 On/Off Footwear (QC): 3 Toileting (FIM): 4 Toileting Hygiene (QC): 4 Transfers (B, C, W/C) (FIM): 5 Toilet/Commode Transfer (FIM): 5 Toilet Transfer (QC): 5 Tub Transfer(FIM): 0 Shower Transfer(FIM): 5 Education OT Patient Education: Correct positioning, Energy conservation, Safety issues, Transfer techniques Teaching Recipient: Patient Teaching Methods: Demonstration, Discussion Response to Teaching: Verbalize Understanding, Return Demonstration OT Short Term Goals Short Term Goals Time Frame: Jul 02, 2018 Lower Body Dressing(FIM): 4 Toilet/Commode Transfer(FIM): 5 Additional Short Term Goals: 1-Demonstrate ADL Tasks, 2-Verbalize Understanding , 3-ImproveStrength/Derrick 1=Demonstrate adherence to instructed precautions during ADL tasks. 2=Patient will verbalize/demonstrate understanding of assistive devices/ modifications for ADL. 3=Patient will improve strength/tolerance for activity to enable patient to perform ADL's. OT Inspector Technician Goals [facility] Goals Time Frame: Jul 16, 2018 Eating (FIM): 6 Eating (QC): 6 Groomin Oral Hygiene (QC): 6 Bathing(FIM): 5 Shower/Bathe Self (QC): 5 Upper Body Dressing(FIM): 6 Upper Body Dressing (QC): 6 Lower Body Dressing(FIM): 5 Lower Body Dressing (QC): 5 On/Off Footwear (QC): 5 Toileting(FIM): 6 Toileting Hygiene (QC): 6 Toilet/Commode Transfer(FIM): 6 Toilet/Commode Transfer (QC): 6 Additional Goals: 1-Demonstrate ADL Tasks, 2-Verbalize Understanding, 3- ImproveStrength/Derrick 1=Demonstrate adherence to instructed precautions during ADL tasks. 2=Patient will verbalize/demonstrate understanding of assistive devices/ modifications for ADL. 3=Patient will improve strength/tolerance for activity to enable patient to perform ADL's. OT Education/Plan Problem List/Assessment Assessment: Decreased Activ Tolerance, Decreased Safety Aware, Decreased UE Strength, Dependent Transfers, Impaired Bed Mobility, Impaired Funct Balance, Impaired Self-Care Skills Discharge Recommendations Plan/Recommendations: Continue POC Therapy D/C Recommendations: Home w/ Family Support, Occupational Therapy Home Care Equpiment Recommendations-D/C: Bath Chair, Extended Shower Sprayer, Oracle Forms Developer Barriers to Progress O2 dependents, Fatigue soon. Patient/Family Goals To return home with Independently. Treatment Plan/Plan of Care Patient would benefit from OT for education, treatment and training to promote independence in ADL's, mobility, safety and/or upper extremity function for ADL' s. Plan of Care: ADL Retraining, Functional Mobility, Group Exercise/Act as Ind, UE Funct Exercise/Act Treatment Duration: Jul 16, 2018 Frequency: Modified Program (IRF) Estimated Hrs Per Day: 1.5 hours per day Agreement: Yes Rehab Potential: Good Time/GCodes Start Time: 08:00 (800-900 am 60 min) Stop Time: 14:30 (30 min) Total Time Billed (hr/min): 90 (8:00 9:00 60 mi & [id number] 30 min total 90 min ) Billed Treatment Time 1, ADL X 60 min ex 30 min total 90 min SHERIE RICHARDSON OT Jul 01, 2018 12:25
--- NOTE | 2018-07-01 13:59 | Physical Therapy Daily Note ---
PT Daily Note-Current Subjective Pt. up in recliner. Requests bathroom . After on toilet states she cant go. Pt. c/o dyspnea with short walk distance Pain Location: No Pain Reported Mental Status Patient Orientation: Person, Place, Time, Situation Attachments: Oxygen (4L portable) Transfers Therapy Code Descriptions/Definitions Functional [place] Measure: 0=Not Assessed/NA 4=Minimal Assistance 1=Total Assistance 5=Supervision or Setup 2=Maximal Assistance 6=Modified [place] 3=Moderate Assistance 7=Complete [place] Therapy Quality Codes: 6 Independent with activity with or without an assistive device 5 Patient requires set up or clean up by helper. Patient completes activity by themselves 4 Supervision or touching assist (CGA). [place] provide cues , steadying assist 3 The helper provides less than half the effort to complete the activity 2 The helper provides more than half the effort to complete the activity 1 Dependent. The helper does all the effort to complete an activity 7 Patient refused to complete or attempt activity 9 The patient did not perform the activity before the current illness or injury 88 Not attempted due to Medical conditions or safety concerns sit to stand from recliner and toilet all SBA, sit to supine SBA Weight Bearing Right Lower Extremity: Right Weight Bearing/Tolerated Left Lower Extremity: Left Weight Bearing/Tolerated Gait Training Gait Assistive Device: FWW pt. ambulates 25 to 30 ft CGA and 4 L O2 with c/o dyspnea and observed as well. Pt. needs 4-5 mins to recover and walks again. in bed after Rx Exercises Seated Therapy Exercises: Ankle pumps, Sit to stand, Long arc quads, Hip flexion Seated Reps: 10 Assessment Current Status: Good Progress pt. tolerates only short distances of gait with O2 and struggles with dyspnea. PT Short Term Goals Short Term Goals Time Frame: Jul 02, 2018 Gait (FIM): 4 (met) PT Scientific Director Goals Scientific Director Goals PT Fdc Goals Time Frame: Jul 12, 2018 Transfers (B,C,W/C) (FIM): 6 Sit to Lying (QC): 6 Lying-Sitting on Side/Bed(QC): 6 Sit to Stand (QC): 6 Rollin Roll Left to Right (QC): 6 Chair/Ojx-th-Cocgh Xfer(QC): 6 Car Transfer (QC): 6 Does the Patient Walk: Yes Gait (FIM): 6 Gait distance (FIM): 3=150 ft Walk 10 feet (QC): 6 Walk 10ft-Uneven Surface(QC): 6 Walk 50ft with 2 Turns (QC): 6 Walk 150 ft (QC): 6 Gait Level of Assist: 6 Gait Assistive Device: FWW (or 4WW) Does the Pt use WC or Scooter?: No Stairs (FIM): 5 (household) # of Steps: 4 1 Step (curb) (QC): 6 4 Steps (QC): 6 12 Steps (QC): 88 Picking up an Object (QC): 4 PT Plan Treatment/Plan Treatment Plan: Continue Plan of Care Treatment Plan: Bed Mobility, Education, Functional Activity Derrick, Functional Strength, Group Therapy, Gait, Safety, Therapeutic Exercise, Transfers Treatment Duration: Jul 12, 2018 Frequency: Modified Program (IRF) Estimated Hrs Per Day: 1.5 hours per day (as able ) Patient and/or Family Agrees t: Yes Safety Risks/Education Patient Education: Gait Training, Transfer Techniques, Correct Positioning, Disease Process, Safety Issues Teaching Recipient: Patient Teaching Methods: Demonstration Response to Teaching: Verbalize Understanding, Return Demonstration, Reinforcement Needed Time/GCodes Time In: 1330 Time Out: 1400 Total Billed Treatment Time: 30 Total Billed Treatment 1,GT30m G Codes Necessary: No CHELSIE MILLS TRAFFIC CONTROL SIGNALER Jul 01, 2018 13:59
--- NOTE | 2018-07-01 15:41 | NUR ---
At IV patency check, noted bruising above IV site and hard area. Immediately removed IV, placed warm blanket around arm. Will continue to monitor.
[2018-07-01 17:07] VITALS: BP 137/78
--- NOTE | 2018-07-01 18:55 | Wound Care Assessment ---
Wound Care Assessment Date Seen by Provider: Jul 01, 2018 Time Seen by Provider: 18:52 Chief Complaint Sacral ulcer. HPI The patient is a 77 year old female with a moisture related skin injury to the cleft area related to urinary incontinence. Due to patient habitus, the cleft is deep. There is surrounding maceration and the borders are irregular, consistent with MASD. COPD, Myopathy, Parkinson's disease. Smoking Status: Current Everyday Smoker Recreational Drug Use: No Alcohol Use: Denies Use Review of Systems Pulmonary: No Dyspnea Cardiovascular: No: Chest Pain Exam Vital Signs Date Time Temp Pulse Resp B/P (MAP) Pulse Ox O2 Delivery O2 Flow Rate FiO2 07/01/18 17:07 96.5 90 20 137/78 (97) 97 Nasal Cannula 3.00 06/29/18 08:05 32 Capillary Refill : General Appearance: no apparent distress Respiratory: no respiratory distress Skin: other (Ronak cleft, deep - 1.4 x 0.9 x 0.1 cm; base 50% slough, 50% regenerating, border irregular, periwound macerated.) Results Laboratory Tests 06/30/18 21:21: Glucometer 132H 07/01/18 05:24: Glucometer 95 07/01/18 11:14: Glucometer 93 07/01/18 16:29: Glucometer 118H Assessment/Plan/Dx 1. Moisture associated skin damage, cleft. 2. Parkinson's disease. 3. Myopathy. Plan: Barrier cream, frequent repositioning. CHESTER ROSEN MD Jul 01, 2018 18:55
[2018-07-02] MEDS: RT-ALBUTEROL/IPRATROPIUM 3 ML (DUONEB) VIAL INH SCH ×4 (02:55→20:35)
[2018-07-02] MEDS: CATHETER FLUSH 10 ML SYR IV SCH ×2 (04:42→14:22)
[2018-07-02 05:13] VITALS: BP 135/74
[2018-07-02] MEDS: LACTOBACILLUS ACIDOPHILUS (PROBIOTIC) CAPSULE NG SCH ×3 (06:04→17:15)
[2018-07-02] MEDS: PANTOPRAZOLE 40 MG (PROTONIX) TAB PO SCH (06:04)
[2018-07-02] MEDS: ENOXAPARIN 40 MG/0.4 ML (LOVENOX) SYR SC SCH (06:09)
[2018-07-02] MEDS: inSUlin ASPART (NovoLOG) 1 UNIT/0.01 ML (CHARGE PER UNIT) SC SCH ×4 (06:10→20:47)
[2018-07-02] MEDS: UMECLIDINIUM BROMIDE (INCRUSE ELLIPTA) 7'S IH SCH (06:22)
--- NOTE | 2018-07-02 06:53 | Pulmonary Progress Note ---
Subjective Time Seen by a Provider: 13:06 Subjective/Events-last exam No complications noted. Sepsis Event Evaluation Height, Weight, BMI Height: 5'2.00" Weight: 151lbs. 1.6oz. [id number]; 28.3 BMI Method:Stated Exam Exam Vital Signs Date Time Temp Pulse Resp B/P (MAP) Pulse Ox O2 Delivery O2 Flow Rate FiO2 07/02/18 06:25 92 Nasal Cannula 3.00 07/02/18 06:22 92 Nasal Cannula 3.00 07/02/18 05:13 98.0 94 18 135/74 (94) 95 Nasal Cannula 3.00 07/02/18 02:58 90 Nasal Cannula 3.00 07/01/18 21:29 Nasal Cannula 3.00 07/01/18 19:29 93 Nasal Cannula 3.00 07/01/18 17:07 96.5 90 20 137/78 (97) 97 Nasal Cannula 3.00 07/01/18 15:25 94 Nasal Cannula 3.00 07/01/18 13:01 Nasal Cannula 3.00 07/01/18 09:55 92 Nasal Cannula 3.00 07/01/18 09:50 Nasal Cannula 3.00 07/01/18 08:13 101 132/71 (91) I & O 07/02/18 07:00 Intake Total 1000 ml Balance 1000 ml Height & Weight Height: 5'2.00" Weight: 151lbs. 1.6oz. 68.984751jz; 28.3 BMI Method:Stated General Appearance: No Apparent Distress, WD/WN, Chronically ill, Thin HEENT: PERRL/EOMI, Normal ENT Inspection, Pharynx Normal Neck: Full Range of Motion, Normal Inspection, Non Tender, Supple, Carotid Bruit Respiratory: Chest Non Tender, Lungs Clear, Normal Breath Sounds, No Accessory Muscle Use, No Respiratory Distress, Decreased Breath Sounds Cardiovascular: Regular Rate, Rhythm, No Edema, No Gallop, No JVD, No Murmur, Normal Peripheral Pulses Extremity: Normal Capillary Refill, Normal Inspection, Normal Range of Motion, Non Tender, No Calf Tenderness, No Pedal Edema Neurologic/Psychiatric: Alert, Oriented x3, No Motor/Sensory Deficits, Normal Mood/Affect Skin: Normal Color, Warm/Dry Lymphatic: No Adenopathy Assessment/Plan Assessment/Plan Acute on chronic respiratory failure - improved -Continue duonebs and incruse -PT will benefit from home vent to mask; however, she declined Severe oxygen dependent COPD -Continue oxygen -Avoid over oxygenation LLL resolving PNA -S/p bronchoscopy macrocytic Anemia s/p transfusion -Occult stools are negative -Surgery is consulted Debility -probable rehab today DARSHANA CARDENAS DO Jul 02, 2018 06:53
--- NOTE | 2018-07-02 08:23 | Cardiology Progress Note ---
Subjective Date Seen by Provider: Jul 02, 2018 Time Seen by Provider: 08:21 Subjective/Events-last exam No new complaints. Denies any chest pain or dyspnea. Review of Systems General: No Night Sweats; Fatigue; No Malaise HEENT: No Visual Changes, No Dysphasia Pulmonary: No Dyspnea, No Cough Cardiovascular: No: Chest Pain, Palpitations, Paroxysmal Noc. Dyspnea, Edema Gastrointestinal: No: Nausea, Vomiting, Abdominal Pain Genitourinary: No Dysuria, No Frequency Musculoskeletal: No: neck pain, back pain Neurological: No: Weakness, Numbness, Change in speech, Confusion Objective-Cardiology Exam Last Set of Vital Signs Vital Signs 06/29/18 07/02/18 07/02/18 08:05 05:13 06:25 Temp 98.0 Pulse 94 Resp 18 B/P (MAP) 135/74 (94) Pulse Ox 92 O2 Delivery Nasal Cannula O2 Flow Rate 3.00 FiO2 32 Capillary Refill : I&O Intake and Output 07/02/18 00:00 Intake Total 1240 ml Balance 1240 ml Intake Oral 1240 ml # Voids 7 # Bowel Movements 1 General: Alert, Oriented X3, Cooperative, No Acute Distress HEENT: Atraumatic, PERRLA Neck: Supple, No JVD, No Thyromegaly, +2 Carotid Pulse No Bruit, No LAD Lungs: Other (diminished BS noted) Heart: Normal S1, Normal S2, Other Abdomen: Normal Bowel Sounds, Soft, No Tenderness, No Hepatosplenomegaly, No Masses Extremities: No Clubbing, No Cyanosis, No Edema, Normal Pulses, No Tenderness/ Swelling Skin: No Rashes, No Breakdown, No Significant Lesion Neuro: Normal Gait (although slowed and uses walker and assistance), Normal Speech, Strength at 5/5 X4 Ext, Normal Tone, Sensation Intact, Cranial Nerves 3- 12 NL, Reflexes 2+, Other (generalized weakness) Psych/Mental Status: Mental Status NL, Mood NL A/P-Cardiology Admission Diagnosis Sinus tachycardia Hypoxemia COPD Anemia Assessment/Plan Sinus tachycardia, multifactorial, probably secondary to anemia, COPD and hypoxemia, maintained on low-dose beta blockers, slightly tachycardic this morning. Continue current medications and continue to monitor. Anemia, status post transfusion, stool is negative for OB, managed by primary care physician COPD, status post acute exacerbation, improving, using oxygen with exertion at this time. Managed by Dr. Casey Myopathy, generalized weakness, receiving physical therapy Pneumonia, recovered, was hospitalized for respiratory failure last week. Borderline hypotension, better, continue to monitor Parkinson disease. Managed by primary care team Clinical Quality Measures DVT/VTE Risk/Contraindication: Risk Factor Score Per Nursin RFS Level Per Nursing on Admit: 4+=Very High JERRELL CHINO Jul 02, 2018 08:23
--- NOTE | 2018-07-02 08:26 | PM&R Progress Note ---
Subjective HPI/CC On Admission Date Seen by Provider: Jul 02, 2018 Time Seen by Provider: 08:10 CC: COPD myopathy HPI: This is a 77-year-old white female who was admitted to inpatient rehabilitation for COPD myopathy. She's had an extensive complex acute medical issue with respiratory failure while admitted to [facility]. This is a patient that was admitted from the emergency room for exacerbation of COPD after worsening respiratory status while they were on vacation in [place] for 6 weeks. She is chronically on oxygen 4 L by nasal cannula. She worsened to the point of severe decompensation presenting to the ER found to have pneumonia and acute exacerbation of COPD with acute on chronic respiratory failure. She required intubation for respiratory failure and with the help of expert consultation from Dr. Casey she was able to be extubated and back on oxygen supplementation with Vapotherm and wean down to nasal cannula high flow. Patient did complete antibiotics for pneumonia. She is back to her baseline respiratory function but required severe myopathy resolution prior to returning back to home so inpatient rehab accepted this patient to recover prior to discharge home. Subjective/Events-last exam Dr. Thompson assessed her decubitus ulcer on her coccyx and assessed it to be a moisture only problem so keeping it dry with powder application She hasn't had a bowel movement yet so we will work on that Progressing well and participating in therapy Not as short of breath as she previously was Review of Systems Pulmonary: Dyspnea Objective Exam Vital Signs Vital Signs Date Time Temp Pulse Resp B/P (MAP) Pulse Ox O2 Delivery O2 Flow Rate FiO2 07/02/18 17:32 97.6 91 130/74 (92) 96 Room Air 3.00 07/02/18 14:26 32 07/02/18 05:13 18 Capillary Refill : General Appearance: No Apparent Distress, WD/WN, Chronically ill Respiratory: Chest Non Tender, Lungs Clear, Normal Breath Sounds, No Accessory Muscle Use, No Respiratory Distress, Decreased Breath Sounds Cardiovascular: Regular Rate, Rhythm, No Edema, No Gallop, No JVD, No Murmur, Normal Peripheral Pulses Neurologic/Psychiatric: Alert, Oriented x3, No Motor/Sensory Deficits, Normal Mood/Affect Skin: Normal Color, Warm/Dry Results/Procedures Lab Patient resulted labs reviewed. Assessment/Plan Assessment and Plan Assess & Plan/Chief Complaint Assessment: COPD myopathy Respiratory failure acute on chronic Severe COPD PD Anemia severe s/p 1 unit of blood transfusion Sunday Tachycardia consulting Cardiology for close monitoring Dark stools but hemoccult negative so will cancel EGD and colonoscopy which were scheduled for today due to severe weakness since high risk for respiratory failure Stage 2 decubitus ulcer sacrum Plan: IRF Slow recovery expected so will divide up time over 7 days instead of 5 days Continue Nebs and O2 Appreciate Dr Casey consultation Consult Dr Liset Roberts for Colonoscopy but notified him a cancellation due to severe weakness Wound care for sacral decubitus ulcer Monitor labs periodically to avoid phlebotomization Diagnosis/Problems Diagnosis/Problems (1) Myopathy Status: Acute (2) Tachycardia Status: Acute (3) COPD exacerbation Status: Resolved Resolution Date/Time: 06/26/18 @ 20:21 (4) Essential (primary) hypertension Status: Chronic (5) Pneumonia Status: Resolved Qualifiers: Pneumonia type: due to unspecified organism Laterality: unspecified laterality Lung location: unspecified part of lung Qualified Codes: J18.9 - Pneumonia, unspecified organism Resolution Date/Time: 06/25/18 @ 13:47 (6) Parkinson disease Status: Chronic (7) Macrocytic anemia Status: Chronic (8) Transfusion of blood during current hospitalization Status: Acute (9) Melena Status: Resolved Resolution Date/Time: 06/30/18 @ 14:00 (10) Sacral decubitus ulcer, stage II Status: Acute (11) BLANTON (dyspnea on exertion) Status: Chronic Clinical Quality Measures DVT/VTE Risk/Contraindication: Risk Factor Score Per Nursin RFS Level Per Nursing on Admit: 4+=Very High SEAMUS CHRISTINE DO Jul 02, 2018 08:26
[2018-07-02 09:03] VITALS: BP 136/65
[2018-07-02] MEDS: meTOprolol TARTRATE 25 MG (LOPRESSOR) TABLET PO SCH ×2 (09:04→20:47)
[2018-07-02] MEDS: SINEMET 25/100 (CARBIDOPA/LEVODOPA) TAB PO SCH ×3 (09:04→20:47)
[2018-07-02] MEDS: AMANTADINE 100 MG (SYMMETREL) CAP PO SCH (09:04)
[2018-07-02] MEDS: OXYBUTYNIN (DITROPAN) 5 MG TAB PO SCH ×2 (09:04→20:46)
[2018-07-02] MEDS: NYSTATIN CREAM (MYCOSTATIN) 30 GM TUBE TP SCH ×2 (09:05→20:47)
[2018-07-02] MEDS: MICONAZOLE 2% POWDER (DESENEX AF) 90 GM TOP SCH ×2 (09:05→20:47)
[2018-07-02] MEDS: MICONAZOLE NITRATE 2% CRM 30 GM TP SCH ×2 (09:05→20:47)
[2018-07-02] MEDS: ZINC OXIDE 16% OINT (BUTT PASTE) 113 GM TUBE TOP PRN ×2 (09:06→20:47)
--- NOTE | 2018-07-02 10:07 | Physical Therapy Daily Note ---
PT Daily Note-Current Subjective Pt sitting in recliner upon arrival. Pt agrees to PT but reports fatigue and SOA. Pain Location: No Pain Reported Mental Status Patient Orientation: Person, Place, Time, Situation Attachments: Oxygen (3L ) Transfers Therapy Code Descriptions/Definitions Functional [place] Measure: 0=Not Assessed/NA 4=Minimal Assistance 1=Total Assistance 5=Supervision or Setup 2=Maximal Assistance 6=Modified [place] 3=Moderate Assistance 7=Complete [place] Therapy Quality Codes: 6 Independent with activity with or without an assistive device 5 Patient requires set up or clean up by helper. Patient completes activity by themselves 4 Supervision or touching assist (CGA). [place] provide cues , steadying assist 3 The helper provides less than half the effort to complete the activity 2 The helper provides more than half the effort to complete the activity 1 Dependent. The helper does all the effort to complete an activity 7 Patient refused to complete or attempt activity 9 The patient did not perform the activity before the current illness or injury 88 Not attempted due to Medical conditions or safety concerns Scootin Rollin Supine to/from Sit: 5 Sit to/from Stand: 5 Sit to Lying (QC): 5 Sit to Stand (QC): 5 Weight Bearing Right Lower Extremity: Right Weight Bearing/Tolerated Left Lower Extremity: Left Weight Bearing/Tolerated Gait Training Does the Patient Walk?: Yes Distance (FIM): 8=462-94 ft Distance: 100' Walk 10 feet (QC): 5 Walk 50 ft with 2 Turns(QC): 5 Walk 150 ft (QC): 5 Gait Level of Assist: 5 Gait Persons Needed: 1 Gait Assistive Device: FWW Pt's marya is slow but steady. Exercises Seated Therapy Exercises: Ankle pumps, Long arc quads, Hip flexion, Kicking activity, Hip abd/add Seated Reps: 15 NuStep Minutes: 6 NuStep Workload: 4 Treatments Pt transfers from recliner to standing using FWW at SBA. Pt ambulates in hallway using FWW at [facility]. Pt completes Seated Ex in chair followed by NuStep for 6m at WL 4 before needing to rest. Pt returns to room to rest in recliner at end of tx. ASSESSMENT SERVICES MANAGER assists pt with repositioning in recliner and pt has all needs met. Assessment Current Status: Good Progress Pt needs frequent and extended rest breaks at times to recover due to SOA. PT Short Term Goals Short Term Goals Time Frame: Jul 02, 2018 Gait (FIM): 4 (met) PT Line Dancer Goals Detention Goals PT Line Dancer Goals Time Frame: Jul 12, 2018 Transfers (B,C,W/C) (FIM): 6 Sit to Lying (QC): 6 Lying-Sitting on Side/Bed(QC): 6 Sit to Stand (QC): 6 Rollin Roll Left to Right (QC): 6 Chair/Rpd-mh-Mhdmc Xfer(QC): 6 Car Transfer (QC): 6 Does the Patient Walk: Yes Gait (FIM): 6 Gait distance (FIM): 3=150 ft Walk 10 feet (QC): 6 Walk 10ft-Uneven Surface(QC): 6 Walk 50ft with 2 Turns (QC): 6 Walk 150 ft (QC): 6 Gait Level of Assist: 6 Gait Assistive Device: FWW (or 4WW) Does the Pt use WC or Scooter?: No Stairs (FIM): 5 (household) # of Steps: 4 1 Step (curb) (QC): 6 4 Steps (QC): 6 12 Steps (QC): 88 Picking up an Object (QC): 4 PT Plan Problem List Problem List: Activity Tolerance, Functional Strength, Safety, Balance, Gait Treatment/Plan Treatment Plan: Continue Plan of Care Treatment Plan: Bed Mobility, Education, Functional Activity Derrick, Functional Strength, Group Therapy, Gait, Safety, Therapeutic Exercise, Transfers Treatment Duration: Jul 12, 2018 Frequency: Modified Program (IRF) Estimated Hrs Per Day: 1.5 hours per day (as able ) Patient and/or Family Agrees t: Yes Safety Risks/Education Patient Education: Gait Training, Transfer Techniques, Correct Positioning, Safety Issues Teaching Recipient: Patient Teaching Methods: Discussion Response to Teaching: Verbalize Understanding Time/GCodes Time In: 900 Time Out: 1000 Total Billed Treatment Time: 60 Total Billed Treatment 1, GT (15m), EX x2 (30m) & FA (15m) G Codes Necessary: THONG Eli ASSESSMENT SERVICES MANAGER Jul 02, 2018 10:07
--- NOTE | 2018-07-02 11:26 | Occupational Ther Daily Note ---
OT Current Status-Daily Note Subjective Pt in bed, agrees to therapy. Pt has no c/o pain. Mental Status/Objective Therapy Code Descriptions/Definitions Functional [place] Measure: 0=Not Assessed/NA 4=Minimal Assistance 1=Total Assistance 5=Supervision or Setup 2=Maximal Assistance 6=Modified [place] 3=Moderate Assistance 7=Complete [place] Attachments: Oxygen ADL-Treatment Pt declined shower, states she had one yesterday. Agrees to sponge bath. Supine to sit with SBA. Sponge bath completed seated EOB. Doff shirt with SBA. Upper body bathing completed with SBA. Pt required minimal assistance for lower body bathing. Increased time for sponge bath. Don pullover shirt with set up. Pt able to thread bilateral LE into Depends and pants. Stood with minimal assistance for balance during pant hike. Rest break required after standing. Pt donned bilateral socks with SBA. Sit to stand from EOB with minimal assistance. Gait to restroom with FWW, slow pace. Assist to manage O2 tubing. Grooming tasks completed while seated at sink to conserve energy. Pt brushed teeth and combed hair with modified independence. Gait to chair with FWW, CGA for balance. Pt fatigues quickly with mobility and requires rest break to recover. Increased time required for functional tasks. Pt sitting in chair with needs met after session. Therapy Code Descriptions/Definitions Functional [place] Measure: 0=Not Assessed/NA 4=Minimal Assistance 1=Total Assistance 5=Supervision or Setup 2=Maximal Assistance 6=Modified [place] 3=Moderate Assistance 7=Complete [place] Therapy Quality Codes: 6 Independent with activity with or without an assistive device 5 Patient requires set up or clean up by helper. Patient completes activity by themselves 4 Supervision or touching assist (CGA). [place] provide cues , steadying assist 3 The helper provides less than half the effort to complete the activity 2 The helper provides more than half the effort to complete the activity 1 Dependent. The helper does all the effort to complete an activity 7 Patient refused to complete or attempt activity 9 The patient did not perform the activity before the current illness or injury 88 Not attempted due to Medical conditions or safety concerns Grooming (FIM): 6 Oral Hygiene (QC): 6 Bathing (FIM): 4 Shower/Bathe Self (QC): 3 Upper Body (FIM): 5 Upper Body Dressing (QC): 5 Lower Body Dressing (FIM): 4 Lower Body Dressing (QC): 3 On/Off Footwear (QC): 4 OT Short Term Goals Short Term Goals Time Frame: Jul 02, 2018 Lower Body Dressing(FIM): 4 Toilet/Commode Transfer(FIM): 5 Additional Short Term Goals: 1-Demonstrate ADL Tasks, 2-Verbalize Understanding , 3-ImproveStrength/Derrick 1=Demonstrate adherence to instructed precautions during ADL tasks. 2=Patient will verbalize/demonstrate understanding of assistive devices/ modifications for ADL. 3=Patient will improve strength/tolerance for activity to enable patient to perform ADL's. OT Abseiling Instructor Goals Half-Way Goals Time Frame: Jul 16, 2018 Eating (FIM): 6 Eating (QC): 6 Groomin Oral Hygiene (QC): 6 Bathing(FIM): 5 Shower/Bathe Self (QC): 5 Upper Body Dressing(FIM): 6 Upper Body Dressing (QC): 6 Lower Body Dressing(FIM): 5 Lower Body Dressing (QC): 5 On/Off Footwear (QC): 5 Toileting(FIM): 6 Toileting Hygiene (QC): 6 Toilet/Commode Transfer(FIM): 6 Toilet/Commode Transfer (QC): 6 Additional Goals: 1-Demonstrate ADL Tasks, 2-Verbalize Understanding, 3- ImproveStrength/Derrick 1=Demonstrate adherence to instructed precautions during ADL tasks. 2=Patient will verbalize/demonstrate understanding of assistive devices/ modifications for ADL. 3=Patient will improve strength/tolerance for activity to enable patient to perform ADL's. OT Education/Plan Discharge Recommendations Plan/Recommendations: Continue POC Treatment Plan/Plan of Care Patient would benefit from OT for education, treatment and training to promote independence in ADL's, mobility, safety and/or upper extremity function for ADL' s. Plan of Care: ADL Retraining, Functional Mobility, Group Exercise/Act as Ind, UE Funct Exercise/Act Treatment Duration: Jul 16, 2018 Frequency: Modified Program (IRF) Estimated Hrs Per Day: 1.5 hours per day Agreement: Yes Rehab Potential: Good Time/GCodes Start Time: 08:00 Stop Time: 09:00 Total Time Billed (hr/min): 60 Billed Treatment Time 1 visit, ADLx4(60minutes) CALVIN LAZCANO OT Jul 02, 2018 11:26
--- NOTE | 2018-07-02 13:43 | Occupational Ther Daily Note ---
OT Current Status-Daily Note Subjective Pt sitting in chair, agrees to therapy. Mental Status/Objective Therapy Code Descriptions/Definitions Functional [place] Measure: 0=Not Assessed/NA 4=Minimal Assistance 1=Total Assistance 5=Supervision or Setup 2=Maximal Assistance 6=Modified [place] 3=Moderate Assistance 7=Complete [place] Attachments: Oxygen ADL-Treatment Pt sit to stand from chair with CGA. Gait to restroom with FWW. Transfer to [facility] over toilet with supervision for safety. Pt able to pull pants down and complete toileting hygiene, but requires assist to pull pants up in back secondary to fatigue. Transfer back to chair with FWW. Seated rest break required upon reaching chair. Therapy Code Descriptions/Definitions Functional [place] Measure: 0=Not Assessed/NA 4=Minimal Assistance 1=Total Assistance 5=Supervision or Setup 2=Maximal Assistance 6=Modified [place] 3=Moderate Assistance 7=Complete [place] Therapy Quality Codes: 6 Independent with activity with or without an assistive device 5 Patient requires set up or clean up by helper. Patient completes activity by themselves 4 Supervision or touching assist (CGA). [place] provide cues , steadying assist 3 The helper provides less than half the effort to complete the activity 2 The helper provides more than half the effort to complete the activity 1 Dependent. The helper does all the effort to complete an activity 7 Patient refused to complete or attempt activity 9 The patient did not perform the activity before the current illness or injury 88 Not attempted due to Medical conditions or safety concerns Toileting (FIM): 3 Toileting Hygiene (QC): 3 Toilet/Commode Transfer (FIM): 5 Toilet Transfer (QC): 4 Other Treatment Pt performed bilateral UE exercises to increase strength needed for ADLs and transfers. Pt completed shoulder flexion and abduction, and elbow flex/ext x10 reps with minimal resistance theraband. Rest breaks between all exercises. Graded clothespin activity with bilateral hands to increase strength and manipulation skills. Pt able to complete activity without assistance. Pt sitting in chair with needs met after session. OT Short Term Goals Short Term Goals Time Frame: Jul 02, 2018 Lower Body Dressing(FIM): 4 Toilet/Commode Transfer(FIM): 5 Additional Short Term Goals: 1-Demonstrate ADL Tasks, 2-Verbalize Understanding , 3-ImproveStrength/Derrick 1=Demonstrate adherence to instructed precautions during ADL tasks. 2=Patient will verbalize/demonstrate understanding of assistive devices/ modifications for ADL. 3=Patient will improve strength/tolerance for activity to enable patient to perform ADL's. OT Mcfp Goals Pull Through Hooker Goals Time Frame: Jul 16, 2018 Eating (FIM): 6 Eating (QC): 6 Groomin Oral Hygiene (QC): 6 Bathing(FIM): 5 Shower/Bathe Self (QC): 5 Upper Body Dressing(FIM): 6 Upper Body Dressing (QC): 6 Lower Body Dressing(FIM): 5 Lower Body Dressing (QC): 5 On/Off Footwear (QC): 5 Toileting(FIM): 6 Toileting Hygiene (QC): 6 Toilet/Commode Transfer(FIM): 6 Toilet/Commode Transfer (QC): 6 Additional Goals: 1-Demonstrate ADL Tasks, 2-Verbalize Understanding, 3- ImproveStrength/Derrick 1=Demonstrate adherence to instructed precautions during ADL tasks. 2=Patient will verbalize/demonstrate understanding of assistive devices/ modifications for ADL. 3=Patient will improve strength/tolerance for activity to enable patient to perform ADL's. OT Education/Plan Discharge Recommendations Plan/Recommendations: Continue POC Treatment Plan/Plan of Care Patient would benefit from OT for education, treatment and training to promote independence in ADL's, mobility, safety and/or upper extremity function for ADL' s. Plan of Care: ADL Retraining, Functional Mobility, Group Exercise/Act as Ind, UE Funct Exercise/Act Treatment Duration: Jul 16, 2018 Frequency: Modified Program (IRF) Estimated Hrs Per Day: 1.5 hours per day Agreement: Yes Rehab Potential: Good Time/GCodes Start Time: 13:00 Stop Time: 13:30 Total Time Billed (hr/min): 30 Billed Treatment Time 1 visit, ADL(10minutes), EX(20minutes) CALVIN LAZCANO OT Jul 02, 2018 13:43
[2018-07-02 14:26] VITALS: BP 136/65
--- NOTE | 2018-07-02 15:31 | Physical Therapy Daily Note ---
PT Daily Note-Current Subjective Pt sitting in recliner upon arrival. Pt agrees to Supine Ex in bed due to fatigue. Pain Location: No Pain Reported Mental Status Patient Orientation: Person, Place, Time, Situation Attachments: Oxygen Transfers Therapy Code Descriptions/Definitions Functional [place] Measure: 0=Not Assessed/NA 4=Minimal Assistance 1=Total Assistance 5=Supervision or Setup 2=Maximal Assistance 6=Modified [place] 3=Moderate Assistance 7=Complete [place] Therapy Quality Codes: 6 Independent with activity with or without an assistive device 5 Patient requires set up or clean up by helper. Patient completes activity by themselves 4 Supervision or touching assist (CGA). [place] provide cues , steadying assist 3 The helper provides less than half the effort to complete the activity 2 The helper provides more than half the effort to complete the activity 1 Dependent. The helper does all the effort to complete an activity 7 Patient refused to complete or attempt activity 9 The patient did not perform the activity before the current illness or injury 88 Not attempted due to Medical conditions or safety concerns Scootin Rollin Supine to/from Sit: 5 Sit to/from Stand: 5 Sit to Lying (QC): 5 Sit to Stand (QC): 5 Weight Bearing Right Lower Extremity: Right Weight Bearing/Tolerated Left Lower Extremity: Left Weight Bearing/Tolerated Gait Training Does the Patient Walk?: Yes Distance (FIM): 1=up to 49 ft Distance: 5' Gait Level of Assist: 5 Gait Persons Needed: 1 Gait Assistive Device: FWW Exercises Supine Ex: Ankle pumps, Quad Set, Glut sets, Heel Slides, Straight leg raise, Hip abd/add Supine Reps: 15 Treatments Pt transfers from recliner to standing then ambulates to bed. Pt transfers from standing to Supine in bed. Pt completes Supine Ex in bed with rest breaks as needed. Pt has all needs met at end of tx. Assessment Current Status: Good Progress Pt takes a few short rest breaks due to fatigue and SOA. PT Short Term Goals Short Term Goals Time Frame: Jul 02, 2018 Gait (FIM): 4 (met) PT Motor Coach Tour Operator Goals Motor Coach Tour Operator Goals PT Care Home Goals Time Frame: Jul 12, 2018 Transfers (B,C,W/C) (FIM): 6 Sit to Lying (QC): 6 Lying-Sitting on Side/Bed(QC): 6 Sit to Stand (QC): 6 Rollin Roll Left to Right (QC): 6 Chair/Mrw-xj-Fimvd Xfer(QC): 6 Car Transfer (QC): 6 Does the Patient Walk: Yes Gait (FIM): 6 Gait distance (FIM): 3=150 ft Walk 10 feet (QC): 6 Walk 10ft-Uneven Surface(QC): 6 Walk 50ft with 2 Turns (QC): 6 Walk 150 ft (QC): 6 Gait Level of Assist: 6 Gait Assistive Device: FWW (or 4WW) Does the Pt use WC or Scooter?: No Stairs (FIM): 5 (household) # of Steps: 4 1 Step (curb) (QC): 6 4 Steps (QC): 6 12 Steps (QC): 88 Picking up an Object (QC): 4 PT Plan Problem List Problem List: Activity Tolerance, Functional Strength Treatment/Plan Treatment Plan: Continue Plan of Care Treatment Plan: Bed Mobility, Education, Functional Activity Derrick, Functional Strength, Group Therapy, Gait, Safety, Therapeutic Exercise, Transfers Treatment Duration: Jul 12, 2018 Frequency: Modified Program (IRF) Estimated Hrs Per Day: 1.5 hours per day (as able ) Patient and/or Family Agrees t: Yes Safety Risks/Education Patient Education: Transfer Techniques, Correct Positioning Teaching Recipient: Patient Teaching Methods: Discussion Response to Teaching: Verbalize Understanding Time/GCodes Time In: 1330 Time Out: 1400 Total Billed Treatment Time: 30 Total Billed Treatment 1, EX x2 (30m) G Codes Necessary: No THONG ALONSO GUNITE NOZZLE OPERATOR Jul 02, 2018 15:31
[2018-07-02 17:32] VITALS: BP 130/74
[2018-07-03] MEDS: RT-ALBUTEROL/IPRATROPIUM 3 ML (DUONEB) VIAL INH SCH ×4 (02:44→20:32)
[2018-07-03 05:03] VITALS: BP 138/73
[2018-07-03] MEDS: PANTOPRAZOLE 40 MG (PROTONIX) TAB PO SCH (05:26)
[2018-07-03] MEDS: ENOXAPARIN 40 MG/0.4 ML (LOVENOX) SYR SC SCH (05:26)
[2018-07-03] MEDS: LACTOBACILLUS ACIDOPHILUS (PROBIOTIC) CAPSULE NG SCH ×3 (05:27→16:40)
[2018-07-03] MEDS: inSUlin ASPART (NovoLOG) 1 UNIT/0.01 ML (CHARGE PER UNIT) SC SCH ×4 (05:27→20:50)
[2018-07-03] MEDS: UMECLIDINIUM BROMIDE (INCRUSE ELLIPTA) 7'S IH SCH (07:04)
[2018-07-03 07:50] VITALS: BP 120/70
--- NOTE | 2018-07-03 08:00 | NUR ---
SANAZ HERE TO SEE PATIENT. DISCUSSED TACHYCARDIA AND LOPRESSOR DOSE INCREASE. PATIENT ADMITS TO FEELING STRONGER, BUT HAS POOR DURATION AND SOB.
[2018-07-03] MEDS: SINEMET 25/100 (CARBIDOPA/LEVODOPA) TAB PO SCH ×3 (08:17→20:46)
[2018-07-03] MEDS: AMANTADINE 100 MG (SYMMETREL) CAP PO SCH (08:17)
[2018-07-03] MEDS: OXYBUTYNIN (DITROPAN) 5 MG TAB PO SCH ×2 (08:17→20:46)
[2018-07-03] MEDS: MICONAZOLE 2% POWDER (DESENEX AF) 90 GM TOP SCH ×2 (08:18→20:51)
--- NOTE | 2018-07-03 08:26 | Cardiology Progress Note ---
Subjective Date Seen by Provider: Jul 03, 2018 Time Seen by Provider: 08:10 Subjective/Events-last exam Patient is sitting up in chair, eating breakfast. Complaining of palpitations this morning. Noted to be slightly tachycardic. Denies any chest pain or dyspnea. Objective-Cardiology Exam Last Set of Vital Signs Vital Signs 07/02/18 07/03/18 07/03/18 14:26 05:03 07:04 Temp 97.4 Pulse 95 Resp 20 B/P (MAP) 138/73 (94) Pulse Ox 94 O2 Delivery Nasal Cannula O2 Flow Rate 3.00 FiO2 32 Capillary Refill : I&O Intake and Output 07/03/18 00:00 Intake Total 1000 ml Balance 1000 ml Intake Oral 1000 ml # Voids 5 General: Alert, Oriented X3, Cooperative, No Acute Distress HEENT: Atraumatic, PERRLA Neck: Supple, No JVD, No Thyromegaly, +2 Carotid Pulse No Bruit, No LAD Lungs: Other (diminished BS noted) Heart: Normal S1, Normal S2, Other (tachycardic) Abdomen: Normal Bowel Sounds, Soft, No Tenderness, No Hepatosplenomegaly, No Masses Extremities: No Clubbing, No Cyanosis, No Edema, Normal Pulses, No Tenderness/ Swelling Skin: No Rashes, No Breakdown, No Significant Lesion Neuro: Normal Gait (although slowed and uses walker and assistance), Normal Speech, Strength at 5/5 X4 Ext, Normal Tone, Sensation Intact, Cranial Nerves 3- 12 NL, Reflexes 2+, Other (generalized weakness) Psych/Mental Status: Mental Status NL, Mood NL A/P-Cardiology Admission Diagnosis Sinus tachycardia Hypoxemia COPD Anemia Assessment/Plan Sinus tachycardia, multifactorial, probably secondary to anemia, COPD and hypoxemia, maintained on low-dose beta blockers, slightly tachycardic again this morning. I will increase Lopressor to 25mg BID, continue to monitor. Anemia, status post transfusion, stool is negative for OB, managed by primary care physician COPD, status post acute exacerbation, improving, using oxygen with exertion at this time. Managed by Dr. Casey Myopathy, generalized weakness, receiving physical therapy Pneumonia, recovered, was hospitalized for respiratory failure last week. Parkinson disease. Managed by primary care team Clinical Quality Measures DVT/VTE Risk/Contraindication: Risk Factor Score Per Nursin RFS Level Per Nursing on Admit: 4+=Very High JERRELL CHINO Jul 03, 2018 08:26
[2018-07-03] MEDS: meTOprolol TARTRATE 25 MG (LOPRESSOR) TABLET PO SCH ×2 (08:39→20:46)
--- NOTE | 2018-07-03 09:09 | PM&R Progress Note ---
Subjective HPI/CC On Admission Date Seen by Provider: Jul 03, 2018 Time Seen by Provider: 08:30 CC: COPD myopathy HPI: This is a 77-year-old white female who was admitted to inpatient rehabilitation for COPD myopathy. She's had an extensive complex acute medical issue with respiratory failure while admitted to [facility]. This is a patient that was admitted from the emergency room for exacerbation of COPD after worsening respiratory status while they were on vacation in [place] for 6 weeks. She is chronically on oxygen 4 L by nasal cannula. She worsened to the point of severe decompensation presenting to the ER found to have pneumonia and acute exacerbation of COPD with acute on chronic respiratory failure. She required intubation for respiratory failure and with the help of expert consultation from Dr. Casey she was able to be extubated and back on oxygen supplementation with Vapotherm and wean down to nasal cannula high flow. Patient did complete antibiotics for pneumonia. She is back to her baseline respiratory function but required severe myopathy resolution prior to returning back to home so inpatient rehab accepted this patient to recover prior to discharge home. Subjective/Events-last exam Decubitus ulcer improving Butt paste is working well inquired how she was doing Very difficult situation considering the end-stage process of her COPD Short of breath limits recovery Denies any pain No bloody stools Maintained on oxygen and patient may very well have a lot of denial about her prognosis so will try to reassure and support Review of Systems General: Fatigue Pulmonary: Dyspnea, Cough Objective Exam Vital Signs Vital Signs Date Time Temp Pulse Resp B/P (MAP) Pulse Ox O2 Delivery O2 Flow Rate FiO2 07/03/18 07:04 94 Nasal Cannula 3.00 07/03/18 05:03 97.4 95 20 138/73 (94) 07/02/18 14:26 32 Capillary Refill : General Appearance: No Apparent Distress, WD/WN, Chronically ill, Other ( appears very debilitated and unsure if progress is being made, may need NH and may very well be a hospice candidate) Respiratory: Chest Non Tender, Lungs Clear, Normal Breath Sounds, No Accessory Muscle Use, No Respiratory Distress, Decreased Breath Sounds Cardiovascular: Regular Rate, Rhythm, No Edema, No Gallop, No JVD, No Murmur, Normal Peripheral Pulses Results/Procedures Lab Patient resulted labs reviewed. Assessment/Plan Assessment and Plan Assess & Plan/Chief Complaint Assessment: COPD myopathy Respiratory failure acute on chronic Severe COPD end stage may be a hospice candidate PD Anemia severe s/p 1 unit of blood transfusion Sunday Tachycardia consulting Cardiology for close monitoring Dark stools but hemoccult negative so will cancel EGD and colonoscopy which were scheduled but then cancelled due to severe weakness since high risk for respiratory failure Stage 2 decubitus ulcer sacrum Plan: IRF Slow recovery expected so will divide up time over 7 days instead of 5 days Continue Nebs and O2 Appreciate Dr Casey consultation Consult Dr Liset Roberts for Colonoscopy but notified him a cancellation due to severe weakness Wound care for sacral decubitus ulcer Monitor labs periodically to avoid phlebotomization Appears very debilitated and unsure if progress is being made, may need NH and may very well be a hospice candidate Diagnosis/Problems Diagnosis/Problems (1) Myopathy Status: Acute (2) Tachycardia Status: Acute (3) COPD exacerbation Status: Resolved Resolution Date/Time: 06/26/18 @ 20:21 (4) Essential (primary) hypertension Status: Chronic (5) Pneumonia Status: Resolved Qualifiers: Pneumonia type: due to unspecified organism Laterality: unspecified laterality Lung location: unspecified part of lung Qualified Codes: J18.9 - Pneumonia, unspecified organism Resolution Date/Time: 06/25/18 @ 13:47 (6) Parkinson disease Status: Chronic (7) Macrocytic anemia Status: Chronic (8) Transfusion of blood during current hospitalization Status: Acute (9) Melena Status: Resolved Resolution Date/Time: 06/30/18 @ 14:00 (10) Sacral decubitus ulcer, stage II Status: Acute (11) BLANTON (dyspnea on exertion) Status: Chronic Clinical Quality Measures DVT/VTE Risk/Contraindication: Risk Factor Score Per Nursin RFS Level Per Nursing on Admit: 4+=Very High SEAMUS CHRISTINE DO Jul 03, 2018 09:09
[2018-07-03] MEDS: NYSTATIN CREAM (MYCOSTATIN) 30 GM TUBE TP SCH ×2 (10:25→20:47)
[2018-07-03] MEDS: ZINC OXIDE 16% OINT (BUTT PASTE) 113 GM TUBE TOP PRN (10:25)
[2018-07-03] MEDS: MICONAZOLE NITRATE 2% CRM 30 GM TP SCH ×2 (10:25→20:47)
--- NOTE | 2018-07-03 10:53 | Physical Therapy Daily Note ---
PT Daily Note-Current Subjective Pt sitting in recliner upon arrival. Pt agrees to PT. Pain Numeric Pain Scale: 3 Location Body Site: Sacrum Pain Description: Ache Comment: Nurse is aware of sacral wound and reports it is improving. Mental Status Patient Orientation: Person, Place, Time, Situation Attachments: Oxygen (4L during tx due to fatigue) Transfers Therapy Code Descriptions/Definitions Functional [place] Measure: 0=Not Assessed/NA 4=Minimal Assistance 1=Total Assistance 5=Supervision or Setup 2=Maximal Assistance 6=Modified [place] 3=Moderate Assistance 7=Complete [place] Therapy Quality Codes: 6 Independent with activity with or without an assistive device 5 Patient requires set up or clean up by helper. Patient completes activity by themselves 4 Supervision or touching assist (CGA). [place] provide cues , steadying assist 3 The helper provides less than half the effort to complete the activity 2 The helper provides more than half the effort to complete the activity 1 Dependent. The helper does all the effort to complete an activity 7 Patient refused to complete or attempt activity 9 The patient did not perform the activity before the current illness or injury 88 Not attempted due to Medical conditions or safety concerns Scootin Rollin Supine to/from Sit: 5 Sit to/from Stand: 5 Sit to Lying (QC): 5 Sit to Stand (QC): 5 Weight Bearing Right Lower Extremity: Right Weight Bearing/Tolerated Left Lower Extremity: Left Weight Bearing/Tolerated Gait Training Does the Patient Walk?: Yes Distance (FIM): 3=150 ft Distance: 150' Walk 10 feet (QC): 5 Walk 50 ft with 2 Turns(QC): 5 Walk 150 ft (QC): 5 Gait Level of Assist: 5 Gait Persons Needed: 1 Gait Assistive Device: FWW Pt fatigues easily and needs frequent rest breaks due to SOA. Wheelchair Training Does the Pt Use a Wheelchair?: No Exercises Seated Therapy Exercises: Ankle pumps, Long arc quads, Hip flexion, Kicking activity, Hip abd/add Seated Reps: 15 NuStep Minutes: 9 NuStep Workload: 3 Treatments Pt transfers and ambulates using FWW at SBA. Pt uses NuStep for 9m at WL 3 then takes rest break. Pt completes Standing Ex at //bars. Pt ambulates back to room to rest at Supine in bed with all needs met. Assessment Current Status: Good Progress Pt needs frequent & extended rest breaks due to fatigue & SOA which limits participation on tx. PT Short Term Goals Short Term Goals Time Frame: Jul 02, 2018 Gait (FIM): 4 (met) PT Manager Health Goals Manager Health Goals PT Manager Health Goals Time Frame: Jul 12, 2018 Transfers (B,C,W/C) (FIM): 6 Sit to Lying (QC): 6 Lying-Sitting on Side/Bed(QC): 6 Sit to Stand (QC): 6 Rollin Roll Left to Right (QC): 6 Chair/Ust-vd-Potst Xfer(QC): 6 Car Transfer (QC): 6 Does the Patient Walk: Yes Gait (FIM): 6 Gait distance (FIM): 3=150 ft Walk 10 feet (QC): 6 Walk 10ft-Uneven Surface(QC): 6 Walk 50ft with 2 Turns (QC): 6 Walk 150 ft (QC): 6 Gait Level of Assist: 6 Gait Assistive Device: FWW (or 4WW) Does the Pt use WC or Scooter?: No Stairs (FIM): 5 (household) # of Steps: 4 1 Step (curb) (QC): 6 4 Steps (QC): 6 12 Steps (QC): 88 Picking up an Object (QC): 4 PT Plan Problem List Problem List: Activity Tolerance, Functional Strength, Safety, Gait Treatment/Plan Treatment Plan: Continue Plan of Care Treatment Plan: Bed Mobility, Education, Functional Activity Derrick, Functional Strength, Group Therapy, Gait, Safety, Therapeutic Exercise, Transfers Treatment Duration: Jul 12, 2018 Frequency: Modified Program (IRF) Estimated Hrs Per Day: 1.5 hours per day (as able ) Patient and/or Family Agrees t: Yes Safety Risks/Education Patient Education: Gait Training, Transfer Techniques, Correct Positioning, Safety Issues Teaching Recipient: Patient Teaching Methods: Discussion Response to Teaching: Verbalize Understanding Time/GCodes Time In: 815 Time Out: 915 Total Billed Treatment Time: 60 Total Billed Treatment 1, GT (15m), EX x2 (30m) & FA (15m) G Codes Necessary: THONG Eli PRODUCT ADVISOR Jul 03, 2018 10:52
--- NOTE | 2018-07-03 10:57 | Occupational Ther Daily Note ---
OT Current Status-Daily Note Subjective Pt was in bed ,& her was sitting beside her bed. pt stated , I am fine , little tired." Pain Numeric Pain Scale: 0-No Pain Mental Status/Objective Patient Orientation: Person, Place, Time Therapy Code Descriptions/Definitions Functional [place] Measure: 0=Not Assessed/NA 4=Minimal Assistance 1=Total Assistance 5=Supervision or Setup 2=Maximal Assistance 6=Modified [place] 3=Moderate Assistance 7=Complete [place] Attachments: Oxygen ADL-Treatment Pt participated in shower , grooming, dressing, func transfer , toiletting & strengtheng ex to BUE Pt need min A- CGA in shower & min A in LB dressing & undressing garments, SBA in func transfers. O2 dependent. fatigue soon.. Pt shampoo & rinse UB & LB front & back , buttocks, perineals abdomen & chest. with SBA. 20 reps x 2 sets x 2 lb wts with BUE & 20 reps with red theraband with BUE in all planes of motion. Therapy Code Descriptions/Definitions Functional [place] Measure: 0=Not Assessed/NA 4=Minimal Assistance 1=Total Assistance 5=Supervision or Setup 2=Maximal Assistance 6=Modified [place] 3=Moderate Assistance 7=Complete [place] Therapy Quality Codes: 6 Independent with activity with or without an assistive device 5 Patient requires set up or clean up by helper. Patient completes activity by themselves 4 Supervision or touching assist (CGA). [place] provide cues , steadying assist 3 The helper provides less than half the effort to complete the activity 2 The helper provides more than half the effort to complete the activity 1 Dependent. The helper does all the effort to complete an activity 7 Patient refused to complete or attempt activity 9 The patient did not perform the activity before the current illness or injury 88 Not attempted due to Medical conditions or safety concerns Eating (FIM): 7 Eating (QC): 6 Grooming (FIM): 5 Oral Hygiene (QC): 5 Bathing (FIM): 5 Bathing Location: L Arm, R Arm, L Upper Leg, R Upper Leg, L Lower Leg ( including foot), R Lower Leg (including foot), Chest, Abdomen, Buttocks, Perineal Area Shower/Bathe Self (QC): 5 Upper Body (FIM): 6 Upper Body Dressing (QC): 6 Lower Body Dressing (FIM): 4 Lower Body Dressing (QC): 4 On/Off Footwear (QC): 4 Toileting (FIM): 5 Toileting Hygiene (QC): 5 Transfers (B, C, W/C) (FIM): 6 Toilet/Commode Transfer (FIM): 6 Toilet Transfer (QC): 5 Tub Transfer(FIM): 0 Shower Transfer(FIM): 6 Education OT Patient Education: Correct positioning, Instructions to caregiver, Safety issues Teaching Recipient: Patient Teaching Methods: Demonstration, Discussion Response to Teaching: Verbalize Understanding, Return Demonstration OT Short Term Goals Short Term Goals Time Frame: Jul 02, 2018 Lower Body Dressing(FIM): 4 Toilet/Commode Transfer(FIM): 5 Additional Short Term Goals: 1-Demonstrate ADL Tasks, 2-Verbalize Understanding , 3-ImproveStrength/Derrick 1=Demonstrate adherence to instructed precautions during ADL tasks. 2=Patient will verbalize/demonstrate understanding of assistive devices/ modifications for ADL. 3=Patient will improve strength/tolerance for activity to enable patient to perform ADL's. OT Nursing Home Goals Nursing Home Goals Time Frame: Jul 16, 2018 Eating (FIM): 6 Eating (QC): 6 Groomin Oral Hygiene (QC): 6 Bathing(FIM): 5 Shower/Bathe Self (QC): 5 Upper Body Dressing(FIM): 6 Upper Body Dressing (QC): 6 Lower Body Dressing(FIM): 5 Lower Body Dressing (QC): 5 On/Off Footwear (QC): 5 Toileting(FIM): 6 Toileting Hygiene (QC): 6 Toilet/Commode Transfer(FIM): 6 Toilet/Commode Transfer (QC): 6 Additional Goals: 1-Demonstrate ADL Tasks, 2-Verbalize Understanding, 3- ImproveStrength/Derrick 1=Demonstrate adherence to instructed precautions during ADL tasks. 2=Patient will verbalize/demonstrate understanding of assistive devices/ modifications for ADL. 3=Patient will improve strength/tolerance for activity to enable patient to perform ADL's. OT Education/Plan Problem List/Assessment Assessment: Decreased Activ Tolerance, Decreased Safety Aware, Decreased UE Strength, Impaired Bed Mobility, Impaired Funct Balance, Impaired Self-Care Skills Discharge Recommendations Plan/Recommendations: Continue POC Therapy D/C Recommendations: Home w/ Family Support, Occupational Therapy Home Care Equpiment Recommendations-D/C: Bath Chair, Extended Shower Sprayer, Supervisor Long Goods Barriers to Progress O2 dependent, fatigue soon, requires frequent rest periods. Patient/Family Goals To return home Independently with . Treatment Plan/Plan of Care Treatment,Training & Education: Yes Patient would benefit from OT for education, treatment and training to promote independence in ADL's, mobility, safety and/or upper extremity function for ADL' s. Plan of Care: ADL Retraining, Functional Mobility, Group Exercise/Act as Ind, UE Funct Exercise/Act Treatment Duration: Jul 16, 2018 Frequency: Modified Program (IRF) Estimated Hrs Per Day: 1.5 hours per day Agreement: Yes Rehab Potential: Good Time/GCodes Start Time: 09:30 Stop Time: 11:00 Total Time Billed (hr/min): 90 Billed Treatment Time 1, ADL 75 min , Ex 15 min Total 90 minutes SHERIE RICHARDSON OT Jul 03, 2018 10:57
--- NOTE | 2018-07-03 13:30 | NUR ---
PT EATING WELL, 80% MEALS AND WEIGHT STABLE. INTAKE MEETING NEEDS AT THIS TIME. CONT SAME.
--- NOTE | 2018-07-03 14:04 | Physical Therapy Daily Note ---
PT Daily Note-Current Subjective Pt laying Supine in bed upon arrival. Pt agrees to PT. Pain Location: No Pain Reported Mental Status Patient Orientation: Person, Place, Time, Situation Attachments: Oxygen (3L) Transfers Therapy Code Descriptions/Definitions Functional [place] Measure: 0=Not Assessed/NA 4=Minimal Assistance 1=Total Assistance 5=Supervision or Setup 2=Maximal Assistance 6=Modified [place] 3=Moderate Assistance 7=Complete [place] Therapy Quality Codes: 6 Independent with activity with or without an assistive device 5 Patient requires set up or clean up by helper. Patient completes activity by themselves 4 Supervision or touching assist (CGA). [place] provide cues , steadying assist 3 The helper provides less than half the effort to complete the activity 2 The helper provides more than half the effort to complete the activity 1 Dependent. The helper does all the effort to complete an activity 7 Patient refused to complete or attempt activity 9 The patient did not perform the activity before the current illness or injury 88 Not attempted due to Medical conditions or safety concerns Scootin Rollin Supine to/from Sit: 5 Sit to/from Stand: 5 Sit to Lying (QC): 5 Sit to Stand (QC): 5 Weight Bearing Right Lower Extremity: Right Weight Bearing/Tolerated Left Lower Extremity: Left Weight Bearing/Tolerated Gait Training Does the Patient Walk?: Yes Distance (FIM): 3=144-64 ft Distance: 100' Walk 10 feet (QC): 5 Walk 50 ft with 2 Turns(QC): 5 Gait Level of Assist: 5 Gait Persons Needed: 1 Gait Assistive Device: FWW Wheelchair Training Does the Pt Use a Wheelchair?: No Exercises Seated Therapy Exercises: Ankle pumps, Long arc quads, Hip flexion, Kicking activity, Hip abd/add Seated Reps: 15 Treatments Pt transfers from bed to standing using FWW at SBA. Pt ambulates in hallway using FWW at [facility]. Pt completes Seated Ex in chair with rest break as needed. Pt returns to room to use restroom at end of tx. Pt has all needs met. Assessment Current Status: Good Progress Pt needs rest break for fatigue and SOA. PT Short Term Goals Short Term Goals Time Frame: Jul 02, 2018 Gait (FIM): 4 (met) PT Photoflash Powder Mixer Goals Photoflash Powder Mixer Goals PT Photoflash Powder Mixer Goals Time Frame: Jul 12, 2018 Transfers (B,C,W/C) (FIM): 6 Sit to Lying (QC): 6 Lying-Sitting on Side/Bed(QC): 6 Sit to Stand (QC): 6 Rollin Roll Left to Right (QC): 6 Chair/[id number] Xfer(QC): 6 Car Transfer (QC): 6 Does the Patient Walk: Yes Gait (FIM): 6 Gait distance (FIM): 3=150 ft Walk 10 feet (QC): 6 Walk 10ft-Uneven Surface(QC): 6 Walk 50ft with 2 Turns (QC): 6 Walk 150 ft (QC): 6 Gait Level of Assist: 6 Gait Assistive Device: FWW (or 4WW) Does the Pt use WC or Scooter?: No Stairs (FIM): 5 (household) # of Steps: 4 1 Step (curb) (QC): 6 4 Steps (QC): 6 12 Steps (QC): 88 Picking up an Object (QC): 4 PT Plan Problem List Problem List: Activity Tolerance, Functional Strength, Safety, Gait Treatment/Plan Treatment Plan: Continue Plan of Care Treatment Plan: Bed Mobility, Education, Functional Activity Derrick, Functional Strength, Group Therapy, Gait, Safety, Therapeutic Exercise, Transfers Treatment Duration: Jul 12, 2018 Frequency: Modified Program (IRF) Estimated Hrs Per Day: 1.5 hours per day (as able ) Patient and/or Family Agrees t: Yes Safety Risks/Education Patient Education: Gait Training, Transfer Techniques, Correct Positioning, Safety Issues Teaching Recipient: Patient Teaching Methods: Discussion Response to Teaching: Verbalize Understanding Time/GCodes Time In: 1300 Time Out: 1330 Total Billed Treatment Time: 30 Total Billed Treatment 1, FA (15m) & EX (15m) G Codes Necessary: THONG Eli CARDIOVASCULAR OPERATING ROOM NURSE Jul 03, 2018 14:03
--- NOTE | 2018-07-03 14:11 | Cardiology Progress Note ---
Subjective Date Seen by Provider: Jul 03, 2018 Time Seen by Provider: 14:10 Subjective/Events-last exam patient is receiving physical therapy, doing well. No new complaint Review of Systems General: No Chills, No Night Sweats, No Fatigue, No Malaise, No Appetite, No Other HEENT: No Head Aches, No Visual Changes, No Eye Pain, No Ear Pain, No Dysphasia , No Sinus Congestion, No Post Nasal Drip, No Sore Throat, No Other Pulmonary: Dyspnea; No Cough, No Pleuritic Chest Pain, No Other Cardiovascular: No: Chest Pain, Palpitations, Orthopnea, Paroxysmal Noc. Dyspnea, Edema, Lt Headedness, Other Objective-Cardiology Exam Last Set of Vital Signs Vital Signs 07/02/18 07/03/18 07/03/18 07/03/18 07/03/18 14:26 05:03 07:04 07:50 09:00 Temp 97.4 Pulse 101 Resp 20 B/P (MAP) 120/70 (87) Pulse Ox 94 O2 Delivery Nasal Cannula O2 Flow Rate 3.00 FiO2 32 Capillary Refill : I&O Intake and Output 07/03/18 00:00 Intake Total 1000 ml Balance 1000 ml Intake Oral 1000 ml # Voids 5 General: Alert, Oriented X3, Cooperative, No Acute Distress HEENT: Atraumatic, PERRLA Neck: Supple, No JVD, No Thyromegaly, +2 Carotid Pulse No Bruit, No LAD Lungs: Other (diminished BS noted) Heart: Regular Rate, Normal S1, Normal S2 Abdomen: Normal Bowel Sounds, Soft, No Tenderness, No Hepatosplenomegaly, No Masses Extremities: No Clubbing, No Cyanosis, No Edema, Normal Pulses, No Tenderness/ Swelling Skin: No Rashes, No Breakdown, No Significant Lesion Neuro: Normal Gait (although slowed and uses walker and assistance), Normal Speech, Strength at 5/5 X4 Ext, Normal Tone, Sensation Intact, Cranial Nerves 3- 12 NL, Reflexes 2+, Other (generalized weakness) Psych/Mental Status: Mental Status NL, Mood NL Results Lab Laboratory Tests Test 07/02/18 17:13 07/02/18 20:46 07/03/18 05:26 07/03/18 11:00 Range/Units Glucometer 99 107 86 109 70-110 MG/DL A/P-Cardiology Admission Diagnosis Sinus tachycardia Hypoxemia COPD Anemia Assessment/Plan Sinus tachycardia, multifactorial, probably secondary to anemia, COPD and hypoxemia, maintained on low-dose beta blockers, slightly tachycardic again this morning. I will increase Lopressor to 25mg BID, continue to monitor. Anemia, status post transfusion, stool is negative for OB, managed by primary care physician COPD, status post acute exacerbation, improving, using oxygen with exertion at this time. Managed by Dr. Casey Myopathy, generalized weakness, receiving physical therapy Pneumonia, recovered, was hospitalized for respiratory failure last week. Parkinson disease. Managed by primary care team Clinical Quality Measures DVT/VTE Risk/Contraindication: Risk Factor Score Per Nursin RFS Level Per Nursing on Admit: 4+=Very High LINDA SEQUEIRA MD Jul 03, 2018 14:11
--- NOTE | 2018-07-03 16:31 | NUR ---
Weekly team conference Discussed weekly team conference with patient and her spouse. Both are agreeable for dc on 07/08/18. [facility] RN, PT and OT recommended, choice form signed.
[2018-07-03 17:25] VITALS: BP 145/76
[2018-07-04] MEDS: RT-ALBUTEROL/IPRATROPIUM 3 ML (DUONEB) VIAL INH SCH ×4 (03:26→23:02)
[2018-07-04 05:00] VITALS: BP 108/65
[2018-07-04] MEDS: inSUlin ASPART (NovoLOG) 1 UNIT/0.01 ML (CHARGE PER UNIT) SC SCH ×4 (05:03→21:09)
[2018-07-04] MEDS: PANTOPRAZOLE 40 MG (PROTONIX) TAB PO SCH (05:56)
[2018-07-04] MEDS: LACTOBACILLUS ACIDOPHILUS (PROBIOTIC) CAPSULE NG SCH ×3 (05:56→17:40)
[2018-07-04] MEDS: ENOXAPARIN 40 MG/0.4 ML (LOVENOX) SYR SC SCH (05:56)
--- NOTE | 2018-07-04 08:16 | Cardiology Progress Note ---
Subjective Date Seen by Provider: Jul 04, 2018 Time Seen by Provider: 08:15 Subjective/Events-last exam Patient doing well, no new complaints. Denies any chest pain or dyspnea. Objective-Cardiology Exam Last Set of Vital Signs Vital Signs 07/02/18 07/04/18 14:26 05:00 Temp 97.4 Pulse 88 Resp 20 B/P (MAP) 108/65 (79) Pulse Ox 94 O2 Delivery Nasal Cannula O2 Flow Rate 4.00 FiO2 32 Capillary Refill : I&O Intake and Output 07/04/18 00:00 Intake Total 1100 ml Balance 1100 ml Intake Oral 1100 ml # Voids 8 # Bowel Movements 5 General: Alert, Oriented X3, Cooperative, No Acute Distress HEENT: Atraumatic, PERRLA Neck: Supple, No JVD, No Thyromegaly, +2 Carotid Pulse No Bruit, No LAD Lungs: Other (diminished BS noted) Heart: Regular Rate, Normal S1, Normal S2 Abdomen: Normal Bowel Sounds, Soft, No Tenderness, No Hepatosplenomegaly, No Masses Extremities: No Clubbing, No Cyanosis, No Edema, Normal Pulses, No Tenderness/ Swelling Skin: No Rashes, No Breakdown, No Significant Lesion Neuro: Normal Gait (although slowed and uses walker and assistance), Normal Speech, Strength at 5/5 X4 Ext, Normal Tone, Sensation Intact, Cranial Nerves 3- 12 NL, Reflexes 2+, Other (generalized weakness) Psych/Mental Status: Mental Status NL, Mood NL A/P-Cardiology Admission Diagnosis Sinus tachycardia Hypoxemia COPD Anemia Assessment/Plan Sinus tachycardia, multifactorial, probably secondary to anemia, COPD and hypoxemia, maintained on beta blockers, continue to monitor. Borderline hypotensive- continue to monitor BP. Anemia, status post transfusion, stool is negative for OB, managed by primary care physician COPD, status post acute exacerbation, improving, using oxygen with exertion at this time. Managed by Dr. Casey Myopathy, generalized weakness, receiving physical therapy Pneumonia, recovered, was hospitalized for respiratory failure last week. Parkinson disease. Managed by primary care team Clinical Quality Measures DVT/VTE Risk/Contraindication: Risk Factor Score Per Nursin RFS Level Per Nursing on Admit: 4+=Very High JERRELL CHINO Jul 04, 2018 08:16
--- NOTE | 2018-07-04 08:22 | Cardiology Progress Note ---
Subjective Date Seen by Provider: Jul 04, 2018 Time Seen by Provider: 08:20 Subjective/Events-last exam Patient is in bed, feeling better, no new complaint Review of Systems General: No Chills, No Night Sweats, No Fatigue, No Malaise, No Appetite, No Other HEENT: No Head Aches, No Visual Changes, No Eye Pain, No Ear Pain, No Dysphasia , No Sinus Congestion, No Post Nasal Drip, No Sore Throat, No Other Pulmonary: No Dyspnea, No Cough, No Pleuritic Chest Pain, No Other Cardiovascular: No: Chest Pain, Palpitations, Orthopnea, Paroxysmal Noc. Dyspnea, Edema, Lt Headedness, Other Objective-Cardiology Exam Last Set of Vital Signs Vital Signs 07/02/18 07/04/18 14:26 05:00 Temp 97.4 Pulse 88 Resp 20 B/P (MAP) 108/65 (79) Pulse Ox 94 O2 Delivery Nasal Cannula O2 Flow Rate 4.00 FiO2 32 Capillary Refill : I&O Intake and Output 07/04/18 00:00 Intake Total 1100 ml Balance 1100 ml Intake Oral 1100 ml # Voids 8 # Bowel Movements 5 General: Alert, Oriented X3, Cooperative, No Acute Distress HEENT: Atraumatic, PERRLA Neck: Supple, No JVD, No Thyromegaly, +2 Carotid Pulse No Bruit, No LAD Lungs: Other (diminished BS noted) Heart: Regular Rate, Normal S1, Normal S2 Abdomen: Normal Bowel Sounds, Soft, No Tenderness, No Hepatosplenomegaly, No Masses Extremities: No Clubbing, No Cyanosis, No Edema, Normal Pulses, No Tenderness/ Swelling Skin: No Rashes, No Breakdown, No Significant Lesion Neuro: Normal Gait (although slowed and uses walker and assistance), Normal Speech, Strength at 5/5 X4 Ext, Normal Tone, Sensation Intact, Cranial Nerves 3- 12 NL, Reflexes 2+, Other (generalized weakness) Psych/Mental Status: Mental Status NL, Mood NL Results Lab Laboratory Tests Test 07/03/18 11:00 07/03/18 16:07 07/03/18 20:46 07/04/18 05:03 Range/Units Glucometer 109 109 114 H 86 70-110 MG/DL A/P-Cardiology Admission Diagnosis Sinus tachycardia Hypoxemia COPD Anemia Assessment/Plan Sinus tachycardia, multifactorial, probably secondary to anemia, COPD and hypoxemia, maintained on beta blockers, better now, continue to monitor. Borderline hypotensive- continue to monitor BP. Anemia, status post transfusion, stool is negative for OB, managed by primary care physician COPD, status post acute exacerbation, improving, using oxygen with exertion at this time. Managed by Dr. Casey Myopathy, generalized weakness, receiving physical therapy Pneumonia, recovered, was hospitalized for respiratory failure last week. Parkinson disease. Managed by primary care team Clinical Quality Measures DVT/VTE Risk/Contraindication: Risk Factor Score Per Nursin RFS Level Per Nursing on Admit: 4+=Very High LINDA SEQUEIRA MD Jul 04, 2018 08:21
--- NOTE | 2018-07-04 08:36 | PM&R Progress Note ---
Subjective HPI/CC On Admission Date Seen by Provider: Jul 04, 2018 Time Seen by Provider: 08:45 CC: COPD myopathy HPI: This is a 77-year-old white female who was admitted to inpatient rehabilitation for COPD myopathy. She's had an extensive complex acute medical issue with respiratory failure while admitted to [facility]. This is a patient that was admitted from the emergency room for exacerbation of COPD after worsening respiratory status while they were on vacation in [place] for 6 weeks. She is chronically on oxygen 4 L by nasal cannula. She worsened to the point of severe decompensation presenting to the ER found to have pneumonia and acute exacerbation of COPD with acute on chronic respiratory failure. She required intubation for respiratory failure and with the help of expert consultation from Dr. Casey she was able to be extubated and back on oxygen supplementation with Vapotherm and wean down to nasal cannula high flow. Patient did complete antibiotics for pneumonia. She is back to her baseline respiratory function but required severe myopathy resolution prior to returning back to home so inpatient rehab accepted this patient to recover prior to discharge home. Subjective/Events-last exam Patient doing about the same Shortness of breath precludes rapid recovery Patient appears to be very chronically ill and debilitated Patient appears to meet criteria for hospice Checked meds and labs Objective Exam Vital Signs Vital Signs Date Time Temp Pulse Resp B/P (MAP) Pulse Ox O2 Delivery O2 Flow Rate FiO2 07/04/18 08:39 101 95/61 (72) 07/04/18 05:00 97.4 20 94 Nasal Cannula 4.00 07/02/18 14:26 32 Capillary Refill : General Appearance: No Apparent Distress, WD/WN, Chronically ill, Other ( appears very debilitated and unsure if progress is being made, may need NH and may very well be a hospice candidate) HEENT: PERRL/EOMI, Normal ENT Inspection, Pharynx Normal Neck: Full Range of Motion, Normal Inspection, Non Tender, Supple, Carotid Bruit Respiratory: Chest Non Tender, Lungs Clear, Normal Breath Sounds, No Accessory Muscle Use, No Respiratory Distress, Decreased Breath Sounds Cardiovascular: Regular Rate, Rhythm, No Edema, No Gallop, No JVD, No Murmur, Normal Peripheral Pulses Gastrointestinal: Normal Bowel Sounds, No Organomegaly, No Pulsatile Mass, Non Tender, Soft Back: Normal Inspection, No CVA Tenderness, No Vertebral Tenderness Extremity: Normal Capillary Refill, Normal Inspection, Normal Range of Motion, Non Tender, No Calf Tenderness, No Pedal Edema Neurologic/Psychiatric: Alert, Oriented x3, No Motor/Sensory Deficits, Normal Mood/Affect Skin: Normal Color, Warm/Dry Lymphatic: No Adenopathy Results/Procedures Lab Laboratory Tests 07/04/18 09:00 Patient resulted labs reviewed. Assessment/Plan Assessment and Plan Assess & Plan/Chief Complaint Assessment: COPD myopathy Respiratory failure acute on chronic Severe COPD end stage may be a hospice candidate PD Anemia severe s/p 1 unit of blood transfusion Sunday Tachycardia consulting Cardiology for close monitoring Dark stools but hemoccult negative so will cancel EGD and colonoscopy which were scheduled but then cancelled due to severe weakness since high risk for respiratory failure Stage 2 decubitus ulcer sacrum Hypercarbia Plan: IRF Slow recovery expected so will divide up time over 7 days instead of 5 days Continue Nebs and O2 Appreciate Dr Casey consultation Consult Dr Liset Roberts for Colonoscopy but notified him a cancellation due to severe weakness Wound care for sacral decubitus ulcer Monitor labs periodically to avoid phlebotomization Unsure of recovery potential and in reality she appears to be a hospice candidate Appears very debilitated and unsure if progress is being made, may need NH and may very well be a hospice candidate (1) Myopathy (2) Tachycardia (3) COPD exacerbation Resolution Date/Time: 06/26/18 @ 20:21 (4) Essential (primary) hypertension (5) Pneumonia Resolution Date/Time: 06/25/18 @ 13:47 (6) Parkinson disease (7) Macrocytic anemia (8) Transfusion of blood during current hospitalization (9) Melena Resolution Date/Time: 06/30/18 @ 14:00 (10) Sacral decubitus ulcer, stage II (11) BLANTON (dyspnea on exertion) (12) Hypercarbia Clinical Quality Measures DVT/VTE Risk/Contraindication: Risk Factor Score Per Nursin RFS Level Per Nursing on Admit: 4+=Very High SEAMUS CHRISTINE DO Jul 04, 2018 08:36
[2018-07-04 08:39] VITALS: BP 95/61
[2018-07-04] MEDS: OXYBUTYNIN (DITROPAN) 5 MG TAB PO SCH ×2 (08:39→20:15)
[2018-07-04] MEDS: AMANTADINE 100 MG (SYMMETREL) CAP PO SCH (08:39)
[2018-07-04] MEDS: SINEMET 25/100 (CARBIDOPA/LEVODOPA) TAB PO SCH ×3 (08:39→20:15)
[2018-07-04] MEDS: meTOprolol TARTRATE 25 MG (LOPRESSOR) TABLET PO SCH ×2 (08:40→20:15)
[2018-07-04] MEDS: MICONAZOLE 2% POWDER (DESENEX AF) 90 GM TOP SCH ×2 (09:00→20:16)
[2018-07-04] MEDS: NYSTATIN CREAM (MYCOSTATIN) 30 GM TUBE TP SCH ×2 (09:00→20:16)
[2018-07-04] MEDS: MICONAZOLE NITRATE 2% CRM 30 GM TP SCH ×2 (09:00→20:16)
[2018-07-04 09:23] LABS: BASOPHILS % (AUTO) 1 % (0-10); EOSINOPHILS # (AUTO) 0.2 10^3/uL (0.0-0.3); EOSINOPHILS % (AUTO) 4 % (0-10); HEMATOCRIT 33 % (35-52); HEMOGLOBIN 8.9 G/DL (11.5-16.0); LYMPHOCYTES # (AUTO) 0.6 X 10^3 (1.0-4.0); LYMPHOCYTES % (AUTO) 14 % (12-44); MEAN CORPUSCULAR HEMOGLOBIN 29 PG (25-34); MEAN CORPUSCULAR HGB CONC 27 G/DL (32-36); MEAN CORPUSCULAR VOLUME 107 FL (80-99); MONOCYTES # (AUTO) 0.5 X 10^3 (0.0-1.0); MONOCYTES % (AUTO) 12 % (0-12); NEUTROPHILS # (AUTO) 2.9 X 10^3 (1.8-7.8); NEUTROPHILS % (AUTO) 69 % (42-75); PLATELET COUNT 201 10^3/uL (130-400); RED CELL DISTRIBUTION WIDTH 14.9 % (10.0-14.5); WHITE BLOOD COUNT 4.2 10^3/uL (4.3-11.0)
--- NOTE | 2018-07-04 09:25 | Physical Therapy Daily Note ---
PT Daily Note-Current Subjective Pt laying Supine in bed upon arrival. Pt agrees to PT but reports feeling a little SOA. Pain Numeric Pain Scale: 3 Location Body Site: Sacrum Pain Description: Ache Mental Status Patient Orientation: Person, Place, Situation Attachments: Oxygen (4L) Transfers Therapy Code Descriptions/Definitions Functional [place] Measure: 0=Not Assessed/NA 4=Minimal Assistance 1=Total Assistance 5=Supervision or Setup 2=Maximal Assistance 6=Modified [place] 3=Moderate Assistance 7=Complete [place] Therapy Quality Codes: 6 Independent with activity with or without an assistive device 5 Patient requires set up or clean up by helper. Patient completes activity by themselves 4 Supervision or touching assist (CGA). [place] provide cues , steadying assist 3 The helper provides less than half the effort to complete the activity 2 The helper provides more than half the effort to complete the activity 1 Dependent. The helper does all the effort to complete an activity 7 Patient refused to complete or attempt activity 9 The patient did not perform the activity before the current illness or injury 88 Not attempted due to Medical conditions or safety concerns Scootin Rollin Supine to/from Sit: 4 Sit to/from Stand: 5 Sit to Stand (QC): 5 Weight Bearing Right Lower Extremity: Right Weight Bearing/Tolerated Left Lower Extremity: Left Weight Bearing/Tolerated Gait Training Does the Patient Walk?: Yes Distance (FIM): 1=up to 49 ft Distance: 30' Walk 10 feet (QC): 5 Gait Level of Assist: 5 Gait Persons Needed: 1 Gait Assistive Device: FWW Pt gets SOA with short distance ambulation or standing. Wheelchair Training Does the Pt Use a Wheelchair?: No Exercises Supine Ex: Ankle pumps, Quad Set, Glut sets, Heel Slides, Straight leg raise, Hip abd/add Treatments Pt transfers from bed to EOB then rests. Pt ambulates to restroom. After toileting, ORDER MANAGEMENT SPECIALIST assists pt with standing while pt changes from t-shirt to gown for PT tx. Pt gets SOA and wants to return to EOB. Pt then asks to return to bed to rest. Pt completes Supine Ex in bed with a few rest breaks. Pt transfers from bed to recliner. ORDER MANAGEMENT SPECIALIST assists pt with repositioning in chair. Pt resting with all needs met at end of tx. Assessment Current Status: Fair Progress Pt becomes SOA easier this morning, requiring more frequent & extended rest breaks. PT Short Term Goals Short Term Goals Time Frame: Jul 02, 2018 Gait (FIM): 4 (met) PT Global Manager Goals Global Manager Goals PT Global Manager Goals Time Frame: Jul 12, 2018 Transfers (B,C,W/C) (FIM): 6 Sit to Lying (QC): 6 Lying-Sitting on Side/Bed(QC): 6 Sit to Stand (QC): 6 Rollin Roll Left to Right (QC): 6 Chair/Qyg-te-Hrtvp Xfer(QC): 6 Car Transfer (QC): 6 Does the Patient Walk: Yes Gait (FIM): 6 Gait distance (FIM): 3=150 ft Walk 10 feet (QC): 6 Walk 10ft-Uneven Surface(QC): 6 Walk 50ft with 2 Turns (QC): 6 Walk 150 ft (QC): 6 Gait Level of Assist: 6 Gait Assistive Device: FWW (or 4WW) Does the Pt use WC or Scooter?: No Stairs (FIM): 5 (household) # of Steps: 4 1 Step (curb) (QC): 6 4 Steps (QC): 6 12 Steps (QC): 88 Picking up an Object (QC): 4 PT Plan Problem List Problem List: Activity Tolerance, Functional Strength, Safety, Balance, Gait, Transfer Treatment/Plan Treatment Plan: Continue Plan of Care Treatment Plan: Bed Mobility, Education, Functional Activity Derrick, Functional Strength, Group Therapy, Gait, Safety, Therapeutic Exercise, Transfers Treatment Duration: Jul 12, 2018 Frequency: Modified Program (IRF) Estimated Hrs Per Day: 1.5 hours per day (as able ) Patient and/or Family Agrees t: Yes Safety Risks/Education Patient Education: Gait Training, Transfer Techniques, Correct Positioning, Safety Issues Teaching Recipient: Patient Teaching Methods: Discussion Response to Teaching: Verbalize Understanding Time/GCodes Time In: 815 Time Out: 915 Total Billed Treatment Time: 60 Total Billed Treatment 1, FA x2 (30m) & EX x2 (30m) G Codes Necessary: THONG Eli PTA Jul 04, 2018 09:25
[2018-07-04 09:45] LABS: ALANINE AMINOTRANSFERASE < 6 U/L (0-55); ALBUMIN 3.1 GM/DL (3.2-4.5); ALKALINE PHOSPHATASE 86 U/L (40-136); BILIRUBIN,TOTAL 0.2 MG/DL (0.1-1.0); BUN/CREATININE RATIO 8; CALCIUM 9.6 MG/DL (8.5-10.1); CARBON DIOXIDE 45 MMOL/L (21-32); CHLORIDE 91 MMOL/L (98-107); GFR ESTIMATED > 60; GLUCOSE 137 MG/DL (70-105); SODIUM 142 MMOL/L (135-145)
--- NOTE | 2018-07-04 11:29 | Occupational Ther Daily Note ---
OT Current Status-Daily Note Subjective Pt in Recliner, agree for OT. Patient staed, ' i am short of breath today, no shower please only sponge bath." Pain Numeric Pain Scale: 0-No Pain Mental Status/Objective Patient Orientation: Person, Place, Time Therapy Code Descriptions/Definitions Functional [place] Measure: 0=Not Assessed/NA 4=Minimal Assistance 1=Total Assistance 5=Supervision or Setup 2=Maximal Assistance 6=Modified [place] 3=Moderate Assistance 7=Complete [place] Attachments: Oxygen ADL-Treatment Patient participated in sponge-bath, grooming activity, func bed mobility, func transfers with FWW , strengthening ex to BUE Pt wipes face, hairs, neck , chest front & back, abdomen, both arm & upper part of legs above knee, Therapist helped wiping back & legs below knee & applying moisturising cream. Pt needs several rest periods between each activity as she fatigue very soon. Pt says that today she is SOB .Participated in gradual UE ex with rest between sevsral rest periods between reps . 25 reps x 2 sets x 1 lb wts, hand gripper Ex , 25 reps with red theraband with several rest periods, Therapy Code Descriptions/Definitions Functional [place] Measure: 0=Not Assessed/NA 4=Minimal Assistance 1=Total Assistance 5=Supervision or Setup 2=Maximal Assistance 6=Modified [place] 3=Moderate Assistance 7=Complete [place] Therapy Quality Codes: 6 Independent with activity with or without an assistive device 5 Patient requires set up or clean up by helper. Patient completes activity by themselves 4 Supervision or touching assist (CGA). [place] provide cues , steadying assist 3 The helper provides less than half the effort to complete the activity 2 The helper provides more than half the effort to complete the activity 1 Dependent. The helper does all the effort to complete an activity 7 Patient refused to complete or attempt activity 9 The patient did not perform the activity before the current illness or injury 88 Not attempted due to Medical conditions or safety concerns Eating (FIM): 7 Eating (QC): 6 Grooming (FIM): 6 Oral Hygiene (QC): 6 Bathing (FIM): 4 (Sponge-bath with Warm wipes.) Upper Body (FIM): 5 Upper Body Dressing (QC): 5 Lower Body Dressing (FIM): 4 Lower Body Dressing (QC): 4 On/Off Footwear (QC): 4 Transfers (B, C, W/C) (FIM): 4 Toilet/Commode Transfer (FIM): 4 Toilet Transfer (QC): 4 Education OT Patient Education: Correct positioning, Instructions to caregiver, Safety issues Teaching Recipient: Patient Teaching Methods: Demonstration, Discussion Response to Teaching: Verbalize Understanding, Return Demonstration OT Short Term Goals Short Term Goals Time Frame: Jul 02, 2018 Lower Body Dressing(FIM): 4 Toilet/Commode Transfer(FIM): 5 Additional Short Term Goals: 1-Demonstrate ADL Tasks, 2-Verbalize Understanding , 3-ImproveStrength/Derrick 1=Demonstrate adherence to instructed precautions during ADL tasks. 2=Patient will verbalize/demonstrate understanding of assistive devices/ modifications for ADL. 3=Patient will improve strength/tolerance for activity to enable patient to perform ADL's. OT Fdc Goals Fdc Goals Time Frame: Jul 16, 2018 Eating (FIM): 6 Eating (QC): 6 Groomin Oral Hygiene (QC): 6 Bathing(FIM): 5 Shower/Bathe Self (QC): 5 Upper Body Dressing(FIM): 6 Upper Body Dressing (QC): 6 Lower Body Dressing(FIM): 5 Lower Body Dressing (QC): 5 On/Off Footwear (QC): 5 Toileting(FIM): 6 Toileting Hygiene (QC): 6 Toilet/Commode Transfer(FIM): 6 Toilet/Commode Transfer (QC): 6 Additional Goals: 1-Demonstrate ADL Tasks, 2-Verbalize Understanding, 3- ImproveStrength/Derrick 1=Demonstrate adherence to instructed precautions during ADL tasks. 2=Patient will verbalize/demonstrate understanding of assistive devices/ modifications for ADL. 3=Patient will improve strength/tolerance for activity to enable patient to perform ADL's. OT Education/Plan Problem List/Assessment Assessment: Decreased Activ Tolerance, Decreased Safety Aware, Decreased UE Strength, Dependent Transfers, Impaired Bed Mobility, Impaired Funct Balance, Impaired Self-Care Skills Discharge Recommendations Plan/Recommendations: Continue POC Therapy D/C Recommendations: Home w/ Family Support Equpiment Recommendations-D/C: Bath Chair, Extended Shower Sprayer, Chemical Process Operator Barriers to Progress SOB, O2 dependent, aging & weakness. Patient/Family Goals To return home MIGEL.Independently Treatment Plan/Plan of Care Patient would benefit from OT for education, treatment and training to promote independence in ADL's, mobility, safety and/or upper extremity function for ADL' s. Plan of Care: ADL Retraining, Functional Mobility, Group Exercise/Act as Ind, UE Funct Exercise/Act Treatment Duration: Jul 16, 2018 Frequency: Modified Program (IRF) Estimated Hrs Per Day: 1.5 hours per day Agreement: Yes Rehab Potential: Good Time/GCodes Start Time: 09:30 Stop Time: 11:00 Total Time Billed (hr/min): 90 Billed Treatment Time 1, ADLs 60 min & Ex 30 min Total 90 min. SHERIE RICHARDSON OT Jul 04, 2018 11:29
--- NOTE | 2018-07-04 13:08 | Pulmonary Progress Note ---
Subjective Time Seen by a Provider: 13:07 Subjective/Events-last exam NO complications noted. Sepsis Event Evaluation Height, Weight, BMI Height: 5'2.00" Weight: 151lbs. 1.6oz. [id number]; 28.3 BMI Method:Stated Exam Exam Vital Signs Date Time Temp Pulse Resp B/P (MAP) Pulse Ox O2 Delivery O2 Flow Rate FiO2 07/04/18 09:00 Nasal Cannula 3.00 07/04/18 08:39 101 95/61 (72) 07/04/18 05:00 97.4 88 20 108/65 (79) 94 Nasal Cannula 4.00 07/04/18 03:26 95 Nasal Cannula 4.00 07/03/18 21:21 Nasal Cannula 3.00 07/03/18 20:32 88 Nasal Cannula 3.00 07/03/18 17:25 98.8 94 20 145/76 (99) 99 Nasal Cannula 3.00 07/03/18 14:12 97 Nasal Cannula 3.00 I & O 07/04/18 07:00 Intake Total 1350 ml Balance 1350 ml Height & Weight Height: 5'2.00" Weight: 151lbs. 1.6oz. 68.666014gq; 28.3 BMI Method:Stated General Appearance: No Apparent Distress, WD/WN, Chronically ill, Thin HEENT: PERRL/EOMI, Normal ENT Inspection, Pharynx Normal Neck: Full Range of Motion, Normal Inspection, Non Tender, Supple, Carotid Bruit Respiratory: Chest Non Tender, Lungs Clear, Normal Breath Sounds, No Accessory Muscle Use, No Respiratory Distress, Decreased Breath Sounds Cardiovascular: Regular Rate, Rhythm, No Edema, No Gallop, No JVD, No Murmur, Normal Peripheral Pulses Extremity: Normal Capillary Refill, Normal Inspection, Normal Range of Motion, Non Tender, No Calf Tenderness, No Pedal Edema Neurologic/Psychiatric: Alert, Oriented x3, No Motor/Sensory Deficits, Normal Mood/Affect Skin: Normal Color, Warm/Dry Lymphatic: No Adenopathy Results Lab Laboratory Tests 07/04/18 09:00 Assessment/Plan Assessment/Plan Acute on chronic respiratory failure - improved -Continue duonebs and incruse -Pt does not want home vent to mask Severe oxygen dependent COPD -Continue oxygen -Avoid over oxygenation LLL resolving PNA -S/p bronchoscopy macrocytic Anemia s/p transfusion -Occult stools are negative -Surgery is consulted Debility DARSHANA CARDENAS DO Jul 04, 2018 13:08
[2018-07-04] MEDS: UMECLIDINIUM BROMIDE (INCRUSE ELLIPTA) 7'S IH SCH (13:18)
--- NOTE | 2018-07-04 14:58 | Physical Therapy Daily Note ---
PT Daily Note-Current Subjective Pt sitting in recliner visiting with Sp upon arrival. Pt agrees to PT. Pain Location: No Pain Reported Mental Status Patient Orientation: Person, Place, Situation Attachments: Oxygen (4L) Transfers Therapy Code Descriptions/Definitions Functional [place] Measure: 0=Not Assessed/NA 4=Minimal Assistance 1=Total Assistance 5=Supervision or Setup 2=Maximal Assistance 6=Modified [place] 3=Moderate Assistance 7=Complete [place] Therapy Quality Codes: 6 Independent with activity with or without an assistive device 5 Patient requires set up or clean up by helper. Patient completes activity by themselves 4 Supervision or touching assist (CGA). [place] provide cues , steadying assist 3 The helper provides less than half the effort to complete the activity 2 The helper provides more than half the effort to complete the activity 1 Dependent. The helper does all the effort to complete an activity 7 Patient refused to complete or attempt activity 9 The patient did not perform the activity before the current illness or injury 88 Not attempted due to Medical conditions or safety concerns Sit to/from Stand: 5 Sit to Stand (QC): 5 Weight Bearing Right Lower Extremity: Right Weight Bearing/Tolerated Left Lower Extremity: Left Weight Bearing/Tolerated Gait Training Does the Patient Walk?: Yes Distance (FIM): 3=150 ft Distance: 150' Walk 10 feet (QC): 5 Walk 50 ft with 2 Turns(QC): 5 Walk 150 ft (QC): 5 Gait Level of Assist: 5 Gait Persons Needed: 1 Gait Assistive Device: FWW Pt has to take a couple standing rest breaks while ambulating to catch breathe. Wheelchair Training Does the Pt Use a Wheelchair?: No Treatments Pt transfers from recliner and ambulates in hallway using FWW at [facility]. Pt rests in chair in Therapy Gym. Pt then ambulates back to room to use restroom. After toileting, pt requests to return to bed to rest at end of tx. Pt has all needs met. Assessment Current Status: Good Progress Pt demonstrated better Activity Tolerance and less need for rest due to SOA this afternoon. Pt still needs rest breaks though. PT Short Term Goals Short Term Goals Time Frame: Jul 02, 2018 Gait (FIM): 4 (met) PT Fiberglass Technician Goals Fiberglass Technician Goals PT Correction Goals Time Frame: Jul 12, 2018 Transfers (B,C,W/C) (FIM): 6 Sit to Lying (QC): 6 Lying-Sitting on Side/Bed(QC): 6 Sit to Stand (QC): 6 Rollin Roll Left to Right (QC): 6 Chair/Bbt-nf-Zqjei Xfer(QC): 6 Car Transfer (QC): 6 Does the Patient Walk: Yes Gait (FIM): 6 Gait distance (FIM): 3=150 ft Walk 10 feet (QC): 6 Walk 10ft-Uneven Surface(QC): 6 Walk 50ft with 2 Turns (QC): 6 Walk 150 ft (QC): 6 Gait Level of Assist: 6 Gait Assistive Device: FWW (or 4WW) Does the Pt use WC or Scooter?: No Stairs (FIM): 5 (household) # of Steps: 4 1 Step (curb) (QC): 6 4 Steps (QC): 6 12 Steps (QC): 88 Picking up an Object (QC): 4 PT Plan Problem List Problem List: Activity Tolerance, Functional Strength, Safety, Gait Treatment/Plan Treatment Plan: Continue Plan of Care Treatment Plan: Bed Mobility, Education, Functional Activity Derrick, Functional Strength, Group Therapy, Gait, Safety, Therapeutic Exercise, Transfers Treatment Duration: Jul 12, 2018 Frequency: Modified Program (IRF) Estimated Hrs Per Day: 1.5 hours per day (as able ) Patient and/or Family Agrees t: Yes Safety Risks/Education Patient Education: Gait Training, Transfer Techniques, Correct Positioning, Safety Issues Teaching Recipient: Patient Teaching Methods: Discussion Response to Teaching: Verbalize Understanding Time/GCodes Time In: 1300 Time Out: 1330 Total Billed Treatment Time: 30 Total Billed Treatment 1, GT (15m) & FA (15m) G Codes Necessary: THONG Eli ASSEMBLY MEMBER Jul 04, 2018 14:58
[2018-07-04 17:23] VITALS: BP 143/74
--- NOTE | 2018-07-05 01:00 | NUR ---
Pt states she's feeling short of air. O2 sat on 4L/NC is 77%. Pt's O2 increased to 5L/NC and respiratory here to do breathing tx. After tx pt back on 4L/NC and sats running between 92-97%. Cont to monitor.
[2018-07-05] MEDS: RT-ALBUTEROL/IPRATROPIUM 3 ML (DUONEB) VIAL INH SCH ×4 (01:03→19:59)
[2018-07-05 05:00] VITALS: BP 115/66
[2018-07-05] MEDS: inSUlin ASPART (NovoLOG) 1 UNIT/0.01 ML (CHARGE PER UNIT) SC SCH ×4 (05:04→20:39)
[2018-07-05] MEDS: LACTOBACILLUS ACIDOPHILUS (PROBIOTIC) CAPSULE NG SCH ×3 (06:01→17:26)
[2018-07-05] MEDS: ENOXAPARIN 40 MG/0.4 ML (LOVENOX) SYR SC SCH (06:01)
[2018-07-05] MEDS: PANTOPRAZOLE 40 MG (PROTONIX) TAB PO SCH (06:01)
[2018-07-05] MEDS: UMECLIDINIUM BROMIDE (INCRUSE ELLIPTA) 7'S IH SCH (06:17)
[2018-07-05 07:50] VITALS: BP 108/66
--- NOTE | 2018-07-05 08:30 | NUR ---
DR. CHRISTINE HERE AND AWARE OF CONTINUED ISSUES WITH O2 DESATURATION WITH ACTIVITY.
--- NOTE | 2018-07-05 08:37 | Occupational Ther Daily Note ---
OT Current Status-Daily Note Subjective Pt in bed, having breakfast almost finished. Agree for OT . Pt stated " I feel little tired." Mental Status/Objective Patient Orientation: Person, Place, Time Therapy Code Descriptions/Definitions Functional [place] Measure: 0=Not Assessed/NA 4=Minimal Assistance 1=Total Assistance 5=Supervision or Setup 2=Maximal Assistance 6=Modified [place] 3=Moderate Assistance 7=Complete [place] Attachments: Oxygen ADL-Treatment Therapy Code Descriptions/Definitions Functional [place] Measure: 0=Not Assessed/NA 4=Minimal Assistance 1=Total Assistance 5=Supervision or Setup 2=Maximal Assistance 6=Modified [place] 3=Moderate Assistance 7=Complete [place] Therapy Quality Codes: 6 Independent with activity with or without an assistive device 5 Patient requires set up or clean up by helper. Patient completes activity by themselves 4 Supervision or touching assist (CGA). [place] provide cues , steadying assist 3 The helper provides less than half the effort to complete the activity 2 The helper provides more than half the effort to complete the activity 1 Dependent. The helper does all the effort to complete an activity 7 Patient refused to complete or attempt activity 9 The patient did not perform the activity before the current illness or injury 88 Not attempted due to Medical conditions or safety concerns Eating (FIM): 7 Eating (QC): 6 Grooming (FIM): 5 Oral Hygiene (QC): 5 Bathing (FIM): 4 Bathing Location: L Arm, R Arm, L Upper Leg, R Upper Leg, L Lower Leg ( including foot), R Lower Leg (including foot), Chest, Abdomen, Buttocks, Perineal Area Shower/Bathe Self (QC): 4 Upper Body (FIM): 4 Upper Body Dressing (QC): 4 Lower Body Dressing (FIM): 3 Lower Body Dressing (QC): 3 On/Off Footwear (QC): 4 Toileting (FIM): 4 Toileting Hygiene (QC): 4 Transfers (B, C, W/C) (FIM): 5 Toilet/Commode Transfer (FIM): 5 Toilet Transfer (QC): 5 Tub Transfer(FIM): 0 Shower Transfer(FIM): 5 Education OT Patient Education: Correct positioning, Energy conservation, Instructions to caregiver, Safety issues Teaching Recipient: Patient Teaching Methods: Demonstration Response to Teaching: Verbalize Understanding, Return Demonstration OT Short Term Goals Short Term Goals Time Frame: Jul 02, 2018 Lower Body Dressing(FIM): 4 Toilet/Commode Transfer(FIM): 5 Additional Short Term Goals: 1-Demonstrate ADL Tasks, 2-Verbalize Understanding , 3-ImproveStrength/Derrick 1=Demonstrate adherence to instructed precautions during ADL tasks. 2=Patient will verbalize/demonstrate understanding of assistive devices/ modifications for ADL. 3=Patient will improve strength/tolerance for activity to enable patient to perform ADL's. OT High Scaler Goals Residential Goals Time Frame: Jul 16, 2018 Eating (FIM): 6 Eating (QC): 6 Groomin Oral Hygiene (QC): 6 Bathing(FIM): 5 Shower/Bathe Self (QC): 5 Upper Body Dressing(FIM): 6 Upper Body Dressing (QC): 6 Lower Body Dressing(FIM): 5 Lower Body Dressing (QC): 5 On/Off Footwear (QC): 5 Toileting(FIM): 6 Toileting Hygiene (QC): 6 Toilet/Commode Transfer(FIM): 6 Toilet/Commode Transfer (QC): 6 Additional Goals: 1-Demonstrate ADL Tasks, 2-Verbalize Understanding, 3- ImproveStrength/Derrick 1=Demonstrate adherence to instructed precautions during ADL tasks. 2=Patient will verbalize/demonstrate understanding of assistive devices/ modifications for ADL. 3=Patient will improve strength/tolerance for activity to enable patient to perform ADL's. OT Education/Plan Problem List/Assessment Assessment: Decreased Activ Tolerance, Decreased Safety Aware, Decreased UE Strength, Dependent Transfers, Impaired Bed Mobility, Impaired Funct Balance, Impaired Self-Care Skills Discharge Recommendations Plan/Recommendations: Continue POC Therapy D/C Recommendations: Home w/ Family Support, Occupational Therapy Home Care Equpiment Recommendations-D/C: Bath Chair, Extended Shower Sprayer, Flexographic Press Operator Barriers to Progress Pt O2 dependent, fatigue soon, needs frequent rest periods between each activity., fair endurance. Weakness. Patient/Family Goals To return home with Independently with AD. Treatment Plan/Plan of Care Treatment,Training & Education: Yes Patient would benefit from OT for education, treatment and training to promote independence in ADL's, mobility, safety and/or upper extremity function for ADL' s. Plan of Care: ADL Retraining, Functional Mobility, Group Exercise/Act as Ind, UE Funct Exercise/Act Treatment Duration: Jul 16, 2018 Frequency: Modified Program (IRF) Estimated Hrs Per Day: 1.5 hours per day Agreement: Yes Rehab Potential: Good Time/GCodes Start Time: 07:00 Stop Time: 08:30 Total Time Billed (hr/min): 90 Billed Treatment Time 1, ADLs 60 min, Ex 30 min .Total 90 min. SHERIE RICHARDSON OT Jul 05, 2018 08:37
--- NOTE | 2018-07-05 08:38 | PM&R Progress Note ---
Subjective HPI/CC On Admission Date Seen by Provider: Jul 05, 2018 Time Seen by Provider: 08:45 CC: COPD myopathy HPI: This is a 77-year-old white female who was admitted to inpatient rehabilitation for COPD myopathy. She's had an extensive complex acute medical issue with respiratory failure while admitted to [facility]. This is a patient that was admitted from the emergency room for exacerbation of COPD after worsening respiratory status while they were on vacation in [place] for 6 weeks. She is chronically on oxygen 4 L by nasal cannula. She worsened to the point of severe decompensation presenting to the ER found to have pneumonia and acute exacerbation of COPD with acute on chronic respiratory failure. She required intubation for respiratory failure and with the help of expert consultation from Dr. Casey she was able to be extubated and back on oxygen supplementation with Vapotherm and wean down to nasal cannula high flow. Patient did complete antibiotics for pneumonia. She is back to her baseline respiratory function but required severe myopathy resolution prior to returning back to home so inpatient rehab accepted this patient to recover prior to discharge home. Subjective/Events-last exam Patient doing about the same Shortness of breath occurs often Patient appears to be very chronically ill and debilitated Patient appears to meet criteria for hospice and they will be discussing living will today so hopefully DNR is obtained. Checked meds and labs Review of Systems General: Fatigue Pulmonary: Dyspnea Objective Exam Vital Signs Vital Signs Date Time Temp Pulse Resp B/P (MAP) Pulse Ox O2 Delivery O2 Flow Rate FiO2 07/05/18 20:20 Nasal Cannula 4.00 07/05/18 20:00 95 07/05/18 18:00 99.2 97 20 109/55 (73) 07/05/18 14:32 36 Capillary Refill : General Appearance: No Apparent Distress, WD/WN, Chronically ill, Thin HEENT: PERRL/EOMI, Normal ENT Inspection, Pharynx Normal Neck: Full Range of Motion, Normal Inspection, Non Tender, Supple, Carotid Bruit Respiratory: Chest Non Tender, No Accessory Muscle Use, No Respiratory Distress , Decreased Breath Sounds Cardiovascular: Regular Rate, Rhythm, No Edema, No Gallop, No JVD, No Murmur, Normal Peripheral Pulses Gastrointestinal: Normal Bowel Sounds, No Organomegaly, No Pulsatile Mass, Non Tender, Soft Back: Normal Inspection, No CVA Tenderness, No Vertebral Tenderness Extremity: Normal Capillary Refill, Normal Inspection, Normal Range of Motion, Non Tender, No Calf Tenderness, No Pedal Edema Neurologic/Psychiatric: Alert, Oriented x3, No Motor/Sensory Deficits, Normal Mood/Affect Skin: Normal Color, Warm/Dry Lymphatic: No Adenopathy Results/Procedures Lab Patient resulted labs reviewed. Assessment/Plan Assessment and Plan Assess & Plan/Chief Complaint Assessment: COPD myopathy Respiratory failure acute on chronic Severe COPD end stage may be a hospice candidate PD Anemia severe s/p 1 unit of blood transfusion last Sunday Tachycardia consulting Cardiology for close monitoring Dark stools but hemoccult negative so will cancel EGD and colonoscopy which were scheduled but then cancelled due to severe weakness since high risk for respiratory failure Stage 2 decubitus ulcer sacrum Hypercarbia Plan: IRF Slow recovery expected so will divide up time over 7 days instead of 5 days Continue Nebs and O2 Appreciate Dr Casey consultation Consult Dr Liset Roberts for Colonoscopy but notified him a cancellation due to severe weakness Wound care for sacral decubitus ulcer Monitor labs periodically to avoid phlebotomization Unsure of recovery potential and in reality she appears to be a hospice candidate Appears very debilitated and unsure if progress is being made, may need NH and may very well be a hospice candidate (1) Myopathy (2) Tachycardia (3) COPD exacerbation Resolution Date/Time: 06/26/18 @ 20:21 (4) Essential (primary) hypertension (5) Pneumonia Resolution Date/Time: 06/25/18 @ 13:47 (6) Parkinson disease (7) Macrocytic anemia (8) Transfusion of blood during current hospitalization (9) Melena Resolution Date/Time: 06/30/18 @ 14:00 (10) Sacral decubitus ulcer, stage II (11) BLANTON (dyspnea on exertion) (12) Hypercarbia Clinical Quality Measures DVT/VTE Risk/Contraindication: Risk Factor Score Per Nursin RFS Level Per Nursing on Admit: 4+=Very High SEAMUS CHRISTINE DO Jul 05, 2018 08:38
[2018-07-05] MEDS: SINEMET 25/100 (CARBIDOPA/LEVODOPA) TAB PO SCH ×3 (08:57→20:39)
[2018-07-05] MEDS: OXYBUTYNIN (DITROPAN) 5 MG TAB PO SCH ×2 (08:57→20:39)
[2018-07-05] MEDS: meTOprolol TARTRATE 25 MG (LOPRESSOR) TABLET PO SCH ×2 (08:57→20:39)
[2018-07-05] MEDS: MICONAZOLE 2% POWDER (DESENEX AF) 90 GM TOP SCH ×2 (08:58→20:40)
[2018-07-05] MEDS: AMANTADINE 100 MG (SYMMETREL) CAP PO SCH (08:58)
[2018-07-05] MEDS: ZINC OXIDE 16% OINT (BUTT PASTE) 113 GM TUBE TOP PRN ×2 (09:01→20:40)
[2018-07-05] MEDS: MICONAZOLE NITRATE 2% CRM 30 GM TP SCH (09:01)
[2018-07-05] MEDS: NYSTATIN CREAM (MYCOSTATIN) 30 GM TUBE TP SCH (09:01)
--- NOTE | 2018-07-05 09:27 | Physical Therapy Daily Note ---
PT Daily Note-Current Subjective Pt. in bed, agreeable to Rx. States she has fallen at home one time on the extended tubing. Other falls were related to other things. Pt. c/o SOB with very little activity. States she only walks 50-60 ft at a time at home. Pain Location: No Pain Reported Mental Status Patient Orientation: Normal For Age Attachments: Oxygen (4L) Transfers Therapy Code Descriptions/Definitions Functional [place] Measure: 0=Not Assessed/NA 4=Minimal Assistance 1=Total Assistance 5=Supervision or Setup 2=Maximal Assistance 6=Modified [place] 3=Moderate Assistance 7=Complete [place] Therapy Quality Codes: 6 Independent with activity with or without an assistive device 5 Patient requires set up or clean up by helper. Patient completes activity by themselves 4 Supervision or touching assist (CGA). [place] provide cues , steadying assist 3 The helper provides less than half the effort to complete the activity 2 The helper provides more than half the effort to complete the activity 1 Dependent. The helper does all the effort to complete an activity 7 Patient refused to complete or attempt activity 9 The patient did not perform the activity before the current illness or injury 88 Not attempted due to Medical conditions or safety concerns Transfers (B, C, W/C) (FIM): 5 Scootin Rollin Supine to/from Sit: 5 Sit to/from Stand: 5 Bed to/from Chair: 5 Weight Bearing Right Lower Extremity: Right Weight Bearing/Tolerated Left Lower Extremity: Left Weight Bearing/Tolerated Gait Training Does the Patient Walk?: Yes Gait (FIM): 4 Distance (FIM): 1=733-42 ft (50x2,60x2) Gait Level of Assist: 4 Gait Persons Needed: 1 Gait Assistive Device: FWW needs assist occas for O2 tubing and cues for safety managing tubing Stair Training Stair Training: Handrails/: uses walker Stairs (FIM): 1 #of Steps: 2 Stairs: Pattern: Step to Level of Assist: 4 trialed one small step with FWW as pt. has 4 to manage at home with only one rail, pt. did this well but was SOB just after with O2 sats at 82% Exercises Supine Ex: Bridging, Ankle pumps, Quad Set, Rolling, Glut sets, Heel Slides, Short Arc Quads, Scooting, Straight leg raise, Hip abd/add Supine Reps: 12 Seated Therapy Exercises: Ankle pumps, Sit to stand, Long arc quads, Hip flexion Seated Reps: 12 Assessment Current Status: Good Progress SOB and decreased O2 sats limit gait dist PT Short Term Goals Short Term Goals Time Frame: Jul 02, 2018 Gait (FIM): 4 (met) PT Alf Goals Batch Unloader Goals PT Alf Goals Time Frame: Jul 12, 2018 Transfers (B,C,W/C) (FIM): 6 Sit to Lying (QC): 6 Lying-Sitting on Side/Bed(QC): 6 Sit to Stand (QC): 6 Rollin Roll Left to Right (QC): 6 Chair/Fzh-km-Sevgd Xfer(QC): 6 Car Transfer (QC): 6 Does the Patient Walk: Yes Gait (FIM): 6 Gait distance (FIM): 3=150 ft Walk 10 feet (QC): 6 Walk 10ft-Uneven Surface(QC): 6 Walk 50ft with 2 Turns (QC): 6 Walk 150 ft (QC): 6 Gait Level of Assist: 6 Gait Assistive Device: FWW (or 4WW) Does the Pt use WC or Scooter?: No Stairs (FIM): 5 (household) # of Steps: 4 1 Step (curb) (QC): 6 4 Steps (QC): 6 12 Steps (QC): 88 Picking up an Object (QC): 4 PT Plan Treatment/Plan Treatment Plan: Continue Plan of Care Treatment Plan: Bed Mobility, Education, Functional Activity Derrick, Functional Strength, Group Therapy, Gait, Safety, Therapeutic Exercise, Transfers Treatment Duration: Jul 12, 2018 Frequency: Modified Program (IRF) Estimated Hrs Per Day: 1.5 hours per day (as able ) Patient and/or Family Agrees t: Yes Safety Risks/Education Patient Education: Gait Training, Transfer Techniques, Steps, Correct Positioning, Disease Process, Safety Issues Teaching Recipient: Patient Teaching Methods: Demonstration, Discussion Response to Teaching: Verbalize Understanding, Return Demonstration, Reinforcement Needed Time/GCodes Time In: 830 Time Out: 930 Total Billed Treatment Time: 60 Total Billed Treatment 1,GT20m,EX15m,FA25m G Codes Necessary: CHELSIE Quinonez MERCHANT BANKER Jul 05, 2018 09:27
--- NOTE | 2018-07-05 10:38 | Cardiology Progress Note ---
Subjective Date Seen by Provider: Jul 05, 2018 Time Seen by Provider: 10:36 Subjective/Events-last exam Patient is in bed, feeling better, no new complaint, still having some dyspnea Review of Systems General: No Chills, No Night Sweats; Fatigue, Malaise; No Appetite, No Other HEENT: No Head Aches, No Visual Changes, No Eye Pain, No Ear Pain, No Dysphasia , No Sinus Congestion, No Post Nasal Drip, No Sore Throat, No Other Pulmonary: Dyspnea; No Cough, No Pleuritic Chest Pain, No Other Cardiovascular: No: Chest Pain, Palpitations, Orthopnea, Paroxysmal Noc. Dyspnea, Edema, Lt Headedness, Other Objective-Cardiology Exam Last Set of Vital Signs Vital Signs 07/02/18 07/05/18 07/05/18 14:26 05:00 06:19 Temp 98.5 Pulse 87 Resp 20 B/P (MAP) 115/66 (82) Pulse Ox 93 O2 Delivery Nasal Cannula O2 Flow Rate 4.00 FiO2 32 Capillary Refill : I&O Intake and Output 07/05/18 00:00 Intake Total 1250 ml Balance 1250 ml Intake Oral 1250 ml # Voids 7 General: Alert, Oriented X3, Cooperative, No Acute Distress HEENT: Atraumatic, PERRLA Neck: Supple, No JVD, No Thyromegaly, +2 Carotid Pulse No Bruit, No LAD Lungs: Other (diminished BS noted) Heart: Regular Rate, Normal S1, Normal S2 Abdomen: Normal Bowel Sounds, Soft, No Tenderness, No Hepatosplenomegaly, No Masses Extremities: No Clubbing, No Cyanosis, No Edema, Normal Pulses, No Tenderness/ Swelling Skin: No Rashes, No Breakdown, No Significant Lesion Neuro: Normal Gait (although slowed and uses walker and assistance), Normal Speech, Strength at 5/5 X4 Ext, Normal Tone, Sensation Intact, Cranial Nerves 3- 12 NL, Reflexes 2+, Other (generalized weakness) Psych/Mental Status: Mental Status NL, Mood NL Results Lab Laboratory Tests Test 07/04/18 10:57 07/04/18 16:31 07/04/18 21:05 07/05/18 05:03 Range/Units Glucometer 136 H 104 105 87 70-110 MG/DL A/P-Cardiology Admission Diagnosis Sinus tachycardia Hypoxemia COPD Anemia Assessment/Plan Sinus tachycardia, multifactorial, probably secondary to anemia, COPD and hypoxemia, maintained on beta blockers, better now, continue to monitor. Borderline hypotensive, better now continue to monitor Anemia, status post transfusion, stool is negative for OB, managed by primary care physician COPD, status post acute exacerbation, improving, using oxygen with exertion at this time. Managed by Dr. Casey Myopathy, generalized weakness, receiving physical therapy Pneumonia, recovered, was hospitalized for respiratory failure last week. Parkinson disease. Managed by primary care team Clinical Quality Measures DVT/VTE Risk/Contraindication: Risk Factor Score Per Nursin RFS Level Per Nursing on Admit: 4+=Very High LINDA SEQUEIRA MD Jul 05, 2018 10:38
--- NOTE | 2018-07-05 11:04 | Pulmonary Progress Note ---
Subjective Time Seen by a Provider: 11:03 Subjective/Events-last exam PT has had more SOB. Sepsis Event Evaluation Height, Weight, BMI Height: 5'2.00" Weight: 151lbs. 1.6oz. 68.840892uw; 28.3 BMI Method:Stated Exam Exam Vital Signs Date Time Temp Pulse Resp B/P (MAP) Pulse Ox O2 Delivery O2 Flow Rate FiO2 07/05/18 06:19 93 Nasal Cannula 4.00 07/05/18 06:17 93 Nasal Cannula 4.00 07/05/18 05:00 98.5 87 20 115/66 (82) 97 Nasal Cannula 4.00 07/05/18 01:03 89 Nasal Cannula 4.00 07/04/18 20:20 Nasal Cannula 4.00 07/04/18 17:23 97.3 104 20 143/74 (97) 98 Nasal Cannula 3.00 07/04/18 13:49 95 Nasal Cannula 4.00 I & O 07/05/18 07:00 Intake Total 1050 ml Balance 1050 ml Height & Weight Height: 5'2.00" Weight: 151lbs. 1.6oz. 68.972068sk; 28.3 BMI Method:Stated General Appearance: No Apparent Distress, WD/WN, Chronically ill, Thin HEENT: PERRL/EOMI, Normal ENT Inspection, Pharynx Normal Neck: Full Range of Motion, Normal Inspection, Non Tender, Supple, Carotid Bruit Respiratory: Chest Non Tender, Lungs Clear, Normal Breath Sounds, No Accessory Muscle Use, No Respiratory Distress, Decreased Breath Sounds Cardiovascular: Regular Rate, Rhythm, No Edema, No Gallop, No JVD, No Murmur, Normal Peripheral Pulses Extremity: Normal Capillary Refill, Normal Inspection, Normal Range of Motion, Non Tender, No Calf Tenderness, No Pedal Edema Neurologic/Psychiatric: Alert, Oriented x3, No Motor/Sensory Deficits, Normal Mood/Affect Skin: Normal Color, Warm/Dry Lymphatic: No Adenopathy Results Lab Laboratory Tests 07/04/18 09:00 Assessment/Plan Assessment/Plan Acute on chronic respiratory failure Severe oxygen dependent COPD -Continue duonebs and incruse -Pt does not want home vent to mask -repeat CXR -Continue oxygen -Avoid over oxygenation LLL resolving PNA -S/p bronchoscopy macrocytic Anemia s/p transfusion -Occult stools are negative -Surgery is consulted Debility DARSHANA CARDENAS DO Jul 05, 2018 11:04
--- NOTE | 2018-07-05 11:25 | NUR ---
Pastoral care visit.
--- NOTE | 2018-07-05 12:00 | NUR ---
DRS. SEQUEIRA AND RONALD HAVE SEEN PATIENT. ORDER RECEIVED FROM DR. CARDENAS TO INCREASE O2 AT REST OR WITH ACTIVITY TO KEEP SATS 90-94%.
--- NOTE | 2018-07-05 14:04 | Physical Therapy Daily Note ---
PT Daily Note-Current Subjective Pt. in bed, wants to get up to go to bathroom. Pt. c/o she is more fatigued and short of breath with activity. Pain Location: No Pain Reported Appearance SOB with gait and activity Mental Status Patient Orientation: Normal For Age Attachments: Oxygen (4L) Transfers Therapy Code Descriptions/Definitions Functional [place] Measure: 0=Not Assessed/NA 4=Minimal Assistance 1=Total Assistance 5=Supervision or Setup 2=Maximal Assistance 6=Modified [place] 3=Moderate Assistance 7=Complete [place] Therapy Quality Codes: 6 Independent with activity with or without an assistive device 5 Patient requires set up or clean up by helper. Patient completes activity by themselves 4 Supervision or touching assist (CGA). [place] provide cues , steadying assist 3 The helper provides less than half the effort to complete the activity 2 The helper provides more than half the effort to complete the activity 1 Dependent. The helper does all the effort to complete an activity 7 Patient refused to complete or attempt activity 9 The patient did not perform the activity before the current illness or injury 88 Not attempted due to Medical conditions or safety concerns in out bed and on off toilet min to CGA. Weight Bearing Right Lower Extremity: Right Weight Bearing/Tolerated Left Lower Extremity: Left Weight Bearing/Tolerated Gait Training Gait Assistive Device: FWW 30ft x 1, 20ft,10ft with FWW min assist , pt. became very SOB on extended O2 at $L with sats dropping to 82% requiring 3-4 mins to recover to 90% Treatments toileted for BM, needed assist for pants up down as well as barrier cream applied to bottom after. Assessment Current Status: Fair Progress O2 sats drop with activity. Dr Carmela Ortega increasing O2 as needed to keep sats > 90% PT Short Term Goals Short Term Goals Time Frame: Jul 02, 2018 Gait (FIM): 4 (met) PT Residential Goals Musical Instrument Maker Goals PT Residential Goals Time Frame: Jul 12, 2018 Transfers (B,C,W/C) (FIM): 6 Sit to Lying (QC): 6 Lying-Sitting on Side/Bed(QC): 6 Sit to Stand (QC): 6 Rollin Roll Left to Right (QC): 6 Chair/Ito-us-Jagvk Xfer(QC): 6 Car Transfer (QC): 6 Does the Patient Walk: Yes Gait (FIM): 6 Gait distance (FIM): 3=150 ft Walk 10 feet (QC): 6 Walk 10ft-Uneven Surface(QC): 6 Walk 50ft with 2 Turns (QC): 6 Walk 150 ft (QC): 6 Gait Level of Assist: 6 Gait Assistive Device: FWW (or 4WW) Does the Pt use WC or Scooter?: No Stairs (FIM): 5 (household) # of Steps: 4 1 Step (curb) (QC): 6 4 Steps (QC): 6 12 Steps (QC): 88 Picking up an Object (QC): 4 PT Plan Treatment/Plan Treatment Plan: Continue Plan of Care Treatment Plan: Bed Mobility, Education, Functional Activity Derrick, Functional Strength, Group Therapy, Gait, Safety, Therapeutic Exercise, Transfers Treatment Duration: Jul 12, 2018 Frequency: Modified Program (IRF) Estimated Hrs Per Day: 1.5 hours per day (as able ) Patient and/or Family Agrees t: Yes Safety Risks/Education Patient Education: Gait Training, Transfer Techniques, Correct Positioning Teaching Recipient: Patient Teaching Methods: Demonstration, Discussion Response to Teaching: Verbalize Understanding, Return Demonstration, Reinforcement Needed Time/GCodes Time In: 1335 Time Out: 1405 Total Billed Treatment Time: 30 Total Billed Treatment 1,FA30m G Codes Necessary: No CHELSIE MILLS RELASTER Jul 05, 2018 14:04
[2018-07-05 14:32] VITALS: BP 108/66
--- NOTE | 2018-07-05 14:46 | NUR ---
Pastoral care visit, responding to referral for advance directive, pt was very sleepy, shared info with pts who was going to look over and requested we follow up Sunday07/06/18.
--- NOTE | 2018-07-05 15:50 | Diagnostic Imaging Report ---
INDICATION: Shortness of breath. COMPARISON: 06/24/2018. FINDINGS: Frontal and lateral views of the chest demonstrate cardiac enlargement with chronic interstitial changes. There is some slight superimposed central vascular congestion. Small effusions are present bilaterally. Hyperinflation is present compatible with COPD. There is no acute infiltrate. Osseous structures are stable. IMPRESSION: 1. Cardiac enlargement with slight central vascular congestion. 2. Trace bilateral pleural effusions with dependent atelectasis. Dictated by: Dictated on workstation # [id number]
--- NOTE | 2018-07-05 17:00 | NUR ---
DR. ROSEN CALLED TO CHECK ON PATIENT. INFORMED OF OPEN AREA ON COCCYX. ORDER TO CONTINUE BUTT PASTE AND TO KEEP OFF BOTTOM WHEN IN BED. ALSO INFORMED OF MOISTURE IN PERIAREA AND GROIN AND WILL SWITCH TO MYCOSTATIN POWDER.
[2018-07-05 18:00] VITALS: BP 109/55
[2018-07-06] MEDS: RT-ALBUTEROL/IPRATROPIUM 3 ML (DUONEB) VIAL INH SCH ×4 (03:50→18:46)
[2018-07-06 05:51] VITALS: BP 105/64
[2018-07-06] MEDS: PANTOPRAZOLE 40 MG (PROTONIX) TAB PO SCH (06:43)
[2018-07-06] MEDS: ENOXAPARIN 40 MG/0.4 ML (LOVENOX) SYR SC SCH (06:43)
[2018-07-06] MEDS: LACTOBACILLUS ACIDOPHILUS (PROBIOTIC) CAPSULE NG SCH ×3 (06:43→17:40)
[2018-07-06] MEDS: inSUlin ASPART (NovoLOG) 1 UNIT/0.01 ML (CHARGE PER UNIT) SC SCH ×4 (06:52→20:51)
[2018-07-06] MEDS: UMECLIDINIUM BROMIDE (INCRUSE ELLIPTA) 7'S IH SCH (08:42)
[2018-07-06] MEDS: OXYBUTYNIN (DITROPAN) 5 MG TAB PO SCH ×2 (09:53→20:50)
[2018-07-06] MEDS: meTOprolol TARTRATE 25 MG (LOPRESSOR) TABLET PO SCH ×2 (09:53→20:50)
[2018-07-06] MEDS: SINEMET 25/100 (CARBIDOPA/LEVODOPA) TAB PO SCH ×3 (09:53→20:50)
[2018-07-06] MEDS: AMANTADINE 100 MG (SYMMETREL) CAP PO SCH (09:53)
--- NOTE | 2018-07-06 10:28 | Physical Therapy Daily Note ---
PT Daily Note-Current Subjective Pt laying Supine in bed upon arrival. Pt agrees to PT. Pain Numeric Pain Scale: 3 Location Body Site: Sacrum Pain Description: Ache Mental Status Patient Orientation: Person, Place, Situation Attachments: Oxygen (4L) Transfers Therapy Code Descriptions/Definitions Functional [place] Measure: 0=Not Assessed/NA 4=Minimal Assistance 1=Total Assistance 5=Supervision or Setup 2=Maximal Assistance 6=Modified [place] 3=Moderate Assistance 7=Complete [place] Therapy Quality Codes: 6 Independent with activity with or without an assistive device 5 Patient requires set up or clean up by helper. Patient completes activity by themselves 4 Supervision or touching assist (CGA). [place] provide cues , steadying assist 3 The helper provides less than half the effort to complete the activity 2 The helper provides more than half the effort to complete the activity 1 Dependent. The helper does all the effort to complete an activity 7 Patient refused to complete or attempt activity 9 The patient did not perform the activity before the current illness or injury 88 Not attempted due to Medical conditions or safety concerns Rollin Weight Bearing Right Lower Extremity: Right Weight Bearing/Tolerated Left Lower Extremity: Left Weight Bearing/Tolerated Exercises Supine Ex: Ankle pumps, Quad Set, Glut sets, Heel Slides, Straight leg raise, Hip abd/add Supine Reps: 15 Treatments Pt completes Supine Ex with rest breaks as needed. Pt rolls in bed as needed for positioning. Pt resting in bed with all needs met at end of tx. Assessment Current Status: Fair Progress Pt still struggling with SOA due to medical diagnosis. SHEET PILE DRIVER OPERATOR encourages pt to sit up as much as possible to assist with breathing. PT Short Term Goals Short Term Goals Time Frame: Jul 02, 2018 Gait (FIM): 4 (met) PT Alf Goals [employer] Principal Goals PT [employer] Principal Goals Time Frame: Jul 12, 2018 Transfers (B,C,W/C) (FIM): 6 Sit to Lying (QC): 6 Lying-Sitting on Side/Bed(QC): 6 Sit to Stand (QC): 6 Rollin Roll Left to Right (QC): 6 Chair/Qqy-pj-Gcntc Xfer(QC): 6 Car Transfer (QC): 6 Does the Patient Walk: Yes Gait (FIM): 6 Gait distance (FIM): 3=150 ft Walk 10 feet (QC): 6 Walk 10ft-Uneven Surface(QC): 6 Walk 50ft with 2 Turns (QC): 6 Walk 150 ft (QC): 6 Gait Level of Assist: 6 Gait Assistive Device: FWW (or 4WW) Does the Pt use WC or Scooter?: No Stairs (FIM): 5 (household) # of Steps: 4 1 Step (curb) (QC): 6 4 Steps (QC): 6 12 Steps (QC): 88 Picking up an Object (QC): 4 PT Plan Problem List Problem List: Activity Tolerance, Functional Strength, Safety, Balance, Gait Treatment/Plan Treatment Plan: Continue Plan of Care Treatment Plan: Bed Mobility, Education, Functional Activity Derrick, Functional Strength, Group Therapy, Gait, Safety, Therapeutic Exercise, Transfers Treatment Duration: Jul 12, 2018 Frequency: Modified Program (IRF) Estimated Hrs Per Day: 1.5 hours per day (as able ) Patient and/or Family Agrees t: Yes Safety Risks/Education Patient Education: Correct Positioning, Safety Issues Teaching Recipient: Patient Teaching Methods: Discussion Response to Teaching: Verbalize Understanding Time/GCodes Time In: 820 Time Out: 840 Total Billed Treatment Time: 20 Total Billed Treatment 1, EX (20m) G Codes Necessary: THONG Eli SHEET PILE DRIVER OPERATOR Jul 06, 2018 10:28
--- NOTE | 2018-07-06 11:04 | PM&R Progress Note ---
Subjective HPI/CC On Admission Date Seen by Provider: Jul 06, 2018 Time Seen by Provider: 10:00 CC: COPD myopathy HPI: This is a 77-year-old white female who was admitted to inpatient rehabilitation for COPD myopathy. She's had an extensive complex acute medical issue with respiratory failure while admitted to [facility]. This is a patient that was admitted from the emergency room for exacerbation of COPD after worsening respiratory status while they were on vacation in [place] for 6 weeks. She is chronically on oxygen 4 L by nasal cannula. She worsened to the point of severe decompensation presenting to the ER found to have pneumonia and acute exacerbation of COPD with acute on chronic respiratory failure. She required intubation for respiratory failure and with the help of expert consultation from Dr. Casey she was able to be extubated and back on oxygen supplementation with Vapotherm and wean down to nasal cannula high flow. Patient did complete antibiotics for pneumonia. She is back to her baseline respiratory function but required severe myopathy resolution prior to returning back to home so inpatient rehab accepted this patient to recover prior to discharge home. Subjective/Events-last exam Patient doing about the same still dyspneic at times Patient appears to be very chronically ill and debilitated Pt eating more at her 's direction Patient appears to meet criteria for hospice and they will be discussing living will Sunday so hopefully DNR is obtained. Checked meds and labs I told her about the fact that I would recommend DNR because her lungs were so weak that she would not be able to attain extubation and I had this conversation with Arline BISHOP in the room Review of Systems General: Fatigue Pulmonary: Dyspnea Objective Exam Vital Signs Vital Signs Date Time Temp Pulse Resp B/P (MAP) Pulse Ox O2 Delivery O2 Flow Rate FiO2 07/06/18 09:00 Nasal Cannula 4.00 07/06/18 08:42 91 07/06/18 05:51 97.2 86 20 105/64 (78) 07/05/18 14:32 36 Capillary Refill : General Appearance: No Apparent Distress, WD/WN, Chronically ill, Thin HEENT: PERRL/EOMI, Normal ENT Inspection, Pharynx Normal Neck: Full Range of Motion, Normal Inspection, Non Tender, Supple, Carotid Bruit Respiratory: Chest Non Tender, No Accessory Muscle Use, No Respiratory Distress , Decreased Breath Sounds Cardiovascular: Regular Rate, Rhythm, No Edema, No Gallop, No JVD, No Murmur, Normal Peripheral Pulses Gastrointestinal: Normal Bowel Sounds, No Organomegaly, No Pulsatile Mass, Non Tender, Soft Back: Normal Inspection, No CVA Tenderness, No Vertebral Tenderness Extremity: Normal Capillary Refill, Normal Inspection, Normal Range of Motion, Non Tender, No Calf Tenderness, No Pedal Edema Neurologic/Psychiatric: Alert, Oriented x3, No Motor/Sensory Deficits, Normal Mood/Affect Skin: Normal Color, Warm/Dry Lymphatic: No Adenopathy Results/Procedures Lab Patient resulted labs reviewed. Assessment/Plan Assessment and Plan Assess & Plan/Chief Complaint Assessment: COPD myopathy Respiratory failure acute on chronic Severe COPD end stage may be a hospice candidate PD Anemia severe s/p 1 unit of blood transfusion 8 days ago Tachycardia appreciate Cardiology for close monitoring Dark stools but hemoccult negative so will cancel EGD and colonoscopy which were scheduled but then cancelled due to severe weakness since high risk for respiratory failure Stage 2 decubitus ulcer sacrum Hypercarbia Plan: IRF Slow recovery expected so will divide up time over 7 days instead of 5 days Continue Nebs and O2 Appreciate Dr Casey consultation Consult Dr Liset Roberts for Colonoscopy but notified him a cancellation due to severe weakness Wound care for sacral decubitus ulcer Monitor labs periodically to avoid phlebotomization Unsure of recovery potential and in reality she appears to be a hospice candidate Needs DNR and advance directives will be discussed Sunday Appears very debilitated and unsure if progress is being made, may need NH and may very well be a hospice candidate (1) Myopathy (2) Tachycardia (3) COPD exacerbation Resolution Date/Time: 06/26/18 @ 20:21 (4) Essential (primary) hypertension (5) Pneumonia Resolution Date/Time: 06/25/18 @ 13:47 (6) Parkinson disease (7) Macrocytic anemia (8) Transfusion of blood during current hospitalization (9) Melena Resolution Date/Time: 06/30/18 @ 14:00 (10) Sacral decubitus ulcer, stage II (11) BLANTON (dyspnea on exertion) (12) Hypercarbia Clinical Quality Measures DVT/VTE Risk/Contraindication: Risk Factor Score Per Nursin RFS Level Per Nursing on Admit: 4+=Very High SEAMUS CHRISTINE DO Jul 06, 2018 11:04
[2018-07-06] MEDS: MICONAZOLE 2% POWDER (DESENEX AF) 90 GM TOP SCH ×2 (13:27→20:51)
[2018-07-06 18:00] VITALS: BP 120/72
[2018-07-06 20:38] VITALS: BP 123/67
[2018-07-07] MEDS ORDERED: RT-ALBUTEROL/IPRATROPIUM 3 ML (DUONEB) VIAL INH PRN (00:30)
--- NOTE | 2018-07-07 02:44 | NUR ---
REPORT GIVEN TO EDNA COATS
[2018-07-07] MEDS: RT-ALBUTEROL/IPRATROPIUM 3 ML (DUONEB) VIAL INH SCH ×3 (02:50→14:00)
--- NOTE | 2018-07-07 02:56 | NUR ---
REPORT RECEIVED FROM EDNA CONKLIN. ASSUMED CARE AT THIS TIME.
[2018-07-07] MEDS: ENOXAPARIN 40 MG/0.4 ML (LOVENOX) SYR SC SCH (06:31)
[2018-07-07 06:32] VITALS: BP 125/70
[2018-07-07] MEDS: PANTOPRAZOLE 40 MG (PROTONIX) TAB PO SCH (06:32)
[2018-07-07] MEDS: LACTOBACILLUS ACIDOPHILUS (PROBIOTIC) CAPSULE NG SCH ×2 (06:32→11:55)
[2018-07-07 06:48] LABS: BASOPHILS % (AUTO) 0 % (0-10); EOSINOPHILS # (AUTO) 0.1 10^3/uL (0.0-0.3); EOSINOPHILS % (AUTO) 3 % (0-10); HEMATOCRIT 33 % (35-52); HEMOGLOBIN 8.8 G/DL (11.5-16.0); LYMPHOCYTES # (AUTO) 0.6 X 10^3 (1.0-4.0); LYMPHOCYTES % (AUTO) 15 % (12-44); MEAN CORPUSCULAR HEMOGLOBIN 29 PG (25-34); MEAN CORPUSCULAR HGB CONC 27 G/DL (32-36); MEAN CORPUSCULAR VOLUME 110 FL (80-99); MEAN PLATELET VOLUME 9.5 FL (7.4-10.4); MONOCYTES # (AUTO) 0.6 X 10^3 (0.0-1.0); MONOCYTES % (AUTO) 14 % (0-12); NEUTROPHILS # (AUTO) 2.7 X 10^3 (1.8-7.8); NEUTROPHILS % (AUTO) 67 % (42-75); PLATELET COUNT 149 10^3/uL (130-400); RED CELL DISTRIBUTION WIDTH 14.7 % (10.0-14.5)
[2018-07-07] MEDS: inSUlin ASPART (NovoLOG) 1 UNIT/0.01 ML (CHARGE PER UNIT) SC SCH ×2 (07:04→11:23)
[2018-07-07 07:08] LABS: ALANINE AMINOTRANSFERASE < 6 U/L (0-55); ALKALINE PHOSPHATASE 89 U/L (40-136); BILIRUBIN,TOTAL 0.2 MG/DL (0.1-1.0); BUN/CREATININE RATIO 13; CALCIUM 9.5 MG/DL (8.5-10.1); CHLORIDE 87 MMOL/L (98-107); CREATININE SERUM 0.72 MG/DL (0.60-1.30); GFR ESTIMATED > 60; GLUCOSE 81 MG/DL (70-105); POTASSIUM 4.9 MMOL/L (3.6-5.0); SODIUM 145 MMOL/L (135-145)
[2018-07-07 07:24] LABS: CARBON DIOXIDE 49 MMOL/L (21-32)
--- NOTE | 2018-07-07 07:24 | NUR ---
Received call from lab with critical CO2 on the chemistry panel
--- NOTE | 2018-07-07 07:26 | NUR ---
Notified Dr Dunne of CO2 level 49 on the chemistry panel. Responded to call Dr Casey and see if he wants to start her on diamox.
--- NOTE | 2018-07-07 07:40 | NUR ---
Attempted to call Dr Casey, no answer and mailbox was full so could leave a message. Texted Dr Shafer phone with Dr Aranda message about starting diamox or not and CO@ critical lecvel of 49. Upon assessment pt with labored breathing, complaining of chest pressure and diaphoretic. 02 sat 97% on 4L/NC. New orders received and to call rapid response. Pts at bedside and notified pt and pts that I called rapid response and that there were going to be lots of people coming in. Dr Casey had stated that he wanted a lot of things done and that it will quicker to get everything done this way. Addendum: 07/07/18 at 1121 by CARO PIKE RN 08 Dr Casey notified of labored breathing,diaphoretic and chest pressure. New orders received and rapid response called per Dr Shafer request. Rapid response called at 0806. Discussed with pt and pts above note. (Note times)
--- NOTE | 2018-07-07 08:08 | NUR ---
Blood glucose 96.
--- NOTE | 2018-07-07 08:09 | NUR ---
Rapid response team at bedside.
[2018-07-07 08:10] VITALS: BP 151/76
--- NOTE | 2018-07-07 08:10 | NUR ---
Temp 99, Pulse 112, resp 26, B/P 151/76, 02 sat 95% 4L/NC.
--- NOTE | 2018-07-07 08:17 | NUR ---
Dr. Hendrickson here, 2 RN's attempting to start IV, RT obtaining ABG's. Pt alert, talking w Dr. Hendrickson. Pt states that she, "does not want the breathing tube again."
[2018-07-07 08:27] VITALS: BP 171/78
[2018-07-07 08:28] LABS: ABG BASE EXCESS 25.6 MMOL/L (-2.5-2.5); ABG OXYGEN SATURATION 100 % (94-100); ABG PH 7.42 (7.37-7.43); ABG PO2 184 MMHG (79-93); ABG TCO2 54.6 MMOL/L (21.0-31.0)
--- NOTE | 2018-07-07 08:35 | NUR ---
Pt transferred to 4th floor at 0830, report called to Sommer Jansen RN.
[2018-07-07 08:44] LABS: ABG PCO2 83 MMHG (35-45); ALLENS TEST YES-POS; VENTILATOR NO
[2018-07-07 08:45] LABS: INSPIRED O2 4L; PATIENT TEMP 99
--- NOTE | 2018-07-07 08:48 | NUR ---
CALLED DR CARDENAS WITH CRITICAL ABG RESULTS
--- NOTE | 2018-07-07 08:56 | Diagnostic Imaging Report ---
INDICATION: Shortness of breath COMPARISON: 07/05/18 FINDINGS: Single view of the chest demonstrates cardiac enlargement with stable central vascular congestion and chronic interstitial changes. There is trace effusion in the costophrenic angles bilaterally. There is no pneumothorax. Osseous structures stable. IMPRESSION: Unchanged aeration of the lungs. Dictated by: Dictated on workstation # [id number]
[2018-07-07] MEDS: meTOprolol TARTRATE 25 MG (LOPRESSOR) TABLET PO SCH (09:23)
[2018-07-07] MEDS: SINEMET 25/100 (CARBIDOPA/LEVODOPA) TAB PO SCH ×2 (09:23→11:56)
[2018-07-07] MEDS: AMANTADINE 100 MG (SYMMETREL) CAP PO SCH (09:23)
[2018-07-07] MEDS: OXYBUTYNIN (DITROPAN) 5 MG TAB PO SCH (09:24)
[2018-07-07] MEDS: MICONAZOLE 2% POWDER (DESENEX AF) 90 GM TOP SCH (09:26)
--- NOTE | 2018-07-07 09:37 | Pulmonary Progress Note ---
Subjective Date Seen by a Provider: Jul 06, 2018 (Late entry for 07/06/18. Today is 2/ ) Time Seen by a Provider: 10:08 Subjective/Events-last exam pt had episode of SOB last night that is now resolved. Sepsis Event Evaluation Height, Weight, BMI Height: 5'2.00" Weight: 151lbs. 1.6oz. 68.867571mp; 28.3 BMI Method:Stated Exam Exam Vital Signs Date Time Temp Pulse Resp B/P (MAP) Pulse Ox O2 Delivery O2 Flow Rate FiO2 07/07/18 08:42 92 Nasal Cannula 4.00 07/07/18 08:27 97.3 114 24 171/78 (109) 93 High Flow N/C 4.00 07/07/18 08:10 99.0 112 26 151/76 (101) 95 High Flow N/C 4.00 07/07/18 06:32 97.8 97 20 125/70 (88) 99 Nasal Cannula 4.00 07/07/18 02:52 99 Nasal Cannula 4.00 07/07/18 00:26 96 Nasal Cannula 6.00 07/06/18 21:00 99 Nasal Cannula 4.00 07/06/18 20:38 97 123/67 (85) 99 Nasal Cannula 4.00 07/06/18 18:48 100 Nasal Cannula 4.00 07/06/18 18:00 97.9 91 20 120/72 (88) 100 Nasal Cannula 4.00 07/06/18 15:14 98 Nasal Cannula 4.00 I & O 07/07/18 07:00 Intake Total 900 ml Balance 900 ml Height & Weight Height: 5'2.00" Weight: 151lbs. 1.6oz. 68.475191lb; 28.3 BMI Method:Stated General Appearance: No Apparent Distress, WD/WN, Chronically ill, Thin HEENT: PERRL/EOMI, Normal ENT Inspection, Pharynx Normal Neck: Full Range of Motion, Normal Inspection, Non Tender, Supple, Carotid Bruit Respiratory: Chest Non Tender, No Accessory Muscle Use, No Respiratory Distress , Decreased Breath Sounds Cardiovascular: Regular Rate, Rhythm, No Edema, No Gallop, No JVD, No Murmur, Normal Peripheral Pulses Extremity: Normal Capillary Refill, Normal Inspection, Normal Range of Motion, Non Tender, No Calf Tenderness, No Pedal Edema Neurologic/Psychiatric: Alert, Oriented x3, No Motor/Sensory Deficits, Normal Mood/Affect Skin: Normal Color, Warm/Dry Lymphatic: No Adenopathy Results Lab Laboratory Tests 07/07/18 05:27 Assessment/Plan Assessment/Plan Acute on chronic respiratory failure Severe oxygen dependent COPD with AE -Continue duonebs and incruse -Pt does not want home vent to mask. She refuses BiPAP. pt is a DNR now -Continue oxygen -Avoid over oxygenation LLL resolving PNA -S/p bronchoscopy macrocytic Anemia s/p transfusion -Occult stools are negative -Surgery is consulted Debility DARSHANA CARDENAS DO Jul 07, 2018 09:37
--- NOTE | 2018-07-07 10:07 | Pulmonary Progress Note ---
Subjective Time Seen by a Provider: 10:05 Subjective/Events-last exam I was called to bedside by RN secondary to acute worsening SOB. PT is doing better. CP and SOB have improved. She is a DNR. Sepsis Event Evaluation Height, Weight, BMI Height: 5'2.00" Weight: 151lbs. 1.6oz. 68.645495st; 28.3 BMI Method:Stated Exam Exam Vital Signs Date Time Temp Pulse Resp B/P (MAP) Pulse Ox O2 Delivery O2 Flow Rate FiO2 07/07/18 08:42 92 Nasal Cannula 4.00 07/07/18 08:27 97.3 114 24 171/78 (109) 93 High Flow N/C 4.00 07/07/18 08:10 99.0 112 26 151/76 (101) 95 High Flow N/C 4.00 07/07/18 06:32 97.8 97 20 125/70 (88) 99 Nasal Cannula 4.00 07/07/18 02:52 99 Nasal Cannula 4.00 07/07/18 00:26 96 Nasal Cannula 6.00 07/06/18 21:00 99 Nasal Cannula 4.00 07/06/18 20:38 97 123/67 (85) 99 Nasal Cannula 4.00 07/06/18 18:48 100 Nasal Cannula 4.00 07/06/18 18:00 97.9 91 20 120/72 (88) 100 Nasal Cannula 4.00 07/06/18 15:14 98 Nasal Cannula 4.00 I & O 07/07/18 07:00 Intake Total 900 ml Balance 900 ml Height & Weight Height: 5'2.00" Weight: 151lbs. 1.6oz. 68.402553cz; 28.3 BMI Method:Stated General Appearance: WD/WN, Chronically ill, Mild Distress, Thin HEENT: PERRL/EOMI, Normal ENT Inspection, Pharynx Normal Neck: Full Range of Motion, Normal Inspection, Non Tender, Supple, Carotid Bruit Respiratory: Chest Non Tender, No Accessory Muscle Use, No Respiratory Distress , Decreased Breath Sounds Cardiovascular: Regular Rate, Rhythm, No Edema, No Gallop, No JVD, No Murmur, Normal Peripheral Pulses Extremity: Normal Capillary Refill, Normal Inspection, Normal Range of Motion, Non Tender, No Calf Tenderness, No Pedal Edema Neurologic/Psychiatric: Alert, Oriented x3, No Motor/Sensory Deficits, Normal Mood/Affect Skin: Normal Color, Warm/Dry Lymphatic: No Adenopathy Results Lab Laboratory Tests 07/07/18 05:27 Assessment/Plan Assessment/Plan Acute on chronic respiratory failure Severe oxygen dependent COPD with AE -Called by RN secondary to acute onset worsening SOB with CP -Stat CXR, ABG, CBC, BMP ordered -Rapid response ordered -Continue duonebs and incruse -Pt does not want home vent to mask. She refuses BiPAP. pt is a DNR now -Continue oxygen -Avoid over oxygenation -Add morphine for air hunger LLL resolving PNA -S/p bronchoscopy macrocytic Anemia s/p transfusion -Occult stools are negative -Surgery is consulted Debility I discussed with patient, and daughter patients current medical condition. PT continues to have episodes of respiratory distress at night probably from severe JAVIER and COPD. PT refuses CPAP/BIPAP, and vent to mask. I believe she will continue to have these episodes and they appear to be getting worse. Pt and family are in agreement with home hospice. They will need a hospital bed. 60min spent with patient, and family regarding end of life care. I also updated Dr. Dunne and bedside RN on plan of care. Advance Care discuss with: patient, family member (s) End of Life Care: Comfort Measures, Pallative Care, Hospice (Hospital), Hospice Care (Home) Advance Care Discussion: initiate discussion, clarifying prognosis, identified end-of-life goals, developed treatment plan Time spent on discussion(mins): 60 DARSHANA CARDENAS DO Jul 07, 2018 10:06
--- NOTE | 2018-07-07 11:04 | Discharge Summary ---
Diagnosis/Chief Complaint Date of Admission Jun 25, 2018 at 10:25 Date of Discharge Discharge Diagnosis Assessment: Respiratory failure with CO2 retention end of life status COPD myopathy Respiratory failure acute on chronic Severe COPD end stage may be a hospice candidate PD Anemia severe s/p 1 unit of blood transfusion last Sunday Tachycardia consulting Cardiology for close monitoring Dark stools but hemoccult negative so will cancel EGD and colonoscopy which were scheduled but then cancelled due to severe weakness since high risk for respiratory failure Stage 2 decubitus ulcer sacrum Hypercarbia Discharge Summary Discharge Physical Examination Allergies: Coded Allergies: hydrocodone (Verified Allergy, Severe, RASH, 11/10/16) Sulfa (Sulfonamide Antibiotics) (Unverified Allergy, Unknown, 06/18/18) Vitals & I&Os Vital Signs Date Time Temp Pulse Resp B/P (MAP) Pulse Ox O2 Delivery O2 Flow Rate FiO2 07/07/18 11:33 112 26 95 07/07/18 08:42 Nasal Cannula 4.00 07/07/18 08:27 97.3 171/78 (109) 07/05/18 14:32 36 Hospital Course Was the Problem List Reviewed?: Yes Hospital course: Patient had a lengthy hospital course for 12 days in the inpatient rehabilitation unit. She was admitted therefore COPD myopathy. She had been admitted and intubated for respiratory failure and extubated but had significant poor reserve and severe weakness requiring inpatient rehabilitation for recovery prior to going home. She was fully supported with lab monitoring and transfusion of blood for anemia to optimize respiratory recovery. Overall she did participate in rehabilitation therapies although it was a slowed schedule due to the severe weakness. I talked to the patient and her at length multiple times during the hospital stay about DO NOT RESUSCITATE and the fact that her lungs were very severe that I was unsure the recovery potential and how much more improved we were going to be able to obtain prior to going home on home health. She was planning for discharge on 07/08/18 but started having hypercarbia along with slight respiratory insufficiency requiring transfer to fourth floor and pulmonary consultation after rapid response evaluation. Patient and agreed with DO NOT RESUSCITATE and she will go home on hospice. Labs (last 24 hrs) Laboratory Tests 06/25/18 16:00: Glucometer 103 06/25/18 20:16: Glucometer 185H 06/26/18 05:26: Glucometer 93 06/26/18 11:27: Glucometer 93 06/26/18 16:52: Glucometer 96 06/26/18 20:35: Glucometer 122H 06/27/18 05:03: Glucometer 96 06/27/18 10:51: Glucometer 112H 06/27/18 16:51: Glucometer 96 06/27/18 20:19: Glucometer 113H 06/28/18 05:10: White Blood Count 5.4, Red Blood Count 2.54L, Hemoglobin 7.3L, Hematocrit 26L, Mean Corpuscular Volume 104H, Mean Corpuscular Hemoglobin 29, Mean Corpuscular Hemoglobin Concent 28L, Red Cell Distribution Width 13.9, Platelet Count 264, Mean Platelet Volume 8.9, Sodium Level 143, Potassium Level 3.8, Chloride Level 97L, Carbon Dioxide Level 40H, Anion Gap 6, Blood Urea Nitrogen 8, Creatinine 0.81, Estimat Glomerular Filtration Rate > 60, BUN/Creatinine Ratio 10, Glucose Level 87, Calcium Level 9.6, Corrected Calcium 10.5H, Total Bilirubin 0.1, Aspartate Amino Transf (AST/SGOT) 26, Alanine Aminotransferase (ALT/SGPT) < 6, Alkaline Phosphatase 76, Total Protein 5.6L, Albumin 2.9L, Thyroid Stimulating Hormone (TSH) 0.34L 06/28/18 09:30: White Blood Count 7.4, Red Blood Count 2.65L, Hemoglobin 7.7L, Hematocrit 28L, Mean Corpuscular Volume 105H, Mean Corpuscular Hemoglobin 29, Mean Corpuscular Hemoglobin Concent 28L, Red Cell Distribution Width 14.1, Platelet Count 305, Mean Platelet Volume 8.8, Neutrophils (%) (Auto) 76H, Lymphocytes (%) (Auto) 11L , Monocytes (%) (Auto) 10, Eosinophils (%) (Auto) 3, Basophils (%) (Auto) 0, Neutrophils # (Auto) 5.6, Lymphocytes # (Auto) 0.8L, Monocytes # (Auto) 0.7, Eosinophils # (Auto) 0.2, Basophils # (Auto) 0.0, Neutrophils % (Manual) 82, Lymphocytes % (Manual) 8, Monocytes % (Manual) 7, Eosinophils % (Manual) 2, Basophils % (Manual) 0, Band Neutrophils 1, Polychromasia SLIGHT, Hypochromasia SLIGHT, Basophilic Stippling SLIGHT, Anisocytosis SLIGHT, Macrocytosis SLIGHT, Stomatocytes SLIGHT, Absolute Reticulocyte Count 59, Percent Reticulocyte Count 2.23, Pathology Consult Specimen 06/28/18 10:56: Glucometer 118H 06/28/18 16:15: Glucometer 111H 06/28/18 16:50: Stool Occult Blood Immunoassay NEGATIVE 06/28/18 20:58: Glucometer 99 06/29/18 05:31: Glucometer 98 06/29/18 09:20: Iron Level 35, Total Iron Binding Capacity 297, Unsaturated Iron Binding Capacity 262, Transferrin % Saturation 12L, Ferritin 218.1H, Vitamin B12 Level 1330H, Folate 4.9 06/29/18 10:47: Glucometer 127H 06/29/18 16:07: Glucometer 104 06/29/18 20:47: Glucometer 102 06/30/18 04:25: White Blood Count 5.9, Red Blood Count 3.17L, Hemoglobin 9.1#L, Hematocrit 32L, Mean Corpuscular Volume 101H, Mean Corpuscular Hemoglobin 29, Mean Corpuscular Hemoglobin Concent 28L, Red Cell Distribution Width 16.2H, Platelet Count 289, Mean Platelet Volume 9.1, Neutrophils (%) (Auto) 77H, Lymphocytes (%) (Auto) 11L , Monocytes (%) (Auto) 10, Eosinophils (%) (Auto) 2, Basophils (%) (Auto) 0, Neutrophils # (Auto) 4.6, Lymphocytes # (Auto) 0.7L, Monocytes # (Auto) 0.6, Eosinophils # (Auto) 0.1, Basophils # (Auto) 0.0, Sodium Level 145, Potassium Level 3.7, Chloride Level 95L, Carbon Dioxide Level 41H, Anion Gap 9, Blood Urea Nitrogen 7, Creatinine 0.84, Estimat Glomerular Filtration Rate > 60, BUN/ Creatinine Ratio 8, Glucose Level 91, Calcium Level 9.7, Corrected Calcium 10.4H , Total Bilirubin 0.2, Aspartate Amino Transf (AST/SGOT) 17, Alanine Aminotransferase (ALT/SGPT) < 6, Alkaline Phosphatase 87, Total Protein 6.1L, Albumin 3.1L 06/30/18 10:55: Glucometer 133H 06/30/18 15:39: Glucometer 120H 06/30/18 21:21: Glucometer 132H 07/01/18 05:24: Glucometer 95 07/01/18 11:14: Glucometer 93 07/01/18 16:29: Glucometer 118H 07/01/18 20:03: Glucometer 142H 07/02/18 06:04: Glucometer 88 07/02/18 11:23: Glucometer 93 07/02/18 17:13: Glucometer 99 07/02/18 20:46: Glucometer 107 07/03/18 05:26: Glucometer 86 07/03/18 11:00: Glucometer 109 07/03/18 16:07: Glucometer 109 07/03/18 20:46: Glucometer 114H 07/04/18 05:03: Glucometer 86 07/04/18 09:00: White Blood Count 4.2L, Red Blood Count 3.10L, Hemoglobin 8.9L, Hematocrit 33L, Mean Corpuscular Volume 107H, Mean Corpuscular Hemoglobin 29, Mean Corpuscular Hemoglobin Concent 27L, Red Cell Distribution Width 14.9H, Platelet Count 201, Mean Platelet Volume 9.0, Neutrophils (%) (Auto) 69, Lymphocytes (%) (Auto) 14, Monocytes (%) (Auto) 12, Eosinophils (%) (Auto) 4, Basophils (%) (Auto) 1, Neutrophils # (Auto) 2.9, Lymphocytes # (Auto) 0.6L, Monocytes # (Auto) 0.5, Eosinophils # (Auto) 0.2, Basophils # (Auto) 0.0, Sodium Level 142, Potassium Level 4.0, Chloride Level 91L, Carbon Dioxide Level 45H, Anion Gap 6, Blood Urea Nitrogen 6L, Creatinine 0.80, Estimat Glomerular Filtration Rate > 60, BUN/ Creatinine Ratio 8, Glucose Level 137H, Calcium Level 9.6, Corrected Calcium 10.3H, Total Bilirubin 0.2, Aspartate Amino Transf (AST/SGOT) 18, Alanine Aminotransferase (ALT/SGPT) < 6, Alkaline Phosphatase 86, Total Protein 6.0L, Albumin 3.1L 07/04/18 10:57: Glucometer 136H 07/04/18 16:31: Glucometer 104 07/04/18 21:05: Glucometer 105 07/05/18 05:03: Glucometer 87 07/05/18 11:41: Glucometer 85 07/05/18 15:56: Glucometer 107 07/05/18 20:38: Glucometer 155H 07/06/18 06:44: Glucometer 97 07/06/18 12:03: Glucometer 104 07/06/18 16:33: Glucometer 116H 07/06/18 20:41: Glucometer 112H 07/07/18 05:27: White Blood Count 4.0L, Red Blood Count 3.01L, Hemoglobin 8.8L, Hematocrit 33L, Mean Corpuscular Volume 110H, Mean Corpuscular Hemoglobin 29, Mean Corpuscular Hemoglobin Concent 27L, Red Cell Distribution Width 14.7H, Platelet Count 149, Mean Platelet Volume 9.5, Neutrophils (%) (Auto) 67, Lymphocytes (%) (Auto) 15, Monocytes (%) (Auto) 14H, Eosinophils (%) (Auto) 3, Basophils (%) (Auto) 0, Neutrophils # (Auto) 2.7, Lymphocytes # (Auto) 0.6L, Monocytes # (Auto) 0.6, Eosinophils # (Auto) 0.1, Basophils # (Auto) 0.0, Sodium Level 145, Potassium Level 4.9, Chloride Level 87L, Carbon Dioxide Level 49*H, Anion Gap 9, Blood Urea Nitrogen 9, Creatinine 0.72, Estimat Glomerular Filtration Rate > 60, BUN/ Creatinine Ratio 13, Glucose Level 81, Calcium Level 9.5, Corrected Calcium 10.3H, Total Bilirubin 0.2, Aspartate Amino Transf (AST/SGOT) 14, Alanine Aminotransferase (ALT/SGPT) < 6, Alkaline Phosphatase 89, Troponin I 0.030, Total Protein 6.0L, Albumin 3.0L 07/07/18 07:02: Glucometer 91 07/07/18 08:08: Glucometer 96 07/07/18 08:20: Blood Gas Puncture Site LR, Blood Gas Patient Temperature 99, Arterial Blood pH 7.42, Arterial Blood Partial Pressure CO2 83*H, Arterial Blood Partial Pressure O2 184H, Arterial Blood HCO3 52*H, Arterial Blood Total CO2 54.6H, Arterial Blood Oxygen Saturation 100, Arterial Blood Base Excess 25.6H, Foreign Test YES- POS, Blood Gas Ventilator Setting NO, Blood Gas Inspired Oxygen 4L 07/07/18 11:20: Glucometer 156H Pending Labs Laboratory Tests 06/25/18 16:00: Glucometer 103 06/25/18 20:16: Glucometer 185 06/26/18 05:26: Glucometer 93 06/26/18 11:27: Glucometer 93 06/26/18 16:52: Glucometer 96 06/26/18 20:35: Glucometer 122 06/27/18 05:03: Glucometer 96 06/27/18 10:51: Glucometer 112 06/27/18 16:51: Glucometer 96 06/27/18 20:19: Glucometer 113 06/28/18 05:10: White Blood Count 5.4, Red Blood Count 2.54, Hemoglobin 7.3, Hematocrit 26, Mean Corpuscular Volume 104, Mean Corpuscular Hemoglobin 29, Mean Corpuscular Hemoglobin Concent 28, Red Cell Distribution Width 13.9, Platelet Count 264, Mean Platelet Volume 8.9, Sodium Level 143, Potassium Level 3.8, Chloride Level 97, Carbon Dioxide Level 40, Anion Gap 6, Blood Urea Nitrogen 8, Creatinine 0.81 , Estimat Glomerular Filtration Rate > 60, BUN/Creatinine Ratio 10, Glucose Level 87, Calcium Level 9.6, Corrected Calcium 10.5, Total Bilirubin 0.1, Aspartate Amino Transf (AST/SGOT) 26, Alanine Aminotransferase (ALT/SGPT) < 6, Alkaline Phosphatase 76, Total Protein 5.6, Albumin 2.9, Thyroid Stimulating Hormone (TSH) 0.34 06/28/18 09:30: White Blood Count 7.4, Red Blood Count 2.65, Hemoglobin 7.7, Hematocrit 28, Mean Corpuscular Volume 105, Mean Corpuscular Hemoglobin 29, Mean Corpuscular Hemoglobin Concent 28, Red Cell Distribution Width 14.1, Platelet Count 305, Mean Platelet Volume 8.8, Neutrophils (%) (Auto) 76, Lymphocytes (%) (Auto) 11, Monocytes (%) (Auto) 10, Eosinophils (%) (Auto) 3, Basophils (%) (Auto) 0, Neutrophils # (Auto) 5.6, Lymphocytes # (Auto) 0.8, Monocytes # (Auto) 0.7, Eosinophils # (Auto) 0.2, Basophils # (Auto) 0.0, Neutrophils % (Manual) 82, Lymphocytes % (Manual) 8, Monocytes % (Manual) 7, Eosinophils % (Manual) 2, Basophils % (Manual) 0, Band Neutrophils 1, Polychromasia SLIGHT, Hypochromasia SLIGHT, Basophilic Stippling SLIGHT, Anisocytosis SLIGHT, Macrocytosis SLIGHT, Stomatocytes SLIGHT, Absolute Reticulocyte Count 59, Percent Reticulocyte Count 2.23, Pathology Consult Specimen 06/28/18 10:56: Glucometer 118 06/28/18 16:15: Glucometer 111 06/28/18 16:50: Stool Occult Blood Immunoassay NEGATIVE 06/28/18 20:58: Glucometer 99 06/29/18 05:31: Glucometer 98 06/29/18 09:20: Iron Level 35, Total Iron Binding Capacity 297, Unsaturated Iron Binding Capacity 262, Transferrin % Saturation 12, Ferritin 218.1, Vitamin B12 Level 1330, Folate 4.9 06/29/18 10:47: Glucometer 127 06/29/18 16:07: Glucometer 104 06/29/18 20:47: Glucometer 102 06/30/18 04:25: White Blood Count 5.9, Red Blood Count 3.17, Hemoglobin 9.1, Hematocrit 32, Mean Corpuscular Volume 101, Mean Corpuscular Hemoglobin 29, Mean Corpuscular Hemoglobin Concent 28, Red Cell Distribution Width 16.2, Platelet Count 289, Mean Platelet Volume 9.1, Neutrophils (%) (Auto) 77, Lymphocytes (%) (Auto) 11, Monocytes (%) (Auto) 10, Eosinophils (%) (Auto) 2, Basophils (%) (Auto) 0, Neutrophils # (Auto) 4.6, Lymphocytes # (Auto) 0.7, Monocytes # (Auto) 0.6, Eosinophils # (Auto) 0.1, Basophils # (Auto) 0.0, Sodium Level 145, Potassium Level 3.7, Chloride Level 95, Carbon Dioxide Level 41, Anion Gap 9, Blood Urea Nitrogen 7, Creatinine 0.84, Estimat Glomerular Filtration Rate > 60, BUN/ Creatinine Ratio 8, Glucose Level 91, Calcium Level 9.7, Corrected Calcium 10.4 , Total Bilirubin 0.2, Aspartate Amino Transf (AST/SGOT) 17, Alanine Aminotransferase (ALT/SGPT) < 6, Alkaline Phosphatase 87, Total Protein 6.1, Albumin 3.1 06/30/18 10:55: Glucometer 133 06/30/18 15:39: Glucometer 120 06/30/18 21:21: Glucometer 132 07/01/18 05:24: Glucometer 95 07/01/18 11:14: Glucometer 93 07/01/18 16:29: Glucometer 118 07/01/18 20:03: Glucometer 142 07/02/18 06:04: Glucometer 88 07/02/18 11:23: Glucometer 93 07/02/18 17:13: Glucometer 99 07/02/18 20:46: Glucometer 107 07/03/18 05:26: Glucometer 86 07/03/18 11:00: Glucometer 109 07/03/18 16:07: Glucometer 109 07/03/18 20:46: Glucometer 114 07/04/18 05:03: Glucometer 86 07/04/18 09:00: White Blood Count 4.2, Red Blood Count 3.10, Hemoglobin 8.9, Hematocrit 33, Mean Corpuscular Volume 107, Mean Corpuscular Hemoglobin 29, Mean Corpuscular Hemoglobin Concent 27, Red Cell Distribution Width 14.9, Platelet Count 201, Mean Platelet Volume 9.0, Neutrophils (%) (Auto) 69, Lymphocytes (%) (Auto) 14, Monocytes (%) (Auto) 12, Eosinophils (%) (Auto) 4, Basophils (%) (Auto) 1, Neutrophils # (Auto) 2.9, Lymphocytes # (Auto) 0.6, Monocytes # (Auto) 0.5, Eosinophils # (Auto) 0.2, Basophils # (Auto) 0.0, Sodium Level 142, Potassium Level 4.0, Chloride Level 91, Carbon Dioxide Level 45, Anion Gap 6, Blood Urea Nitrogen 6, Creatinine 0.80, Estimat Glomerular Filtration Rate > 60, BUN/ Creatinine Ratio 8, Glucose Level 137, Calcium Level 9.6, Corrected Calcium 10.3 , Total Bilirubin 0.2, Aspartate Amino Transf (AST/SGOT) 18, Alanine Aminotransferase (ALT/SGPT) < 6, Alkaline Phosphatase 86, Total Protein 6.0, Albumin 3.1 07/04/18 10:57: Glucometer 136 07/04/18 16:31: Glucometer 104 07/04/18 21:05: Glucometer 105 07/05/18 05:03: Glucometer 87 07/05/18 11:41: Glucometer 85 07/05/18 15:56: Glucometer 107 07/05/18 20:38: Glucometer 155 07/06/18 06:44: Glucometer 97 07/06/18 12:03: Glucometer 104 07/06/18 16:33: Glucometer 116 07/06/18 20:41: Glucometer 112 07/07/18 05:27: White Blood Count 4.0, Red Blood Count 3.01, Hemoglobin 8.8, Hematocrit 33, Mean Corpuscular Volume 110, Mean Corpuscular Hemoglobin 29, Mean Corpuscular Hemoglobin Concent 27, Red Cell Distribution Width 14.7, Platelet Count 149, Mean Platelet Volume 9.5, Neutrophils (%) (Auto) 67, Lymphocytes (%) (Auto) 15, Monocytes (%) (Auto) 14, Eosinophils (%) (Auto) 3, Basophils (%) (Auto) 0, Neutrophils # (Auto) 2.7, Lymphocytes # (Auto) 0.6, Monocytes # (Auto) 0.6, Eosinophils # (Auto) 0.1, Basophils # (Auto) 0.0, Sodium Level 145, Potassium Level 4.9, Chloride Level 87, Carbon Dioxide Level 49, Anion Gap 9, Blood Urea Nitrogen 9, Creatinine 0.72, Estimat Glomerular Filtration Rate > 60, BUN/ Creatinine Ratio 13, Glucose Level 81, Calcium Level 9.5, Corrected Calcium 10.3 , Total Bilirubin 0.2, Aspartate Amino Transf (AST/SGOT) 14, Alanine Aminotransferase (ALT/SGPT) < 6, Alkaline Phosphatase 89, Troponin I 0.030, Total Protein 6.0, Albumin 3.0 07/07/18 07:02: Glucometer 91 07/07/18 08:08: Glucometer 96 07/07/18 08:20: Blood Gas Puncture Site LR, Blood Gas Patient Temperature 99, Arterial Blood pH 7.42, Arterial Blood Partial Pressure CO2 83, Arterial Blood Partial Pressure O2 184, Arterial Blood HCO3 52, Arterial Blood Total CO2 54.6, Arterial Blood Oxygen Saturation 100, Arterial Blood Base Excess 25.6, Foreign Test YES-POS, Blood Gas Ventilator Setting NO, Blood Gas Inspired Oxygen 4L 07/07/18 11:20: Glucometer 156 Discharge Home Medications: Active Scripts Active Reported Metoprolol Tartrate 25 Mg Tablet 12.5 Mg PO BID TAKES 1/2 (25MG) TABLET Nexium 24Hr (Esomeprazole Magnesium) 20 Mg Capsule.dr 20 Mg PO DAILY PRN Ibuprofen 200 Mg Tablet 200 Mg PO Q6H PRN Spiriva (Tiotropium Froid) 1 Inh Aerp 1 Cap IH HS LAST FILLED #90 02-20-18 Diphenhydramine HCl 25 Mg Capsule 25 Mg PO DAILY PRN Amantadine (Amantadine HCl) 100 Mg Tablet 100 Mg PO DAILY Carbidopa-Levodopa 25-100 Tab (Carbidopa/Levodopa) 1 Each Tablet 1 Tab PO TID Oxybutynin Chloride ER (Oxybutynin Chloride) 5 Mg Tab.er.24 5 Mg PO BID Vitamin D3 (Cholecalciferol (Vitamin D3)) 5,000 Unit Capsule 5,000 Unit PO DAILY Instructions to patient/family Please see electronic discharge instructions given to patient. Diagnosis/Problems Diagnosis/Problems (1) Myopathy Status: Acute (2) Tachycardia Status: Acute (3) COPD exacerbation Status: Resolved Resolution Date/Time: 06/26/18 @ 20:21 (4) Essential (primary) hypertension Status: Chronic (5) Pneumonia Status: Resolved Qualifiers: Qualified Codes: J18.9 - Pneumonia, unspecified organism Resolution Date/Time: 06/25/18 @ 13:47 (6) Parkinson disease Status: Chronic (7) Macrocytic anemia Status: Chronic (8) Transfusion of blood during current hospitalization Status: Acute (9) Melena Status: Resolved Resolution Date/Time: 06/30/18 @ 14:00 (10) Sacral decubitus ulcer, stage II Status: Acute (11) BLANTON (dyspnea on exertion) Status: Chronic (12) Hypercarbia Clinical Quality Measures DVT/VTE Risk/Contraindication: Risk Factor Score Per Nursin RFS Level Per Nursing on Admit: 4+=Very High SEAMUS CHRISTINE DO Jul 07, 2018 11:04
[2018-07-07 11:33] VITALS: BP 151/76
--- NOTE | 2018-07-08 09:15 | Therapy Team Discharge Summary ---
Therapy Discharge Summary Discharge Recommendations Date of Discharge Therapy D/C Recommendations: Home w/ Family Support, Occupational Therapy Home Care, Physical Therapy Home Care Physical Therapy This patient was seen on ARU post acute hospital stay due to respiratory complications. 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 Prior to hospital stay, she was mod indep with all mobiltiy and self care. In fact, she had recently taken a trip to [place] to visit her son. Upon initial evaluaiton on this unit, she was mod assist with transfers, walked 50 ft with assist and went up/down a step with assist. Treatment focused on functional strengthening and activity tolerance with the goal to be mod indep with her mobility to allow her to return home with her spouse. Formal FIM assessment was not completed as pt transferred to ICU unexpectedly; however, last vist seen , she was SBA with transfers, walked with min assist and went up/down a step. She did make functional gains, but was limited due to medical diagnosis and disease progression. She was motivated and cooperative and hopes to discharge home. Pt to discharge from ARU at this time due to transfer off the unit. Goals not fully met at this time. DC PT. Occupational Therapy Decreased Activ Tolerance, Decreased Safety Aware, Decreased UE Strength, Dependent Transfers, Impaired Bed Mobility, Impaired Funct Balance, Impaired Self-Care Skills PT Highway Painter Helper Goals Senior Living Goals PT Highway Painter Helper Goals Time Frame: Jul 12, 2018 Transfers (B,C,W/C) (FIM): 6 Roll Left to Right (QC): 6 Sit to Lying (QC): 6 Lying-Sitting on Side/Bed(QC): 6 Sit to Stand (QC): 6 Chair/Nbe-fv-Fwksz Xfer(QC): 6 Car Transfer (QC): 6 Does the Patient Walk: Yes Gait (FIM): 6 Gait distance (FIM): 3=150 ft Walk 10 feet (QC): 6 Walk 10ft-Uneven Surface(QC): 6 Walk 50ft with 2 Turns (QC): 6 Walk 150 ft (QC): 6 Gait Level of Assist: 6 Gait Assistive Device: FWW (or 4WW) Does the Pt use WC or Scooter?: No Stairs (FIM): 5 (household) # of Steps: 4 1 Step (curb) (QC): 6 4 Steps (QC): 6 12 Steps (QC): 88 Picking up an Object (QC): 4 Goals remain unmet as pt unexpectedly transferred to ICU; unable to fully assess all goals as tasks were not completed prior to transfer . OT Highway Painter Helper Goals Highway Painter Helper Goals Time Frame: Jul 16, 2018 Eating (FIM): 6 Eating (QC): 6 Oral Hygiene (QC): 6 Grooming(FIM): 6 Bathing(FIM): 5 Shower/Bathe Self (QC): 5 Upper Body Dressing(FIM): 6 Upper Body Dressing (QC): 6 Lower Body Dressing(FIM): 5 Lower Body Dressing (QC): 5 On/Off Footwear (QC): 5 Toileting(FIM): 6 Toileting Hygiene (QC): 6 Toilet/Commode Transfer(FIM): 6 Toilet/Commode Transfer (QC): 6 Additional Goals: 1-Demonstrate ADL Tasks, 2-Verbalize Understanding, 3- ImproveStrength/Derrick 1=Demonstrate adherence to instructed precautions during ADL tasks. 2=Patient will verbalize/demonstrate understanding of assistive devices/ modifications for ADL. 3=Patient will improve strength/tolerance for activity to enable patient to perform ADL's. KENNY LAUREANO PT Jul 08, 2018 09:15
--- NOTE | 2018-07-10 08:28 | Therapy Team Discharge Summary ---
Therapy Discharge Summary Discharge Recommendations Date of Discharge Jul 07, 2018 at 08:30 Therapy D/C Recommendations: Home w/ Family Support, Occupational Therapy Home Care, Physical Therapy Home Care Occupational Therapy Decreased Activ Tolerance, Decreased Safety Aware, Decreased UE Strength, Dependent Transfers, Impaired Bed Mobility, Impaired Funct Balance, Impaired Self-Care Skills PT Lunch Counter Manager Goals [facility] Goals PT Lunch Counter Manager Goals Time Frame: Jul 12, 2018 Transfers (B,C,W/C) (FIM): 6 Roll Left to Right (QC): 6 Sit to Lying (QC): 6 Lying-Sitting on Side/Bed(QC): 6 Sit to Stand (QC): 6 Chair/Ieh-mm-Djxby Xfer(QC): 6 Car Transfer (QC): 6 Does the Patient Walk: Yes Gait (FIM): 6 Gait distance (FIM): 3=150 ft Walk 10 feet (QC): 6 Walk 10ft-Uneven Surface(QC): 6 Walk 50ft with 2 Turns (QC): 6 Walk 150 ft (QC): 6 Gait Level of Assist: 6 Gait Assistive Device: FWW (or 4WW) Does the Pt use WC or Scooter?: No Stairs (FIM): 5 (household) # of Steps: 4 1 Step (curb) (QC): 6 4 Steps (QC): 6 12 Steps (QC): 88 Picking up an Object (QC): 4 OT Lunch Counter Manager Goals [facility] Goals Time Frame: Jul 16, 2018 Eating (FIM): 6 (6) Eating (QC): 6 (6) Oral Hygiene (QC): 6 (5) Grooming(FIM): 6 (5) Bathing(FIM): 5 (4) Bathing Location: L Arm, R Arm, L Upper Leg, R Upper Leg, L Lower Leg ( including foot), R Lower Leg (including foot), Chest, Abdomen, Perineal Area Shower/Bathe Self (QC): 5 (4) Upper Body Dressing(FIM): 6 (5) Upper Body Dressing (QC): 6 (5) Lower Body Dressing(FIM): 5 (4) Lower Body Dressing (QC): 5 (4) On/Off Footwear (QC): 5 (5) Toileting(FIM): 6 (5) Toileting Hygiene (QC): 6 (5) Transfers (B,C,W/C) (FIM): 6 (5) Toilet/Commode Transfer(FIM): 6 (5) Toilet/Commode Transfer (QC): 6 (5) Shower Transfer(FIM): 6 (5) Patient has'nt met all goals as pt was transfer to ICU. Additional Goals: 1-Demonstrate ADL Tasks, 2-Verbalize Understanding, 3- ImproveStrength/Derrick 1=Demonstrate adherence to instructed precautions during ADL tasks. 2=Patient will verbalize/demonstrate understanding of assistive devices/ modifications for ADL. 3=Patient will improve strength/tolerance for activity to enable patient to perform ADL's. SHERIE RICHARDSON OT Jul 10, 2018 08:28
== END 2018-07-07 08:30 | disposition short-term general hospital (02) | DRG 91 ==
PROVIDERS: ADMIT Internal Medicine; ATTEND Internal Medicine
DX: G72.89 Other specified myopathies (principal); J44.9 Chronic obstructive pulmonary disease, unspecified; J96.22 Acute and chronic respiratory failure with hypercapnia; J96.21 Acute and chronic respiratory failure with hypoxia; K92.1 Melena; F17.210 Nicotine dependence, cigarettes, uncomplicated; G47.33 Obstructive sleep apnea (adult) (pediatric); Z66 Do not resuscitate; I10 Essential (primary) hypertension; G20 Parkinson's disease; D64.9 Anemia, unspecified; R00.0 Tachycardia, unspecified; L89.152 Pressure ulcer of sacral region, stage 2; R32 Unspecified urinary incontinence; Z87.01 Personal history of pneumonia (recurrent); Z99.81 Dependence on supplemental oxygen
CPT/HCPCS: 36415; 71045; 71046; 80053; 82274; 82607; 82728; 82746; 82805; 82962; 83540; 84443; 84484; 85007; 85025; 85027; 85045; 86850; 86900; 86901; 86920; 93005; 94640; 94760

== ENCOUNTER 2018-07-07 08:35 | Observation (INO) | payer MEDICARE, OTHER ==
[~2018-07-07] VITALS: Ht 157.5 cm; Wt 68.5 kg
[~2018-07-07 08:35] MED LIST changes: -ACETAMINOPHEN 500 MG TAB (TYLENOL) PO PRN; -ALPRAZolam 0.25 MG (XANAX) TAB PO PRN; -CALCIUM CARBONATE 500 MG (TUMS) TAB.CHEW PO PRN; -DOCUSATE SODIUM 100 MG (COLACE) CAP PO PRN; -MELATONIN 3 MG TABLET PO PRN; -ONDANSETRON 4 MG (ZOFRAN) ORAL DISSOLVE TAB PO PRN; -POLYETHYLENE GLYCOL 17 GM (MIRALAX) PACK PO PRN; -diphenhydrAMINE 25 MG TAB (BENADRYL) PO PRN; -guaiFENesin/CODEINE (ROBITUSSIN AC) 10ML UDC PO PRN
--- NOTE | 2018-07-07 08:35 | NUR ---
ROSALIE ALVARADO admitted to room 408-1, with an admitting diagnosis of RESPIRATORY DISTRESS, on 07/07/18 from INPATIENT REHAB via BED, accompanied by AND [employer] DEVELOPER. ROSALIE ALVARADO introduced to surroundings, call light, bed controls, phone, TV, temperature control, lights, meal times, smoking policy, visitor policy, side rail policy, bathrooms and showers. Patient Rights given to patient in the handbook. ROSALIE ALVARADO verbalizes understanding that [facility] is not responsible for the loss or damage to any personal effects or valuables that are kept in the patients possession during their hospitalization. The following Patient Care Plans were discussed with the PATIENT: Discharge Planning, CHRONIC PULMONARY OBSTRUCTIVE DISEASE, and KNOWLEDGE DEFICIT. ROSALIE ALVARADO verbalizes understanding of Interdisciplinary Patient Education. Patient and/or family were informed about the Rapid Response Team and its purpose.
[2018-07-07 08:40] VITALS: BP 170/71
--- NOTE | 2018-07-07 09:48 | Progress Note-Hospitalist ---
Subjective HPI/CC On Admission Date Seen by Provider: Jul 07, 2018 Time Seen by Provider: 08:15 Subjective/Events-last exam Called to bedside due to rapid response from SOB. She states she is short of breath and that is started last night but got worse today. Discussed with patient about transfer to floor vs ICU. She states she would not want BiPAP or Intubation. Discussed with who agrees. Objective Exam Vital Signs Vital Signs Date Time Temp Pulse Resp B/P (MAP) Pulse Ox O2 Delivery O2 Flow Rate FiO2 07/07/18 11:51 98.0 95 22 138/62 (87) 97 Nasal Cannula 4.00 Capillary Refill : General Appearance: Chronically ill, Mild Distress Respiratory: Lungs Clear, Respiratory Distress (labored breathing, tachypneic) Cardiovascular: No Murmur, Tachycardia Gastrointestinal: Normal Bowel Sounds, Non Tender, Soft Extremity: No Calf Tenderness, No Pedal Edema Neurologic/Psychiatric: Alert, Oriented x3 Results/Procedures Lab Patient resulted labs reviewed. Assessment/Plan Assessment and Plan Assess & Plan/Chief Complaint Acute on Chronic Respiratory failure Discussed with patient and family and will make a DNR ABG pending, labs pending RT at bedside for breathing treatment Discussed with that if no significant findings on labs this may just be worsening of known COPD and may be time to consider comfort measures Will consult palliative care Diagnosis/Problems Diagnosis/Problems (1) Acute respiratory failure Status: Resolved Resolution Date/Time: 06/25/18 @ 13:47 GURJIT HARO MD Jul 07, 2018 09:48
[2018-07-07] MEDS ORDERED: RT-ALBUTEROL/IPRATROPIUM 3 ML (DUONEB) VIAL INH PRN (10:00)
[2018-07-07 10:11] VITALS: BP 170/71
[2018-07-07 11:51] VITALS: BP 138/62
--- NOTE | 2018-07-07 12:01 | Progress Note-Hospitalist ---
Progress Note Patient admitted to fourth floor Comfort care orders placed Nebulizer treatments and oxygen will remain Social work consult placed for disposition to home on hospice tomorrow not at the bedside per Dr. Casey contacted him and daughter and everyone understands the plan Sisters at the bedside were very vocal not understanding what the situation is and becoming intimidating towards the nurse so will try to be supportive but has been updated and patient remains a DO NOT RESUSCITATE Sisters actually asked to have us tell the patient that it was just a CPAP machine and to proceed on with intubation which is unethical Will continue to support the patient and will make arrangements for DC tomorrow Poor prognosis given the severity of her lung disease and lack of recovery for 12 days while closely monitored by Pulmonology and nursing staff in inpatient rehab. SEAMUS CHRISTINE DO Jul 07, 2018 12:01
[2018-07-07] MEDS ORDERED: SALIVA STIMULANT MOUTH SPRAY (BIOTENE) 1.5 OZ MM PRN (13:15)
[2018-07-07] MEDS ORDERED: ARTIFICAL TEARS 0.4 ML UNIT DOSE (REFRESH PLUS) OU PRN (13:15)
[2018-07-07] MEDS ORDERED: ONDANSETRON 4 MG/2 ML (SDV) Z0FRAN IVP PRN (13:15)
[2018-07-07] MEDS ORDERED: BISACODYL 10 MG SUPP (DULCOLAX) PR PRN (13:15)
[2018-07-07] MEDS ORDERED: ACETAMINOPHEN 650 MG SUPP (TYLENOL) PR PRN (13:15)
[2018-07-07] MEDS ORDERED: LORazepam INJ 2 MG/ML (ATIVAN) VIAL IVP PRN (13:15)
[2018-07-07] MEDS ORDERED: GLYCOPYRROLATE 0.2 MG/ML (ROBINUL) 2 ML VIAL IV PRN (13:15)
[2018-07-07] MEDS: RT-ALBUTEROL/IPRATROPIUM 3 ML (DUONEB) VIAL INH SCH (19:15)
[2018-07-07] MEDS: morphine INJ 4 MG/ML 1 ML (VIAL/SYRINGE) IV PRN (21:52)
[2018-07-08] MEDS: RT-ALBUTEROL/IPRATROPIUM 3 ML (DUONEB) VIAL INH SCH ×4 (02:54→14:23)
[2018-07-08] MEDS: morphine INJ 4 MG/ML 1 ML (VIAL/SYRINGE) IV PRN ×3 (07:17→14:40)
--- NOTE | 2018-07-08 07:42 | Pulmonary Progress Note ---
Subjective Time Seen by a Provider: 07:36 Subjective/Events-last exam Plan for home hospice. Sepsis Event Evaluation Height, Weight, BMI Height: 5'2.00" Weight: 151lbs. 1.6oz. [id number]; 27.6 BMI Method:Stated Exam Exam Vital Signs Date Time Temp Pulse Resp B/P (MAP) Pulse Ox O2 Delivery O2 Flow Rate FiO2 07/07/18 20:00 Nasal Cannula 3.00 07/07/18 19:17 93 High Flow N/C 5.00 07/07/18 11:51 98.0 95 22 138/62 (87) 97 Nasal Cannula 4.00 07/07/18 10:11 97.6 116 26 170/71 95 Nasal Cannula 1.00 07/07/18 09:00 95 Nasal Cannula 4.00 07/07/18 08:40 98.7 116 26 170/71 (104) 95 Nasal Cannula 4.00 I & O 07/08/18 07:00 Intake Total 470 ml Output Total 600 ml Balance -130 ml Height & Weight Height: 5'2.00" Weight: 151lbs. 1.6oz. 68.799546nf; 27.6 BMI Method:Stated General Appearance: Chronically ill, Mild Distress Respiratory: Lungs Clear, Respiratory Distress (labored breathing, tachypneic) Cardiovascular: No Murmur, Tachycardia Extremity: No Calf Tenderness, No Pedal Edema Neurologic/Psychiatric: Alert, Oriented x3 Assessment/Plan Assessment/Plan Acute on chronic respiratory failure Severe oxygen dependent COPD with AE -Continue duonebs and incruse -Pt does not want home vent to mask. She refuses BiPAP. pt is a DNR now -Continue oxygen -Avoid over oxygenation -Add morphine for air hunger -Plan is for home today with hospice care. LLL resolving PNA -S/p bronchoscopy macrocytic Anemia s/p transfusion -Occult stools are negative -Surgery is consulted Debility DARSHANA CARDENAS DO Jul 08, 2018 07:42
--- NOTE | 2018-07-08 07:53 | History & Physical-Hospitalist ---
History of Present Illness HPI/Chief Complaint CC: Respiratory failure HPI: Patient admitted to fourth floor from rehab. Comfort care orders placed Nebulizer treatments and oxygen will remain Social work consult placed for disposition to home on hospice tomorrow not at the bedside per Dr. Casey contacted him and daughter and everyone understands the plan Sisters at the bedside were very vocal not understanding what the situation is and becoming intimidating towards the nurse so will try to be supportive but has been updated and patient remains a DO NOT RESUSCITATE Sisters actually asked to have us tell the patient that it was just a CPAP machine and to proceed on with intubation which is unethical Will continue to support the patient and will make arrangements for DC tomorrow Poor prognosis given the severity of her lung disease and lack of recovery for 12 days while closely monitored by Pulmonology and nursing staff in inpatient rehab. Patient is now transitioning to and may not need GIP. Met daughter and son. Source: patient Exam Limitations: no limitations Date Seen 07/08/18 Time Seen by a Provider: 08:45 Attending Physician Kerri Dunne DO PCP Neymar Mcdowell DO Referring Physician Date of Admission Jul 07, 2018 at 08:35 Home Medications & Allergies Home Medications Reviewed patient Home Medication Reconciliation performed by pharmacy medication reconciliations master certified rv technician and/or nursing. Patients Allergies have been reviewed. Allergies Allergies Coded Allergies hydrocodone (Verified Allergy, Severe, RASH, 11/10/16) Sulfa (Sulfonamide Antibiotics) (Unverified Allergy, Unknown, 06/18/18) Past [id number]-[id number] Hx Past Med/Social Hx: Reviewed Nursing Past Med/Soc Hx, Reviewed and Corrections made Patient Social History Marrital Status: Employed/Student: retired Alcohol Use: Denies Use Recreational Drug Use: No Former Smoker, Quit: Nov 16, 2015 Type Used: Cigarettes 2nd Hand Smoke Exposure: No Physical Abuse Screen: No Sexual Abuse: No Recent Foreign Travel: No Contact w/other who traveled: No Recent Hopitalizations: No Recent Infectious Disease Expo: No Immunizations Up To Date Tetanus Booster (TDap): Unknown Date of Pneumonia Vaccine: Jun 05, 2016 Date of Influenza Vaccine: Apr 04, 2018 Seasonal Allergies Seasonal Allergies: No Past Medical History Surgeries: Appendectomy, Eye Surgery, Gallbladder Respiratory: COPD, Pneumonia, Sleep Apnea Currently Using CPAP: No Currently Using BIPAP: No Cardiac: Hypertension Neurological: Parkinson's Disease Reproductive: No Sexually Transmitted Disease: No Gastrointestinal: Abdominal Hernia, Chronic Constipation History of Blood Disorders: Yes Family History Diabetes mellitus 19 MOTHER FH: lung cancer 19 FATHER G8 SISTER FH: uterine cancer 19 MOTHER Hypertension 19 FATHER Myocardial infarction 19 FATHER Pacemaker 19 MOTHER UTI (urinary tract infection) 19 MOTHER No Pertinent Family Hx Review of Systems Constitutional: other () Physical Exam Physical Exam Vital Signs Vital Signs - First Documented 07/07/18 08:40 Temp 98.7 Pulse 116 Resp 26 B/P (MAP) 170/71 (104) Pulse Ox 95 O2 Delivery Nasal Cannula O2 Flow Rate 4.00 Capillary Refill : Height, Weight, BMI Height: 5'2.00" Weight: 151lbs. 1.6oz. 68.032625sz; 27.6 BMI Method:Stated General Appearance: Chronically ill, Other (comatose) Results Results/Procedures Labs Patient resulted labs reviewed. Assessment/Plan Admission Diagnosis Assessment: Imminent Respiratory failure acute on chronic Plan: Comfort care protocol Admission Status: Observation Diagnosis/Problems Diagnosis/Problems (1) Respiratory failure Status: Acute Qualifiers: Chronicity: acute on chronic Respiratory failure complication: hypoxia and hypercapnia Qualified Codes: J96.21 - Acute and chronic respiratory failure with hypoxia; J96.22 - Acute and chronic respiratory failure with hypercapnia Clinical Quality Measures DVT/VTE Risk/Contraindication: Risk Factor Score Per Nursin RFS Level Per Nursing on Admit: 4+=Very High KERRI DUNNE DO Jul 08, 2018 07:53
--- NOTE | 2018-07-08 08:35 | NUR ---
CALLED FOR OVERLAY OPERATOR SUPPORT FOR THE FAMILY
--- NOTE | 2018-07-08 08:44 | NUR ---
Spoke to patients he stated what the patient took.
--- NOTE | 2018-07-08 08:45 | NUR ---
Pastoral care visit, pts family by bedside, shared difficulty of accepting pts decline. I offered prayer and support.
--- NOTE | 2018-07-08 09:28 | NUR ---
Palliative Care Note: Referral for Palliative Care received. Visited with patient's Florin and their two children Nate and Daniela. Noted patient to be resting in bed with her eyes closed. Respirations shallow et slightly labored with oxygen at 2lpm in place. She moves her extremities slightly to voice but does not respond beyond that. Her Florin is holding her hand and is tearful. Family voiced that she has had a dramatic decline over the night from holding a conversation to becoming non-responsive. She has since been made comfort care measures only et is receiving medications to support her comfort. Family has voiced that they would like to have [facility] involved with Gloria's care if she becomes GIP. I have asked the nurse Willie to come and assess the patient et visit with the family. Willie has come et it does not appear that the patient meets the criteria for GIP at this time. They will continue to be on stand by if the need arises. At this time it appears that the patient is actively dying et the family voiced that they feel she is being kept comfortable with our current interventions of turning Q2hr, PRN MS for air hunger, et ativan for any restlessness. F/U with Primary care nurse Sommer BISHOP as well. She reports no concerns at this time. Will continue to follow along et assist as needed.
--- NOTE | 2018-07-08 11:20 | NUR ---
Pastoral care visit.
--- NOTE | 2018-07-08 14:20 | NUR ---
Pastoral care visit.
--- NOTE | 2018-07-08 16:58 | NUR ---
PATIENT IS NOT ELIGIBLE FOR EYE DONATION Addendum: 07/08/18 at 1920 by TRINH LEVINE RN TIMES SHOULD BE 185
--- NOTE | 2018-07-08 16:58 | NUR ---
THANIA CALLED. 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 THEY WILL CALL THE FAMILY AND LET US KNOW. ICE PACKS PLACED ON BODY, ARMPITS, GROIN, TORSO Addendum: 07/08/18 at 1921 by TRINH LEVINE RN TIMES SHOULD BE 185
--- NOTE | 2018-07-08 17:25 | Discharge Summary-Hospitalist ---
Diagnosis/Chief Complaint Date of Admission Jul 07, 2018 at 08:35 Date of Discharge Admission Diagnosis Assessment: Imminent Respiratory failure acute on chronic Plan: Comfort care protocol Discharge Diagnosis (1) Respiratory failure Status: Acute Discharge Summary Discharge Physical Exam Allergies: Coded Allergies: hydrocodone (Verified Allergy, Severe, RASH, 11/10/16) Sulfa (Sulfonamide Antibiotics) (Unverified Allergy, Unknown, 06/18/18) Vitals & I&Os Vital Signs Date Time Temp Pulse Resp B/P (MAP) Pulse Ox O2 Delivery O2 Flow Rate FiO2 07/08/18 14:23 Nasal Cannula 2.00 07/08/18 08:00 93 07/07/18 11:51 98.0 95 22 138/62 (87) General Appearance: Other () Hospital Course Was the Problem List Reviewed?: Yes Patient had a brief [facility] course that she is she was admitted for comfort care due to acute on chronic respiratory failure after obtaining DNR. She is placed on comfort care became comatose family arrived at the bedside and patient peacefully without complication. Labs (last 24 hrs) Patient resulted labs reviewed. Discussion & Recommendations Discharge Planning: <30 minutes discharge planning Discharge Home Medications: Active Scripts Active Reported Metoprolol Tartrate 25 Mg Tablet 12.5 Mg PO BID TAKES 1/2 (25MG) TABLET Nexium 24Hr (Esomeprazole Magnesium) 20 Mg Capsule.dr 20 Mg PO DAILY PRN Ibuprofen 200 Mg Tablet 200 Mg PO Q6H PRN Spiriva (Tiotropium [place]) 1 Inh Aerp 1 Cap IH HS LAST FILLED #90 02-20-18 Diphenhydramine HCl 25 Mg Capsule 25 Mg PO DAILY PRN Amantadine (Amantadine HCl) 100 Mg Tablet 100 Mg PO DAILY Carbidopa-Levodopa 25-100 Tab (Carbidopa/Levodopa) 1 Each Tablet 1 Tab PO TID Oxybutynin Chloride ER (Oxybutynin Chloride) 5 Mg Tab.er.24 5 Mg PO BID Vitamin D3 (Cholecalciferol (Vitamin D3)) 5,000 Unit Capsule 5,000 Unit PO DAILY Instructions to patient/family Please see electronic discharge instructions given to patient. Clinical Quality Measures DVT/VTE Risk/Contraindication: Risk Factor Score Per Nursin RFS Level Per Nursing on Admit: 4+=Very High Problem Qualifiers (1) Respiratory failure: Chronicity: acute on chronic Respiratory failure complication: hypoxia and hypercapnia Qualified Codes: J96.21 - Acute and chronic respiratory failure with hypoxia; J96.22 - Acute and chronic respiratory failure with hypercapnia SEAMUS CHRISTINE DO Jul 08, 2018 17:25
--- NOTE | 2018-07-08 23:13 | NUR ---
HOME PICKING UP BODY. TIME OF WAS 1652.
== END 2018-07-08 16:53 | disposition expired ==
LOC: INTOOBSV 08:35 → 4TH 08:35 → UNDOADMOB 08:35 → 4TH 10:11 → UNDODISOB 07-08 16:53
PROVIDERS: ADMIT Internal Medicine; ATTEND Internal Medicine
DX: Z51.5 Encounter for palliative care (principal); J96.21 Acute and chronic respiratory failure with hypoxia; J44.1 Chronic obstructive pulmonary disease with (acute) exacerbation; J44.0 Chronic obstructive pulmonary disease with (acute) lower respiratory infection; J18.9 Pneumonia, unspecified organism; Z66 Do not resuscitate; I10 Essential (primary) hypertension; G20 Parkinson's disease; G47.30 Sleep apnea, unspecified; D53.9 Nutritional anemia, unspecified; R53.81 Other malaise; Z87.891 Personal history of nicotine dependence
CPT/HCPCS: 36415; 84484; 94640; 99211; G0378